=== PATIENT | male | born 1960 | race Caucasian/White ===

== ENCOUNTER 2016-05-05 17:08 | Inpatient (IN) ==
--- NOTE | 2016-05-05 17:40 | EKG Report ---
Stationary ECG Study [facility] ER Test Date: 05/05/2016 5:24:13 PM Pat Name: SAJI IBRAHIM Department: Room: Gender: M [employer] Technician: : 1960 Requested by: Vipul Farrar Order Number: [id number] Reading MD: BELIA CAO Intervals [place] Rate: 90 P: 80 KS: 186 QRS: -85 QRSD: 102 T: 76 QT: 339 QTc: 387 Interpretive Statements SINUS RHYTHM ABNORMAL LEFT AXIS DEVIATION SEPTAL INFARCT, AGE UNDETERMINED Electronically Signed On 05-08-16 12:37:23 CDT by BELIA CAO [email or web address]
[2016-05-05] MEDS ORDERED: ALBUTEROL/IPRATROPIUM 3 ML NEB RESP TX STA ×2 (18:38→19:55)
[2016-05-05 18:53] LABS: Basophils % 0.3 % (0.0-0.8); Eosinophils % 0.1 % (0.00-10.9); Hematocrit 43.1 VOL% (42.0-52.0); Immature Granulocytes % 0.3 %; Immature Granulocytes Absolute 0.02 #; Lymphocytes % 14.4 % (21.2-54.2); Mean Corpuscular HGB Conc 32.5 GM/DL (32-36); Mean Corpuscular Hemoglobin 33 PG (27-34); Mean Corpuscular Volume 102.1 FL (87-102); Mean Platelet Volume 11.9 FL (9.6-12.0); Monocytes # 1.3 10*3/uL (0.11-0.8); Monocytes % 19.1 % (1.7-12.7); Neutrophils # 4.6 10*3/uL (1.4-7.4); Neutrophils % 65.8 % (38.7-73.9); Platelet Count 138 T/CUMM (130-400); Red Blood Count 4.22 MC/CUMM (3.8-5.5)
--- NOTE | 2016-05-05 18:56 | Emergency Department Note ---
I, Gia Lopez, am scribing for, and in the presence of, Ellen Chi DO 18: 45. I, Ellen Chi DO, personally performed the services described in this documentation, ascribed by Gia Lopez in my presence, and it is both accurate and complete [id number] . Arrival - Arrival Chief Complaint: Non-Specific Stated Complaint: BP [place] out pain in right front belly ED Nursing Triage Note: Pt c/o low blood pressure today, cough, and right lower abd pain since Tuesday. Pt saw Dr Corrigan yesterday given Rocephin, Decadron, and Zpak. Mode of Arrival: Wheelchair Limitations: No Limitations Source: Patient, Significant other Time Seen by Provider: 05/05/16 18:29 - History of Present Illness HPI Narrative: Pt is a 55 y/o male that came to the ED with c/o low blood pressure that began this morning and cough and RLQ pain that began 4 days ago. Pt states he went to see Dr. Corrigan yesterday for cough and RLQ pain and was diagnosed with a " severe sinus infection" and treated with a shot of either rocephin or decadron, a zpak, and cough syrup. Pt reports he feels "crappy." He states his blood pressure bottomed out to 69/48 this morning and pt's states pt almost passed out and felt clammy. Pt reports he does take blood pressure medication. Pt states he is also having chest pain from coughing and straining. reports she thinks pt needs fluids due to "not going to the bathroom hardly at all and he takes a fluid pill daily." Pt states he did not take his cough syrup today. No other complaints/pain in ED. Onset (ago): day(s) Consistency: constant Severity: mild, moderate Severity scale (1-10): 4 Quality: other Allergies/Adverse Reactions: Allergies Allergy/AdvReac Type Severity Reaction Status Date / Time No Known Allergies Allergy Unverified 07/30/14 09:04 Home Medications: Home Medications Medication Instructions Recorded Confirmed Type Aspirin [Ecotrin] 325 mg PO QAM 07/30/14 05/05/16 History Carvedilol [Coreg] 25 mg PO BID 07/30/14 05/05/16 History Clopidogrel [Plavix] 75 mg PO QAM 07/30/14 05/05/16 History Losartan Potassium 50 mg PO QAM 07/30/14 05/05/16 History Magnesium Chloride [Slow Mag] 64 mg PO BID 07/30/14 05/05/16 History [place]-3/Dha/Epa/Fish Oil [Fish Oil 1 each PO BID 07/30/14 05/05/16 History 1,000 mg Softgel] Omeprazole 20 mg PO QAM 07/30/14 05/05/16 History Sertraline [Zoloft] 25 mg PO BEDTIME 07/30/14 05/05/16 History Simvastatin [Zocor] 40 mg PO BEDTIME 07/30/14 05/05/16 History Terazosin [Hytrin] 2 mg PO BEDTIME 07/30/14 05/05/16 History hydroCHLOROthiazide 12.5 mg PO QAM 07/30/14 05/05/16 History [Hydrochlorothiazide] Furosemide Tab [Lasix Tab] 20 mg PO QAM 05/05/16 05/05/16 History Spironolactone 12.5 mg PO QAM 05/05/16 05/05/16 History traZODone [Desyrel] 50 mg PO BEDTIME PRN 05/05/16 05/05/16 History Review of System - Review of System 12 point system: reviewed and no additional remarkable complaints except as stated - Review of System Constitutional: Present: other (blood pressure bottoming out). Absent: fever Respiratory: Present: cough Cardiovascular: Present: chest pain (chest pain from coughing and straining) Gastrointestinal: Present: abdominal pain (RLQ abdominal pain) Musculoskeletal: Absent: arm pain, back pain, leg pain, neck pain Skin: Absent: rash Neurological: Absent: headache Psychiatric: Absent: anxiety Medical,Surgical,& Family Hx - Medical History Cardio: History of: Hypertension Endocrine: History of: Dyslipidemia Gastrointestinal: History of: GERD - Surgical History Cardiac Surgeries: Sugical HX of: Cardiac Catheterization (stent x one) Orthopedic Surgeries: Surgical HX of;: Orthopedic Surgery (right elbow) - Social History Smoking Status: Former smoker Exam Vital Signs: Vital Signs Temperature 98.7 F 05/05/16 18:11 Pulse Rate 92 H 05/05/16 18:11 Respiratory Rate 20 05/05/16 18:13 Blood Pressure 109/59 05/05/16 18:11 O2 Sat by Pulse Oximetry 84 L 05/05/16 17:16 - General General appearance: alert, in no apparent distress, obese - Head Head exam: Present: atraumatic, normocephalic - Eye Eye exam: Present: PERRL, EOMI - ENT ENT exam: Present: mucous membranes moist, other (throat is erythematous; drainage present in throat). Absent: mucous membranes dry - Neck Neck exam: Present: full ROM. Absent: tenderness - Chest Chest inspection: Present: symmetric chest wall rise, tenderness (reproductive muscle tenderness) - Respiratory Respiratory exam: Present: rales (rales throughout) - Cardiovascular Cardiovascular exam: Present: regular rate, normal rhythm, normal heart sounds - Abdominal Exam Abdominal exam: Present: soft, distention. Absent: tenderness - Extremities Exam Extremities exam: Present: full ROM. Absent: tenderness, pedal edema - Back Exam Back exam: Present: full ROM. Absent: tenderness - Neurological Exam Neurological exam: Present: alert, oriented X3, CN II-XII intact. Absent: motor sensory deficit - Psychiatric Psychiatric exam: Present: normal affect, normal mood - Skin Skin exam: Present: warm, dry Results - Labs CBC & BMP: 05/05/16 18:22 05/05/16 18:22 Lab Results: I have reviewed the patients labs Labs: Microbiology 05/05/16 17:35 Nasal Aspirate Influenza Types A,B Antigen (YUSUF) - Final Positive for Influenza A Ag Negative for Influenza B Ag Laboratory Tests 05/05/16 18:22 MCV 102.1 H Lymph % (Auto) 14.4 L Williamson % (Auto) 19.1 H Lymph # (Auto) 1.0 L Williamson # (Auto) 1.3 H Laboratory Tests 05/05/16 18:22 Chloride 97 L Anion Gap 20.1 H BUN 51 H Creatinine 2.90 H Glucose 125 H Calcium 8.3 L Magnesium 1.5 L AST 431 H ALT 379 H Total Creatine Kinase 2259 H CK-MB (CK-2) 22.4 H Albumin 3.2 L Globulin 3.9 H Albumin/Globulin Ratio 0.8 L - Diagnostic Findings Procedure: Chest x-ray: report reviewed by me (Chronic scarring in the lungs with progressive minimal atelectasis/infiltration/edema at the lung bases. There are ill-defined densities are follow-up chest x-ray is recommended. ) Disposition Clinical Impression: Influenza A, Dehydration Case discussed with: patient, patient's family Disposition: Still a Patient Condition: Stable Time of Disposition: 19:56
--- NOTE | 2016-05-05 19:19 | XRay Report ---
XR chest 2V Date: 05/05/2016 5:37 PM History: Shortness of breath Comparison: 07/30/2014 Technique: PA and lateral chest Findings: The heart is at the upper lobes normal in size. Chronic scarring in the lungs with progressive parenchymal findings in the lower lung zones with ill-defined densities and minimal atelectasis. Stable small density in the lateral right mid lung zone. Degenerative changes are noted with stable mediastinum. Impression: Chronic scarring in the lungs with progressive minimal atelectasis/infiltration/edema at the lung bases . There are ill-defined densities and follow-up chest x-ray is recommended. PROCEDURE INTERPRETED AT [facility] DEPARTMENT OF RADIOLOGY Final Report Signed by: Dr. Paris Rosas
[2016-05-05 19:35] LABS: Albumin 3.2 G/DL (3.4-5.0); Bilirubin,Total 0.5 MG/DL (0.2-1.0); Calcium 8.3 MG/DL (8.5-10.1); Magnesium 1.5 MG/DL (1.8-2.4); Osmolality,Calculated 291.5 MOS/KG (273-304); Potassium 5.1 MMOL/L (3.5-5.1); Total Protein 7.1 G/DL (6.4-8.3); Troponin I Only 0.041 NG/ML (0.00-0.045)
[2016-05-05] MEDS ORDERED: SODIUM CHLORIDE 0.9% 1,000 ML IV STA (19:38)
[2016-05-05] MEDS ORDERED: HYDROcodone/CHLORPHENIRAMINE ER 5 ML UDCUP PO ONE ×2 (19:49→19:54)
[2016-05-05] MEDS ORDERED: ACETAMINOPHEN 325 MG TABLET PO PRN (20:05)
[2016-05-05] MEDS ORDERED: ONDANSETRON 4 MG/2 ML VIAL IV PRN (20:05)
[2016-05-05] MEDS ORDERED: OSELTAMIVIR 75 MG CAPSULE PO SCH (21:00)
[2016-05-05 21:09] LABS: Lymphocytes 15 % (20-55); Segmented Neutrophils 71 % (50-85); Total Cells Counted 100
[2016-05-05] MEDS ORDERED: traZODone 50 MG TABLET PO PRN (22:13)
--- NOTE | 2016-05-05 22:30 | Family Practice History&Phys ---
Assessment and Plan (1) Influenza A Status: Acute Assessment and plan: Have started on Tamiflu and will treat symptoms Current Visit: Yes (2) Dehydration Status: Acute Assessment and plan: We will hydrate well and monitor closely Current Visit: Yes (3) Renal insufficiency Status: Acute Assessment and plan: This is a new onset of renal insufficiency. Hopefully is secondary to volume depletion versus medication. We will consult nephrology Current Visit: Yes (4) Hypertension Status: Chronic Assessment and plan: Controlled on present meds Current Visit: Yes (5) Elevated liver enzymes Status: Acute Assessment and plan: I reviewed lab performed by 1 of the other physicians in clinic and he has SGOT and SGPT have been elevated for quite some time. I suspect this is secondary to fatty liver disease but will evaluate further Current Visit: Yes (6) Coronary artery disease with stent Status: Chronic Assessment and plan: Stable at present Current Visit: Yes (7) Obstructive sleep apnea Status: Chronic Assessment and plan: Stable on BiPAP Current Visit: Yes (8) Gastroesophageal reflux Status: Chronic Assessment and plan: Stable at present Current Visit: Yes (9) Obesity Status: Acute Current Visit: Yes (10) Previous deep vein thrombosis Status: Chronic Assessment and plan: Presently on Plavix stable at present Current Visit: Yes (11) Maxillary sinusitis Status: Acute Assessment and plan: We will start her on appropriate antibiotics Flonase and other medications. Will monitor closely Current Visit: Yes History of Present Illness Chief complaint: Influenza A and sinusitus History of present illness: Mr. Coles is a 55 year old male Pt is a 55 y/o male that came to the ED with c/o low blood pressure that began this morning and cough and RLQ pain that began 4 days ago. Pt states he went to see Dr. Corrigan yesterday for cough and RLQ pain and was diagnosed with a " severe sinus infection" and treated with a shot of either rocephin or decadron, a zpak, and cough syrup. Pt reports he feels "crappy." He states his blood pressure bottomed out to 69/48 this morning and pt's states pt almost passed out and felt clammy. Pt reports he does take blood pressure medication. Pt states he is also having chest pain from coughing and straining. reports she thinks pt needs fluids due to "not going to the bathroom hardly at all and he takes a fluid pill daily." Pt states he did not take his cough syrup today. No other complaints noted. Patient was noted to have elevated creatinine and liver function studies on admission. Will hydrate and recheck these labs in a.m. Home Medications Medication Instructions Recorded Confirmed Type Aspirin [Ecotrin] 325 mg PO QAM 07/30/14 05/05/16 History Carvedilol [Coreg] 25 mg PO BID 07/30/14 05/05/16 History Clopidogrel [Plavix] 75 mg PO QAM 07/30/14 05/05/16 History Losartan Potassium 50 mg PO QAM 07/30/14 05/05/16 History Magnesium Chloride [Slow Mag] 64 mg PO BID 07/30/14 05/05/16 History [place]-3/Dha/Epa/Fish Oil [Fish Oil 1 each PO BID 07/30/14 05/05/16 History 1,000 mg Softgel] Omeprazole 20 mg PO QAM 07/30/14 05/05/16 History Sertraline [Zoloft] 25 mg PO BEDTIME 07/30/14 05/05/16 History Simvastatin [Zocor] 40 mg PO BEDTIME 07/30/14 05/05/16 History Terazosin [Hytrin] 2 mg PO BEDTIME 07/30/14 05/05/16 History hydroCHLOROthiazide 12.5 mg PO QAM 07/30/14 05/05/16 History [Hydrochlorothiazide] Furosemide Tab [Lasix Tab] 20 mg PO QAM 05/05/16 05/05/16 History Spironolactone 12.5 mg PO QAM 05/05/16 05/05/16 History traZODone [Desyrel] 50 mg PO BEDTIME PRN 05/05/16 05/05/16 History Allergies Allergy/AdvReac Type Severity Reaction Status Date / Time No Known Allergies Allergy Unverified 07/30/14 09:04 Medical,Surgical,& Family Hx - Medical History Cardio: History of: CAD (Previous angioplasty and stents), Hypertension, MA ( History of previous non-STEMI) Psychological: History of: Anxiety Disorders Endocrine: History of: Dyslipidemia Respiratory: History of: Obstructive Sleep Apnea (USES BIPAP AT HOME) Renal: History of: Renal Failure Gastrointestinal: History of: GERD Hematology: History of: Clotting Problems (History of previous DVT) No history of: Blood Transfusion Reaction - Surgical History Cardiac Surgeries: Sugical HX of: Cardiac Catheterization (stent x one) Orthopedic Surgeries: Surgical HX of;: Orthopedic Surgery (right elbow) - Family History Family History: Reports;: Family Cancer (BROTHER LIVER AND KIDNEY CANCER), Family Diabetes, Family Heart Disease, Family Hypertension - Social History Smoking Status: Former smoker Frequency of Alcohol Use: None Type of Drug Use: None Marital Status: Lives With:: Spouse Functional capacity: independent ambulation Exam - Constitutional Vitals: Period Temp Pulse Resp BP Sys/Gasca Pulse Ox Last 24 Hr 98.9 F 87-88 22-26 115/61 89-98 General appearance: mild distress - Head Head exam: Present: normal inspection - ENT ENT exam: Present: normal exam - Neck Neck exam: Present: normal inspection - Respiratory Respiratory exam: Present: clear to auscultation bilaterally - Cardiovascular Cardiovascular exam: Present: regular rate and rhythm - GI/Abdominal GI/Abdominal exam: Present: normal bowel sounds, soft - Extremities Exam Extremities exam: Present: normal inspection - Neurological Exam Neurological exam: Present: alert, oriented X3 - Psychiatric Psychiatric exam: Present: normal affect, normal mood - Skin Skin exam: Present: normal color Results - Labs CBC & BMP: 05/06/16 06:12 05/06/16 06:12
[2016-05-05] MEDS: DOCUSATE SODIUM 100 MG CAPSULE PO SCH (22:40)
[2016-05-05] MEDS: ZALEPLON 5 MG CAPSULE PO PRN (22:40)
[2016-05-05] MEDS: CARVEDILOL 25 MG TABLET PO SCH (22:41)
[2016-05-05] MEDS: SERTRALINE 25 MG TABLET PO SCH (22:41)
[2016-05-05] MEDS: DEXTROSE 5% NACL 0.45% 1,000 ML IV SCH (22:41)
[2016-05-05 23:49] LABS: CKMB % 0.9 %; Troponin I Only 0.041 NG/ML (0.00-0.045)
[2016-05-06] MEDS: ALBUTEROL/IPRATROPIUM 3 ML NEB RESP TX SCH ×4 (00:38→19:41)
[2016-05-06 06:49] LABS: Basophils % 0.6 % (0.0-0.8); Eosinophils % 0.1 % (0.00-10.9); Hematocrit 42.2 VOL% (42.0-52.0); Hemoglobin 13.4 GM/DL (14.0-18.0); Immature Granulocytes % 0.3 %; Immature Granulocytes Absolute 0.02 #; Lymphocytes # 1.9 10*3/uL (1.4-4.0); Lymphocytes % 27.4 % (21.2-54.2); Mean Corpuscular HGB Conc 31.8 GM/DL (32-36); Mean Corpuscular Hemoglobin 34 PG (27-34); Mean Corpuscular Volume 105.5 FL (87-102); Mean Platelet Volume 11.5 FL (9.6-12.0); Monocytes # 1.4 10*3/uL (0.11-0.8); Monocytes % 20.4 % (1.7-12.7); Neutrophils # 3.6 10*3/uL (1.4-7.4); Neutrophils % 51.2 % (38.7-73.9); Platelet Count 138 T/CUMM (130-400)
[2016-05-06] MEDS: DEXTROSE 5% NACL 0.45% 1,000 ML IV SCH (06:52)
[2016-05-06 07:12] LABS: Band Neutrophils 1 % (0-10); Hypochromasia Slight; Lymphocytes 20 % (20-55); Platelet Estimate Normal; Segmented Neutrophils 61 % (50-85); Total Cells Counted 100
[2016-05-06 07:23] LABS: Magnesium 1.7 MG/DL (1.8-2.4)
[2016-05-06 07:25] LABS: Albumin 3.1 G/DL (3.4-5.0); Bilirubin,Total 1.1 MG/DL (0.2-1.0); Osmolality,Calculated 303.1 MOS/KG (273-304); Potassium 5.3 MMOL/L (3.5-5.1); Total Protein 6.6 G/DL (6.4-8.3)
[2016-05-06 07:38] LABS: CKMB % 0.8 %; Troponin I Only 0.044 NG/ML (0.00-0.045)
--- NOTE | 2016-05-06 08:44 | Family Practice Progress Note ---
Family Practice - PN: Subj Interval history: Patient states that he feels better this a.m. but still feels very weak with some dyspnea. Moderate cough. His lung amato are clear to auscultation chest x-ray reveals possible atelectasis versus edema. Denies any chest pain or other related complaints. He had a significant maxillary sinusitis when seen in clinic on Tuesday with significant air-fluid levels.. Has known coronary disease with stents followed by Dr. Rodríguez. His blood pressures have been decreased since admission and I held a.m. blood pressure medications. His O2 sats in the low 90s on 3 L. His weight is up significantly not sure if this is an accurate reading. Patient had temperature 101 this a.m. but afebrile at present. Patient was noted to have new onset of renal insufficiency. His previous creatinine in July 2015 was normal. Hopefully this is multifactorial secondary to medicines and possibly volume depletion. I have held the Spironolactone and losartan and will consult renal. I have ordered a number of additional studies. Have ordered a VQ lung scan patient is on therapeutic dose of Plavix. His cardiac enzymes were elevated on admission but troponins have remained normal. Not sure of the etiology of his testing aware of its multifactorial from volume overload versus other etiology. Will repeat chest x- ray and BNP this a.m. also order a VQ lung scan. Dr. Rodríguez normally sees him for cardiology so will ask him to evaluate. Overall there are multiple factors involved with his present symptomatology. Discussed in detail with patient and . We will monitor closely and repeat abnormal labs. His liver enzymes are slightly elevated but reviewing previous cardiology labs they were very similar values on his labs in September 2015. I suspect this is fatty liver disease but will order additional studies. Exam (Progress Note) - Constitutional Vitals: Period Temp Pulse Resp BP Sys/Gasca Pulse Ox Last 24 Hr 97.8 F-101.2 F 77-88 20-28 88-115/50-65 88-98 Results - Labs CBC & BMP: 05/06/16 06:12 05/06/16 06:12 Assessment and Plan (1) Influenza A Status: Acute Assessment and plan: Have started on Tamiflu and will treat symptoms Current Visit: Yes (2) Dehydration Status: Acute Assessment and plan: We will hydrate well and monitor closely Current Visit: Yes (3) Renal insufficiency Status: Acute Assessment and plan: This is a new onset of renal insufficiency. Hopefully is secondary to volume depletion versus medication. We will consult nephrology Current Visit: Yes (4) Hypertension Status: Chronic Assessment and plan: Controlled on present meds Current Visit: Yes (5) Elevated liver enzymes Status: Acute Assessment and plan: I reviewed lab performed by 1 of the other physicians in clinic and he has SGOT and SGPT have been elevated for quite some time. I suspect this is secondary to fatty liver disease but will evaluate further Current Visit: Yes (6) Coronary artery disease with stent Status: Chronic Assessment and plan: Stable at present Current Visit: Yes (7) Obstructive sleep apnea Status: Chronic Assessment and plan: Stable on BiPAP Current Visit: Yes (8) Gastroesophageal reflux Status: Chronic Assessment and plan: Stable at present Current Visit: Yes (9) Obesity Status: Acute Current Visit: Yes (10) Previous deep vein thrombosis Status: Chronic Assessment and plan: Presently on Plavix stable at present Current Visit: Yes (11) Maxillary sinusitis Status: Acute Assessment and plan: We will start her on appropriate antibiotics Flonase and other medications. Will monitor closely Current Visit: Yes
[2016-05-06] MEDS ORDERED: SPIRONOLACTONE 25 MG TABLET PO SCH (09:00)
[2016-05-06] MEDS ORDERED: FUROSEMIDE 20 MG TABLET PO ONE (09:00)
[2016-05-06] MEDS ORDERED: LOSARTAN 50 MG TABLET PO SCH (09:00)
[2016-05-06] MEDS ORDERED: hydroCHLOROthiazide 12.5 MG CAPSULE PO SCH (09:00)
[2016-05-06] MEDS ORDERED: FUROSEMIDE 20 MG TABLET PO SCH ×2 (09:00)
--- NOTE | 2016-05-06 09:26 | XRay Report ---
Exam: XR chest 2V Indication: Shortness of breath Comparison study: 05/05/2016 Findings: The heart, mediastinum and bony structures are stable from prior. Partial clearing of patchy perihilar and basilar interstitial opacities are noted since prior study. Minimal peribronchial thickening is suggested in the infrahilar region on the lateral view. There is no focal consolidation, pneumothorax or pleural effusion identified. Impression: No focal consolidation. Partial clearing of basilar interstitial opacities may represent resolving atelectasis or interstitial infiltrates. Minimal residual peribronchial thickening may represent a degree of underlying bronchitis. PROCEDURE INTERPRETED AT [facility] DEPARTMENT OF RADIOLOGY Final Report Signed by: Doyle Christianson
--- NOTE | 2016-05-06 09:26 | XRay Report ---
XR sinus Clinical Information: maxillary sinusitis Comparison: None Findings: Paranasal sinuses appear clear. There is no suspicious osseous or soft tissue lesion identified. Impression: Negative study PROCEDURE INTERPRETED AT [facility] DEPARTMENT OF RADIOLOGY Final Report Signed by: Doyle Christianson
[2016-05-06 10:00] LABS: Hepatitis A Ab IgM Quant 0.22 Index; Hepatitis A Ab IgM Result Negative (Negative); Hepatitis B Core IgM Quant 0.18 Index; Hepatitis B Core IgM Result Negative (Negative); Hepatitis B Surface Ag Quant < 0.10 Index; Hepatitis B Surface Ag Result Negative (Negative); Hepatitis C Virus Ab Quant 0.15 Index; Hepatitis C Virus Ab Result Negative (Negative)
[2016-05-06] MEDS: FLUTICASONE 50 MCG NASAL SPRAY 16 GM BOTTLE BOTH NARES SCH (10:20)
[2016-05-06] MEDS: OSELTAMIVIR 30 MG CAPSULE PO SCH ×2 (10:20→21:01)
[2016-05-06] MEDS: MAGNESIUM CHLORIDE 64 MG TABLET PO SCH ×2 (10:20→21:02)
[2016-05-06] MEDS: DOCUSATE SODIUM 100 MG CAPSULE PO SCH ×3 (10:21→21:03)
[2016-05-06] MEDS: CARVEDILOL 25 MG TABLET PO SCH ×2 (10:21→10:29)
[2016-05-06] MEDS: CLOPIDOGREL 75 MG TABLET PO SCH ×2 (10:21→10:28)
[2016-05-06] MEDS: PANTOPRAZOLE 40 MG TABLET PO SCH (10:21)
[2016-05-06] MEDS: OMEGA 3 ACID ETHYL ESTERS 1 GM CAPSULE PO SCH ×2 (10:22→21:02)
[2016-05-06] MEDS: PSEUDOEPHEDRINE 30 MG TABLET PO PRN ×2 (10:22→21:01)
--- NOTE | 2016-05-06 10:22 | Nuclear Medicine Report ---
History: Acute shortness of breath Date: 05/06/2016 Study: Nuclear medicine ventilation/perfusion lung study Comparison exam: Chest x-ray 05/06/2016 Following the inhalation of 40 mCi of aerosolized technetium 99m DTPA, images were obtained of the lungs in 6 projections for the purpose of a ventilation study. Then, following the administration of 5 mCi technetium 99m MAA, images were acquired of the lungs in the same projections for the purpose of a perfusion exam. There are no unmatched moderate or large segmental perfusion defects within either lung. There are numerous matched areas of decreased ventilation and perfusion of varying sizes involving all lobes of both lungs. In general, the ventilation abnormalities are more numerous and are larger than the perfusion abnormalities. There are no corresponding radiographic infiltrates on the comparison chest x-ray. Impression: The study is abnormal, but is considered low probability for pulmonary embolic disease. Numerous matched areas of ventilation and perfusion are identified such as those which can be seen with COPD PROCEDURE INTERPRETED AT [facility] DEPARTMENT OF RADIOLOGY Final Report Signed by: Dr. Katty Melo
[2016-05-06] MEDS: LEVOFLOXACIN INJ 500 MG in PREMIX 1 EACH IV SCH (10:23)
--- NOTE | 2016-05-06 10:40 | Ultrasound Report ---
History: Elevated liver enzymes Date: 05/06/2016 Study: Abdominal ultrasound complete Comparison exam: October 20, 2007 Real-time ultrasound images are captured and archived. The liver measures mildly elongated at 18 cm. There are some mildly increased echoes throughout the hepatic parenchyma, suggesting some diffuse fatty infiltration. There is no focal hepatic mass. Portions of the liver are obscured by bowel gas. The abdominal aorta, IVC, and pancreas are largely obscured by bowel gas. There is a negative sonographic Bonilla sign. The gallbladder wall measures mildly thickened at 4.9 mm. There is no cholelithiasis or abnormal pericholecystic fluid. There is a negative sonographic Bonilla sign. The common bile duct measures 7.4 mm diameter. There is no intrahepatic biliary dilatation. The right kidney measures 13.6 cm length; left kidney measures 13.7 cm. The kidneys are normal in appearance. There is no splenic mass. The spleen is normal size, measuring 12.7 x 6.3 x 7.4 cm. Impression: Mild hepatomegaly. Hepatic steatosis. Nonspecific mild gallbladder wall thickening, though there is no evidence of cholelithiasis. There is a negative sonographic Bonilla sign. Some of the midline structures are obscured by bowel gas PROCEDURE INTERPRETED AT [facility] DEPARTMENT OF RADIOLOGY Final Report Signed by: Dr. Katty Melo
--- NOTE | 2016-05-06 11:54 | Nephrology Consult Note ---
History of Present Illness Chief complaint: ARF History of present illness: Mr. Coles is a 55 year old male admitted with a several day history of nonproductive cough and mild PERRY. He had symptomatic hypotension yesterday. He was noted to have renal insufficiency at the time of admission. This is new for him. He denies dysuria hematuria or obstructive symptoms. Home Medications Medication Instructions Recorded Confirmed Type Aspirin [Ecotrin] 325 mg PO QAM 07/30/14 05/05/16 History Carvedilol [Coreg] 25 mg PO BID 07/30/14 05/05/16 History Clopidogrel [Plavix] 75 mg PO QAM 07/30/14 05/05/16 History Losartan Potassium 50 mg PO QAM 07/30/14 05/05/16 History Magnesium Chloride [Slow Mag] 64 mg PO BID 07/30/14 05/05/16 History [place]-3/Dha/Epa/Fish Oil [Fish Oil 1 each PO BID 07/30/14 05/05/16 History 1,000 mg Softgel] Omeprazole 20 mg PO QAM 07/30/14 05/05/16 History Sertraline [Zoloft] 25 mg PO BEDTIME 07/30/14 05/05/16 History Simvastatin [Zocor] 40 mg PO BEDTIME 07/30/14 05/05/16 History Terazosin [Hytrin] 2 mg PO BEDTIME 07/30/14 05/05/16 History hydroCHLOROthiazide 12.5 mg PO QAM 07/30/14 05/05/16 History [Hydrochlorothiazide] Furosemide Tab [Lasix Tab] 20 mg PO QAM 05/05/16 05/05/16 History Spironolactone 12.5 mg PO QAM 05/05/16 05/05/16 History traZODone [Desyrel] 50 mg PO BEDTIME PRN 05/05/16 05/05/16 History Allergies Allergy/AdvReac Type Severity Reaction Status Date / Time No Known Allergies Allergy Unverified 07/30/14 09:04 Medical,Surgical,& Family Hx - Medical History Cardio: History of: CAD (Previous angioplasty and stents), Hypertension, [place] ( History of previous non-STEMI) Psychological: History of: Anxiety Disorders Endocrine: History of: Dyslipidemia Respiratory: History of: Obstructive Sleep Apnea (USES BIPAP AT HOME) Renal: History of: Renal Failure Gastrointestinal: History of: GERD Hematology: History of: Clotting Problems (History of previous DVT) No history of: Blood Transfusion Reaction - Surgical History Cardiac Surgeries: Sugical HX of: Cardiac Catheterization (stent x one) Orthopedic Surgeries: Surgical HX of;: Orthopedic Surgery (right elbow) - Family History Family History: Reports;: Family Cancer (BROTHER LIVER AND KIDNEY CANCER), Family Diabetes, Family Heart Disease, Family Hypertension - Social History Smoking Status: Former smoker Frequency of Alcohol Use: None Type of Drug Use: None Review of Systems Constitutional: fatigue, no chills Cardiovascular: dyspnea on exertion, no chest pain at rest, no chest pain with activity Respiratory: cough, dyspnea on exertion Gastrointestinal: abdominal pain, no diarrhea, no nausea Genitourinary: as per HPI Neurological: dizziness, no confusion Exam - Vital Signs Vital signs: Period Temp Pulse Resp BP Sys/[place] Pulse Ox Last 24 Hr 97.8 F-101.2 F 77-88 20-28 88-115/50-65 88-98 Exam: Gen.: Alert and oriented x3. ENT: Pupils equal round reactive to light. EOMs intact. Mucous membranes moist. Neck: Supple. No JVD or bruit. Cardiovascular: Regular rate and rhythm. No murmur rub or gallop Lungs: Mild expiratory wheezes in the right base otherwise clear Abdomen: Soft. Nontender. Positive bowel sounds. No organomegaly Extremities: No edema Results - Labs CBC & BMP: 05/06/16 06:12 05/06/16 06:12 Assessment and Plan (1) ARF (acute renal failure) Status: Acute Assessment and plan: 55-year-old man admitted with: * Influenza A. He has minimal wheezes in the right base. Chest x-ray looks like atelectasis as opposed to volume excess. * Hypertension. Blood pressure meds will be held * ARF. This is secondary to hypotension and mild volume depletion. ARB is contributing. It has been held. Renal ultrasound normal * CAD * Obstructive sleep apnea * Elevated LFTs. Ultrasound shows mild hepatomegaly Current Visit: Yes (2) Elevated liver enzymes Status: Acute Current Visit: Yes (3) Influenza A Status: Acute Current Visit: Yes (4) Coronary artery disease with stent Status: Chronic Current Visit: Yes (5) Hypertension Status: Chronic Current Visit: Yes (6) Obstructive sleep apnea Status: Chronic Current Visit: Yes
[2016-05-06 14:04] LABS: Apearance,Urine CLEAR (Clear); Bilirubin,Urine Negative (Negative); Blood, Urine Moderate mg/dL (Negative); Glucose,Urine (UA) Negative (Negative); Ketones,Urine Negative (Negative); Mucus,Urine Occasional /LPF (Occasional); Nitrite,Urine Negative (Negative); Protein,Urine Negative; RBC,Urine 8 /HPF (0-4); Squamous Epithelial Cell,Urine Occasional /HPF (0-10); Urine Color Yellow (Yellow); Urine Specific Gravity 1.011 (1.001-1.035); Urine Urobilinogen < 2.0 EU/DL (0.2-1.0); WBC,Urine 1 /HPF (0-6)
[2016-05-06] MEDS: MAGNESIUM SULF IV SCH ×2 (16:27→23:13)
[2016-05-06] MEDS: DEXTROSE 5% IV SCH ×2 (16:27→23:13)
[2016-05-06] MEDS: NACL 0.45% IV SCH ×2 (16:27→23:13)
--- NOTE | 2016-05-06 17:07 | Cardiology Consult Note ---
Ryan Collins April, RN, am scribing for, and in the presence of, Lance Hamlin MD 17:06. Assessment and Plan - Time spent with patient Time spent with patient: Greater than 30 minutes (Due to assessment, planning, and documentation) (1) Coronary artery disease with stent Status: Chronic Assessment and plan: 1. 55-year-old overweight WF with previous hypertension, dyslipidemia EDA on BiPAP, and CAD status post proximal LAD stenting in 2006 (no obstructive disease at catheterization February 2014), who presents with fever oh (101.3 this morning), hypotension, cough, suggestive of flu with dehydration 2. Prerenal azotemia, improved some with IV fluid; renal service is following 3. Elevated CPK and liver function tests are noted 4. Previously normal LV systolic function 5. Do not suspect cardiac etiology to his symptoms; his dyspnea seems to improve. 6. We'll follow with you Current Visit: Yes (2) Elevated liver enzymes Status: Acute Current Visit: Yes (3) Influenza A Status: Acute Current Visit: Yes (4) Hypertension Status: Chronic Current Visit: Yes (5) Obstructive sleep apnea Status: Chronic Current Visit: Yes History of Present Illness - Data of Consult Patient: known to practice within the last 3 years Consult date: 05/06/16 Requesting Physician: Jigar Corrigan - Consult Narrative Reason for consult: Dyspnea with known coronary artery disease History of present illness: Mr. Coles is a 55 year old male who is followed by Dr. downing with a history of hypertension, obstructive sleep apnea (uses BiPAP nightly), gastroesophageal reflux disease, dyslipidemia, and coronary artery disease. His chart notes a history of DVT, but the patient tells me he does not remember having blood clots. He had a heart cath in November 2006 where the proximal LAD was stented. He also had a heart catheter in February 2014 that showed no significant obstructive disease and minimal luminal irregularities. A small eccentric ulcer was noted in the proximal right coronary artery, this was of uncertain significance. Denies any other surgeries except elbow. Family history includes mother with hypertension, heart disease, and stroke; father with diabetes, heart disease, and hypertension; sister with heart disease and hypertension; and brother with heart disease, hypertension, and cancer. He reports he is quit smoking approximately 2 years ago. He states he was in his usual state of health until this past Tuesday. They were out of town and he developed a dry cough and did not feel well. He saw his primary doctor on Tuesday and was given some medications, but on Tuesday he began to feel worse. On Tuesday the coughing continued, he began to experience dizziness and clamminess, and his blood pressure dropped to 77/48 according to the patient. He reports having dyspnea on exertion, but states it is no worse than usual. He denies having any chest pain with these episodes. He does have a sore throat and sinus congestion and has been feeling weak and fatigued. He also complains of right lower quadrant abdominal pain that began several days ago. We have been asked to see the patient for dyspnea with known coronary artery disease. Currently patient is lying in bed in no acute distress, BiPAP is in use. He denies chest pain or palpitations, he reports his breathing is improved. Blood pressures running 90/50, morning blood pressure medicines have been held. Telemetry shows sinus rhythm with heart rates in the 70s. Troponin has been negative since admission, ranging from 0.041-0.038. His CK has been elevated greater than 2000 and CK-MB was 22.4 on admission and today it is down to 16.9. His liver enzymes are also elevated. Of note he did test positive for the flu. CC: Jigar Corrigan, DO - Home Medications and Allergies Home Medications: Home Medications Medication Instructions Recorded Confirmed Type Aspirin [Ecotrin] 325 mg PO QAM 07/30/14 05/05/16 History Carvedilol [Coreg] 25 mg PO BID 07/30/14 05/05/16 History Clopidogrel [Plavix] 75 mg PO QAM 07/30/14 05/05/16 History Losartan Potassium 50 mg PO QAM 07/30/14 05/05/16 History Magnesium Chloride [Slow Mag] 64 mg PO BID 07/30/14 05/05/16 History [place]-3/Dha/Epa/Fish Oil [Fish Oil 1 each PO BID 07/30/14 05/05/16 History 1,000 mg Softgel] Omeprazole 20 mg PO QAM 07/30/14 05/05/16 History Sertraline [Zoloft] 25 mg PO BEDTIME 07/30/14 05/05/16 History Simvastatin [Zocor] 40 mg PO BEDTIME 07/30/14 05/05/16 History Terazosin [Hytrin] 2 mg PO BEDTIME 07/30/14 05/05/16 History hydroCHLOROthiazide 12.5 mg PO QAM 07/30/14 05/05/16 History [Hydrochlorothiazide] Furosemide Tab [Lasix Tab] 20 mg PO QAM 05/05/16 05/05/16 History Spironolactone 12.5 mg PO QAM 05/05/16 05/05/16 History traZODone [Desyrel] 50 mg PO BEDTIME PRN 05/05/16 05/05/16 History Allergies/Adverse Reactions: Allergies Allergy/AdvReac Type Severity Reaction Status Date / Time No Known Allergies Allergy Unverified 07/30/14 09:04 - Constitutional Constitutional: Present: as per HPI - EENT Eyes: Absent: blurry vision, loss of vision Ears: Absent: decreased hearing, tinnitus Nose, mouth and throat: Present: nasal congestion, sinus pressure, sore throat. Absent: epistaxis, headache(s), hoarseness, neck pain - Cardiovascular Cardiovascular: Present: dyspnea on exertion, lightheadedness, orthopnea. Absent: chest pain at rest, chest pain with activity, diaphoresis, dyspnea, edema, radiating jaw, neck or arm pain, palpitations - Respiratory Respiratory: Present: cough (Dry), dyspnea on exertion. Absent: dyspnea, hemoptysis, wheezing - Gastrointestinal Gastrointestinal: Present: abdominal pain (Right lower quadrant). Absent: constipation, diarrhea, hematemesis, hematochezia, melena, nausea, vomiting - Genitourinary Genitourinary: Absent: difficulty urinating, dysuria - Musculoskeletal Musculoskeletal: Present: limited range of motion. Absent: muscle weakness - Neurological Neurological: Present: dizziness. Absent: abnormal gait, abnormal speech, confusion, frequent falls, headache(s), syncope - Psychiatric Psychiatric: Absent: confusion, depression - Endocrine Endocrine: Present: fatigue - Hematologic/Lymphatic Hematologic/Lymphatic: Present: easy bruising (Since starting on Plavix) Medical,Surgical,& Family Hx - Medical History Cardio: History of: CAD (Previous angioplasty and stent in 2006), Hypertension, [place] (History of previous non-STEMI) Psychological: History of: Anxiety Disorders Endocrine: History of: Dyslipidemia Respiratory: History of: Obstructive Sleep Apnea (USES BIPAP AT HOME) Renal: History of: Renal Failure Gastrointestinal: History of: GERD Hematology: History of: Clotting Problems (History of previous DVT) - Surgical History Cardiac Surgeries: Sugical HX of: Cardiac Catheterization (stent x one) Orthopedic Surgeries: Surgical HX of;: Orthopedic Surgery (right elbow) - Family History Family History: Reports;: Family Cancer (BROTHER LIVER AND KIDNEY CANCER), Family Diabetes (Father), Family Heart Disease (Mother father siblings), Family Hypertension (Mother father sibling), Family Stroke (Mother) - Social History Smoking Status: Former smoker (Reports he quit approximately 2 years ago) Frequency of Alcohol Use: Occasionally Type of Drug Use: None Functional capacity: independent ambulation Physical Examination Vital Signs Temp Pulse Resp BP Pulse Ox 98.7 F 92 H 26 H 109/59 84 L 05/05/16 17:16 05/05/16 17:16 05/05/16 17:16 05/05/16 17:16 05/05/16 17:16 General: Present: Appears Well, No Apparent Distress HEENT: Present: PERRL, Mucus Membranes Moist Neck: Present: Supple Neck, Midline Trachea, No JVD/HJR Cardiac: Present: Reg Rate and Rhythm, No Murmur Lungs: Present: Normal Breath Sounds, Oxygen (BiPAP), No Wheeze, Rales, Rhonchi Neuro: Absent: Numbness, Essential Tremor Abdomen: Present: Soft, Active Bowel Sounds, Tender (Right lower quadrant). Absent: Distended Skin: Present: Clear Musculoskeletal: Present: Decreased Range of Motion (The) Extremities: Present: No Edema Result/EKG - Labs CBC & BMP: 05/06/16 06:12 05/06/16 06:12 Lab Results: I have reviewed the past 24 hour labs Labs: Laboratory Results - last 24 hr 05/05/16 05/06/16 05/06/16 22:46 06:06 06:12 WBC 7.0 RBC 4.00 Hgb 13.4 L Hct 42.2 MCV 105.5 H MCH 34 MCHC 31.8 L RDW 13.0 Plt Count 138 MPV 11.5 Neut % (Auto) 51.2 Lymph % (Auto) 27.4 [place] % (Auto) 20.4 H Eos % (Auto) 0.1 Baso % (Auto) 0.6 Neut # (Auto) 3.6 Lymph # (Auto) 1.9 [place] # (Auto) 1.4 H Eos # (Auto) 0.0 Baso # (Auto) 0.0 Total Counted 100 Immature Gran % 0.3 Nucleated RBC % 0.0 Immature Gran # 0.02 Segmented Neutrophils 61 Band Neutrophils 1 Lymphocytes 20 Monocytes 17 H Basophils 1.0 H Nucleated RBCs # 0.00 Platelet Estimate Normal Hypochromasia Slight Morphology Comment Sodium Potassium Chloride Carbon Dioxide Anion Gap BUN Creatinine GFR Calculation BUN/Creatinine Ratio Glucose Calculated Osmolality Calcium Magnesium Total Bilirubin AST ALT Alkaline Phosphatase Total Creatine Kinase 2123 H CK-MB (CK-2) 19.8 H CK and CKMB Interp 0.9 Troponin I 0.041 B-Natriuretic Peptide Total Protein Albumin Globulin Albumin/Globulin Ratio Triglycerides Cholesterol LDL Cholesterol VLDL Cholesterol HDL Cholesterol Heart Disease Risk Ratio Hepatitis A IgM Ab Negative Hep Bs Antigen Negative Hep B Core IgM Ab Negative Hepatitis C Antibody Negative 05/06/16 05/06/16 05/06/16 06:12 06:12 06:12 WBC RBC Hgb Hct MCV MCH MCHC RDW Plt Count MPV Neut % (Auto) Lymph % (Auto) [place] % (Auto) Eos % (Auto) Baso % (Auto) Neut # (Auto) Lymph # (Auto) [place] # (Auto) Eos # (Auto) Baso # (Auto) Total Counted Immature Gran % Nucleated RBC % Immature Gran # Segmented Neutrophils Band Neutrophils Lymphocytes Monocytes Basophils Nucleated RBCs # Platelet Estimate Hypochromasia Morphology Comment Sodium 142 Potassium 5.3 H Chloride 99 Carbon Dioxide 31 Anion Gap 17.3 H BUN 57 H Creatinine 2.30 H GFR Calculation 44 BUN/Creatinine Ratio 24.00 H Glucose 193 H Calculated Osmolality 303.1 Calcium 8.0 L Magnesium 1.7 L Total Bilirubin 1.10 H AST 349 H ALT 322 H Alkaline Phosphatase 73 Total Creatine Kinase 2077 H CK-MB (CK-2) 16.9 H CK and CKMB Interp 0.8 Troponin I 0.044 B-Natriuretic Peptide Total Protein 6.6 Albumin 3.1 L Globulin 3.5 Albumin/Globulin Ratio 0.8 L Triglycerides 205 H Cholesterol 135 LDL Cholesterol 70.0 VLDL Cholesterol 41.0 HDL Cholesterol 45 Heart Disease Risk Ratio 3.00 Hepatitis A IgM Ab Hep Bs Antigen Hep B Core IgM Ab Hepatitis C Antibody 05/06/16 05/06/16 08:42 08:42 WBC RBC Hgb Hct MCV MCH MCHC RDW Plt Count MPV Neut % (Auto) Lymph % (Auto) [place] % (Auto) Eos % (Auto) Baso % (Auto) Neut # (Auto) Lymph # (Auto) [place] # (Auto) Eos # (Auto) Baso # (Auto) Total Counted Immature Gran % Nucleated RBC % Immature Gran # Segmented Neutrophils Band Neutrophils Lymphocytes Monocytes Basophils Nucleated RBCs # Platelet Estimate Hypochromasia Morphology Comment Sodium Potassium Chloride Carbon Dioxide Anion Gap BUN Creatinine GFR Calculation BUN/Creatinine Ratio Glucose Calculated Osmolality Calcium Magnesium Total Bilirubin AST ALT Alkaline Phosphatase Total Creatine Kinase CK-MB (CK-2) CK and CKMB Interp Troponin I 0.038 B-Natriuretic Peptide 29 Total Protein Albumin Globulin Albumin/Globulin Ratio Triglycerides Cholesterol LDL Cholesterol VLDL Cholesterol HDL Cholesterol Heart Disease Risk Ratio Hepatitis A IgM Ab Hep Bs Antigen Hep B Core IgM Ab Hepatitis C Antibody - EKG EKG results: interpreted by me EKG shows: sinus rhythm Boubacar Collins Randall Scott, MD, personally performed the services described in this documentation, ascribed by Filomena Davis RN in my presence, and it is both accurate and complete [id number] .
[2016-05-06] MEDS: TERAZOSIN 2 MG CAPSULE PO SCH ×2 (21:01→21:13)
[2016-05-06] MEDS: ZALEPLON 5 MG CAPSULE PO PRN (21:01)
[2016-05-06] MEDS: SIMVASTATIN 40 MG TABLET PO SCH (21:02)
[2016-05-06] MEDS: SERTRALINE 25 MG TABLET PO SCH (21:02)
[2016-05-07] MEDS: ALBUTEROL/IPRATROPIUM 3 ML NEB RESP TX SCH ×4 (03:45→19:50)
[2016-05-07 05:53] LABS: Basophils % 0.5 % (0.0-0.8); Eosinophils % 0.8 % (0.00-10.9); Hemoglobin 13.1 GM/DL (14.0-18.0); Immature Granulocytes % 0.5 %; Immature Granulocytes Absolute 0.02 #; Lymphocytes # 1.4 10*3/uL (1.4-4.0); Lymphocytes % 35.5 % (21.2-54.2); Mean Corpuscular Hemoglobin 33 PG (27-34); Mean Corpuscular Volume 103.8 FL (87-102); Mean Platelet Volume 11.7 FL (9.6-12.0); Monocytes # 0.9 10*3/uL (0.11-0.8); Monocytes % 22.2 % (1.7-12.7); Neutrophils # 1.6 10*3/uL (1.4-7.4); Neutrophils % 40.5 % (38.7-73.9); Platelet Count 106 T/CUMM (130-400); Red Blood Count 3.95 MC/CUMM (3.8-5.5); Red Cell Distribution Width 12.8 % (9.3-17.3); White Blood Count 3.8 T/CUMM (4-12)
[2016-05-07 06:33] LABS: Band Neutrophils 5 % (0-10); Hypochromasia 1+; Lymphocytes 29 % (20-55); Platelet Estimate Decreased; Segmented Neutrophils 46 % (50-85); Total Cells Counted 100
[2016-05-07 06:39] LABS: Bilirubin,Total 0.9 MG/DL (0.2-1.0); Calcium 8.2 MG/DL (8.5-10.1); Osmolality,Calculated 291.3 MOS/KG (273-304); Potassium 4.1 MMOL/L (3.5-5.1); Total Protein 6.1 G/DL (6.4-8.3)
--- NOTE | 2016-05-07 08:07 | Family Practice Progress Note ---
Family Practice - PN: Subj Interval history: Patient was admitted with severe weakness cough fever and hypotension.. He was found to have influenza A. He has had some sinusitis and bronchospasm.. His initial lab studies revealed a creatinine of 2.9 with elevated liver enzymes. His creatinine this a.m. is 1.1 which is back to baseline. His AST and a LT have improved slightly elevated at present. Reviewing his records from our cardiology on his last lab in September is AST and ALT were also minimally elevated. He is hepatic ultrasound reveals some hepatomegaly with some steatosis. I suspect his slight elevation of liver enzymes secondary to fatty liver disease. His blood pressures have remained low and he have not started him back on his home blood pressure medication. If his blood pressures begin to rise and will probably substitute a beta harsha or calcium channel harsha. The losartan may have been part of his renal insufficiency. He is potassium was also elevated on admission. I held his Spironolactone also. That had been previously started by cardiology. We will restart the spironolactone and see if it has any negative effects on his renal status. Patient is still feeling weak with slight wheezing in bases. Will have patient increase activity and if continued improvement may be discharged when stable. Appearance-general alert and oriented HEENT-no acute changes Heart-regular rate and rhythm no murmurs Lungs-slight wheezing in bases Abdomen-soft and nontender Extremities-slight edema Neurological exam-stable to present Exam (Progress Note) - Constitutional Vitals: Period Temp Pulse Resp BP Sys/[place] Pulse Ox Last 24 Hr 97.4 F-98.7 F 60-83 18-26 88-108/50-63 88-98 Results - Labs CBC & BMP: 05/07/16 05:16 05/07/16 05:16 Assessment and Plan (1) Influenza A Status: Acute Assessment and plan: Have started on Tamiflu and will treat symptoms Current Visit: Yes (2) Dehydration Status: Acute Assessment and plan: We will hydrate well and monitor closely Current Visit: Yes (3) Renal insufficiency Status: Acute Assessment and plan: This is a new onset of renal insufficiency. Hopefully is secondary to volume depletion versus medication. We will consult nephrology Current Visit: Yes (4) Hypertension Status: Chronic Assessment and plan: Controlled on present meds Current Visit: Yes (5) Elevated liver enzymes Status: Acute Assessment and plan: I reviewed lab performed by 1 of the other physicians in clinic and he has SGOT and SGPT have been elevated for quite some time. I suspect this is secondary to fatty liver disease but will evaluate further Current Visit: Yes (6) Coronary artery disease with stent Status: Chronic Assessment and plan: Stable at present Current Visit: Yes (7) Obstructive sleep apnea Status: Chronic Assessment and plan: Stable on BiPAP Current Visit: Yes (8) Gastroesophageal reflux Status: Chronic Assessment and plan: Stable at present Current Visit: Yes (9) Obesity Status: Acute Current Visit: Yes (10) Previous deep vein thrombosis Status: Chronic Assessment and plan: Presently on Plavix stable at present Current Visit: Yes (11) Maxillary sinusitis Status: Acute Assessment and plan: We will start her on appropriate antibiotics Flonase and other medications. Will monitor closely Current Visit: Yes
[2016-05-07] MEDS ORDERED: MAGNESIUM CHLORIDE 64 MG TABLET PO ONE (08:09)
[2016-05-07] MEDS: LEVOFLOXACIN INJ 500 MG in PREMIX 1 EACH IV SCH (09:27)
[2016-05-07] MEDS: FLUTICASONE 50 MCG NASAL SPRAY 16 GM BOTTLE BOTH NARES SCH (09:32)
[2016-05-07] MEDS: SPIRONOLACTONE 25 MG TABLET PO SCH (09:32)
[2016-05-07] MEDS: PANTOPRAZOLE 40 MG TABLET PO SCH (09:33)
[2016-05-07] MEDS: OSELTAMIVIR 30 MG CAPSULE PO SCH ×2 (09:33→20:58)
[2016-05-07] MEDS: OMEGA 3 ACID ETHYL ESTERS 1 GM CAPSULE PO SCH ×2 (09:33→20:58)
[2016-05-07] MEDS: DOCUSATE SODIUM 100 MG CAPSULE PO SCH ×2 (09:33→20:58)
[2016-05-07] MEDS: CLOPIDOGREL 75 MG TABLET PO SCH (09:34)
[2016-05-07] MEDS: MAGNESIUM SULF IV SCH ×2 (11:00→22:02)
[2016-05-07] MEDS: NACL 0.45% IV SCH ×2 (11:00→22:02)
[2016-05-07] MEDS: DEXTROSE 5% IV SCH ×2 (11:00→22:02)
--- NOTE | 2016-05-07 14:23 | Nephrology Progress Note ---
Nephrology - PN: Subj Interval history: Cough has improved. No chest pain or shortness of breath. Exam (PN)-Nephrology - Vital Signs Vital signs: Period Temp Pulse Resp BP Sys/[place] Pulse Ox Last 24 Hr 97.4 F-98.7 F 72-83 18-20 108-127/50-68 88-96 Exam: ENT: Normal Cardiovascular: Regular rate and rhythm. No murmur rub or gallop Lungs: Clear Extremities: No edema - Lab 05/07/16 05:16 05/07/16 05:16 Most recent lab results Calcium 8.2 MG/DL (8.5-10.1) L 05/07/16 05:16 Magnesium 2.0 MG/DL (1.8-2.4) 05/07/16 05:16 Assessment and Plan (1) ARF (acute renal failure) Status: Acute Assessment and plan: 55-year-old man admitted with: * Influenza A. He has minimal wheezes in the right base. Chest x-ray looks like atelectasis as opposed to volume excess. * Hypertension. Blood pressure meds will be held * ARF. Resolved with change in medications and improvement in blood pressure. Avoid [place]/ARB in future. Please recall when necessary * CAD * Obstructive sleep apnea * Elevated LFTs. Ultrasound shows mild hepatomegaly Current Visit: Yes (2) Elevated liver enzymes Status: Acute Current Visit: Yes (3) Influenza A Status: Acute Current Visit: Yes (4) Coronary artery disease with stent Status: Chronic Current Visit: Yes (5) Hypertension Status: Chronic Current Visit: Yes (6) Obstructive sleep apnea Status: Chronic Current Visit: Yes
--- NOTE | 2016-05-07 14:28 | Cardiology Progress Note ---
Assessment and Plan (1) Coronary artery disease with stent Status: Chronic Assessment and plan: 1. 55-year-old overweight WF with previous hypertension, dyslipidemia EDA on BiPAP, and CAD status post proximal LAD stenting in 2006 (no obstructive disease at catheterization February 2014), who presents with fever oh (101.3 this morning), hypotension, cough, suggestive of flu with dehydration 2. Prerenal azotemia, improved some with IV fluid; renal service is following 3. Elevated CPK and liver function tests are noted 4. Previously normal LV systolic function 5. Do not suspect cardiac etiology to his symptoms; his dyspnea seems to improve. 6. We'll follow with you May 07 update: 1. Clinically much better with normalized renal function 2. No active cardiac problem, we'll sign off. 3. Keep follow-up with Dr. Rodríguez in the next month. Current Visit: Yes (2) Elevated liver enzymes Status: Acute Current Visit: Yes (3) Influenza A Status: Acute Current Visit: Yes (4) Hypertension Status: Chronic Current Visit: Yes (5) Obstructive sleep apnea Status: Chronic Current Visit: Yes Cardiology - PN: Subj Interval history: Mr. Coles is feeling much better. He is not having palpitations chest pain or significant shortness of breath. He is not having fever this morning. He has no new complaints. Exam (Progress Note) - Constitutional Vitals: Period Temp Pulse Resp BP Sys/[place] Pulse Ox Last 24 Hr 97.4 F-98.7 F 72-83 18-20 108-127/50-68 88-96 General appearance: no acute distress, over weight - Head Head exam: Present: normal inspection, normocephalic, atraumatic - Neck Neck exam: Present: normal inspection - Respiratory Respiratory exam: Absent: stridor, wheezes - Cardiovascular Cardiovascular exam: Present: regular rate and rhythm. Absent: diastolic murmur , rubs - GI/Abdominal GI/Abdominal exam: Present: soft. Absent: tenderness - Extremities Exam Extremities exam: Absent: edema Result/EKG - Labs CBC & BMP: 05/07/16 05:16 05/07/16 05:16 Labs: Laboratory Results - last 24 hr 05/07/16 05/07/16 05/07/16 05:16 05:16 05:16 WBC 3.8 L D RBC 3.95 Hgb 13.1 L Hct 41.0 L MCV 103.8 H MCH 33 MCHC 32.0 RDW 12.8 Plt Count 106 L D MPV 11.7 Neut % (Auto) 40.5 Lymph % (Auto) 35.5 [place] % (Auto) 22.2 H Eos % (Auto) 0.8 Baso % (Auto) 0.5 Neut # (Auto) 1.6 Lymph # (Auto) 1.4 [place] # (Auto) 0.9 H Eos # (Auto) 0.0 Baso # (Auto) 0.0 Total Counted 100 Immature Gran % 0.5 Nucleated RBC % 0.0 Immature Gran # 0.02 Segmented Neutrophils 46 L Band Neutrophils 5 Lymphocytes 29 Monocytes 20 H Nucleated RBCs # 0.00 Platelet Estimate Decreased Hypochromasia 1+ Sodium 141 Potassium 4.1 Chloride 100 Carbon Dioxide 33 H Anion Gap 12.1 BUN 33 H D Creatinine 1.10 GFR Calculation 108 BUN/Creatinine Ratio 30.00 H Glucose 169 H Calculated Osmolality 291.3 Calcium 8.2 L Magnesium 2.0 Total Bilirubin 0.90 AST 240 H ALT 249 H Alkaline Phosphatase 65 C-Reactive Protein 3.52 H Total Protein 6.1 L Albumin 3.0 L Globulin 3.1 Albumin/Globulin Ratio 0.9 L Vitamin B12 1063 H
[2016-05-07] MEDS: SIMVASTATIN 40 MG TABLET PO SCH (20:58)
[2016-05-07] MEDS: TERAZOSIN 2 MG CAPSULE PO SCH (20:58)
[2016-05-07] MEDS: SERTRALINE 25 MG TABLET PO SCH (20:58)
[2016-05-07] MEDS: ZALEPLON 5 MG CAPSULE PO PRN (21:03)
[2016-05-08] MEDS: ALBUTEROL/IPRATROPIUM 3 ML NEB RESP TX SCH ×2 (00:51→09:01)
[2016-05-08] MEDS: MAGNESIUM SULF IV SCH (05:54)
[2016-05-08] MEDS: DEXTROSE 5% IV SCH (05:54)
[2016-05-08] MEDS: NACL 0.45% IV SCH (05:54)
[2016-05-08 06:26] LABS: Basophils % 0.5 % (0.0-0.8); Eosinophils # 0.1 10*3/uL (0.0-0.87); Eosinophils % 2.1 % (0.00-10.9); Hematocrit 42.7 VOL% (42.0-52.0); Hemoglobin 13.9 GM/DL (14.0-18.0); Immature Granulocytes % 0.2 %; Immature Granulocytes Absolute 0.01 #; Lymphocytes # 1.7 10*3/uL (1.4-4.0); Lymphocytes % 39.9 % (21.2-54.2); Mean Corpuscular HGB Conc 32.6 GM/DL (32-36); Mean Corpuscular Hemoglobin 33 PG (27-34); Mean Corpuscular Volume 102.6 FL (87-102); Mean Platelet Volume 11.6 FL (9.6-12.0); Monocytes # 0.7 10*3/uL (0.11-0.8); Monocytes % 15.8 % (1.7-12.7); Neutrophils # 1.8 10*3/uL (1.4-7.4); Neutrophils % 41.5 % (38.7-73.9); Platelet Count 112 T/CUMM (130-400); Red Blood Count 4.16 MC/CUMM (3.8-5.5); Red Cell Distribution Width 12.7 % (9.3-17.3); White Blood Count 4.4 T/CUMM (4-12)
[2016-05-08 07:08] LABS: Calcium 8.6 MG/DL (8.5-10.1); Magnesium 2.2 MG/DL (1.8-2.4); Osmolality,Calculated 286.1 MOS/KG (273-304); Potassium 4.4 MMOL/L (3.5-5.1)
[2016-05-08 07:12] LABS: Albumin 3.1 G/DL (3.4-5.0); Bilirubin,Total 0.6 MG/DL (0.2-1.0); Calcium 8.6 MG/DL (8.5-10.1); Potassium 4.3 MMOL/L (3.5-5.1); Total Protein 6.6 G/DL (6.4-8.3)
[2016-05-08 07:22] LABS: Hypochromasia 1+
--- NOTE | 2016-05-08 07:57 | Discharge Summary ---
Hospital Course - Hospital Course Hospital Course: Patient seen this morning. He came in with fever chills and cough and weakness. He was found to have influenza A. Was admitted this past Tuesday with an elevated creatinine of 2.3. He was dehydrated at the time and has since been given fluids. He also has a history of elevated liver enzymes with a known etiology of fatty liver disease. If his cardiac ossicles were slightly but was seen by cardiology and this was felt to be of noncardiac origin. He has been improving slowly in the days states he feels like he is "baseline". He would like to go home, in fact insist on going home today. He is off his blood pressure medicines except for Hytrin and Aldactone and we will continue holding the remaining blood pressure medicines for now. His vital signs are stable and his in the room with him states that he is doing much better and thinks that he will be fine at home. The patient is very cognitive and answers all questions well and stable emotionally psychologically and feel like he will monitor his status closely. In addition we will have close follow-up. I told him he needs to watch his weight very carefully daily and also to avoid too much sodium in his diet he agreed to this. 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 Discharge Plan - Discharge Data Disposition: Disch To Home/Self Care Condition at Discharge: Stable Discharge Diet: advance to your usual diet, heart healthy, low salt diet Activity: resume usual activities as tolerated, increase activity as tolerated Hygiene: no restrictions Weight Bearing at Discharge: full weight bearing Driving: no restrictions Contact your physician if you experience:: Shortness of breath - Discharge Medications New Albuterol/Ipratropium Neb [Duoneb] 3 ml RESP TX RT Q6H Oseltamivir Cap (CrCl <60) [Tamiflu Cap] 30 mg PO BID #7 capsule Spironolactone [Aldactone] 25 mg PO DAILY #30 tablet Fluticasone 50 Mcg Nasal [place] [Flonase Nasal [place]] 2 spray BOTH NARES DAILY spray Continue Terazosin [Hytrin] 2 mg PO BEDTIME Simvastatin [Zocor] 40 mg PO BEDTIME Omeprazole 20 mg PO QAM Sertraline [Zoloft] 25 mg PO BEDTIME Magnesium Chloride [Slow Mag] 64 mg PO BID Clopidogrel [Plavix] 75 mg PO QAM Aspirin [Ecotrin] 325 mg PO QAM [place]-3/Dha/Epa/Fish Oil [Fish Oil 1,000 mg Softgel] 1 each PO BID Spironolactone 12.5 mg PO QAM traZODone [Desyrel] 50 mg PO BEDTIME PRN PRN Reason: Insomnia Discontinued Carvedilol [Coreg] 25 mg PO BID Losartan Potassium 50 mg PO QAM hydroCHLOROthiazide [Hydrochlorothiazide] 12.5 mg PO QAM Furosemide Tab [Lasix Tab] 20 mg PO QAM - Follow Up or Referral Follow Up: Jigar Corrigan DO [Physician] - 1 Week Cosme Rodríguez MD [Physician] - 1 Month - Forms/Instructions Exam - Constitutional Vitals: Period Temp Pulse Resp BP Sys/[place] Pulse Ox Last 24 Hr 96.1 F-98.0 F 60-76 17-22 107-125/64-76 92-98 Discharge Results Procedures and tests throughout hospitalization: Pending Orders 05/06/16 12:00 Urine Culture Routine Labs on day of discharge: Labs from last 24 hours 05/08/16 05/08/16 05/08/16 05:39 05:39 05:39 WBC 4.4 RBC 4.16 Hgb 13.9 L Hct 42.7 MCV 102.6 H MCH 33 MCHC 32.6 RDW 12.7 Plt Count 112 L MPV 11.6 Neut % (Auto) 41.5 Lymph % (Auto) 39.9 [place] % (Auto) 15.8 H Eos % (Auto) 2.1 Baso % (Auto) 0.5 Neut # (Auto) 1.8 Lymph # (Auto) 1.7 [place] # (Auto) 0.7 Eos # (Auto) 0.1 Baso # (Auto) 0.0 Immature Gran % 0.2 Nucleated RBC % 0.0 Immature Gran # 0.01 Nucleated RBCs # 0.00 Hypochromasia 1+ Sodium 142 143 Potassium 4.4 4.3 Chloride 102 102 Carbon Dioxide 33 H 31 Anion Gap 11.4 14.3 BUN 15 15 Creatinine 0.80 0.80 GFR Calculation 143 143 BUN/Creatinine Ratio 18.00 18.00 Glucose 160 H 161 H Calculated Osmolality 286.1 288.0 Calcium 8.6 8.6 Magnesium 2.2 Total Bilirubin 0.60 AST 182 H ALT 218 H Alkaline Phosphatase 66 Total Protein 6.6 Albumin 3.1 L Globulin 3.5 Albumin/Globulin Ratio 0.8 L 05/08/16 05:39 WBC RBC Hgb Hct MCV MCH MCHC RDW Plt Count MPV Neut % (Auto) Lymph % (Auto) [place] % (Auto) Eos % (Auto) Baso % (Auto) Neut # (Auto) Lymph # (Auto) [place] # (Auto) Eos # (Auto) Baso # (Auto) Immature Gran % Nucleated RBC % Immature Gran # Nucleated RBCs # Hypochromasia Sodium Potassium Chloride Carbon Dioxide Anion Gap BUN Creatinine GFR Calculation BUN/Creatinine Ratio Glucose Calculated Osmolality Calcium Magnesium 2.2 Total Bilirubin AST ALT Alkaline Phosphatase Total Protein Albumin Globulin Albumin/Globulin Ratio Preliminary micro results at discharge 05/06/16 12:00 Urine Culture - Preliminary Urine,Voided No Growth at 12 hours. 05/05/16 20:17 Blood Culture - Preliminary Blood No growth at 1 day DS: Provider Date of admission: 05/05/16 20:05 Primary care physician: . No PCP Attending physician on admission: Jigar Corrigan DO Consults: 05/06/16 08:23 Consult to Physician [CONS] Routine Comment: New onset renal insufficiency Consulting Provider: Lance Stephen When should Consulting Provider be notified: Now Person Notified: ADRIANNA Date Notified: 05/06/16 Time Notified: 08:39 05/06/16 08:32 Consult to Physician [CONS] Routine Comment: Dyspnea with known coronary artery disease Consulting Provider: Cardiology - [facility] Person Notified: MARIANN Date Notified: 05/06/16 Time Notified: 08:55 Discharging clinician: Ayo Santos DO
[2016-05-08] MEDS: LEVOFLOXACIN INJ 500 MG in PREMIX 1 EACH IV SCH (08:52)
[2016-05-08] MEDS: OSELTAMIVIR 30 MG CAPSULE PO SCH (08:56)
[2016-05-08] MEDS: PANTOPRAZOLE 40 MG TABLET PO SCH (08:57)
[2016-05-08] MEDS: SPIRONOLACTONE 25 MG TABLET PO SCH (08:57)
[2016-05-08] MEDS: DOCUSATE SODIUM 100 MG CAPSULE PO SCH (08:58)
[2016-05-08] MEDS: OMEGA 3 ACID ETHYL ESTERS 1 GM CAPSULE PO SCH (08:58)
[2016-05-08] MEDS: FLUTICASONE 50 MCG NASAL SPRAY 16 GM BOTTLE BOTH NARES SCH (08:59)
[2016-05-08] MEDS: CLOPIDOGREL 75 MG TABLET PO SCH (09:00)
[2016-05-08 21:04] VITALS: BP 124/69
--- NOTE | 2016-05-13 10:23 | Physician Query Form ---
CLICK EDIT DOCUMENT TO SELECT QUERY ANSWER --> OK --> SIGN Donita Jarvis RN Clinical Asphalt Paving Foreman W) [phone] (f) [phone] [email or web address] PROVIDERS: Make your selection(s) from the choices in EACH section by typing an "x" and enter comments in the comment section. Please use your independent medical judgment in providing your response. This request does not imply that any particular answer is desired or expected. CLINICAL INDICATORS: (Providers should not edit this section) Based on conflicting documentation of "Acute renal insufficiency" and "Acute renal failure" "ARB is contributing. It has been held" Creatinine from 2.9 to 1.10. GFR from 33 to 108. Treated with NS Bolus. Based on the above, could you clarify the appropriate diagnosis, if significant , that supports the above abnormalities and additional evaluation, monitoring, and/or treatment rendered: (X) Acute Renal Failure ( ) Acute Renal Insufficiency ( ) Other, please specify: ( ) Clinically unable to determine COMMENTS: Use of terms such as suspected, likely, or probable (associated with a specific diagnosis that is being evaluated, monitored, or treated as if it exists) are acceptable and can be restated in the discharge summary if not ruled out. MTDD
== END 2016-05-08 11:35 | disposition home or self-care (01) | DRG 866 ==
LOC: N.ED 17:08 → N.EDINP 20:05 → N.2E 20:41
PROVIDERS: ADMIT Family Medicine; ATTEND Family Medicine

== ENCOUNTER 2016-07-26 22:50 | Inpatient (IN) ==
[2016-07-27] MEDS ORDERED: SODIUM CHLORIDE 0.9% 500 ML IV STA (00:34)
[2016-07-27] MEDS ORDERED: ONDANSETRON 4 MG/2 ML VIAL IV STA (00:34)
[2016-07-27] MEDS ORDERED: HYDROmorphone 2 MG/1 ML VIAL IV STA (00:34)
[2016-07-27] MEDS ORDERED: KETOROLAC 30 MG/1 ML VIAL IV STA (00:34)
[2016-07-27] MEDS ORDERED: HYDROmorphone 2 MG/1 ML VIAL ONE (00:39)
[2016-07-27] MEDS ORDERED: KETOROLAC 30 MG/1 ML VIAL ONE (00:39)
[2016-07-27] MEDS ORDERED: ONDANSETRON 4 MG/2 ML VIAL ONE (00:39)
--- NOTE | 2016-07-27 00:43 | Emergency Department Note ---
Tom Collins Brittany, am scribing for, and in the presence of, Romero Fall MD 00:42. Eufemia Collins Charles R, MD, personally performed the services described in this documentation, ascribed by Dana Santos in my presence, and it is both accurate and complete . Arrival - Arrival Chief Complaint: Abdominal / Flank Pain Stated Complaint: severe right abd. pain ED Nursing Triage Note: to triage via wc with c/o sharp, stabbing left lower abd pain with nausea Mode of Arrival: Wheelchair Limitations: No Limitations Source: Patient, RN Notes Reviewed - History of Present Illness HPI Narrative: Patient is a 56 y/o white male presenting to the ED with c/o RLQ abdominal pain with an onset of earlier today. Patient reports that since initial onset pain has progressively gotten worse in severity. He describes pain as a severe, sharp pain located in the RLQ. He denies having any associated back pain but on exam he has obvious right CVA tenderness. He has had some cough and diarrhea, but denies any fever, nausea, or vomiting. He states that due to severity of pain he cannot lie comfortably in bed. Patient reports a history of Heart Disease and HTN. Patient sleeps at night using BiPap. He has no other complaint/ pain. Onset (ago): hour(s) Consistency: constant Severity: severe Severity scale (1-10): 8 Quality: sharp Allergies/Adverse Reactions: Allergies Allergy/AdvReac Type Severity Reaction Status Date / Time No Known Allergies Allergy Unverified 07/30/14 09:04 Home Medications: Home Medications Medication Instructions Recorded Confirmed Type Aspirin [Ecotrin] 325 mg PO QAM 07/30/14 05/05/16 History Clopidogrel [Plavix] 75 mg PO QAM 07/30/14 05/05/16 History Magnesium Chloride [Slow Mag] 64 mg PO BID 07/30/14 05/05/16 History [place]-3/Dha/Epa/Fish Oil [Fish Oil 1 each PO BID 07/30/14 05/05/16 History 1,000 mg Softgel] Omeprazole 20 mg PO QAM 07/30/14 05/05/16 History Sertraline [Zoloft] 25 mg PO BEDTIME 07/30/14 05/05/16 History Simvastatin [Zocor] 40 mg PO BEDTIME 07/30/14 05/05/16 History Terazosin [Hytrin] 2 mg PO BEDTIME 07/30/14 05/05/16 History Spironolactone 12.5 mg PO QAM 05/05/16 05/05/16 History traZODone [Desyrel] 50 mg PO BEDTIME PRN 05/05/16 05/05/16 History Albuterol/Ipratropium Neb [Duoneb] 3 ml RESP TX RT Q6H 05/08/16 Rx Fluticasone 50 Mcg Nasal [place] 2 spray BOTH NARES DAILY spray 05/08/16 Rx [Flonase Nasal [place]] Oseltamivir Cap (CrCl <60) 30 mg PO BID #7 capsule 05/08/16 Rx [Tamiflu Cap] Spironolactone [Aldactone] 25 mg PO DAILY #30 tablet 05/08/16 Rx Review of System - Review of System 12 point system: reviewed and no additional remarkable complaints except as stated - Review of System Constitutional: Absent: chills, fever Eyes: Absent: vision change Head/Ears/Nose/Throat: Absent: nasal drainage, sore throat Respiratory: Present: cough. Absent: respiratory distress Cardiovascular: Absent: chest pain, palpitations Gastrointestinal: Present: abdominal pain, diarrhea. Absent: nausea, vomiting, constipation Genitourinary male: Absent: urgency, dysuria, frequency Musculoskeletal: Absent: arm pain, back pain, leg pain, neck pain Skin: Absent: rash Neurological: Absent: headache Psychiatric: Absent: anxiety, depression Hematological/Lymphatic: Absent: easy bleeding, easy bruising Medical,Surgical,& Family Hx - Medical History Cardio: History of: CAD (Previous angioplasty and stent in 2006), Hypertension, [place] (History of previous non-STEMI) Psychological: History of: Anxiety Disorders Endocrine: History of: Dyslipidemia Respiratory: History of: Obstructive Sleep Apnea (USES BIPAP AT HOME) Renal: History of: Renal Failure Gastrointestinal: History of: GERD Hematology: History of: Clotting Problems (History of previous DVT) No history of: Blood Transfusion Reaction - Surgical History Cardiac Surgeries: Sugical HX of: Cardiac Catheterization (stent x one) Orthopedic Surgeries: Surgical HX of;: Orthopedic Surgery (right elbow) - Family History Family History: Reports;: Family Cancer (BROTHER LIVER AND KIDNEY CANCER), Family Diabetes (Father), Family Heart Disease (Mother father siblings), Family Hypertension (Mother father sibling), Family Stroke (Mother) - Social History Smoking Status: Former smoker Frequency of Alcohol Use: None Type of Drug Use: None Exam Vital Signs: Vital Signs Temperature 99.1 F 07/26/16 23:20 Pulse Rate 81 07/26/16 23:20 Respiratory Rate 20 07/26/16 23:20 Blood Pressure 160/91 07/26/16 23:20 O2 Sat by Pulse Oximetry 86 L 07/26/16 23:20 - General General appearance: alert, in no apparent distress - Head Head exam: Present: atraumatic, normocephalic, normal inspection - Eye Eye exam: Present: normal appearance, PERRL, EOMI - ENT ENT exam: Present: normal exam, normal oropharynx - Neck Neck exam: Present: normal inspection, full ROM, trachea midline - Chest Chest inspection: Present: normal inspection, symmetric chest wall rise - Respiratory Respiratory exam: Present: normal lung sounds bilaterally - Cardiovascular Cardiovascular exam: Present: normal rhythm, tachycardia, normal heart sounds. Absent: regular rate - Abdominal Exam Abdominal exam: Present: soft, distention (protuberant abdomen), tenderness ( RLQ tenderness to palpation), hypoactive bowel sounds. Absent: normal bowel sounds - Extremities Exam Extremities exam: Present: normal inspection - Back Exam Back exam: Present: CVA tenderness (R). Absent: normal inspection - Neurological Exam Neurological exam: Present: alert, oriented X3, CN II-XII intact. Absent: motor sensory deficit - Psychiatric Psychiatric exam: Present: normal affect, normal mood - Skin Skin exam: Present: warm, dry, intact, normal color Course - Reevaluation(s) Reevaluation #1: Patient's pain is much better Time: 02:25 - Consultations Consultation #1: Dr. Kramer general surgeon will admit patient for acute cholecystitis Time: 02:03 Results - Labs CBC & BMP: 07/27/16 Unknown 07/27/16 00:40 Lab Results: I have reviewed the patients labs Labs: Laboratory Tests 07/27/16 00:00 Urine Color Yellow Urine Appearance Clear Urine pH 6.0 Ur Specific [place] 1.024 Urine Protein Negative Urine Glucose (UA) >=500 Urine Ketones 5 Urine Blood Negative Urine Nitrate Negative Urine Bilirubin Negative Urine Urobilinogen 4.0 H Urine Leukocytes Negative Urine RBC 1 Urine Mucus Occasional Laboratory Tests 07/27/16 00:40 Sodium 140 Potassium 4.3 Chloride 99 Carbon Dioxide 32 BUN 12 Creatinine 0.80 Glucose 229 H AST 214 H ALT 189 H Globulin 4.5 H Albumin/Globulin Ratio 0.7 L Laboratory Tests 07/27/16 Unknown WBC 10.0 RBC 4.61 Hgb 15.9 Hct 47.9 MCV 103.9 H MCH 35 H Plt Count 124 L Lymph % (Auto) 14.5 L [place] # (Auto) 1.2 H - Diagnostic Findings Procedure: CT Abdomen and Pelvis: image reviewed by me, report reviewed by me ( Acute cholecystitis) Disposition Clinical Impression: Abdominal pain, Obesity, Elevated liver enzymes, Acute cholecystitis Case discussed with: patient, patient's family Disposition: Still a Patient Condition: Stable Time of Disposition: 02:26
[2016-07-27 01:23] LABS: Apearance,Urine CLEAR (Clear); Bilirubin,Urine Negative (Negative); Blood, Urine Negative (Negative); Glucose,Urine (UA) >=500 mg/dL (Negative); Ketones,Urine 5 mg/dL (Negative); Mucus,Urine Occasional /LPF (Occasional); Nitrite,Urine Negative (Negative); Protein,Urine Negative; RBC,Urine 1 /HPF (0-4); Urine Color Yellow (Yellow); Urine Specific Gravity 1.024 (1.001-1.035)
[2016-07-27 01:36] LABS: Lactic Acid 1.9 MMOL/L (0.4-2.0)
[2016-07-27 01:38] LABS: Alanine Aminotransferase 189 U/L (16-61); Albumin 3.5 G/DL (3.4-5.0); Alkaline Phosphatase 115 U/L (45-117); Amylase 43 U/L (25-115); Aspartate Amino Transferase 214 U/L (0-37); Blood Urea Nitrogen 12 MG/DL (7-18); Calcium 9.2 MG/DL (8.5-10.1); Glucose 229 MG/DL (74-106); Magnesium 1.8 MG/DL (1.8-2.4); Osmolality,Calculated 285.4 MOS/KG (273-304); Potassium 4.3 MMOL/L (3.5-5.1); Sodium 140 MMOL/L (136-145); Troponin I Only < 0.015 NG/ML (0.00-0.045)
[2016-07-27 01:44] LABS: Basophils # 0.1 10*3/uL (0.0-0.2); Basophils % 0.5 % (0.0-0.8); Eosinophils # 0.1 10*3/uL (0.0-0.87); Eosinophils % 0.6 % (0.00-10.9); Hematocrit 47.9 VOL% (42.0-52.0); Hemoglobin 15.9 GM/DL (14.0-18.0); Lymphocytes # 1.5 10*3/uL (1.4-4.0); Lymphocytes % 14.5 % (21.2-54.2); Mean Corpuscular HGB Conc 33.2 GM/DL (32-36); Mean Corpuscular Hemoglobin 35 PG (27-34); Mean Corpuscular Volume 103.9 FL (87-102); Mean Platelet Volume 11.7 FL (9.6-12.0); Monocytes # 1.2 10*3/uL (0.11-0.8); Monocytes % 11.8 % (1.7-12.7); Neutrophils # 7.1 10*3/uL (1.4-7.4); Neutrophils % 71.6 % (38.7-73.9); Platelet Count 124 T/CUMM (130-400); Red Blood Count 4.61 MC/CUMM (3.8-5.5); Red Cell Distribution Width 13.6 % (9.3-17.3)
[2016-07-27] MEDS ORDERED: PIPERACILLIN/TAZOBACTAM 3,375 MG in SODIUM CHLORIDE 0.9% 100 ML IV STA (02:26)
[2016-07-27] MEDS ORDERED: PIPERACILLIN/TAZOBACTAM 3,375 MG VIAL IV ONE (02:53)
[2016-07-27] MEDS ORDERED: DEXTROSE 50% 25 GM/50 ML VIAL IV PRN (04:10)
[2016-07-27] MEDS ORDERED: ACETAMINOPHEN 325 MG TABLET PO PRN (04:10)
[2016-07-27] MEDS ORDERED: GLUCAGON 1 MG VIAL IM PRN (04:10)
[2016-07-27] MEDS ORDERED: ALBUTEROL/IPRATROPIUM 3 ML NEB RESP TX PRN (04:10)
[2016-07-27] MEDS: SODIUM CHLORIDE 0.9% 1,000 ML IV SCH ×3 (05:11→21:12)
--- NOTE | 2016-07-27 06:35 | CT Report ---
CT abdomen pelvis wo con Indication: Right flank pain Comparison: CT abdomen pelvis dated June 29, 2008 Technique: Multiple axial tomographic images of the abdomen and pelvis were obtained without the use of intravenous contrast. Findings: Mild dependent change of the lungs present. Diffuse hypoattenuation of the liver consistent with steatosis. There is more hypoattenuation within the region of the gallbladder fossa which may reflect more focal fatty infiltration or edema. The gallbladder is nondistended. The gallbladder lumen is somewhat hyperattenuating suggestive of sludge. Question mild pericholecystic fluid. The pancreas is grossly unremarkable. The spleen is grossly unremarkable. The bilateral adrenal glands are grossly unremarkable. Nonspecific bilateral perinephric fat stranding. No urinary calculus demonstrated. No evidence of hydronephrosis. The urinary bladder is incompletely distended. The prostate and seminal vesicles are grossly unremarkable. Colonic diverticulosis. Mild fat stranding demonstrated within Morison's pouch. Mild atherosclerotic calcifications demonstrated. Visualized osseous and surrounding soft tissue structures demonstrate no acute abnormality. IMPRESSION: Biliary sludge suggested. Question mild pericholecystic stranding. Mild cholecystitis not excluded. There is also mild fat stranding about Morison's pouch with colonic diverticulosis noted. Mild diverticulitis involving the hepatic flexure of colon not excluded. Hepatic steatosis and other detailed findings as above. Preliminary report was issued by [facility]. The CT exam was performed using one or more of the following dose reduction techniques: Automated exposure control, adjustment of the mA and/or kV according to patient size, or use of iterative reconstruction technique. PROCEDURE INTERPRETED AT [facility] DEPARTMENT OF RADIOLOGY Final Report Signed by: Dr Danilo Juan
[2016-07-27] MEDS: HYDROmorphone 2 MG/1 ML VIAL IV PRN ×3 (06:54→13:24)
--- NOTE | 2016-07-27 07:00 | XRay Report ---
XR chest 1V portable Indication: Abdominal pain Comparison: Chest x-ray dated May 06, 2016 Technique: Frontal views of the chest Findings: The cardiomediastinal silhouette is stable in configuration. Minimal left basilar atelectasis which is linear. Chronic change of the lungs without focal consolidation, pleural effusion, or pneumothorax. Visualized osseous and surrounding soft tissue structures appear grossly unchanged. IMPRESSION: Stable chest x-ray without acute cardiopulmonary process demonstrated. PROCEDURE INTERPRETED AT [facility] DEPARTMENT OF RADIOLOGY Final Report Signed by: Dr Danilo Juan
[2016-07-27] MEDS ORDERED: traZODone 50 MG TABLET PO PRN (07:55)
--- NOTE | 2016-07-27 08:13 | Ultrasound Report ---
Referring Physician: Romero Fall Exam: US gallbladder Date: July 27, 2016 Reason: Acute cholecystitis Comparison: Abdominal ultrasound May 06, 2016, CT abdomen and pelvis July 27, 2016 Technique: Grayscale and color flow images of the right abdomen were obtained. Ultrasound images were captured and stored. Findings: The liver measures 19.4 cm in length, which is mildly enlarged. There is also diffuse increased echogenicity of the liver parenchyma, suggesting hepatic steatosis. The main portal vein appears patent. There is echogenic material within the gallbladder, which is concerning for gallbladder sludge. There is also gallbladder wall thickening and possible mild pericholecystic fluid. The shipyard painting supervisor reports a positive sonographic Bonilla's sign. These findings raise a concern for acute cholecystitis. The common bile duct is mildly prominent, measuring 0.7 cm in diameter. This is nonspecific, and please correlate with liver function studies. The pancreas is largely obscured by bowel gas. The right kidney measures 12.1 x 7.6 x 6.4 cm. No right hydronephrosis or suspicious renal lesion is identified. The IVC is not identified. Impression: 1. There appears to be mild gallbladder sludge. There is also gallbladder wall thickening and possible mild pericholecystic fluid. The shipyard painting supervisor also reports a positive sonographic Bonilla's sign. These findings raise a concern for acute cholecystitis. 2. The common bile duct is mildly prominent, measuring 0.7 cm in diameter. This is nonspecific, and please correlate with liver function studies. 3. Mild hepatomegaly and hepatic steatosis. Dr. Kramer was notified on July 27, 2016 at 8:08 AM. This is a critical test. PROCEDURE INTERPRETED AT [facility] DEPARTMENT OF RADIOLOGY Final Report Signed by: Dr. Melissa Bragg
--- NOTE | 2016-07-27 08:25 | Family Practice History&Phys ---
Assessment and Plan (1) Abdominal pain Status: Acute Assessment and plan: We will order numerous additional studies. Suggestive of acute gallbladder disease but possibly diverticulitis. Will need consultation by Dr. Rodríguez if surgery is considered. Have held his aspirin and Plavix for present Current Visit: Yes (2) Acute cholecystitis Status: Acute Assessment and plan: Have ordered an ultrasound for this a.m. May also need a HIDA scan. Has elevated liver enzymes. Current Visit: Yes (3) Elevated liver enzymes Status: Acute Assessment and plan: We will need to monitor closely and evaluate further Current Visit: Yes (4) Coronary artery disease with stent Status: Chronic Assessment and plan: Stable at present. Patient needs a cardiology consult would Dr. Rodríguez prior to any surgical procedures Current Visit: No (5) Hypertension Status: Chronic Assessment and plan: Stable at present Current Visit: No (6) Obstructive sleep apnea Status: Chronic Assessment and plan: Stable on CPAP Current Visit: No (7) Previous deep vein thrombosis Status: Chronic Current Visit: No (8) Hyperglycemia on admission Status: Acute Assessment and plan: We will order hemoglobin A1c and blood sugars Current Visit: Yes History of Present Illness Chief complaint: Abdominal pain and nausea History of present illness: Mr. Coles is a 56 year old male HPI Narrative: Patient is a 56 y/o white male presenting to the ED with c/o RLQ abdominal pain with an onset of earlier today. Patient reports that since initial onset pain has progressively gotten worse in severity. He describes pain as a severe, sharp pain located in the RUQ AND RLQ. He denies having any associated back pain but on exam.. He has had some cough and diarrhea, but denies any fever, nausea, or vomiting. He states that due to severity of pain he cannot lie comfortably in bed. Patient reports . Patient states that he has not had any pain up until last p.m. He had some nausea when pain was at its worst. Patient 's blood sugars were elevated in the emergency room but has no history of diabetes. Also his elevated liver enzymes. CT abdomen revealed biliary sludge with Pericholecystic stranding and mild cholecystitis. Patient has a history of coronary artery disease with previous myocardial infarction. He is presently on Plavix and aspirin. In view of history we will admit further evaluation therapy. Home Medications Medication Instructions Recorded Confirmed Type Aspirin [Ecotrin] 325 mg PO QAM 07/30/14 07/27/16 History Clopidogrel [Plavix] 75 mg PO QOTHER DAY 07/30/14 07/27/16 History Magnesium Chloride [Slow Mag] 64 mg PO DAILY 07/30/14 07/27/16 History [place]-3/Dha/Epa/Fish Oil [Fish Oil 1 each PO BID 07/30/14 07/27/16 History 1,000 mg Softgel] Omeprazole 20 mg PO QAM 07/30/14 07/27/16 History Simvastatin [Zocor] 40 mg PO BEDTIME 07/30/14 07/27/16 History Terazosin [Hytrin] 2 mg PO BEDTIME 07/30/14 07/27/16 History traZODone [Desyrel] 50 mg PO BEDTIME PRN 05/05/16 07/27/16 History Albuterol/Ipratropium Neb [Duoneb] 3 ml RESP TX RT Q6H 05/08/16 07/27/16 Rx Fluticasone 50 Mcg Nasal [place] 2 spray BOTH NARES DAILY spray 05/08/16 Rx [Flonase Nasal [place]] Spironolactone [Aldactone] 25 mg PO DAILY #30 tablet 05/08/16 07/27/16 Rx Carvedilol [Coreg] 25 mg PO BID 07/27/16 07/27/16 History Furosemide Tab [Lasix Tab] 20 mg PO DAILY 07/27/16 07/27/16 History Niacin [Niacin ER] 1,000 mg PO DAILY 07/27/16 07/27/16 History Allergies Allergy/AdvReac Type Severity Reaction Status Date / Time No Known Allergies Allergy Unverified 07/30/14 09:04 Medical,Surgical,& Family Hx - Medical History Cardio: History of: CAD (Previous angioplasty and stent in 2006), Hypertension, [place] (History of previous non-STEMI) Psychological: History of: Anxiety Disorders Endocrine: History of: Dyslipidemia Respiratory: History of: Obstructive Sleep Apnea (USES BIPAP AT HOME) Renal: History of: Renal Failure Gastrointestinal: History of: GERD Hematology: History of: Clotting Problems (History of previous DVT) No history of: Blood Transfusion Reaction - Surgical History Cardiac Surgeries: Sugical HX of: Cardiac Catheterization (stent x one) Orthopedic Surgeries: Surgical HX of;: Orthopedic Surgery (right elbow) - Family History Family History: Reports;: Family Cancer (BROTHER LIVER AND KIDNEY CANCER), Family Diabetes (Father), Family Heart Disease (Mother father siblings), Family Hypertension (Mother father sibling), Family Stroke (Mother) - Social History Smoking Status: Former smoker Frequency of Alcohol Use: None Type of Drug Use: None Marital Status: Lives With:: Spouse Functional capacity: independent ambulation Exam - Constitutional Vitals: Period Temp Pulse Resp BP Sys/[place] Pulse Ox Last 24 Hr 97.5 F-99.1 F 71-81 18-20 117-160/71-91 86-96 General appearance: mild distress - Head Head exam: Present: normal inspection - Eye Pupils: Present: ELIER - ENT ENT exam: Present: normal exam - Neck Neck exam: Present: normal inspection - Respiratory Respiratory exam: Present: clear to auscultation bilaterally - Cardiovascular Cardiovascular exam: Present: regular rate and rhythm - GI/Abdominal GI/Abdominal exam: Present: hypoactive bowel sounds, tenderness (Tenderness over the right and mid quadrant of abdomen with some guarding) - Extremities Exam Extremities exam: Present: normal inspection - Back Exam Back exam: Present: normal inspection - Neurological Exam Neurological exam: Present: alert, oriented X3 - Psychiatric Psychiatric exam: Present: normal affect - Skin Skin exam: Present: normal color Results - Labs CBC & BMP: 07/27/16 Unknown 07/27/16 00:40
[2016-07-27] MEDS: INSULIN REGULAR 100 UNIT/ML SUBCUT SCH ×4 (09:26→19:14)
[2016-07-27] MEDS: metroNIDAZOLE INJ 500 MG in PREMIX 1 EACH IV SCH ×3 (09:27→21:14)
[2016-07-27] MEDS: PANTOPRAZOLE 40 MG VIAL IV SCH (09:27)
[2016-07-27 09:43] LABS: Folate 8.1 NG/ML (5.4-24.0)
[2016-07-27] MEDS: FLUTICASONE 50 MCG NASAL SPRAY 16 GM BOTTLE BOTH NARES SCH (09:55)
[2016-07-27] MEDS: SPIRONOLACTONE 25 MG TABLET PO SCH (09:55)
[2016-07-27] MEDS: OMEGA 3 ACID ETHYL ESTERS 1 GM CAPSULE PO SCH ×2 (09:56→21:13)
[2016-07-27] MEDS: FUROSEMIDE 20 MG TABLET PO SCH (09:56)
[2016-07-27] MEDS: NIACIN ER 500 MG TABLET PO SCH (09:56)
--- NOTE | 2016-07-27 09:56 | General Surg History&Physical ---
Assessment and Plan (1) Acute cholecystitis Status: Acute Assessment and plan: The patient presents with acute cholecystitis. Continue with Zosyn and Flagyl at this time. We are hoping to proceed with laparoscopic cholecystectomy pending cardiology evaluation as below. The risks for the procedure have been reviewed with patient and his family who are present including but not limited to infection, bleeding, blood vessel injury, nerve injury, adjacent organ injury , chronic pain, the need for additional procedures in the future, reactions to medications, heart attack, pneumonia, stroke, and other unforeseeable cardiac, pulmonary and/or neurologic events including the possibility of . The patient and his family are aware that he is at increased risk for perioperative complications considering his comorbidities. We will proceed today pending cardiology evaluation and recommendations; we appreciate their input. Current Visit: Yes (2) Coronary artery disease with stent Status: Chronic Assessment and plan: Patient status post and STEMI with stent placement 2006. Cardiology consultation has been requested for preoperative risk assessment. We appreciate their input and recommendations per Current Visit: No (3) Elevated liver enzymes Status: Acute Assessment and plan: Evidence of hepatic steatosis on imaging. Further evaluation per family practice physician Current Visit: Yes (4) Gastroesophageal reflux Status: Chronic Assessment and plan: Continue home meds. Monitor. Current Visit: No (5) Hypertension Status: Chronic Assessment and plan: Continue home meds. As per family practice physician Current Visit: No (6) Obstructive sleep apnea Status: Chronic Assessment and plan: CPAP nightly. Current Visit: No (7) Prophylactic measure Status: Acute Assessment and plan: 1. GI prophylaxis: PPI daily 2. DVT prophylaxis: SCDs and early mobilization. Lovenox can be initiated once bleeding is not an issue in the postoperative period. Current Visit: Yes History of Present Illness Chief complaint: Abd pain History of present illness: Mr. Coles is a 56 year old male with past medical history of CAD status post cardiac stent placement in 2006, hypertension, obstructive sleep apnea, and other medical comorbidities who reports he had acute onset of right upper quadrant abdominal pain yesterday evening after approximately 3 hours after having chicken sandwich for dinner. The pain was severe, aching, without relieving or exacerbating factors, associated with nausea without vomiting or diarrhea. He had a normal, formed bowel movement yesterday without melena or hematochezia. He has had no fever, chills, rigors, or arthralgias. He has no history of similar symptoms. There is a history of DVT documented in the chart, but the patient and his family deny. Home Medications Medication Instructions Recorded Confirmed Type Aspirin [Ecotrin] 325 mg PO QAM 07/30/14 07/27/16 History Clopidogrel [Plavix] 75 mg PO QOTHER DAY 07/30/14 07/27/16 History Magnesium Chloride [Slow Mag] 64 mg PO DAILY 07/30/14 07/27/16 History [place]-3/Dha/Epa/Fish Oil [Fish Oil 1 each PO BID 07/30/14 07/27/16 History 1,000 mg Softgel] Omeprazole 20 mg PO QAM 07/30/14 07/27/16 History Simvastatin [Zocor] 40 mg PO BEDTIME 07/30/14 07/27/16 History Terazosin [Hytrin] 2 mg PO BEDTIME 07/30/14 07/27/16 History traZODone [Desyrel] 50 mg PO BEDTIME PRN 05/05/16 07/27/16 History Albuterol/Ipratropium Neb [Duoneb] 3 ml RESP TX RT Q6H 05/08/16 07/27/16 Rx Fluticasone 50 Mcg Nasal [place] 2 spray BOTH NARES DAILY spray 05/08/16 Rx [Flonase Nasal [place]] Spironolactone [Aldactone] 25 mg PO DAILY #30 tablet 05/08/16 07/27/16 Rx Carvedilol [Coreg] 25 mg PO BID 07/27/16 07/27/16 History Furosemide Tab [Lasix Tab] 20 mg PO DAILY 07/27/16 07/27/16 History Niacin [Niacin ER] 1,000 mg PO DAILY 07/27/16 07/27/16 History Allergies Allergy/AdvReac Type Severity Reaction Status Date / Time No Known Allergies Allergy Unverified 07/30/14 09:04 Medical,Surgical,& Family Hx - Medical History Cardio: History of: CAD (Previous angioplasty and stent in 2006), Hypertension, [place] (History of previous non-STEMI) Psychological: History of: Anxiety Disorders Endocrine: History of: Dyslipidemia Respiratory: History of: Obstructive Sleep Apnea (USES BIPAP AT HOME) Renal: History of: Renal Failure Gastrointestinal: History of: GERD - Surgical History Cardiac Surgeries: Sugical HX of: Cardiac Catheterization (stent x one) Orthopedic Surgeries: Surgical HX of;: Orthopedic Surgery (right elbow) - Family History Family History: Reports;: Family Cancer (BROTHER LIVER AND KIDNEY CANCER), Family Diabetes (Father), Family Heart Disease (Mother father siblings), Family Hypertension (Mother father sibling), Family Stroke (Mother) - Social History Smoking Status: Former smoker Frequency of Alcohol Use: None Type of Drug Use: None Exam - Constitutional Vitals: Period Temp Pulse Resp BP Sys/[place] Pulse Ox Last 24 Hr 97.5 F-99.1 F 71-81 18-20 117-160/71-91 86-96 General appearance: no acute distress, morbidly obese - Head Head exam: Present: normal inspection, normocephalic - Eye Eye exam: Absent: conjunctival injection, scleral icterus - Neck Neck exam: Present: trachea midline - Respiratory Respiratory exam: Present: clear to auscultation bilaterally - Cardiovascular Cardiovascular exam: Present: RRR (Abdomen is obese without obvious distention. Patient has right-sided abdominal pain with positive Bonilla sign. Bowel sounds are present.) - Extremities Exam Extremities exam: Absent: calf tenderness, edema - Neurological Exam Neurological exam: Present: alert, oriented X3 Speech: Present: normal - Skin Skin exam: Present: normal color, warm - Constitutional Constitutional: Present: as per HPI. Absent: weight gain, weight loss - Cardiovascular Cardiovascular: Absent: chest pain at rest, chest pain with activity, dyspnea on exertion, orthopnea, palpitations - Respiratory Respiratory: Absent: cough, wheezing - Gastrointestinal Gastrointestinal: Present: as per HPI - Genitourinary Genitourinary: Absent: dysuria, flank pain, hematuria - Musculoskeletal Musculoskeletal: Absent: arthralgias Hematologic/Lymphatic: Absent: easy bleeding, easy bruising Results - Labs CBC & BMP: 07/27/16 Unknown 07/27/16 00:40 Labs: AST 214, ALT 189; LFTs otherwise unremarkable CRP 5.96 Urinalysis with excessive glucose of 5+ ketones; otherwise unremarkable. - Diagnostic Findings Procedure: Chest x-ray: image reviewed by me, report reviewed by me, CT Abdomen and Pelvis: image reviewed by me, report reviewed by me, Ultrasound: image reviewed by me, report reviewed by me (Gallbladder)
[2016-07-27] MEDS: MAGNESIUM CHLORIDE 64 MG TABLET PO SCH (09:57)
[2016-07-27] MEDS: CARVEDILOL 25 MG TABLET PO SCH ×2 (10:00→21:13)
--- NOTE | 2016-07-27 11:06 | EKG Report ---
Stationary ECG Study [facility] Test Date: 07/27/2016 11:07:10 AM Pat Name: SAJI IBRAHIM Department: Room: 335 Gender: M [employer]: : 1960 Requested by: Meagan Rodriguez Order Number: [id number] [place] MD: BLAINE SOTOMAYOR Intervals [place] Rate: 68 P: 71 OK: 191 QRS: -54 QRSD: 97 T: 82 QT: 444 QTc: 461 Interpretive Statements SINUS RHYTHM INDETERMINATE AXIS PROLONGED QT INTERVAL Electronically Signed On 07-28-16 17:04:59 CDT by BLAINE SOTOMAYOR [email or web address]
--- NOTE | 2016-07-27 11:27 | Cardiology Consult Note ---
Assessment and Plan - Time spent with patient Time spent with patient: Greater than 30 minutes (1) Hypertension Status: Chronic Assessment and plan: SEE PLAN OF CARE LISTED BELOW Current Visit: Yes (2) Dyslipidemia Status: Chronic Assessment and plan: SEE PLAN OF CARE LISTED BELOW Current Visit: Yes (3) Pre-op evaluation Status: Acute Assessment and plan: SEE PLAN OF CARE LISTED BELOW Current Visit: Yes (4) Coronary artery disease with stent Status: Chronic Assessment and plan: SEE PLAN OF CARE LISTED BELOW Current Visit: No (5) Obstructive sleep apnea Status: Chronic Assessment and plan: SEE PLAN OF CARE LISTED BELOW Current Visit: No (6) Obesity Status: Acute Assessment and plan: SEE PLAN OF CARE LISTED BELOW Current Visit: No (7) Acute cholecystitis Status: Acute Assessment and plan: SEE PLAN OF CARE LISTED BELOW Current Visit: Yes History of Present Illness - Data of Consult Patient: known to practice within the last 3 years Consult date: 07/27/16 Requesting Physician: Link Kramer - Consult Narrative Reason for consult: pre-operative risk evaluation History of present illness: PRODUCTION CHECKER: DR. RODRÍGUEZ Mr. Coles, 56WM, routinely followed by Dr. Rodríguez. He was last seen in cardiology clinic July 13, 2016. Risk factors include: known coronary artery disease, hypertension, dyslipidemia, morbid obesity. History of cardiac catheterization requiring PCI of proximal LAD 2006. Underwent repeat cardiac catheterization February 2014 for NSTEMI felt to be related to a thrombotic event as there was no coronary obstruction noted. He has been on Plavix long- term. Mr. Alonzo presented to the emergency department at [facility] July 26, 2016 with right upper quadrant abdominal pain which began approximately 4-6 hours prior to seeking medical attention. Because the pain worsened in intensity, he felt as if he should seek medical attention and was seen the [facility] ER. He has been diagnosed with acute cholecystitis. He is scheduled to undergo laparoscopic cholecystectomy today. Last dose of Plavix was Tuesday morning. Denies chest pain, heaviness or tightness. He is chronically short of breath with exertion but feels as if this is unchanged over a period of years. He wears his BiPAP device religiously. Cardiac biomarkers are negative. EKG has been ordered. I will further discuss with Dr. Jacome and await additional recommendations. ASSESSMENT/PLAN: 1. PRE-OP RISK EVALUATION - awaiting EKG. Dr. Rodríguez will make recommendations after EKG has been obtained. 2. ACUTE CHOLECYSTITIS - needs laparoscopic cholecystectomy this afternoon. 3. KNOWN CAD - no complaints of angina at this time. Okay to continue to hold Plavix. 4. HYPERTENSION - recommend continuing beta-blockade 5. DYSLIPIDEMIA - holding lipid-lowering agent at this time due to the elevated liver enzymes. 6. MORBID OBESITY - dietary counseling prior to discharge 7. EDA - continues to use his BiPAP device routinely CC: Link Kramer MD - Home Medications and Allergies Home Medications: Home Medications Medication Instructions Recorded Confirmed Type Aspirin [Ecotrin] 325 mg PO QAM 07/30/14 07/27/16 History Clopidogrel [Plavix] 75 mg PO QOTHER DAY 07/30/14 07/27/16 History Magnesium Chloride [Slow Mag] 64 mg PO DAILY 07/30/14 07/27/16 History [place]-3/Dha/Epa/Fish Oil [Fish Oil 1 each PO BID 07/30/14 07/27/16 History 1,000 mg Softgel] Omeprazole 20 mg PO QAM 07/30/14 07/27/16 History Simvastatin [Zocor] 40 mg PO BEDTIME 07/30/14 07/27/16 History Terazosin [Hytrin] 2 mg PO BEDTIME 07/30/14 07/27/16 History traZODone [Desyrel] 50 mg PO BEDTIME PRN 05/05/16 07/27/16 History Albuterol/Ipratropium Neb [Duoneb] 3 ml RESP TX RT Q6H 05/08/16 07/27/16 Rx Fluticasone 50 Mcg Nasal [place] 2 spray BOTH NARES DAILY spray 05/08/16 Rx [Flonase Nasal [place]] Spironolactone [Aldactone] 25 mg PO DAILY #30 tablet 05/08/16 07/27/16 Rx Carvedilol [Coreg] 25 mg PO BID 07/27/16 07/27/16 History Furosemide Tab [Lasix Tab] 20 mg PO DAILY 07/27/16 07/27/16 History Niacin [Niacin ER] 1,000 mg PO DAILY 07/27/16 07/27/16 History Allergies/Adverse Reactions: Allergies Allergy/AdvReac Type Severity Reaction Status Date / Time No Known Allergies Allergy Unverified 07/30/14 09:04 Review of systems: REVIEW OF SYSTEMS: - Constitutional Constitutional: Denies fatigue. Absent: syncope, anorexia, night sweats - EENT Eyes: Absent: blurry vision, loss of vision, diplopia Ears: Absent: decreased hearing, ear pain, ear discharge - Cardiovascular Cardiovascular: Denies chest pain with exertion. Chronic, mild dyspnea on exertion, edema. Denies palpitations. Absent: chest pain with deep breath, claudication - Respiratory Respiratory: Present: PERRY, denies cough. Absent: wheezing, hemoptysis, change in phlegm color - Gastrointestinal Gastrointestinal: Denies: constipation. Acknowledges right upper quadrant abdominal pain, no nausea or vomiting. No hematemesis, hematochezia, melena. - Genitourinary Genitourinary: Absent: difficulty urinating, dysuria, urinary hesitancy, flank pain - Musculoskeletal Musculoskeletal: Present: back pain Absent: joint swelling, muscle cramps, muscle weakness - Neurological Neurological: Present: normal gait without frequent falls. Absent: dizziness, hemiparesis - Psychiatric Psychiatric: Absent: anxiety, depression, difficulty concentrating - Endocrine Endocrine: Absent: cold intolerance, heat intolerance, polyuria, polyphagia, polydipsia - Hematologic/Lymphatic Hematologic/Lymphatic: Present: easy bruising. Absent: easy bleeding -Integumentary Integumentary: Absent: lesions, rashes, skin breakdown Medical,Surgical,& Family Hx - Medical History Cardio: History of: CAD (Previous angioplasty and stent in 2006), Hypertension, [place] (History of previous non-STEMI) Psychological: History of: Anxiety Disorders Endocrine: History of: Dyslipidemia Respiratory: History of: Obstructive Sleep Apnea (USES BIPAP AT HOME) Renal: History of: Renal Failure Gastrointestinal: History of: GERD Hematology: History of: Clotting Problems (History of previous DVT) No history of: Blood Transfusion Reaction - Surgical History Cardiac Surgeries: Sugical HX of: Cardiac Catheterization (stent x one) Orthopedic Surgeries: Surgical HX of;: Orthopedic Surgery (right elbow) - Family History Family History: Reports;: Family Cancer (BROTHER LIVER AND KIDNEY CANCER), Family Diabetes (Father), Family Heart Disease (Mother father siblings), Family Hypertension (Mother father sibling), Family Stroke (Mother) - Social History Smoking Status: Former smoker Have you smoked in the last 12 months: No Frequency of Alcohol Use: None Type of Drug Use: None Marital Status: Lives With:: Spouse Functional capacity: independent ambulation Physical Examination Vital Signs Temp Pulse Resp BP Pulse Ox 99.1 F 81 20 160/91 86 L 07/26/16 23:20 07/26/16 23:20 07/26/16 23:20 07/26/16 23:20 07/26/16 23:20 General: [Appears well with no apparent distress.] [Pleasant and cooperative. ] [Appears comfortable.] HEENT: [PERRL, normocephalic, atraumatic. Mucous membranes moist. No jaundice noted. Conjunctiva moist and clear, sclerae anicteric]. Mallampati Airway Class III-IV. Neck: Unable to assess for JVD due to habitus. No obvious thyromegaly or lymphadenopathy. No carotid bruits appreciated. Cardiac: [Regular rate and rhythm.] [No obvious murmur rub or gallop.] Lungs: [Clear to auscultation without accessory muscle use to assist the respiratory pattern.] Using Bi-Pap routinely Abdomen: Protuberant, normo-active BS Musculoskeletal: No fluid collection. Decreased range of motion is noted. Extremities: No clubbing, cyanosis noted. [ Trace BLE edema noted] Upper extremity pulses 2+. Lower extremity pulses 2+. Capillary refill less than 3 seconds. Skin: No unusual lesions or rashes. No skin breakdown appreciated. Neuro: Awake, alert and oriented 3. Moves all extremities well without hemiparesis or paralysis. No essential tremor is appreciated. Result/EKG - Labs CBC & BMP: 07/27/16 Unknown 07/27/16 00:40 Lab Results: I have reviewed the past 24 hour labs Labs: Laboratory Results - last 24 hr 07/27/16 07/27/16 07/27/16 00:00 00:40 07:03 WBC RBC Hgb Hct MCV MCH MCHC RDW Plt Count MPV Neut % (Auto) Lymph % (Auto) [place] % (Auto) Eos % (Auto) Baso % (Auto) Neut # (Auto) Lymph # (Auto) [place] # (Auto) Eos # (Auto) Baso # (Auto) Immature Gran % Nucleated RBC % Immature Gran # Nucleated RBCs # ESR [place] Sodium 140 Potassium 4.3 Chloride 99 Carbon Dioxide 32 Anion Gap 13.3 BUN 12 Creatinine 0.80 GFR Calculation 143 BUN/Creatinine Ratio 15.00 Glucose 229 H POC Glucose 269 H Fasting Glucose Hemoglobin A1c Calculated Osmolality 285.4 Lactic Acid 1.9 Calcium 9.2 Magnesium 1.8 Total Bilirubin 1.00 AST 214 H ALT 189 H Alkaline Phosphatase 115 Troponin I < 0.015 C-Reactive Protein Total Protein 8.0 Albumin 3.5 Globulin 4.5 H Albumin/Globulin Ratio 0.7 L Amylase 43 Lipase 391.0 Vitamin B12 Folate Urine Color Yellow Urine Appearance Clear Urine pH 6.0 Ur Specific [place] 1.024 Urine Protein Negative Urine Glucose (UA) >=500 Urine Ketones 5 Urine Blood Negative Urine Nitrate Negative Urine Bilirubin Negative Urine Urobilinogen 4.0 H Urine Leukocytes Negative Urine RBC 1 Urine Mucus Occasional Ur Culture Indicated? Not indicated 07/27/16 07/27/16 07/27/16 08:31 08:31 08:31 WBC RBC Hgb Hct MCV MCH MCHC RDW Plt Count MPV Neut % (Auto) Lymph % (Auto) [place] % (Auto) Eos % (Auto) Baso % (Auto) Neut # (Auto) Lymph # (Auto) [place] # (Auto) Eos # (Auto) Baso # (Auto) Immature Gran % Nucleated RBC % Immature Gran # Nucleated RBCs # ESR [place] 42 H Sodium Potassium Chloride Carbon Dioxide Anion Gap BUN Creatinine GFR Calculation BUN/Creatinine Ratio Glucose POC Glucose Fasting Glucose Hemoglobin A1c Calculated Osmolality Lactic Acid Calcium Magnesium Total Bilirubin AST ALT Alkaline Phosphatase Troponin I C-Reactive Protein 5.96 H Total Protein Albumin Globulin Albumin/Globulin Ratio Amylase 38 Lipase Vitamin B12 Folate Urine Color Urine Appearance Urine pH Ur Specific Thomas Urine Protein Urine Glucose (UA) Urine Ketones Urine Blood Urine Nitrate Urine Bilirubin Urine Urobilinogen Urine Leukocytes Urine RBC Urine Mucus Ur Culture Indicated? 07/27/16 07/27/16 07/27/16 08:31 08:31 08:31 WBC RBC Hgb Hct MCV MCH MCHC RDW Plt Count MPV Neut % (Auto) Lymph % (Auto) [place] % (Auto) Eos % (Auto) Baso % (Auto) Neut # (Auto) Lymph # (Auto) [place] # (Auto) Eos # (Auto) Baso # (Auto) Immature Gran % Nucleated RBC % Immature Gran # Nucleated RBCs # ESR [place] Sodium Potassium Chloride Carbon Dioxide Anion Gap BUN Creatinine GFR Calculation BUN/Creatinine Ratio Glucose POC Glucose Fasting Glucose 274 H Hemoglobin A1c 7.7 H Calculated Osmolality Lactic Acid Calcium Magnesium Total Bilirubin AST ALT Alkaline Phosphatase Troponin I C-Reactive Protein Total Protein Albumin Globulin Albumin/Globulin Ratio Amylase Lipase Vitamin B12 826 Folate 8.1 Urine Color Urine Appearance Urine pH Ur Specific Thomas Urine Protein Urine Glucose (UA) Urine Ketones Urine Blood Urine Nitrate Urine Bilirubin Urine Urobilinogen Urine Leukocytes Urine RBC Urine Mucus Ur Culture Indicated? 07/27/16 07/27/16 11:05 Unknown WBC 10.0 RBC 4.61 Hgb 15.9 Hct 47.9 MCV 103.9 H MCH 35 H MCHC 33.2 RDW 13.6 Plt Count 124 L MPV 11.7 Neut % (Auto) 71.6 Lymph % (Auto) 14.5 L [place] % (Auto) 11.8 Eos % (Auto) 0.6 Baso % (Auto) 0.5 Neut # (Auto) 7.1 Lymph # (Auto) 1.5 [place] # (Auto) 1.2 H Eos # (Auto) 0.1 Baso # (Auto) 0.1 Immature Gran % 1.0 Nucleated RBC % 0.0 Immature Gran # 0.10 Nucleated RBCs # 0.00 ESR [place] Sodium Potassium Chloride Carbon Dioxide Anion Gap BUN Creatinine GFR Calculation BUN/Creatinine Ratio Glucose POC Glucose 263 H Fasting Glucose Hemoglobin A1c Calculated Osmolality Lactic Acid Calcium Magnesium Total Bilirubin AST ALT Alkaline Phosphatase Troponin I C-Reactive Protein Total Protein Albumin Globulin Albumin/Globulin Ratio Amylase Lipase Vitamin B12 Folate Urine Color Urine Appearance Urine pH Ur Specific Thomas Urine Protein Urine Glucose (UA) Urine Ketones Urine Blood Urine Nitrate Urine Bilirubin Urine Urobilinogen Urine Leukocytes Urine RBC Urine Mucus Ur Culture Indicated? - Diagnostic Findings Procedure: Chest x-ray: report reviewed by me, CT Abdomen and Pelvis: report reviewed by me - EKG EKG results: interpreted by me EKG shows: sinus rhythm
[2016-07-27] MEDS: INSULIN LISPRO 100 UNIT/ML SUBCUT SCH ×3 (11:43→22:13)
[2016-07-27] MEDS: PIPERACILLIN/TAZOBACTAM 3,375 MG in SODIUM CHLORIDE 0.9% 100 ML IV SCH ×2 (11:45→18:12)
[2016-07-27] MEDS: ALBUTEROL/IPRATROPIUM 3 ML NEB RESP TX SCH ×2 (13:23→19:11)
[2016-07-27] MEDS ORDERED: BUPIVACAINE MPF 0.25% /EPI 30 ML VIAL ONE (14:55)
[2016-07-27] MEDS ORDERED: LIDOCAINE 1%/EPI INJ 20 ML VIAL ONE (15:04)
--- NOTE | 2016-07-27 16:58 | Operative Note ---
Date of procedure: 07/27/16 Pre-op diagnosis: Acute cholecystitis, steatosis Post-op diagnosis: other (Acute hepatitis, no gallbladder edema or significant inflammation seen.) Procedure: Procedure performed: Diagnostic laparoscopy #2 liver biopsy Procedure in detail: After informed consent was obtained, patient was taken operating suite and placed upon the operating table. After general anesthesia was induced the abdomen was prepped and draped in usual sterile fashion. After procedural pause local anesthetic infiltrated in the skin and subcutaneous tissue above the umbilicus. Incision was made and dissection carried down through skin and soft tissue. The fascia identified and grasped with Radha's and elevated. Fascial incision was made in the abdominal cavity was entered bluntly. Finger sweep revealed no adhesions. Corey trocar placed under direct visualization. Pneumoperitoneum achieved. The camera inserted bowel mesentery inspected found to be free of any violation. Patient was placed in reverse Trendelenburg position rotated to the left. The right lobe of the liver appeared boggy and edematous and enlarged. 5 mm trochars were placed in the right upper quadrant much lower than their usual position due to the enlarged liver. 11 mm subxiphoid trocar was placed. These were all placed under visualization. The liver was very friable. I was able to sweep the omentum inferiorly and identified the inferior edge of the liver which extended down almost to the Corey trocar site. I was able to elevate the inferior edge of the liver and identify the gallbladder. I could not grasp the gallbladder retracted upward due to the boggy and unmanipulative liver. The gallbladder itself appeared moderately distended but there was no edema of the gallbladder wall, any gallbladder wall inflammation, and no omentum or fat adhesions to the gallbladder. A percutaneous [place] liver biopsy was performed with good specimens obtained on the right inferior edge of the liver. Hemostasis was controlled with electrocautery. Again the liver was very friable with any manipulation but I obtained hemostasis of all the little scraped areas with cautery and watch these for several minutes and there was no bleeding or oozing. The area was irrigated and suctioned and I again confirmed hemostasis and suctioned all the fluid which remained clear. The trochars were removed as the abdomen was desufflated and the fascia at the Corey trocar site was closed using 0 Vicryl [id number] interrupted suture. Wounds were irrigated and suctioned the deep dermal layer closed with 3-0 Vicryl. Incision closed with madina. Sterile dressings applied. Patient was extubated and taken recovery room in stable condition. All lap and needle counts were correct at the end of the case. Case discussed with Dr. Melo who will evaluate and manage his suspected hepatitis. Anesthesia: STUARTA Surgeon / Physician: Link Kramer Estimated blood loss: other (Less than 5 cc) Specimens: other (Liver biopsy) Condition: stable Disposition: PACU Results - Labs CBC & BMP: 07/27/16 Unknown 07/27/16 00:40 Discharge Plan - Discharge Medications No Action Terazosin [Hytrin] 2 mg PO BEDTIME Simvastatin [Zocor] 40 mg PO BEDTIME Omeprazole 20 mg PO QAM Magnesium Chloride [Slow Mag] 64 mg PO DAILY Clopidogrel [Plavix] 75 mg PO QOTHER DAY Aspirin [Ecotrin] 325 mg PO QAM [place]-3/Dha/Epa/Fish Oil [Fish Oil 1,000 mg Softgel] 1 each PO BID Albuterol/Ipratropium Neb [Duoneb] 3 ml RESP TX RT Q6H Spironolactone [Aldactone] 25 mg PO DAILY #30 tablet Furosemide Tab [Lasix Tab] 20 mg PO DAILY Carvedilol [Coreg] 25 mg PO BID Niacin [Niacin ER] 1,000 mg PO DAILY traZODone [Desyrel] 50 mg PO BEDTIME PRN PRN Reason: Insomnia Fluticasone 50 Mcg Nasal [place] [Flonase Nasal [place]] 2 spray BOTH NARES DAILY spray - Follow Up or Referral - Forms/Instructions
[2016-07-27] MEDS ORDERED: PROPOFOL 1,000 MG/100 ML BOTTLE IV ONE ×2 (17:09→20:20)
[2016-07-27] MEDS ORDERED: fentaNYL 100 MCG/2 ML VIAL ONE (17:13)
[2016-07-27] MEDS ORDERED: SEVOFLURANE 1 UNIT/15 MINUTE INH ONE (17:13)
[2016-07-27] MEDS ORDERED: MIDAZOLAM 2 MG/2 ML VIAL ONE (17:13)
[2016-07-27 17:59] LABS: ABG Base Excess 5.9 MMOL/L (-2.5-2.5); ABG HCO3 33.9 MMOL/L (20-26); ABG Oxygen Saturation 99.6 % (95-100); ABG PCO2 64.1 MM HG (35-48); ABG PH 7.341 (7.35-7.45); ABG PO2 447.2 MM HG (80-95); ABG TCO2 35.9 MMOL/L (23-27); Allen Test Positive; Pt O2 Delivery Device Ventilator
[2016-07-27] MEDS: PROPOFOL 1,000 MG/100 ML BOTTLE IV SCH ×2 (18:00→22:00)
[2016-07-27 18:14] LABS: Hepatitis A Ab IgM Quant 0.11 Index; Hepatitis A Ab IgM Result Negative (Negative); Hepatitis B Core IgM Result Negative (Negative); Hepatitis B Surface Ag Quant < 0.10 Index; Hepatitis B Surface Ag Result Negative (Negative); Hepatitis C Virus Ab Quant 0.13 Index; Hepatitis C Virus Ab Result Negative (Negative)
--- NOTE | 2016-07-27 18:14 | XRay Report ---
Single view the chest. Indication: Endotracheal tube placement comparison: Exam from earlier today. An endotracheal tube has been placed. Its distal tip is at T4, well above the pushpa. The distal tip of the nasogastric tube projects beyond the GE junction. The heart is enlarged. The pulmonary vasculature is normal. There is atelectasis and pleural effusion at the left lung base which has developed in the interval. Impression: Satisfactory tube placement. Cardiomegaly. Left basilar atelectasis and small left pleural effusion. PROCEDURE INTERPRETED AT [facility] DEPARTMENT OF RADIOLOGY Final Report Signed by: Dr. Nevaeh Vences
--- NOTE | 2016-07-27 18:15 | Pulmonology Consult Note ---
Assessment and Plan (1) Postop laparotomy Status: Acute Assessment and plan: Patient is felt to have cholecystitis. Difficult to surgery due to his large liver. Unable to remove the gallbladder. He is now sedated on the ventilator. We will try to wean when he is alert. Current Visit: Yes (2) Hepatic steatosis Status: Acute Assessment and plan: May be due to previously unknown diabetes. May just simply be steatosis. Defer to GI. Current Visit: Yes (3) Obstructive sleep apnea Status: Acute Assessment and plan: Patient is on BiPAP at home at night. Will need to keep this in mind when it is time to extubate him. We will need BiPAP facemask after he is extubated. He may have obesity hypoventilation syndrome which would render his PCO2 elevated at baseline. His ABGs look like that. Current Visit: Yes (4) Coronary artery disease with stent Status: Chronic Assessment and plan: He has a coronary stent. Needs to be back on Plavix soon. Cardiology following. Current Visit: No (5) Hyperglycemia on admission Status: Acute Assessment and plan: Continues to have hyperglycemia. Will check a hemoglobin A1c but I suspect he does have adult-onset diabetes. Continuing sliding scale insulin. Current Visit: Yes History of Present Illness Chief complaint: Postop gallbladder surgery History of present illness: Mr. Coles is a 56 year old male who came into the hospital with abdominal pain and right upper quadrant tenderness. Ultrasound suggested acute cholecystitis. CT showed steatosis of the liver. He was taken to surgery and apparently his liver was quite large and made it impossible to remove the gallbladder. He is now on the ventilator postop. He has a history of a previous coronary stent actually 2006 and again earlier this year. He is on Plavix and baby aspirin prior to admission. His Plavix was held for a day or so preop. He is not known to be diabetic but his blood sugars are elevated. The fatty liver suggest that he may be diabetic. He has a history of obstructive sleep apnea and uses BiPAP at night. His ABGs on the ventilator show an elevated PCO2. He has a fairly clear chest x-ray. I suspect he may have obesity hypoventilation syndrome Home Medications Medication Instructions Recorded Confirmed Type Aspirin [Ecotrin] 325 mg PO QAM 07/30/14 07/27/16 History Clopidogrel [Plavix] 75 mg PO QOTHER DAY 07/30/14 07/27/16 History Magnesium Chloride [Slow Mag] 64 mg PO DAILY 07/30/14 07/27/16 History Griffin-3/Dha/Epa/Fish Oil [Fish Oil 1 each PO BID 07/30/14 07/27/16 History 1,000 mg Softgel] Omeprazole 20 mg PO QAM 07/30/14 07/27/16 History Simvastatin [Zocor] 40 mg PO BEDTIME 07/30/14 07/27/16 History Terazosin [Hytrin] 2 mg PO BEDTIME 07/30/14 07/27/16 History traZODone [Desyrel] 50 mg PO BEDTIME PRN 05/05/16 07/27/16 History Albuterol/Ipratropium Neb [Duoneb] 3 ml RESP TX RT Q6H 05/08/16 07/27/16 Rx Fluticasone 50 Mcg Nasal [place] 2 spray BOTH NARES DAILY spray 05/08/16 Rx [Flonase Nasal [place]] Spironolactone [Aldactone] 25 mg PO DAILY #30 tablet 05/08/16 07/27/16 Rx Carvedilol [Coreg] 25 mg PO BID 07/27/16 07/27/16 History Furosemide Tab [Lasix Tab] 20 mg PO DAILY 07/27/16 07/27/16 History Niacin [Niacin ER] 1,000 mg PO DAILY 07/27/16 07/27/16 History Allergies Allergy/AdvReac Type Severity Reaction Status Date / Time No Known Allergies Allergy Unverified 07/30/14 09:04 ROS unobtainable: due to endotracheal tube Exam (Pulmonay) H&P - Constitutional Vitals: Period Temp Pulse Resp BP Sys/Gasca Pulse Ox Last 24 Hr 96.2 F-99.1 F 55-84 14-62 117-160/71-91 86-99 Exam: He is unresponsive. Vital signs normal. He still sedated from surgery. Pupils are small but reactive. His eyes are somewhat prominent. Neck is supple no bruits. Endotracheal tube in place. Chest sounds clear equal breath sounds. Heart normal rate rhythm no murmurs. Abdomen is bandaged. No masses. No bowel sounds. Extremities no clubbing cyanosis. trace of edema. He has sequential compression hose on both legs. Medical,Surgical,& Family Hx - Medical History Cardio: History of: CAD (Previous angioplasty and stent in 2006), Hypertension, [place] (History of previous non-STEMI) Psychological: History of: Anxiety Disorders Endocrine: History of: Dyslipidemia Respiratory: History of: Obstructive Sleep Apnea (USES BIPAP AT HOME) Renal: History of: Renal Failure Gastrointestinal: History of: GERD Hematology: History of: Clotting Problems (History of previous DVT) No history of: Blood Transfusion Reaction - Surgical History Cardiac Surgeries: Sugical HX of: Cardiac Catheterization (stent x one) Orthopedic Surgeries: Surgical HX of;: Orthopedic Surgery (right elbow) - Family History Family History: Reports;: Family Cancer (BROTHER LIVER AND KIDNEY CANCER), Family Diabetes (Father), Family Heart Disease (Mother father siblings), Family Hypertension (Mother father sibling), Family Stroke (Mother) - Social History Smoking Status: Former smoker Frequency of Alcohol Use: None Type of Drug Use: None Results - Labs CBC & BMP: 07/27/16 Unknown 07/27/16 00:40 Lab Results: I have reviewed the past 24 hour labs - Diagnostic Findings Procedure: Chest x-ray: image reviewed by me (ET tube good position. Lungs essentially clear.) Quality Measures - VTE Contraindication to Pharmacological VTE Prophylaxis: High Risk of Bleeding
[2016-07-27] MEDS ORDERED: SIMVASTATIN 40 MG TABLET PO SCH (21:00)
[2016-07-27] MEDS: TERAZOSIN 2 MG CAPSULE PO SCH (21:13)
[2016-07-28] MEDS: HYDROmorphone 2 MG/1 ML VIAL IV PRN ×5 (00:35→17:53)
[2016-07-28] MEDS: PROPOFOL 1,000 MG/100 ML BOTTLE IV SCH ×6 (01:20→22:58)
[2016-07-28] MEDS: ALBUTEROL/IPRATROPIUM 3 ML NEB RESP TX SCH ×4 (01:44→19:10)
[2016-07-28] MEDS: SODIUM CHLORIDE 0.9% 1,000 ML IV SCH ×2 (02:05→03:27)
[2016-07-28 02:42] LABS: Allen Test Positive; Pt O2 Delivery Device Ventilator
[2016-07-28 02:43] LABS: ABG Base Excess 6.6 MMOL/L (-2.5-2.5); ABG HCO3 30.4 MMOL/L (20-26); ABG Oxygen Saturation 98.3 % (95-100); ABG PCO2 61.2 MM HG (35-48); ABG PH 7.358 (7.35-7.45); ABG TCO2 30.1 MMOL/L (23-27)
[2016-07-28] MEDS: PIPERACILLIN/TAZOBACTAM 3,375 MG in SODIUM CHLORIDE 0.9% 100 ML IV SCH ×3 (03:24→20:55)
[2016-07-28] MEDS: metroNIDAZOLE INJ 500 MG in PREMIX 1 EACH IV SCH ×3 (03:24→20:49)
[2016-07-28 05:12] LABS: Basophils % 0.5 % (0.0-0.8); Eosinophils # 0.1 10*3/uL (0.0-0.87); Eosinophils % 1.4 % (0.00-10.9); Hematocrit 39.9 VOL% (42.0-52.0); Hemoglobin 13.1 GM/DL (14.0-18.0); Immature Granulocytes % 0.6 %; Immature Granulocytes Absolute 0.04 #; Lymphocytes # 1.2 10*3/uL (1.4-4.0); Lymphocytes % 18.2 % (21.2-54.2); Mean Corpuscular HGB Conc 32.8 GM/DL (32-36); Mean Corpuscular Hemoglobin 36 PG (27-34); Mean Corpuscular Volume 108.7 FL (87-102); Mean Platelet Volume 11.9 FL (9.6-12.0); Monocytes # 0.7 10*3/uL (0.11-0.8); Monocytes % 11.4 % (1.7-12.7); Neutrophils # 4.3 10*3/uL (1.4-7.4); Neutrophils % 67.9 % (38.7-73.9); Platelet Count 97 T/CUMM (130-400); Red Blood Count 3.67 MC/CUMM (3.8-5.5); Red Cell Distribution Width 14.3 % (9.3-17.3); White Blood Count 6.3 T/CUMM (4-12)
[2016-07-28 05:41] LABS: Eosinophils 2 % (0-10); Lymphocytes 18 % (20-55); Platelet Estimate Decreased; Segmented Neutrophils 68 % (50-85); Total Cells Counted 100
[2016-07-28 05:44] LABS: Risk Ratio 2.62; VLDL CHOLESTEROL 96.2 MG/DL
[2016-07-28 05:56] LABS: Albumin 2.5 G/DL (3.4-5.0); Albumin 2.6 G/DL (3.4-5.0); Bilirubin,Direct 0.6 MG/DL (0.0-0.20); Bilirubin,Total 1.6 MG/DL (0.2-1.0); Calcium 7.2 MG/DL (8.5-10.1); Magnesium 1.7 MG/DL (1.8-2.4); Osmolality,Calculated 291.7 MOS/KG (273-304); Potassium 3.7 MMOL/L (3.5-5.1); Total Protein 6.2 G/DL (6.4-8.3)
[2016-07-28 06:17] LABS: Calcium 7.4 MG/DL (8.5-10.1); Magnesium 1.7 MG/DL (1.8-2.4); Osmolality,Calculated 289.8 MOS/KG (273-304); Potassium 3.7 MMOL/L (3.5-5.1)
--- NOTE | 2016-07-28 07:03 | Pulmonology Progress Note ---
Pulmonary - PN: Subj Interval history: This 56-year-old white male had surgery yesterday for suspected gallbladder disease. However he had a very large liver that might cholecystectomy and possible. He has been on the ventilator yesterday and today. His chest x-ray looks okay. PCO2 remains elevated. Has a history of obstructive sleep apnea and he is obese. We will have obesity hypoventilation syndrome prior to his surgery, based on his elevated PCO2 at the present time. This makes it somewhat difficult to wean him. I will add Diamox for 3 days despite the fact that his pH is only 7.35. We will see if we can get his PCO2 down a little further. We will cautiously start CPAP today although I do not expect him to wean rapidly. Exam (Progress Note) - Constitutional Vitals: Period Temp Pulse Resp BP Sys/G[place]a Pulse Ox Last 24 Hr 96.2 F-98.1 F 55-84 14-62 91-154/52-87 90-99 Exam: Patient is sedated. Vital signs normal. Pupils react to light. Orotracheal tube in place. Neck supple no bruits. Chest sounds clear. Heart normal rate rhythm no murmurs. Abdomen bandaged bowel sounds present. No masses. Extremities no clubbing or cyanosis. Trace of edema. Results - Labs CBC & BMP: 07/28/16 04:55 07/28/16 04:55 Lab Results: I have reviewed the past 24 hour labs - Diagnostic Findings Procedure: Chest x-ray: image reviewed by me (Lungs fairly clear. ET tube good position.) Assessment and Plan (1) Postop laparotomy Status: Acute Assessment and plan: Patient is felt to have cholecystitis. Difficult to surgery due to his large liver. Unable to remove the gallbladder. He is now sedated on the ventilator. We will try to wean when he is alert. 07/28/2016 patient arousable and off sedation at present. Anesthesia out of his system. Current Visit: Yes (2) Hepatic steatosis Status: Acute Assessment and plan: May be due to previously unknown diabetes. May just simply be steatosis. Defer to GI. Current Visit: Yes (3) Obstructive sleep apnea Status: Acute Assessment and plan: Patient is on BiPAP at home at night. Will need to keep this in mind when it is time to extubate him. We will need BiPAP facemask after he is extubated. He may have obesity hypoventilation syndrome which would render his PCO2 elevated at baseline. His ABGs look like that. 07/28/2016 has EDA. May well have OHS well. Try low dose Diamox to reduce PCO2. Current Visit: Yes (4) Coronary artery disease with stent Status: Chronic Assessment and plan: He has a coronary stent. Needs to be back on Plavix soon. Cardiology following. 07/28/2016 no signs of congestive heart failure. Current Visit: No (5) Hyperglycemia on admission Status: Acute Assessment and plan: Continues to have hyperglycemia. Will check a hemoglobin A1c but I suspect he does have adult-onset diabetes. Continuing sliding scale insulin. 07/28/2016 on sliding scale insulin. Hemoglobin A1c of 7.9 indicates that he is indeed diabetic. Glucoses running in the 150 range. Current Visit: Yes
--- NOTE | 2016-07-28 07:21 | EKG Report ---
Stationary ECG Study 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
--- NOTE | 2016-07-28 07:29 | XRay Report ---
XR chest 1V portable Indication: Ventilator Comparison: Chest x-ray dated July 27, 2016 Technique: Single frontal view of the chest. Findings: Endotracheal tube stable in positioning. Continued cardiomegaly. There is bibasilar atelectasis/consolidation which is increased on the right. There is probable small bilateral pleural fluid. Visualized osseous and surrounding soft tissue structures appear grossly unchanged. IMPRESSION: As above. PROCEDURE INTERPRETED AT [facility] DEPARTMENT OF RADIOLOGY Final Report Signed by: Dr aDnilo Juan
[2016-07-28] MEDS ORDERED: HYDROmorphone 2 MG/1 ML VIAL IV ONE (07:39)
--- NOTE | 2016-07-28 07:59 | Event Note ---
Postop day 1 status post diagnostic laparoscopy with liver biopsy. Preoperative impression was acute cholecystitis but his gallbladder did not look inflamed. At the time of the procedure his liver appeared enlarged especially the right lobe, it was very boggy and a biopsy was obtained. I did not feel cholecystectomy was warranted at that time but it would have been very difficult to perform a cholecystectomy anyway due to the liver. He has sleep apnea and was unable to be weaned from the vent postoperatively. He was transferred to the ICU intubated in stable condition. Dr. Nogueira is managing the vent. This morning, he remains afebrile and his vital signs are stable. He is intubated but not sedated. He is riding on a piece of paper and answers questions by nodding. His only complaint seems to be the ET tube irritation. He is currently denying abdominal pain. On exam his abdomen is soft and he denies tenderness with palpation in the right upper quadrant. Labs are noted. Viral hepatitis panel was negative. This may be another form of hepatitis or possibly passive liver congestion. Will have Dr. Melo and Dr. Rodríguez evaluate for these. Liver biopsy was performed and results are pending. Plan: Continue supportive care.
[2016-07-28] MEDS: INSULIN LISPRO 100 UNIT/ML SUBCUT SCH ×4 (08:57→20:51)
[2016-07-28] MEDS: FUROSEMIDE 20 MG TABLET PO SCH (09:02)
[2016-07-28] MEDS: CARVEDILOL 25 MG TABLET PO SCH ×2 (09:03→20:37)
[2016-07-28] MEDS: SPIRONOLACTONE 25 MG TABLET PO SCH (09:03)
[2016-07-28] MEDS: OMEGA 3 ACID ETHYL ESTERS 1 GM CAPSULE PO SCH ×2 (09:03→20:54)
[2016-07-28] MEDS: PANTOPRAZOLE 40 MG VIAL IV SCH (09:03)
[2016-07-28] MEDS: MAGNESIUM CHLORIDE 64 MG TABLET PO SCH (09:03)
[2016-07-28] MEDS: NIACIN ER 500 MG TABLET PO SCH (09:03)
[2016-07-28] MEDS: FLUTICASONE 50 MCG NASAL SPRAY 16 GM BOTTLE BOTH NARES SCH (09:16)
--- NOTE | 2016-07-28 09:43 | Cardiology Progress Note ---
Addendum entered and electronically signed by Meagan Pena NP 07/28/16 10: 00: I will start patient on aspirin daily as we are not yet able to start his Plavix. His platelet count did decrease overnight to 97. Lovenox is being held at this time. Hopefully, tomorrow will be able to introduce Lovenox as well as or possibly Plavix. Addendum entered and electronically signed by Meagan Pena NP 07/28/16 09: 47: No recent echocardiogram noted in the [facility] system. I will go ahead and order an echocardiogram today given the significantly enlarged liver which may be from passive congestion. Will look for cardiac sources for contributions. Original Note: Assessment and Plan - Time spent with patient Time spent with patient: Greater than 30 minutes (1) Hypertension Status: Chronic Assessment and plan: SEE PLAN OF CARE LISTED BELOW Current Visit: Yes (2) Dyslipidemia Status: Chronic Assessment and plan: SEE PLAN OF CARE LISTED BELOW Current Visit: Yes (3) Pre-op evaluation Status: Resolved Assessment and plan: SEE PLAN OF CARE LISTED BELOW Current Visit: Yes (4) Coronary artery disease with stent Status: Chronic Assessment and plan: SEE PLAN OF CARE LISTED BELOW Current Visit: No (5) Obstructive sleep apnea Status: Chronic Assessment and plan: SEE PLAN OF CARE LISTED BELOW Current Visit: No (6) Obesity Status: Acute Assessment and plan: SEE PLAN OF CARE LISTED BELOW Current Visit: No (7) Acute cholecystitis Status: Resolved Assessment and plan: SEE PLAN OF CARE LISTED BELOW Current Visit: Yes (8) Enlargement of liver Status: Acute Assessment and plan: SEE PLAN OF CARE LISTED BELOW Current Visit: Yes Cardiology - PN: Subj Interval history: FISHER MUSSEL: DR. RODRÍGUEZ Patient is being seen in the ICU. SUMMARY: Mr. Coles, 56WM, routinely followed by Dr. Rodríguez. He was last seen in cardiology clinic July 13, 2016. Risk factors include: known coronary artery disease, hypertension, dyslipidemia, morbid obesity. History of cardiac catheterization requiring PCI of proximal LAD 2006. Underwent repeat cardiac catheterization February 2014 for NSTEMI felt to be related to a thrombotic event as there was no coronary obstruction noted. He is on Plavix long-term. Patient was admitted July 26, 2016 with right upper quadrant abdominal pain. He was diagnosed with acute cholecystitis, elevated liver enzymes. Initially, he was scheduled to undergo laparoscopic cholecystectomy yesterday. However, the liver was enlarged removal of gallbladder was not possible. However, gallbladder did not look inflamed and did not warrant removal. Biopsy of liver obtained. Postoperatively, he was transitioned to the ICU as he has severe sleep apnea and it was somewhat difficult to wean him from the ventilator. JULY 28, 2016: Overnight, patient remains on the ventilator. Aggressive weaning trials will begin with hopeful extubation tomorrow. Vital signs are stable this morning. He is waking and moving all extremities appropriately. Viral hepatitis panel was negative. May possibly be passive liver congestion or a different type of hepatitis. I will attempt to locate his most recent echocardiogram today. Mildly hypomagnesemic and will verify he is on the replacement protocol. Triglycerides 485, LDL 75. Will require restarting of Plavix when it is safe from a surgical standpoint. Will further discuss with Dr. Rodríguez and await additional recommendations. ASSESSMENT/PLAN: 1. ACUTE CHOLECYSTITIS - see above. GB not inflamed and cholecystectomy not warranted. 2. ENLARGED LIVER - viral hepatitis panel is negative. He was noted to be boggy and enlarged. May be from passive congestion. Will attempt to locate most recent echocardiogram and have this scanned in today. If no recent echo is located, will consider reordering today. 3. KNOWN CAD - Okay to continue to hold Plavix but we will restart no care with surgeon. 4. HYPERTENSION - continuing beta-blockade 5. DYSLIPIDEMIA - holding lipid-lowering agent at this time due to the elevated liver enzymes. Triglycerides 485, LDL 75. 6. MORBID OBESITY - dietary counseling prior to discharge 7. EDA - pulmonary on board and will start weaning trials soon. Exam (Progress Note) - Constitutional Vitals: Period Temp Pulse Resp BP Sys/Gasca Pulse Ox Last 24 Hr 96.2 F-98.1 F 55-84 14-62 91-154/52-87 90-99 Exam: General: [Appears well with no apparent distress.] [Wakes easily and appears comfortable. ] HEENT: [PERRL, normocephalic, atraumatic. Mucous membranes moist. No jaundice noted. Conjunctiva moist and clear, sclerae anicteric] Neck: Difficult to assess for JVD due to habitus. No thyromegaly or lymphadenopathy noted. No carotid bruit appreciated Cardiac: [Regular rate and rhythm.] [No obvious murmur rub or gallop.] Lungs: [Clear to auscultation without accessory muscle use to assist the respiratory pattern.] Symmetrical chest wall movements noted. Abdomen: Protuberant with dressings dry and intact. Scant bowel sounds. Musculoskeletal: No fluid collection. Decreased range of motion is noted. Extremities: No clubbing, cyanosis noted. [Trace bilateral lower extremity edema. TEDs intact.] Upper extremity pulses 2+. Lower extremity pulses 2+. Capillary refill less than 3 seconds. Skin: No unusual lesions or rashes. No skin breakdown appreciated. Neuro: Wakes easily, follows commands appropriately. Moves all extremities well without hemiparesis or paralysis. No essential tremor is appreciated. Result/EKG - Labs CBC & BMP: 07/28/16 04:55 07/28/16 04:55 Lab Results: I have reviewed the past 24 hour labs Labs: Laboratory Results - last 24 hr 07/27/16 07/27/16 07/27/16 08:31 08:31 08:31 WBC RBC Hgb Hct MCV MCH MCHC RDW Plt Count MPV Neut % (Auto) Lymph % (Auto) [place] % (Auto) Eos % (Auto) Baso % (Auto) Neut # (Auto) Lymph # (Auto) [place] # (Auto) Eos # (Auto) Baso # (Auto) Total Counted Immature Gran % Nucleated RBC % Immature Gran # Segmented Neutrophils Lymphocytes Monocytes Eosinophils Nucleated RBCs # Platelet Estimate Oval Macrocytes ESR [place] 42 H ABG pH ABG pCO2 ABG pO2 ABG HCO3 ABG Total CO2 ABG O2 Saturation ABG Base Excess FiO2 Sodium Potassium Chloride Carbon Dioxide Anion Gap BUN Creatinine GFR Calculation BUN/Creatinine Ratio Glucose POC Glucose Hemoglobin A1c Calculated Osmolality Calcium Magnesium Total Bilirubin Direct Bilirubin Indirect Bilirubin AST ALT Alkaline Phosphatase Total Protein Albumin Globulin Albumin/Globulin Ratio Triglycerides Cholesterol LDL Cholesterol VLDL Cholesterol HDL Cholesterol Heart Disease Risk Ratio Lipase Vitamin B12 826 Folate 8.1 Hepatitis A IgM Ab Negative Hep Bs Antigen Negative Hep B Core IgM Ab Negative Hepatitis C Antibody Negative 07/27/16 07/27/16 07/27/16 11:05 17:45 18:17 WBC RBC Hgb Hct MCV MCH MCHC RDW Plt Count MPV Neut % (Auto) Lymph % (Auto) [place] % (Auto) Eos % (Auto) Baso % (Auto) Neut # (Auto) Lymph # (Auto) [place] # (Auto) Eos # (Auto) Baso # (Auto) Total Counted Immature Gran % Nucleated RBC % Immature Gran # Segmented Neutrophils Lymphocytes Monocytes Eosinophils Nucleated RBCs # Platelet Estimate Oval Macrocytes ESR [place]gren ABG pH 7.341 L ABG pCO2 64.1 H ABG pO2 447.2 H ABG HCO3 33.9 H ABG Total CO2 35.9 H ABG O2 Saturation 99.6 ABG Base Excess 5.9 H FiO2 100.00 Sodium Potassium Chloride Carbon Dioxide Anion Gap BUN Creatinine GFR Calculation BUN/Creatinine Ratio Glucose POC Glucose 263 H 199 H Hemoglobin A1c Calculated Osmolality Calcium Magnesium Total Bilirubin Direct Bilirubin Indirect Bilirubin AST ALT Alkaline Phosphatase Total Protein Albumin Globulin Albumin/Globulin Ratio Triglycerides Cholesterol LDL Cholesterol VLDL Cholesterol HDL Cholesterol Heart Disease Risk Ratio Lipase Vitamin B12 Folate Hepatitis A IgM Ab Hep Bs Antigen Hep B Core IgM Ab Hepatitis C Antibody 07/27/16 07/27/16 07/27/16 18:35 22:12 23:30 WBC RBC Hgb Hct MCV MCH MCHC RDW Plt Count MPV Neut % (Auto) Lymph % (Auto) [place] % (Auto) Eos % (Auto) Baso % (Auto) Neut # (Auto) Lymph # (Auto) [place] # (Auto) Eos # (Auto) Baso # (Auto) Total Counted Immature Gran % Nucleated RBC % Immature Gran # Segmented Neutrophils Lymphocytes Monocytes Eosinophils Nucleated RBCs # Platelet Estimate Oval Macrocytes ESR [place] ABG pH ABG pCO2 ABG pO2 ABG HCO3 ABG Total CO2 ABG O2 Saturation ABG Base Excess FiO2 Sodium Potassium Chloride Carbon Dioxide Anion Gap BUN Creatinine GFR Calculation BUN/Creatinine Ratio Glucose POC Glucose 179 H 157 H Hemoglobin A1c 7.9 H Calculated Osmolality Calcium Magnesium Total Bilirubin Direct Bilirubin Indirect Bilirubin AST ALT Alkaline Phosphatase Total Protein Albumin Globulin Albumin/Globulin Ratio Triglycerides Cholesterol LDL Cholesterol VLDL Cholesterol HDL Cholesterol Heart Disease Risk Ratio Lipase Vitamin B12 Folate Hepatitis A IgM Ab Hep Bs Antigen Hep B Core IgM Ab Hepatitis C Antibody 07/28/16 07/28/16 07/28/16 02:30 04:55 04:55 WBC 6.3 D RBC 3.67 L D Hgb 13.1 L D Hct 39.9 L MCV 108.7 H MCH 36 H MCHC 32.8 RDW 14.3 Plt Count 97 L D MPV 11.9 Neut % (Auto) 67.9 Lymph % (Auto) 18.2 L [place] % (Auto) 11.4 Eos % (Auto) 1.4 Baso % (Auto) 0.5 Neut # (Auto) 4.3 Lymph # (Auto) 1.2 L [place] # (Auto) 0.7 Eos # (Auto) 0.1 Baso # (Auto) 0.0 Total Counted 100 Immature Gran % 0.6 Nucleated RBC % 0.0 Immature Gran # 0.04 Segmented Neutrophils 68 Lymphocytes 18 L Monocytes 12 Eosinophils 2 Nucleated RBCs # 0.00 Platelet Estimate Decreased Oval Macrocytes 1+ ESR Westergren ABG pH 7.358 ABG pCO2 61.2 H ABG pO2 114.0 H ABG HCO3 30.4 H ABG Total CO2 30.1 H ABG O2 Saturation 98.3 ABG Base Excess 6.6 H FiO2 60.00 Sodium 145 Potassium 3.7 Chloride 106 Carbon Dioxide 34 H Anion Gap 8.7 BUN 16 Creatinine 0.90 GFR Calculation 136 BUN/Creatinine Ratio 17.00 Glucose 154 H POC Glucose Hemoglobin A1c Calculated Osmolality 291.7 Calcium 7.2 L D Magnesium 1.7 L Total Bilirubin 1.60 H Direct Bilirubin Indirect Bilirubin AST 117 H ALT 114 H Alkaline Phosphatase 76 Total Protein 6.2 L Albumin 2.6 L Globulin 3.6 H Albumin/Globulin Ratio 0.7 L Triglycerides Cholesterol LDL Cholesterol VLDL Cholesterol HDL Cholesterol Heart Disease Risk Ratio Lipase Vitamin B12 Folate Hepatitis A IgM Ab Hep Bs Antigen Hep B Core IgM Ab Hepatitis C Antibody 07/28/16 07/28/16 07/28/16 04:55 04:55 04:55 WBC RBC Hgb Hct MCV MCH MCHC RDW Plt Count MPV Neut % (Auto) Lymph % (Auto) [place] % (Auto) Eos % (Auto) Baso % (Auto) Neut # (Auto) Lymph # (Auto) [place] # (Auto) Eos # (Auto) Baso # (Auto) Total Counted Immature Gran % Nucleated RBC % Immature Gran # Segmented Neutrophils Lymphocytes Monocytes Eosinophils Nucleated RBCs # Platelet Estimate Oval Macrocytes ESR [place] ABG pH ABG pCO2 ABG pO2 ABG HCO3 ABG Total CO2 ABG O2 Saturation ABG Base Excess FiO2 Sodium 144 Potassium 3.7 Chloride 106 Carbon Dioxide 31 Anion Gap 10.7 BUN 16 Creatinine 0.90 GFR Calculation 136 BUN/Creatinine Ratio 17.00 Glucose 150 H POC Glucose Hemoglobin A1c Calculated Osmolality 289.8 Calcium 7.4 L Magnesium 1.7 L Total Bilirubin 1.60 H Direct Bilirubin 0.60 H Indirect Bilirubin 1.0 AST 115 H ALT 113 H Alkaline Phosphatase 72 Total Protein 6.2 L Albumin 2.5 L Globulin Albumin/Globulin Ratio Triglycerides 481 H Cholesterol 136 LDL Cholesterol 75.0 VLDL Cholesterol 96.2 HDL Cholesterol 52 Heart Disease Risk Ratio 2.62 Lipase 190.0 D Vitamin B12 Folate Hepatitis A IgM Ab Hep Bs Antigen Hep B Core IgM Ab Hepatitis C Antibody 07/28/16 05:32 WBC RBC Hgb Hct MCV MCH MCHC RDW Plt Count MPV Neut % (Auto) Lymph % (Auto) [place] % (Auto) Eos % (Auto) Baso % (Auto) Neut # (Auto) Lymph # (Auto) [place] # (Auto) Eos # (Auto) Baso # (Auto) Total Counted Immature Gran % Nucleated RBC % Immature Gran # Segmented Neutrophils Lymphocytes Monocytes Eosinophils Nucleated RBCs # Platelet Estimate Oval Macrocytes ESR [place] ABG pH ABG pCO2 ABG pO2 ABG HCO3 ABG Total CO2 ABG O2 Saturation ABG Base Excess FiO2 Sodium Potassium Chloride Carbon Dioxide Anion Gap BUN Creatinine GFR Calculation BUN/Creatinine Ratio Glucose POC Glucose 154 H Hemoglobin A1c Calculated Osmolality Calcium Magnesium Total Bilirubin Direct Bilirubin Indirect Bilirubin AST ALT Alkaline Phosphatase Total Protein Albumin Globulin Albumin/Globulin Ratio Triglycerides Cholesterol LDL Cholesterol VLDL Cholesterol HDL Cholesterol Heart Disease Risk Ratio Lipase Vitamin B12 Folate Hepatitis A IgM Ab Hep Bs Antigen Hep B Core IgM Ab Hepatitis C Antibody - Diagnostic Findings Procedure: Chest x-ray: report reviewed by me - EKG EKG results: interpreted by me EKG shows: sinus rhythm Quality Measures - VTE Contraindication to Pharmacological VTE Prophylaxis: High Risk of Bleeding
--- NOTE | 2016-07-28 11:03 | Gastrointestinal Consult Note ---
Addendum entered and electronically signed by Rachel Frank FNP 07/28/16 13:09: Patient is noted prior to admission to be on Plavix for history of heart stents however no recent stent placement over the past year. Patient also noted during inpatient stay in April with influenza to have elevated LFTs at that time. Original Note: <Rachel Frank - Last Filed: 07/28/16 10:56> Assessment and Plan (1) Elevated liver enzymes Status: Acute Assessment and plan: 07/28-findings of elevated LFTs on admission with correlated findings of acute cholecystitis. Intraoperatively unable to perform cholecystectomy therefore liver biopsy obtained and results pending at present time. History of daily alcohol intake 5 years. Await pathology report from liver biopsy at this time. Plan an addendum to follow by Dr. Juarez. Current Visit: Yes History of Present Illness Chief complaint: Elevated liver enzymes History of present illness: Mr. Coles is a 56 year old male who was admitted to the hospital with sudden onset of right lower quadrant abdominal pain on yesterday. Patient is sedated and on the ventilator at this time and unable to provide history. History was provided by patient's daughter and . Patient is reported to be in his usual state of health until 2 days ago when he had a sudden onset of right lower quadrant abdominal pain. The pain was described to be sharp and severe in nature radiated across the top of his abdomen. He also had some associated diarrhea with this but denies any other symptoms. Patient was brought to the emergency room for further evaluation at that point. In the emergency room he was found to have elevated blood sugars with no prior history of diabetes. He was also found to have elevated liver enzymes with no prior history of this as well. Patient's states that other than him having a case of influenza requiring 4 days of hospitalization in April of this year, patient has been fairly healthy. Patient had a CT of the abdomen done during his admission and was found to have findings of biliary sludge and mild cholecystitis. Dr. Barkley was consulted at that time and patient was scheduled for laparoscopic cholecystectomy however during surgery patient was found to have a moderately distended gallbladder without edema or inflammation however was found to have an enlarged liver of the right lobe that was considered to be boggy. He was unable to proceed with cholecystectomy at that time and therefore proceeded with liver biopsy. Due to patient's history of obesity and sleep apnea he was unable to be extubated and was transferred to ICU where he remains on the ventilator at this time. Hepatitis panel is noted to be negative. Patient does have a history over the last 4-5 years of alcohol intake that patient's reports to be heavier over the past year. Patient's daughter states that patient began drinking 5 years ago at 2-3 mixed drinks at night to help him relax. Patient's states that over the past year his intake is increased to approximately 4-5 drinks at night. LFTs are starting to trend downward at this time however bilirubin is slightly elevated at 1.6. AST 115, ALT 113, albumin 2.5, lipase 190. Home Medications Medication Instructions Recorded Confirmed Type Aspirin [Ecotrin] 325 mg PO QAM 07/30/14 07/27/16 History Clopidogrel [Plavix] 75 mg PO QOTHER DAY 07/30/14 07/27/16 History Magnesium Chloride [Slow Mag] 64 mg PO DAILY 07/30/14 07/27/16 History [place]-3/Dha/Epa/Fish Oil [Fish Oil 1 each PO BID 07/30/14 07/27/16 History 1,000 mg Softgel] Omeprazole 20 mg PO QAM 07/30/14 07/27/16 History Simvastatin [Zocor] 40 mg PO BEDTIME 07/30/14 07/27/16 History Terazosin [Hytrin] 2 mg PO BEDTIME 07/30/14 07/27/16 History traZODone [Desyrel] 50 mg PO BEDTIME PRN 05/05/16 07/27/16 History Albuterol/Ipratropium Neb [Duoneb] 3 ml RESP TX RT Q6H 05/08/16 07/27/16 Rx Fluticasone 50 Mcg Nasal [place] 2 spray BOTH NARES DAILY spray 05/08/16 Rx [Flonase Nasal [place]] Spironolactone [Aldactone] 25 mg PO DAILY #30 tablet 05/08/16 07/27/16 Rx Carvedilol [Coreg] 25 mg PO BID 07/27/16 07/27/16 History Furosemide Tab [Lasix Tab] 20 mg PO DAILY 07/27/16 07/27/16 History Niacin [Niacin ER] 1,000 mg PO DAILY 07/27/16 07/27/16 History Allergies Allergy/AdvReac Type Severity Reaction Status Date / Time No Known Allergies Allergy Unverified 07/30/14 09:04 Medical,Surgical,& Family Hx - Medical History Cardio: History of: CAD (Previous angioplasty and stent in 2006), Hypertension, [place] (History of previous non-STEMI) Psychological: History of: Anxiety Disorders Endocrine: History of: Dyslipidemia Respiratory: History of: Obstructive Sleep Apnea (USES BIPAP AT HOME) Renal: History of: Renal Failure Gastrointestinal: History of: GERD Hematology: History of: Clotting Problems (History of previous DVT) No history of: Blood Transfusion Reaction - Surgical History Cardiac Surgeries: Sugical HX of: Cardiac Catheterization (stent x one) Orthopedic Surgeries: Surgical HX of;: Orthopedic Surgery (right elbow) - Family History Family History: Reports;: Family Cancer (BROTHER LIVER AND KIDNEY CANCER), Family Diabetes (Father), Family Heart Disease (Mother father siblings), Family Hypertension (Mother father sibling), Family Stroke (Mother) - Social History Smoking Status: Former smoker Frequency of Alcohol Use: None Type of Drug Use: None ROS unobtainable: due to endotracheal tube Exam - Constitutional Vitals: Period Temp Pulse Resp BP Sys/[place] Pulse Ox Last 24 Hr 96.2 F-98.5 F 55-84 14-62 91-154/52-87 90-99 General appearance: no acute distress, over weight - Head Head exam: Present: normal inspection, normocephalic - Eye Eye exam: Present: other (Lids and conjunctive are unremarkable). Absent: scleral icterus - ENT ENT exam: Present: normal exam, normal oropharynx - Neck Neck exam: Present: normal inspection - Respiratory Respiratory exam: Present: clear to auscultation bilaterally. Absent: rales, rhonchi, wheezes - Cardiovascular Cardiovascular exam: Present: regular rate and rhythm. Absent: diastolic murmur , JVD, systolic murmur - GI/Abdominal GI/Abdominal exam: Present: normal bowel sounds, soft. Absent: ascites, distended, mass, organomegaly - Extremities Exam Extremities exam: Present: normal inspection - Back Exam Back exam: Present: normal inspection - Neurological Exam Neurological exam: Present: altered - Psychiatric Psychiatric exam: Present: other - Skin Skin exam: Present: normal color, warm, dry Results - Labs CBC & BMP: 07/28/16 04:55 07/28/16 04:55 Lab Results: I have reviewed the past 24 hour labs Quality Measures - VTE Contraindication to Pharmacological VTE Prophylaxis: High Risk of Bleeding <Hemal Juarez - Last Filed: 07/28/16 19:29> History of Present Illness History of present illness: Mr. Coles is a 56 year old male Exam - Constitutional Vitals: Period Temp Pulse Resp BP Sys/G[place]a Pulse Ox Last 24 Hr 97.5 F-98.6 F 57-69 14-20 91-119/52-70 93-97 Results - Labs CBC & BMP: 07/28/16 12:28 07/28/16 04:55
[2016-07-28] MEDS: ASPIRIN EC 325 MG TABLET PO SCH (11:38)
[2016-07-28 12:41] LABS: Hematocrit 43.4 VOL% (42.0-52.0); Hemoglobin 13.8 GM/DL (14.0-18.0)
[2016-07-28] MEDS: ENOXAPARIN 40 MG/0.4 ML SYRINGE SUBCUT SCH (13:40)
[2016-07-28] MEDS ORDERED: ROCURONIUM 100 MG/10 ML VIAL IV ONE (15:32)
[2016-07-28] MEDS ORDERED: LIDOCAINE 2% 5 ML VIAL ONE (15:32)
[2016-07-28] MEDS ORDERED: PROPOFOL 200 MG/20 ML VIAL IV ONE (15:32)
[2016-07-28] MEDS ORDERED: SUCCINYLCHOLINE 200 MG/10 ML VIAL ONE (15:32)
--- NOTE | 2016-07-28 18:01 | Family Practice Progress Note ---
Family Practice - PN: Subj Interval history: Patient is generally stable at present. I saw patient earlier this a.m. and waited to dictate note until labs and other studies were back. patient is presently on ventilator and tolerating well. Agree with Dr. Nogueira note that patient likely has hypoventilation syndrome. Liver enzymes are slightly improved today. Liver biopsy is pending. Probably a combination of fatty liver disease and alcohol. New-onset type 2 diabetes mellitus controlled at present Dr. Nogueira is attempting to wean off respirator but having difficulty due to his elevated PCO2. We'll continue present treatment plan and await liver biopsy. Exam (Progress Note) - Constitutional Vitals: Period Temp Pulse Resp BP Sys/[place] Pulse Ox Last 24 Hr 97.3 F-98.6 F 55-79 14-20 91-119/52-70 93-98 Results - Labs CBC & BMP: 07/28/16 12:28 07/28/16 04:55 Assessment and Plan (1) Abdominal pain Status: Acute Assessment and plan: We will order numerous additional studies. Suggestive of acute gallbladder disease but possibly diverticulitis. Will need consultation by Dr. Rodríguez if surgery is considered. Have held his aspirin and Plavix for present Current Visit: Yes (2) Acute cholecystitis Status: Resolved Assessment and plan: Have ordered an ultrasound for this a.m. May also need a HIDA scan. Has elevated liver enzymes. Current Visit: Yes (3) Elevated liver enzymes Status: Acute Assessment and plan: We will need to monitor closely and evaluate further Current Visit: Yes (4) Coronary artery disease with stent Status: Chronic Assessment and plan: Stable at present. Patient needs a cardiology consult would Dr. Rodríguez prior to any surgical procedures Current Visit: No (5) Hypertension Status: Chronic Assessment and plan: Stable at present Current Visit: No (6) Obstructive sleep apnea Status: Chronic Assessment and plan: Stable on CPAP Current Visit: No (7) Previous deep vein thrombosis Status: Chronic Current Visit: No (8) Hyperglycemia on admission Status: Acute Assessment and plan: We will order hemoglobin A1c and blood sugars Current Visit: Yes Quality Measures - VTE Contraindication to Pharmacological VTE Prophylaxis: High Risk of Bleeding
[2016-07-28] MEDS: TERAZOSIN 2 MG CAPSULE PO SCH (20:38)
--- NOTE | 2016-07-28 21:54 | ECHO Report ---
Nicolás Coles Exam Date: 07/28/2016 14:30 Referring Physician: Technologist: ariela Balbuena ARDMS, RVT Age: 56 Ht (in): 70 Wt (lb): 287 Gender: M Exam Location: [facility] Echo Indications: Essential (primary) hypertension, Dyslipidemia, pre-op acute cholecytitis, EDA, CAD w/prev stent, Enlarged liver BP: 100 / 56 HR: 65 Rhythm: Sinus Technical Quality: Good IMPRESSIONS Mild left ventricular hypertrophy. Left ventricular ejection fraction is estimated at 60 %. Moderately increased right ventricular size. The right atrium is Moderately enlarged. The left atrium is mildly enlarged. Trace tricuspid valve regurgitation. Tricuspid regurgitation velocities suggest a PAP of 42 mmHg. MEASUREMENTS (Male / Female) Normal Values 2D ECHO LV Diastolic Diameter PLAX 5.4 cm 4.2 - 5.9 / 3.9 - 5.3 cm LV Systolic Diameter PLAX 3.1 cm LV Fractional Shortening PLAX 43.6 % IVS Diastolic Thickness 1.1 cm 0.6 - 1.0 / 0.6 - 0.9 cm LVPW Diastolic Thickness 1.1 cm 0.6 - 1.0 / 0.6 - 0.9 cm RV Internal Dim ED PLAX 3.0 cm Aortic Root Diameter 3.8 cm LA Systolic Diameter LX 4.6 cm 3.0 - 4.0 / 2.7 - 3.8 cm DOPPLER TR Peak Velocity 282.0 cm/s TR Peak Gradient 31.8 mmHg FINDINGS Left Ventricle Normal left ventricular cavity size. Mild left ventricular hypertrophy. Left ventricular ejection fraction is estimated at 60 %. Right Ventricle Moderately increased right ventricular size. Right Atrium The right atrium is Moderately enlarged. Left Atrium The left atrium is mildly enlarged. Mitral Valve Morphologically normal mitral valve without significant stenosis or prolapse. There is no mitral regurgitation. Aortic Valve Morphologically normal aortic valve without significant sclerosis or stenosis. There is no aortic regurgitation. Tricuspid Valve Morphologically normal tricuspid valve. Trace tricuspid valve regurgitation. Tricuspid regurgitation velocities suggest a PAP of 42 mmHg. Pulmonic Valve Morphologically normal pulmonic valve without significant stenosis. There is no pulmonic regurgitation. Pericardium Normal pericardium without effusion. Aorta Normal ascending aorta dimension. Cosme Rodríguez MD (Electronically Signed) Final Date: 28 July 2016 21:53
[2016-07-29] MEDS: ALBUTEROL/IPRATROPIUM 3 ML NEB RESP TX SCH ×4 (00:45→19:00)
[2016-07-29] MEDS: HYDROmorphone 2 MG/1 ML VIAL IV PRN ×3 (00:45→08:26)
[2016-07-29] MEDS: PROPOFOL 1,000 MG/100 ML BOTTLE IV SCH ×3 (02:25→08:21)
[2016-07-29 02:42] LABS: ABG Base Excess 3.4 MMOL/L (-2.5-2.5); ABG HCO3 27.4 MMOL/L (20-26); ABG PCO2 58.5 MM HG (35-48); ABG PH 7.334 (7.35-7.45); ABG TCO2 27.2 MMOL/L (23-27); Allen Test Positive; Pt O2 Delivery Device Ventilator
[2016-07-29] MEDS: PIPERACILLIN/TAZOBACTAM 3,375 MG in SODIUM CHLORIDE 0.9% 100 ML IV SCH ×3 (02:56→21:06)
[2016-07-29] MEDS: metroNIDAZOLE INJ 500 MG in PREMIX 1 EACH IV SCH ×3 (05:48→21:06)
--- NOTE | 2016-07-29 06:04 | General Surgery Progress Note ---
Assessment and Plan (1) Abdominal pain Status: Acute Current Visit: Yes Subjective Narrative: Patient had little agitation last night and pulled out his NG tube and disconnected his ET tube from the vent. He was started back on propofol. Exam - Constitutional Vitals: Period Temp Pulse Resp BP Sys/[place] Pulse Ox Last 24 Hr 97.5 F-98.6 F 57-78 12-20 92-122/52-73 92-100 General appearance: no acute distress - Head Head exam: Present: normocephalic - Respiratory Respiratory exam: Present: clear to auscultation bilaterally - Cardiovascular Cardiovascular exam: Present: RRR - GI/Abdominal GI/Abdominal exam: Present: soft (Protuberant but no significant changes. Exam limited due to sedation.) - Neurological Exam Neurological exam: Present: alert, oriented X3 - Skin Skin exam: Present: normal color Results - Labs CBC & BMP: 07/28/16 12:28 07/28/16 04:55 Quality Measures - VTE Contraindication to Pharmacological VTE Prophylaxis: High Risk of Bleeding
--- NOTE | 2016-07-29 06:07 | Event Note ---
Afebrile vital signs stable. Patient had some agitation earlier this morning and pulled out his OG tube and disconnected his ET tube from the vent. He was started on dipper Van and has been sedated. His abdominal exam is unchanged. He has a protuberant abdomen but does not appear distended. Exam is limited because of the sedation. Yesterday he had no significant pain on exam. Labs are pending with the exception of the ABG which shows his pCO2 has slightly improved. Plan: We will follow-up labs. Biopsy results should return today. If he is not going to be extubated, then we will get an NG tube placed and start tube feeds.
[2016-07-29 06:44] LABS: Basophils % 0.7 % (0.0-0.8); Eosinophils # 0.2 10*3/uL (0.0-0.87); Eosinophils % 2.7 % (0.00-10.9); Hematocrit 42.3 VOL% (42.0-52.0); Hemoglobin 13.2 GM/DL (14.0-18.0); Immature Granulocytes % 0.3 %; Immature Granulocytes Absolute 0.02 #; Lymphocytes # 1.2 10*3/uL (1.4-4.0); Lymphocytes % 20.6 % (21.2-54.2); Mean Corpuscular HGB Conc 31.2 GM/DL (32-36); Mean Corpuscular Hemoglobin 34 PG (27-34); Mean Corpuscular Volume 109.3 FL (87-102); Mean Platelet Volume 11.9 FL (9.6-12.0); Monocytes # 0.7 10*3/uL (0.11-0.8); Monocytes % 11.7 % (1.7-12.7); Neutrophils # 3.8 10*3/uL (1.4-7.4); Platelet Count 112 T/CUMM (130-400); Red Blood Count 3.87 MC/CUMM (3.8-5.5); Red Cell Distribution Width 14.4 % (9.3-17.3); White Blood Count 5.9 T/CUMM (4-12)
[2016-07-29 06:54] LABS: Albumin 2.6 G/DL (3.4-5.0); Bilirubin,Total 1.7 MG/DL (0.2-1.0); Calcium 7.9 MG/DL (8.5-10.1); Osmolality,Calculated 296.3 MOS/KG (273-304); Potassium 3.5 MMOL/L (3.5-5.1); Total Protein 6.1 G/DL (6.4-8.3)
[2016-07-29 07:11] LABS: Band Neutrophils 1 % (0-10); Eosinophils 2 % (0-10); Hypochromasia 1+; Lymphocytes 20 % (20-55); Platelet Estimate Decreased; Segmented Neutrophils 63 % (50-85); Total Cells Counted 100
--- NOTE | 2016-07-29 07:12 | Pulmonology Progress Note ---
Pulmonary - PN: Subj Interval history: This 56-year-old white male had surgery yesterday for suspected gallbladder disease. However he had a very large liver that might cholecystectomy and possible. He has been on the ventilator yesterday and today. His chest x-ray looks okay. PCO2 remains elevated. Has a history of obstructive sleep apnea and he is obese. We will have obesity hypoventilation syndrome prior to his surgery, based on his elevated PCO2 at the present time. This makes it somewhat difficult to wean him. I will add Diamox for 3 days despite the fact that his pH is only 7.35. We will see if we can get his PCO2 down a little further. We will cautiously start CPAP today although I do not expect him to wean rapidly. 07/29/2016 patient has been combative when sedation is held. Difficult to wean. He has an elevated PCO2. Going to need to reduce his FiO2 to wean. He has underlying sleep apnea and may have obesity hypoventilation syndrome. Will change sedation to Precedex and try to wean as rapidly as tolerated. Exam (Progress Note) - Constitutional Vitals: Period Temp Pulse Resp BP Sys/G[place]a Pulse Ox Last 24 Hr 97.5 F-98.6 F 56-78 12-20 92-125/52-76 92-100 Exam: Patient is sedated, responsive when sedation is reduced. Vital signs normal. Pupils react to light. Orotracheal tube in place. Neck supple no bruits. Chest sounds clear. Heart normal rate rhythm no murmurs. Abdomen bandaged bowel sounds present. No masses. Extremities no clubbing or cyanosis. Trace of edema. Results - Labs CBC & BMP: 07/29/16 06:09 07/29/16 06:09 Lab Results: I have reviewed the past 24 hour labs - Diagnostic Findings Procedure: Chest x-ray: image reviewed by me (ET tube good position. Minimal basilar atelectasis. May have small pleural effusions) Assessment and Plan (1) Postop laparotomy Status: Acute Assessment and plan: Patient is felt to have cholecystitis. Difficult to surgery due to his large liver. Unable to remove the gallbladder. He is now sedated on the ventilator. We will try to wean when he is alert. 07/28/2016 patient arousable and off sedation at present. Anesthesia out of his system. 07/29/2016 patient denies pain. Responsive on low-dose propofol. Current Visit: Yes (2) Hepatic steatosis Status: Acute Assessment and plan: May be due to previously unknown diabetes. May just simply be steatosis. Defer to GI. 07/29/2016 do not want to use Haldol with his liver problems. Current Visit: Yes (3) Obstructive sleep apnea Status: Acute Assessment and plan: Patient is on BiPAP at home at night. Will need to keep this in mind when it is time to extubate him. We will need BiPAP facemask after he is extubated. He may have obesity hypoventilation syndrome which would render his PCO2 elevated at baseline. His ABGs look like that. 07/28/2016 has EDA. May well have OHS well. Try low dose Diamox to reduce PCO2. 07/29/2016 will be a real problem once we get him extubated. Will need to be sure that he uses BiPAP. Current Visit: Yes (4) Coronary artery disease with stent Status: Chronic Assessment and plan: He has a coronary stent. Needs to be back on Plavix soon. Cardiology following. 07/28/2016 no signs of congestive heart failure. Current Visit: No (5) Hyperglycemia on admission Status: Acute Assessment and plan: Continues to have hyperglycemia. Will check a hemoglobin A1c but I suspect he does have adult-onset diabetes. Continuing sliding scale insulin. 07/28/2016 on sliding scale insulin. Hemoglobin A1c of 7.9 indicates that he is indeed diabetic. Glucoses running in the 150 range. 07/29/2016 glucoses are better controlled. Current Visit: Yes
--- NOTE | 2016-07-29 07:50 | Event Note ---
Conference with and kids. Brought him up-to-date on difficulty weaning. Obtain additional information that he was a smoker until one year ago and apparently drank fairly heavily. Not known to be diabetic prior to this admission but he is with hemoglobin A1c of 7.9%. The hepatic steatosis is likely multifactorial related to obesity, diabetes, and alcohol use. With his smoking history there may be an element of COPD although he was not previously diagnosed as that.
--- NOTE | 2016-07-29 07:58 | EKG Report ---
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
--- NOTE | 2016-07-29 08:07 | XRay Report ---
XR chest 1V portable Indication: Ventilator Comparison: Chest x-ray dated July 28, 2016 Technique: Single frontal view of the chest. Findings: Endotracheal tube stable in positioning. Continued cardiomegaly. Continued bibasilar atelectasis/consolidation and probable small bilateral pleural fluid. Visualized osseous and surrounding soft tissue structures appear grossly unchanged. IMPRESSION: No significant interval change. PROCEDURE INTERPRETED AT [facility] DEPARTMENT OF RADIOLOGY Final Report Signed by: Dr Danilo Juan
[2016-07-29] MEDS: DEXMEDETOMIDINE 200 MCG in SODIUM CHLORIDE 0.9% 48 ML IV SCH ×4 (08:12→14:45)
[2016-07-29] MEDS ORDERED: PROPOFOL 1,000 MG/100 ML BOTTLE IV ONE (08:19)
[2016-07-29] MEDS: methylPREDNISolone SOD SUC 40 MG/1 ML VIAL IV SCH ×2 (08:29→21:06)
[2016-07-29] MEDS: INSULIN LISPRO 100 UNIT/ML SUBCUT SCH ×4 (09:40→21:08)
[2016-07-29 09:43] LABS: Allen Test Positive; Pt O2 Delivery Device CPAP
[2016-07-29 09:45] LABS: ABG Base Excess 1.4 MMOL/L (-2.5-2.5); ABG HCO3 25.6 MMOL/L (20-26); ABG Oxygen Saturation 96.8 % (95-100); ABG PCO2 63.4 MM HG (35-48); ABG PH 7.287 (7.35-7.45); ABG PO2 93.8 MM HG (80-95); ABG TCO2 26.5 MMOL/L (23-27)
--- NOTE | 2016-07-29 10:00 | Cardiology Progress Note ---
Assessment and Plan - Time spent with patient Time spent with patient: Greater than 30 minutes (1) Hypertension Status: Chronic Assessment and plan: SEE PLAN OF CARE LISTED BELOW Current Visit: Yes (2) Dyslipidemia Status: Chronic Assessment and plan: SEE PLAN OF CARE LISTED BELOW Current Visit: Yes (3) Pre-op evaluation Status: Resolved Assessment and plan: SEE PLAN OF CARE LISTED BELOW Current Visit: Yes (4) Coronary artery disease with stent Status: Chronic Assessment and plan: SEE PLAN OF CARE LISTED BELOW Current Visit: No (5) Obstructive sleep apnea Status: Chronic Assessment and plan: SEE PLAN OF CARE LISTED BELOW Current Visit: No (6) Obesity Status: Acute Assessment and plan: SEE PLAN OF CARE LISTED BELOW Current Visit: No (7) Acute cholecystitis Status: Resolved Assessment and plan: SEE PLAN OF CARE LISTED BELOW Current Visit: Yes (8) Enlargement of liver Status: Acute Assessment and plan: SEE PLAN OF CARE LISTED BELOW Current Visit: Yes (9) Thrombocytopenia Status: Acute Current Visit: Yes Cardiology - PN: Subj Interval history: ASSISTANT TRACK AND FIELD COACH: DR. RODRÍGUEZ Patient is being seen in the ICU. SUMMARY: Mr. Coles, 56WM, routinely followed by Dr. Rodríguez. He was last seen in cardiology clinic July 13, 2016. Risk factors include: known coronary artery disease, hypertension, dyslipidemia, morbid obesity. History of cardiac catheterization requiring PCI of proximal LAD 2006. Underwent repeat cardiac catheterization February 2014 for NSTEMI felt to be related to a thrombotic event as there was no coronary obstruction noted. He is on Plavix long-term. Patient was admitted July 26, 2016 with right upper quadrant abdominal pain. He was diagnosed with acute cholecystitis, elevated liver enzymes. Initially, he was scheduled to undergo laparoscopic cholecystectomy yesterday. However, the liver was enlarged removal of gallbladder was not possible. However, gallbladder did not look inflamed and did not warrant removal. Biopsy of liver obtained. Postoperatively, he was transitioned to the ICU as he has severe sleep apnea and it was somewhat difficult to wean him from the ventilator. JULY 28, 2016: Overnight, patient remains on the ventilator. Aggressive weaning trials will begin with hopeful extubation tomorrow. Vital signs are stable this morning. He is waking and moving all extremities appropriately. Viral hepatitis panel was negative. May possibly be passive liver congestion or a different type of hepatitis. I will attempt to locate his most recent echocardiogram today. Mildly hypomagnesemic and will verify he is on the replacement protocol. Triglycerides 485, LDL 75. Will require restarting of Plavix when it is safe from a surgical standpoint. Will further discuss with Dr. Rodríguez and await additional recommendations. JULY 29, 2016: Patient remains on the ventilator this morning. Lovenox is being restarted this morning as his platelets have improved. Blood pressure is elevated and I am adjusting medications to include adding lisinopril 5 mg twice daily, starting now. Also, adding hydralazine 10 mg IV as needed every 2 hours for systolic blood pressure greater than 170 mmHg. There is a possibility he is going through alcohol withdrawals and Ativan has been initiated. Labs are stable. Echocardiogram reveals EF 60%, PAP 42 mmHg. No significant valvular abnormality noted. ASSESSMENT/PLAN: 1. ACUTE CHOLECYSTITIS - see above. GB not inflamed and cholecystectomy not warranted. 2. ENLARGED LIVER - viral hepatitis panel is negative. He was noted to be boggy and enlarged. Echocardiogram reveals normal systolic function. Patient does drink alcohol routinely and this may be contributing factor. Gastroenterology has been consulted. 3. KNOWN CAD - Okay to continue to hold Plavix but we will restart when okay with surgeon. Lovenox will be started today. 4. HYPERTENSION - adding lisinopril twice daily. Hydralazine as needed. 5. DYSLIPIDEMIA - holding lipid-lowering agent at this time due to the elevated liver enzymes. Triglycerides 485, LDL 75. 6. MORBID OBESITY - dietary counseling prior to discharge 7. EDA - pulmonary on board and will start weaning trials soon. 8. THROMBOCYTOPENIA -improved overnight. Continue to follow closely daily. Exam (Progress Note) - Constitutional Vitals: Period Temp Pulse Resp BP Sys/G[place]a Pulse Ox Last 24 Hr 97.0 F-98.6 F 54-78 12-20 92-127/52-76 92-100 Exam: General: [Appears well with no apparent distress.] [Wakes easily and appears comfortable. ] HEENT: [PERRL, normocephalic, atraumatic. Mucous membranes moist. No jaundice noted. Conjunctiva moist and clear, sclerae anicteric] Neck: Difficult to assess for JVD due to habitus. No thyromegaly or lymphadenopathy noted. No carotid bruit appreciated Cardiac: [Regular rate and rhythm.] [No obvious murmur rub or gallop.] Lungs: [Clear to auscultation without accessory muscle use to assist the respiratory pattern.] Symmetrical chest wall movements noted. Abdomen: Protuberant with dressings dry and intact. Scant bowel sounds. Musculoskeletal: No fluid collection. Decreased range of motion is noted. Extremities: No clubbing, cyanosis noted. [Trace bilateral lower extremity edema. TEDs intact.] Upper extremity pulses 2+. Lower extremity pulses 2+. Capillary refill less than 3 seconds. Skin: No unusual lesions or rashes. No skin breakdown appreciated. Neuro: Wakes easily, follows commands appropriately. Moves all extremities well without hemiparesis or paralysis. No essential tremor is appreciated. Result/EKG - Labs CBC & BMP: 07/29/16 06:09 07/29/16 06:09 Lab Results: I have reviewed the past 24 hour labs Labs: Laboratory Results - last 24 hr 07/28/16 07/28/16 07/28/16 11:21 12:28 17:56 WBC RBC Hgb 13.8 L Hct 43.4 MCV MCH MCHC RDW Plt Count MPV Neut % (Auto) Lymph % (Auto) [place] % (Auto) Eos % (Auto) Baso % (Auto) Neut # (Auto) Lymph # (Auto) [place] # (Auto) Eos # (Auto) Baso # (Auto) Total Counted Immature Gran % Nucleated RBC % Immature Gran # Segmented Neutrophils Band Neutrophils Lymphocytes Monocytes Eosinophils Nucleated RBCs # Platelet Estimate Hypochromasia Morphology Comment ABG pH ABG pCO2 ABG pO2 ABG HCO3 ABG Total CO2 ABG O2 Saturation ABG Base Excess FiO2 Sodium Potassium Chloride Carbon Dioxide Anion Gap BUN Creatinine GFR Calculation BUN/Creatinine Ratio Glucose POC Glucose 145 H 122 H Calculated Osmolality Calcium Magnesium Total Bilirubin AST ALT Alkaline Phosphatase Total Protein Albumin Globulin Albumin/Globulin Ratio 07/28/16 07/29/16 07/29/16 20:45 00:56 02:40 WBC RBC Hgb Hct MCV MCH MCHC RDW Plt Count MPV Neut % (Auto) Lymph % (Auto) [place] % (Auto) Eos % (Auto) Baso % (Auto) Neut # (Auto) Lymph # (Auto) [place] # (Auto) Eos # (Auto) Baso # (Auto) Total Counted Immature Gran % Nucleated RBC % Immature Gran # Segmented Neutrophils Band Neutrophils Lymphocytes Monocytes Eosinophils Nucleated RBCs # Platelet Estimate Hypochromasia Morphology Comment ABG pH 7.334 L ABG pCO2 58.5 H ABG pO2 105.0 H ABG HCO3 27.4 H ABG Total CO2 27.2 H ABG O2 Saturation 98.0 ABG Base Excess 3.4 H FiO2 50.00 Sodium Potassium Chloride Carbon Dioxide Anion Gap BUN Creatinine GFR Calculation BUN/Creatinine Ratio Glucose POC Glucose 114 H 125 H Calculated Osmolality Calcium Magnesium Total Bilirubin AST ALT Alkaline Phosphatase Total Protein Albumin Globulin Albumin/Globulin Ratio 07/29/16 07/29/16 07/29/16 06:09 06:09 06:09 WBC 5.9 RBC 3.87 Hgb 13.2 L Hct 42.3 MCV 109.3 H MCH 34 MCHC 31.2 L RDW 14.4 Plt Count 112 L MPV 11.9 Neut % (Auto) 64.0 Lymph % (Auto) 20.6 L [place] % (Auto) 11.7 Eos % (Auto) 2.7 Baso % (Auto) 0.7 Neut # (Auto) 3.8 Lymph # (Auto) 1.2 L [place] # (Auto) 0.7 Eos # (Auto) 0.2 Baso # (Auto) 0.0 Total Counted 100 Immature Gran % 0.3 Nucleated RBC % 0.0 Immature Gran # 0.02 Segmented Neutrophils 63 Band Neutrophils 1 Lymphocytes 20 Monocytes 14 Eosinophils 2 Nucleated RBCs # 0.00 Platelet Estimate Decreased Hypochromasia 1+ Morphology Comment ABG pH ABG pCO2 ABG pO2 ABG HCO3 ABG Total CO2 ABG O2 Saturation ABG Base Excess FiO2 Sodium 148 H Potassium 3.5 Chloride 109 H Carbon Dioxide 30 Anion Gap 12.5 BUN 15 Creatinine 1.10 GFR Calculation 106 BUN/Creatinine Ratio 13.00 Glucose 133 H POC Glucose Calculated Osmolality 296.3 Calcium 7.9 L Magnesium 1.8 Total Bilirubin 1.70 H AST 90 H ALT 92 H Alkaline Phosphatase 73 Total Protein 6.1 L Albumin 2.6 L Globulin 3.5 Albumin/Globulin Ratio 0.7 L 07/29/16 07/29/16 07:11 09:25 WBC RBC Hgb Hct MCV MCH MCHC RDW Plt Count MPV Neut % (Auto) Lymph % (Auto) [place] % (Auto) Eos % (Auto) Baso % (Auto) Neut # (Auto) Lymph # (Auto) [place] # (Auto) Eos # (Auto) Baso # (Auto) Total Counted Immature Gran % Nucleated RBC % Immature Gran # Segmented Neutrophils Band Neutrophils Lymphocytes Monocytes Eosinophils Nucleated RBCs # Platelet Estimate Hypochromasia Morphology Comment ABG pH 7.287 L ABG pCO2 63.4 H ABG pO2 93.8 ABG HCO3 25.6 ABG Total CO2 26.5 ABG O2 Saturation 96.8 ABG Base Excess 1.4 FiO2 40.00 Sodium Potassium Chloride Carbon Dioxide Anion Gap BUN Creatinine GFR Calculation BUN/Creatinine Ratio Glucose POC Glucose 123 H Calculated Osmolality Calcium Magnesium Total Bilirubin AST ALT Alkaline Phosphatase Total Protein Albumin Globulin Albumin/Globulin Ratio - Diagnostic Findings Procedure: Chest x-ray: report reviewed by me - EKG EKG results: interpreted by me EKG shows: sinus rhythm Quality Measures - VTE Contraindication to Pharmacological VTE Prophylaxis: High Risk of Bleeding
[2016-07-29] MEDS: FLUTICASONE 50 MCG NASAL SPRAY 16 GM BOTTLE BOTH NARES SCH (10:47)
--- NOTE | 2016-07-29 11:04 | Gastrointestinal Progress Note ---
<MarimichelleRachel Charan - Last Filed: 07/29/16 11:02> Assessment and Plan (1) Elevated liver enzymes Status: Acute Assessment and plan: 07/29-bilirubin at 1.7 with transaminases trending downward. Liver biopsy currently pending. Plan an addendum to follow by Dr. Juarez. 07/28-findings of elevated LFTs on admission with correlated findings of acute cholecystitis. Intraoperatively unable to perform cholecystectomy therefore liver biopsy obtained and results pending at present time. History of daily alcohol intake 5 years. Await pathology report from liver biopsy at this time. Plan an addendum to follow by Dr. Juarez. Current Visit: Yes Gastroenterology - PN: Subj Interval history: CC: Elevated liver enzymes Patient is seen on ventilator and sedated however is arousable and nods head when spoken to. He denies any abdominal pain at this time. Liver biopsy is still pending at this time. Bilirubin is elevated slightly at 1.7 however transaminases are trending downward. Abdomen is soft, nontender. Echocardiogram done yesterday shows an EF of 60%. Pulmonary noted that patient is combative when sedation is lifted and having difficulty with weaning at this time. His sedation has been changed from propofol to Precedex. ROS: No acute distress at this time. Exam (Progress Note) - Constitutional Vitals: Period Temp Pulse Resp BP Sys/[place] Pulse Ox Last 24 Hr 97.0 F-98.2 F 54-78 12-20 92-127/52-76 92-100 General appearance: no acute distress, over weight - Head Head exam: Present: normal inspection, normocephalic - Eye Eye exam: Present: other (Lids and conjunctive are unremarkable). Absent: scleral icterus - ENT ENT exam: Present: normal exam, normal oropharynx - Neck Neck exam: Present: normal inspection - Respiratory Respiratory exam: Present: clear to auscultation bilaterally. Absent: rales, rhonchi, wheezes - Cardiovascular Cardiovascular exam: Present: regular rate and rhythm. Absent: diastolic murmur , JVD, systolic murmur - GI/Abdominal GI/Abdominal exam: Present: normal bowel sounds, soft. Absent: ascites, distended, mass, organomegaly, tenderness - Extremities Exam Extremities exam: Present: normal inspection, full ROM - Back Exam Back exam: Present: normal inspection - Neurological Exam Neurological exam: Present: alert, altered - Psychiatric Psychiatric exam: Present: other - Skin Skin exam: Present: normal color, warm, dry Results - Labs CBC & BMP: 07/29/16 06:09 07/29/16 06:09 Lab Results: I have reviewed the past 24 hour labs <Hemal Juarez - Last Filed: 07/29/16 18:53> Exam (Progress Note) - Constitutional Vitals: Period Temp Pulse Resp BP Sys/[place] Pulse Ox Last 24 Hr 97.0 F-98.8 F 49-81 12-28 96-195/54-122 90-100 Results - Labs CBC & BMP: 07/29/16 06:09 07/29/16 06:09
[2016-07-29] MEDS: SPIRONOLACTONE 25 MG TABLET PO SCH (11:47)
[2016-07-29] MEDS: CARVEDILOL 25 MG TABLET PO SCH ×2 (11:48→21:07)
[2016-07-29] MEDS: NIACIN ER 500 MG TABLET PO SCH (11:49)
[2016-07-29] MEDS: ASPIRIN EC 325 MG TABLET PO SCH (11:49)
[2016-07-29] MEDS: MAGNESIUM CHLORIDE 64 MG TABLET PO SCH (11:49)
[2016-07-29] MEDS: OMEGA 3 ACID ETHYL ESTERS 1 GM CAPSULE PO SCH ×3 (11:50→21:40)
[2016-07-29] MEDS: FUROSEMIDE 20 MG TABLET PO SCH (11:50)
[2016-07-29] MEDS ORDERED: HYDROmorphone 2 MG/1 ML VIAL IV PRN (11:51)
[2016-07-29] MEDS: PANTOPRAZOLE 40 MG VIAL IV SCH (11:51)
[2016-07-29] MEDS: ENOXAPARIN 40 MG/0.4 ML SYRINGE SUBCUT SCH (12:26)
[2016-07-29] MEDS: LISINOPRIL 5 MG TABLET PO SCH ×3 (12:27→21:40)
[2016-07-29] MEDS ORDERED: LORazepam 2 MG/1 ML VIAL ONE (12:46)
[2016-07-29] MEDS: LORazepam 2 MG/1 ML VIAL IV PRN ×3 (12:53→19:11)
--- NOTE | 2016-07-29 13:19 | Pathology Report from [facility] ---
[facility] ACCESSION # : [id number] PATIENT NAME : Saji Ibrahim ORDERING DR : Link Kramer MD CLINICAL HX: Cholecystitis POST-OP DX: Same SPECIMEN INFO: Liver BX GROSS DESCRIPTION: Received in formalin labeled SAJI IBRAHIM is a 0.8 x 0.4 cm aggregate of pale yellow tissue submitted in one cassette. DIAGNOSIS FOR SAJI IBRAHIM: LIVER BIOPSY: Steatohepatitis with moderate activity, and bridging fibrosis with nodules/developing cirrhosis. Steatosis comprises approx. 90% of submitted liver parenchyma, micro and macrovesicular. Brunt fibrosis score: 3 (of 4). Brunt activity grade: 2 (of 3). Consider obesity , diabetes, ETOH, medication/drugs, etc. COLLECTED DATE: 07/28/2016 [facility] REPORT DATE: 07/29/2016 ELECTRONICALLY SIGNED BY: Edward Mary M.D. 07/29/2016 - 11:52:56 MTDD
[2016-07-29] MEDS: hydrALAZINE 20 MG/1 ML VIAL IV PRN (13:57)
[2016-07-29] MEDS: LABETALOL 20 MG/4 ML SYRINGE IV SCH ×3 (14:54→23:40)
[2016-07-29] MEDS ORDERED: THIAMINE 200 MG/2 ML VIAL IV SCH (15:00)
[2016-07-29] MEDS: amLODIPine 10 MG TABLET PO SCH (17:13)
[2016-07-29] MEDS: MIDAZOLAM 100 MG in SODIUM CHLORIDE 0.9% 80 ML IV SCH (17:26)
--- NOTE | 2016-07-29 18:44 | Family Practice Progress Note ---
Family Practice - PN: Subj Interval history: Patient is generally stable. Her pressures have been elevated today and he has required several doses of IV medications. Patient was very confused and agitated when I made rounds early this a.m. He was thrashing around and would not respond to questions. Staff states that times he is alert. Dr. Nogueira is still trying to wean patient off respirator but PCO2 this a.m. was 63.4 with a PO2 of 93 he has adjusted the his O2 levels up. Liver enzymes improved this a.m. except the bilirubin is gone from 1 to 1.7 in the last 2 days. His liver biopsy reveals steatohepatitis with nodular developing cirrhosis. This is probably a combination of obesity and diabetes and alcohol. Dr. Bakrley felt that the gallbladder did not look bad when he was able to view it in the original surgery. The ultrasound and CT are very suggestive of acute gallbladder disease. He still has pain on palpation over the upper quadrant on the right side. We'll order a biliary scan for a.m.. I would think if any of these going to need the cholecystectomy that it probably should be done before we wean off ventilator. We'll leave that decision to Dr. Nogueira and Dr. Barklye. We'll otherwise continue present supportive care Exam (Progress Note) - Constitutional Vitals: Period Temp Pulse Resp BP Sys/Gasca Pulse Ox Last 24 Hr 97.0 F-98.8 F 49-81 12-28 96-195/54-122 90-100 Results - Labs CBC & BMP: 07/29/16 06:09 07/29/16 06:09 Assessment and Plan (1) Abdominal pain Status: Acute Assessment and plan: We will order numerous additional studies. Suggestive of acute gallbladder disease but possibly diverticulitis. Will need consultation by Dr. Rodríguez if surgery is considered. Have held his aspirin and Plavix for present Current Visit: Yes (2) Acute cholecystitis Status: Resolved Assessment and plan: Have ordered an ultrasound for this a.m. May also need a HIDA scan. Has elevated liver enzymes. Current Visit: Yes (3) Elevated liver enzymes Status: Acute Assessment and plan: We will need to monitor closely and evaluate further Current Visit: Yes (4) Coronary artery disease with stent Status: Chronic Assessment and plan: Stable at present. Patient needs a cardiology consult would Dr. Rodríguez prior to any surgical procedures Current Visit: No (5) Hypertension Status: Chronic Assessment and plan: Stable at present Current Visit: No (6) Obstructive sleep apnea Status: Chronic Assessment and plan: Stable on CPAP Current Visit: No (7) Previous deep vein thrombosis Status: Chronic Current Visit: No (8) Hyperglycemia on admission Status: Acute Assessment and plan: We will order hemoglobin A1c and blood sugars Current Visit: Yes Quality Measures - VTE Contraindication to Pharmacological VTE Prophylaxis: High Risk of Bleeding
[2016-07-29] MEDS: SODIUM CHLORIDE 0.45% IV SCH (19:07)
[2016-07-29] MEDS: MULTIVITAMIN IV SCH (19:07)
[2016-07-29] MEDS: THIAMINE IV SCH (19:07)
[2016-07-29] MEDS: TERAZOSIN 2 MG CAPSULE PO SCH ×2 (21:07→21:39)
[2016-07-29] MEDS: ONDANSETRON 4 MG/2 ML VIAL IV PRN (21:10)
[2016-07-30] MEDS: ALBUTEROL/IPRATROPIUM 3 ML NEB RESP TX SCH ×4 (00:31→19:42)
[2016-07-30] MEDS: MIDAZOLAM 100 MG in SODIUM CHLORIDE 0.9% 80 ML IV SCH ×4 (01:11→23:43)
[2016-07-30] MEDS: LORazepam 2 MG/1 ML VIAL IV PRN ×7 (02:32→23:05)
[2016-07-30 03:08] LABS: ABG HCO3 22.6 MMOL/L (20-26); ABG Oxygen Saturation 93.4 % (95-100); ABG PCO2 49.3 MM HG (35-48); ABG PH 7.313 (7.35-7.45); ABG PO2 68.9 MM HG (80-95); ABG TCO2 21.5 MMOL/L (23-27)
[2016-07-30] MEDS: PIPERACILLIN/TAZOBACTAM 3,375 MG in SODIUM CHLORIDE 0.9% 100 ML IV SCH ×3 (04:02→20:08)
[2016-07-30] MEDS: metroNIDAZOLE INJ 500 MG in PREMIX 1 EACH IV SCH ×3 (04:02→20:24)
[2016-07-30] MEDS: LABETALOL 20 MG/4 ML SYRINGE IV SCH ×4 (05:11→23:36)
[2016-07-30 05:17] LABS: Basophils % 0.1 % (0.0-0.8); Hematocrit 45.7 VOL% (42.0-52.0); Hemoglobin 14.7 GM/DL (14.0-18.0); Immature Granulocytes % 0.6 %; Immature Granulocytes Absolute 0.04 #; Lymphocytes % 15.1 % (21.2-54.2); Mean Corpuscular HGB Conc 32.2 GM/DL (32-36); Mean Corpuscular Hemoglobin 34 PG (27-34); Mean Platelet Volume 11.7 FL (9.6-12.0); Monocytes # 0.2 10*3/uL (0.11-0.8); Monocytes % 3.1 % (1.7-12.7); Neutrophils # 5.5 10*3/uL (1.4-7.4); Neutrophils % 81.1 % (38.7-73.9); Platelet Count 135 T/CUMM (130-400); Red Blood Count 4.27 MC/CUMM (3.8-5.5); Red Cell Distribution Width 13.7 % (9.3-17.3); White Blood Count 6.8 T/CUMM (4-12)
[2016-07-30 05:55] LABS: Calcium 8.3 MG/DL (8.5-10.1); Osmolality,Calculated 290.1 MOS/KG (273-304); Phosphorous 2.1 MG/DL (2.5-4.9); Potassium 3.7 MMOL/L (3.5-5.1); Prealbumin 8.2 MG/DL (20-40)
[2016-07-30 05:58] LABS: Albumin 2.6 G/DL (3.4-5.0); Calcium 8.2 MG/DL (8.5-10.1); Osmolality,Calculated 290.1 MOS/KG (273-304); Potassium 3.7 MMOL/L (3.5-5.1); Total Protein 6.7 G/DL (6.4-8.3)
[2016-07-30 06:06] LABS: Band Neutrophils 2 % (0-10); Lymphocytes 15 % (20-55); Platelet Estimate Normal; Segmented Neutrophils 81 % (50-85); Total Cells Counted 100
--- NOTE | 2016-07-30 07:03 | Pulmonology Progress Note ---
Pulmonary - PN: Subj Interval history: This 56-year-old white male had surgery yesterday for suspected gallbladder disease. However he had a very large liver that might cholecystectomy and possible. He has been on the ventilator yesterday and today. His chest x-ray looks okay. PCO2 remains elevated. Has a history of obstructive sleep apnea and he is obese. We will have obesity hypoventilation syndrome prior to his surgery, based on his elevated PCO2 at the present time. This makes it somewhat difficult to wean him. I will add Diamox for 3 days despite the fact that his pH is only 7.35. We will see if we can get his PCO2 down a little further. We will cautiously start CPAP today although I do not expect him to wean rapidly. 07/29/2016 patient has been combative when sedation is held. Difficult to wean. He has an elevated PCO2. Going to need to reduce his FiO2 to wean. He has underlying sleep apnea and may have obesity hypoventilation syndrome. Will change sedation to Precedex and try to wean as rapidly as tolerated. 07/30/2016 patient continues to be combative when sedation is held. We are now using a Versed infusion and giving as needed Ativan. His blood pressure goes up. These may be signs of alcohol withdrawal. Discussion with the family yesterday indicated that he does use alcohol fairly heavily. His liver biopsy showed steatosis with some early cirrhosis. Multifactorial causes listed as obesity, diabetes, alcohol or drugs. I think the first 3 of these apply. Exam (Progress Note) - Constitutional Vitals: Period Temp Pulse Resp BP Sys/Gasca Pulse Ox Last 24 Hr 97.0 F-98.8 F 49-81 13-28 117-195/67-122 90-100 Exam: Patient is sedated, responsive when sedation is reduced. Vital signs normal. Pupils react to light. Orotracheal tube in place. Neck supple no bruits. Chest sounds clear. Heart normal rate rhythm no murmurs. Abdomen bandaged bowel sounds present. No masses. Extremities no clubbing or cyanosis. Trace of edema. Results - Labs CBC & BMP: 07/30/16 03:45 07/30/16 03:45 Lab Results: I have reviewed the past 24 hour labs - Diagnostic Findings Procedure: Chest x-ray: image reviewed by me (Minimal bibasilar atelectasis. ET tube in good position) Assessment and Plan (1) Postop laparotomy Status: Acute Assessment and plan: Patient is felt to have cholecystitis. Difficult to surgery due to his large liver. Unable to remove the gallbladder. He is now sedated on the ventilator. We will try to wean when he is alert. 07/28/2016 patient arousable and off sedation at present. Anesthesia out of his system. 07/29/2016 patient denies pain. Responsive on low-dose propofol. 07/30/2016 patient has had some vomiting. We have had to stop NG feedings. To start on TPN. Unable to give Librium or transition per NG at this point. Using a Versed infusion and as needed Ativan for EtOH withdrawal. Getting a banana bag as well. Current Visit: Yes (2) Hepatic steatosis Status: Acute Assessment and plan: May be due to previously unknown diabetes. May just simply be steatosis. Defer to GI. 07/29/2016 do not want to use Haldol with his liver problems. 07/30/16 this limits our options for sedation Current Visit: Yes (3) Obstructive sleep apnea Status: Acute Assessment and plan: Patient is on BiPAP at home at night. Will need to keep this in mind when it is time to extubate him. We will need BiPAP facemask after he is extubated. He may have obesity hypoventilation syndrome which would render his PCO2 elevated at baseline. His ABGs look like that. 07/28/2016 has EDA. May well have OHS well. Try low dose Diamox to reduce PCO2. 07/29/2016 will be a real problem once we get him extubated. Will need to be sure that he uses BiPAP. Current Visit: Yes (4) Coronary artery disease with stent Status: Chronic Assessment and plan: He has a coronary stent. Needs to be back on Plavix soon. Cardiology following. 07/28/2016 no signs of congestive heart failure. 07/30/2016 does not appear to be in congestive heart failure. Current Visit: No (5) Hyperglycemia on admission Status: Acute Assessment and plan: Continues to have hyperglycemia. Will check a hemoglobin A1c but I suspect he does have adult-onset diabetes. Continuing sliding scale insulin. 07/28/2016 on sliding scale insulin. Hemoglobin A1c of 7.9 indicates that he is indeed diabetic. Glucoses running in the 150 range. 07/29/2016 glucoses are better controlled. 07/30/2016 glucoses fairly well controlled. Does have diabetes Current Visit: Yes (6) Acute respiratory failure Status: Acute Assessment and plan: This is come about postoperatively for laparotomy. He has a long history of smoking and may have underlying COPD. His PCO2 has come down after adding steroids. Also getting bronchodilators and empiric antibiotics. With PCO2 now in the 40s, hopefully we can start some CPAP's. Difficulty will be in the holding sedation. Current Visit: Yes
--- NOTE | 2016-07-30 07:59 | XRay Report ---
XR chest 1V portable Indication: Ventilator Comparison: Chest x-ray dated July 29, 2016 Technique: Single frontal view of the chest. Findings: Endotracheal tube stable in positioning. Continued cardiomegaly. No significant change in bilateral lower lung atelectasis/consolidation. Small bilateral pleural fluid suspected. Visualized osseous and surrounding soft tissue structures appear grossly unchanged.. IMPRESSION: No significant interval change. PROCEDURE INTERPRETED AT [facility] DEPARTMENT OF RADIOLOGY Final Report Signed by: Dr Danilo Juan
[2016-07-30] MEDS: INSULIN LISPRO 100 UNIT/ML SUBCUT SCH ×4 (08:38→23:39)
[2016-07-30] MEDS: methylPREDNISolone SOD SUC 40 MG/1 ML VIAL IV SCH ×2 (08:39→20:26)
[2016-07-30] MEDS: SPIRONOLACTONE 25 MG TABLET PO SCH (09:45)
[2016-07-30] MEDS: OMEGA 3 ACID ETHYL ESTERS 1 GM CAPSULE PO SCH ×2 (09:45→21:24)
[2016-07-30] MEDS: NIACIN ER 500 MG TABLET PO SCH (09:45)
[2016-07-30] MEDS: FLUTICASONE 50 MCG NASAL SPRAY 16 GM BOTTLE BOTH NARES SCH (09:46)
[2016-07-30] MEDS: FUROSEMIDE 20 MG TABLET PO SCH (09:46)
[2016-07-30] MEDS: ASPIRIN EC 325 MG TABLET PO SCH (09:46)
[2016-07-30] MEDS: amLODIPine 10 MG TABLET PO SCH (09:46)
[2016-07-30] MEDS: CARVEDILOL 25 MG TABLET PO SCH ×2 (09:46→21:23)
[2016-07-30] MEDS: LISINOPRIL 5 MG TABLET PO SCH (09:47)
[2016-07-30] MEDS: PANTOPRAZOLE 40 MG VIAL IV SCH (09:47)
[2016-07-30] MEDS: MAGNESIUM CHLORIDE 64 MG TABLET PO SCH (09:47)
--- NOTE | 2016-07-30 10:33 | Cardiology Progress Note ---
Assessment and Plan (1) Hypertension Status: Chronic Assessment and plan: SEE PLAN OF CARE LISTED BELOW Current Visit: Yes (2) Dyslipidemia Status: Chronic Assessment and plan: SEE PLAN OF CARE LISTED BELOW Current Visit: Yes (3) Pre-op evaluation Status: Resolved Assessment and plan: SEE PLAN OF CARE LISTED BELOW Current Visit: Yes (4) Coronary artery disease with stent Status: Chronic Assessment and plan: SEE PLAN OF CARE LISTED BELOW Current Visit: No (5) Obstructive sleep apnea Status: Chronic Assessment and plan: SEE PLAN OF CARE LISTED BELOW Current Visit: No (6) Obesity Status: Acute Assessment and plan: SEE PLAN OF CARE LISTED BELOW Current Visit: No (7) Acute cholecystitis Status: Resolved Assessment and plan: SEE PLAN OF CARE LISTED BELOW Current Visit: Yes (8) Enlargement of liver Status: Acute Assessment and plan: SEE PLAN OF CARE LISTED BELOW Current Visit: Yes (9) Thrombocytopenia Status: Acute Current Visit: Yes Cardiology - PN: Subj Interval history: [employer]ER: DR. RODRÍGUEZ Patient is being seen in the ICU. SUMMARY: Mr. Coles, 56WM, routinely followed by Dr. Rodríguez. He was last seen in cardiology clinic July 13, 2016. Risk factors include: known coronary artery disease, hypertension, dyslipidemia, morbid obesity. History of cardiac catheterization requiring PCI of proximal LAD 2006. Underwent repeat cardiac catheterization February 2014 for NSTEMI felt to be related to a thrombotic event as there was no coronary obstruction noted. He is on Plavix long-term. Patient was admitted July 26, 2016 with right upper quadrant abdominal pain. He was diagnosed with acute cholecystitis, elevated liver enzymes. Initially, he was scheduled to undergo laparoscopic cholecystectomy yesterday. However, the liver was enlarged removal of gallbladder was not possible. However, gallbladder did not look inflamed and did not warrant removal. Biopsy of liver obtained. Postoperatively, he was transitioned to the ICU as he has severe sleep apnea and it was somewhat difficult to wean him from the ventilator. JULY 28, 2016: Overnight, patient remains on the ventilator. Aggressive weaning trials will begin with hopeful extubation tomorrow. Vital signs are stable this morning. He is waking and moving all extremities appropriately. Viral hepatitis panel was negative. May possibly be passive liver congestion or a different type of hepatitis. I will attempt to locate his most recent echocardiogram today. Mildly hypomagnesemic and will verify he is on the replacement protocol. Triglycerides 485, LDL 75. Will require restarting of Plavix when it is safe from a surgical standpoint. Will further discuss with Dr. Rodríguez and await additional recommendations. JULY 29, 2016: Patient remains on the ventilator this morning. Lovenox is being restarted this morning as his platelets have improved. Blood pressure is elevated and I am adjusting medications to include adding lisinopril 5 mg twice daily, starting now. Also, adding hydralazine 10 mg IV as needed every 2 hours for systolic blood pressure greater than 170 mmHg. There is a possibility he is going through alcohol withdrawals and Ativan has been initiated. Labs are stable. Echocardiogram reveals EF 60%, PAP 42 mmHg. No significant valvular abnormality noted. JULY 30, 2016: Patient continues to be combative when sedation is held. Last evening, Versed infusion was initiated, still receiving Ativan as needed. There was discussion with family yesterday who revealed that he does drink liquor heavily, every day. Liver biopsy revealed early cirrhosis, steatosis. He may be experiencing alcohol withdrawal. When he is agitated, blood pressure increases. We are using hydralazine IV as needed in addition to Coreg, amlodipine and recently added Lisinopril. This morning, I will increase Lisinopril to a higher dose and follow his labs closely. No arrhythmia noted. Echocardiogram reveals no significant abnormality. I suspect his cirrhosis is related to obesity and alcohol. He has never been formally diagnosed with diabetes that I am aware of however his blood glucose levels are chronically elevated during his hospital stay. Covering with sliding scale and will check hemoglobin A1c. Platelet count has now normalized. Restarting Lovenox. ASSESSMENT/PLAN: 1. CIRRHOSIS OF LIVER - viral hepatitis panel is negative. Gastroenterology has been consulted. 2. SUSPECTED DIABETES - adding sliding scale coverage and checking HgbA1c. 3. KNOWN CAD - Okay to continue to hold Plavix but we will restart when okay with surgeon. Lovenox has been reinitiated. 4. HYPERTENSION - increasing Lisinopril and monitoring closely. Hydralazine as needed. 5. DYSLIPIDEMIA - holding lipid-lowering agent at this time due to the elevated liver enzymes. Triglycerides 485, LDL 75. 6. MORBID OBESITY - dietary counseling prior to discharge 7. EDA - pulmonary on board and will start weaning trials when able. 8. THROMBOCYTOPENIA - resolved overnight. Will restart Lovenox and monitor daily. He is wearing SCDs. Exam (Progress Note) - Constitutional Vitals: Period Temp Pulse Resp BP Sys/Gasca Pulse Ox Last 24 Hr 97.8 F-98.8 F 49-81 13-28 117-195/67-122 90-100 Exam: General: [Morbidly obese male, intubated. Wakes when sedation with held. ] HEENT: [Normocephalic, atraumatic. Mucous membranes moist. No jaundice noted. Conjunctiva moist and clear, sclerae anicteric] Neck: Difficult to assess for JVD due to habitus. No thyromegaly or lymphadenopathy noted. No carotid bruit appreciated Cardiac: [Regular rate and rhythm.] [No obvious murmur rub or gallop.] Lungs: [Clear to auscultation without accessory muscle use to assist the respiratory pattern.] Symmetrical chest wall movements noted. Abdomen: Protuberant with dressings dry and intact. Scant bowel sounds. Musculoskeletal: No fluid collection. Decreased range of motion is noted. Extremities: No clubbing, cyanosis noted. [Trace bilateral lower extremity edema. SCDs/TEDs intact.] Upper extremity pulses 2+. Lower extremity pulses 2 +. Capillary refill less than 3 seconds. Skin: No unusual lesions or rashes. No skin breakdown appreciated. Neuro: Wakes easily, follows commands appropriately. Moves all extremities well without hemiparesis or paralysis. No essential tremor is appreciated. Result/EKG - Labs CBC & BMP: 07/30/16 03:45 07/30/16 03:45 Lab Results: I have reviewed the past 24 hour labs Labs: Laboratory Results - last 24 hr 07/27/16 07/29/16 07/29/16 18:35 11:23 15:56 WBC RBC Hgb Hct MCV MCH MCHC RDW Plt Count MPV Neut % (Auto) Lymph % (Auto) [place] % (Auto) Eos % (Auto) Baso % (Auto) Neut # (Auto) Lymph # (Auto) [place] # (Auto) Eos # (Auto) Baso # (Auto) Total Counted Immature Gran % Nucleated RBC % Immature Gran # Segmented Neutrophils Band Neutrophils Lymphocytes Monocytes Nucleated RBCs # Platelet Estimate Morphology Comment ABG pH ABG pCO2 ABG pO2 ABG HCO3 ABG Total CO2 ABG O2 Saturation ABG Base Excess Sodium Potassium Chloride Carbon Dioxide Anion Gap BUN Creatinine GFR Calculation BUN/Creatinine Ratio Glucose POC Glucose 159 H 181 H Calculated Osmolality Calcium Phosphorus Magnesium Total Bilirubin AST ALT Alkaline Phosphatase Total Protein Albumin Globulin Albumin/Globulin Ratio Prealbumin TSH, Ultra Sensitive 2.2 07/29/16 07/29/16 07/30/16 20:44 23:30 02:57 WBC RBC Hgb Hct MCV MCH MCHC RDW Plt Count MPV Neut % (Auto) Lymph % (Auto) [place] % (Auto) Eos % (Auto) Baso % (Auto) Neut # (Auto) Lymph # (Auto) [place] # (Auto) Eos # (Auto) Baso # (Auto) Total Counted Immature Gran % Nucleated RBC % Immature Gran # Segmented Neutrophils Band Neutrophils Lymphocytes Monocytes Nucleated RBCs # Platelet Estimate Morphology Comment ABG pH 7.313 L ABG pCO2 49.3 H ABG pO2 68.9 L ABG HCO3 22.6 ABG Total CO2 21.5 L ABG O2 Saturation 93.4 L ABG Base Excess -2.0 Sodium Potassium Chloride Carbon Dioxide Anion Gap BUN Creatinine GFR Calculation BUN/Creatinine Ratio Glucose POC Glucose 131 H 149 H Calculated Osmolality Calcium Phosphorus Magnesium Total Bilirubin AST ALT Alkaline Phosphatase Total Protein Albumin Globulin Albumin/Globulin Ratio Prealbumin TSH, Ultra Sensitive 07/30/16 07/30/16 07/30/16 03:45 03:45 03:45 WBC 6.8 RBC 4.27 Hgb 14.7 Hct 45.7 MCV 107.0 H MCH 34 MCHC 32.2 RDW 13.7 Plt Count 135 D MPV 11.7 Neut % (Auto) 81.1 H Lymph % (Auto) 15.1 L [place] % (Auto) 3.1 Eos % (Auto) 0.0 Baso % (Auto) 0.1 Neut # (Auto) 5.5 Lymph # (Auto) 1.0 L [place] # (Auto) 0.2 Eos # (Auto) 0.0 Baso # (Auto) 0.0 Total Counted 100 Immature Gran % 0.6 Nucleated RBC % 0.0 Immature Gran # 0.04 Segmented Neutrophils 81 Band Neutrophils 2 Lymphocytes 15 L Monocytes 2 Nucleated RBCs # 0.00 Platelet Estimate Normal Morphology Comment ABG pH ABG pCO2 ABG pO2 ABG HCO3 ABG Total CO2 ABG O2 Saturation ABG Base Excess Sodium 142 142 Potassium 3.7 3.7 Chloride 107 107 Carbon Dioxide 25 25 Anion Gap 13.7 13.7 BUN 18 17 Creatinine 0.90 0.90 GFR Calculation 135 135 BUN/Creatinine Ratio 20.00 18.00 Glucose 201 H 208 H POC Glucose Calculated Osmolality 290.1 290.1 Calcium 8.3 L 8.2 L Phosphorus Magnesium 2.0 Total Bilirubin 1.90 AST 86 H ALT 88 H Alkaline Phosphatase 82 Total Protein 6.7 Albumin 2.6 L Globulin 4.1 H Albumin/Globulin Ratio 0.6 L Prealbumin TSH, Ultra Sensitive 07/30/16 07/30/16 07/30/16 03:45 05:49 08:21 WBC RBC Hgb Hct MCV MCH MCHC RDW Plt Count MPV Neut % (Auto) Lymph % (Auto) [place] % (Auto) Eos % (Auto) Baso % (Auto) Neut # (Auto) Lymph # (Auto) [place] # (Auto) Eos # (Auto) Baso # (Auto) Total Counted Immature Gran % Nucleated RBC % Immature Gran # Segmented Neutrophils Band Neutrophils Lymphocytes Monocytes Nucleated RBCs # Platelet Estimate Morphology Comment ABG pH ABG pCO2 ABG pO2 ABG HCO3 ABG Total CO2 ABG O2 Saturation ABG Base Excess Sodium Potassium Chloride Carbon Dioxide Anion Gap BUN Creatinine GFR Calculation BUN/Creatinine Ratio Glucose POC Glucose 202 H 181 H Calculated Osmolality Calcium Phosphorus 2.1 L Magnesium Total Bilirubin AST ALT Alkaline Phosphatase Total Protein Albumin Globulin Albumin/Globulin Ratio Prealbumin 8.2 L TSH, Ultra Sensitive - Diagnostic Findings Procedure: Chest x-ray: report reviewed by me - EKG EKG results: interpreted by me EKG shows: sinus rhythm Quality Measures - VTE Contraindication to Pharmacological VTE Prophylaxis: High Risk of Bleeding
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
--- NOTE | 2016-07-30 11:42 | Event Note ---
Status post diagnostic laparoscopy with liver biopsy. Afebrile vital signs stable. Patient may be going through alcohol withdrawal. Being managed by Dr. Nogueira. He is currently on Versed and also gets Ativan. He becomes very agitated when he the sedation is weaned. His abdomen is soft and nondistended. He does not appear distended. An NG tube was placed with some bile tinged output. Lab work noted. PCO2 is better. Plan: Continue medical management. Once the patient is more alert we can reassess for his right upper quadrant pain. His liver biopsy showed steatohepatitis with developing cirrhosis. Family has been updated.
[2016-07-30] MEDS: ENOXAPARIN 40 MG/0.4 ML SYRINGE SUBCUT SCH (12:03)
[2016-07-30 12:23] LABS: Bilirubin,Total 1.9 MG/DL (0.2-1.0)
--- NOTE | 2016-07-30 15:06 | Family Practice Progress Note ---
Family Practice - PN: Subj Interval history: Patient is stable but continues to be combative agitated and confused when not sedated. I agree that this most likely represents DTs from alcohol withdrawal. He has been started on Versed and Ativan which should help this. Agree with evaluation and recommendation by multiple consultants.. We will continue present treatment plan. He should continue to improve and hopefully Dr. Nogueira will be able to slowly wean off respirator. Exam (Progress Note) - Constitutional Vitals: Period Temp Pulse Resp BP Sys/[place] Pulse Ox Last 24 Hr 97.8 F-98.8 F 50-81 13-28 117-188/67-122 90-96 Results - Labs CBC & BMP: 07/30/16 03:45 07/30/16 03:45 Assessment and Plan (1) Abdominal pain Status: Acute Assessment and plan: We will order numerous additional studies. Suggestive of acute gallbladder disease but possibly diverticulitis. Will need consultation by Dr. Rodríguez if surgery is considered. Have held his aspirin and Plavix for present Current Visit: Yes (2) Acute cholecystitis Status: Resolved Assessment and plan: Have ordered an ultrasound for this a.m. May also need a HIDA scan. Has elevated liver enzymes. Current Visit: Yes (3) Elevated liver enzymes Status: Acute Assessment and plan: We will need to monitor closely and evaluate further Current Visit: Yes (4) Coronary artery disease with stent Status: Chronic Assessment and plan: Stable at present. Patient needs a cardiology consult would Dr. Rodríguez prior to any surgical procedures Current Visit: No (5) Hypertension Status: Chronic Assessment and plan: Stable at present Current Visit: No (6) Obstructive sleep apnea Status: Chronic Assessment and plan: Stable on CPAP Current Visit: No (7) Previous deep vein thrombosis Status: Chronic Current Visit: No (8) Hyperglycemia on admission Status: Acute Assessment and plan: We will order hemoglobin A1c and blood sugars Current Visit: Yes Quality Measures - VTE Contraindication to Pharmacological VTE Prophylaxis: High Risk of Bleeding
[2016-07-30] MEDS: MULTIVITAMIN IV SCH (17:54)
[2016-07-30] MEDS: SODIUM CHLORIDE 0.45% IV SCH (17:54)
[2016-07-30] MEDS: THIAMINE IV SCH (17:54)
[2016-07-30] MEDS: LISINOPRIL 10 MG TABLET PO SCH (21:24)
[2016-07-30] MEDS: TERAZOSIN 2 MG CAPSULE PO SCH (21:24)
[2016-07-30] MEDS: HYDROmorphone 2 MG/1 ML VIAL IV PRN (23:21)
[2016-07-31] MEDS: ALBUTEROL/IPRATROPIUM 3 ML NEB RESP TX SCH ×4 (00:01→19:58)
[2016-07-31 02:54] LABS: ABG Base Excess -0.7 MMOL/L (-2.5-2.5); ABG HCO3 23.8 MMOL/L (20-26); ABG Oxygen Saturation 94.8 % (95-100); ABG PCO2 50.9 MM HG (35-48); ABG PH 7.322 (7.35-7.45); ABG PO2 76.1 MM HG (80-95); ABG TCO2 22.8 MMOL/L (23-27); Allen Test Positive; Pt O2 Delivery Device Ventilator
[2016-07-31 03:13] LABS: Calcium 8.1 MG/DL (8.5-10.1); Magnesium 2.3 MG/DL (1.8-2.4); Osmolality,Calculated 289.1 MOS/KG (273-304); Potassium 4.5 MMOL/L (3.5-5.1)
[2016-07-31] MEDS: PIPERACILLIN/TAZOBACTAM 3,375 MG in SODIUM CHLORIDE 0.9% 100 ML IV SCH ×3 (03:30→18:28)
[2016-07-31] MEDS: metroNIDAZOLE INJ 500 MG in PREMIX 1 EACH IV SCH ×3 (04:09→20:11)
[2016-07-31 05:48] LABS: Basophils % 0.1 % (0.0-0.8); Hematocrit 44.1 VOL% (42.0-52.0); Hemoglobin 14.5 GM/DL (14.0-18.0); Immature Granulocytes % 0.5 %; Immature Granulocytes Absolute 0.04 #; Lymphocytes # 1.1 10*3/uL (1.4-4.0); Lymphocytes % 12.7 % (21.2-54.2); Mean Corpuscular HGB Conc 32.9 GM/DL (32-36); Mean Corpuscular Hemoglobin 35 PG (27-34); Mean Corpuscular Volume 105.5 FL (87-102); Mean Platelet Volume 11.3 FL (9.6-12.0); Monocytes # 0.5 10*3/uL (0.11-0.8); Monocytes % 6.5 % (1.7-12.7); Neutrophils # 6.7 10*3/uL (1.4-7.4); Neutrophils % 80.2 % (38.7-73.9); Platelet Count 137 T/CUMM (130-400); Red Blood Count 4.18 MC/CUMM (3.8-5.5); Red Cell Distribution Width 13.5 % (9.3-17.3); White Blood Count 8.4 T/CUMM (4-12)
[2016-07-31] MEDS: LABETALOL 20 MG/4 ML SYRINGE IV SCH (06:20)
[2016-07-31] MEDS: INSULIN LISPRO 100 UNIT/ML SUBCUT SCH ×3 (06:20→18:25)
--- NOTE | 2016-07-31 07:07 | Pulmonology Progress Note ---
Pulmonary - PN: Subj Interval history: This 56-year-old white male had surgery yesterday for suspected gallbladder disease. However he had a very large liver that might cholecystectomy and possible. He has been on the ventilator yesterday and today. His chest x-ray looks okay. PCO2 remains elevated. Has a history of obstructive sleep apnea and he is obese. We will have obesity hypoventilation syndrome prior to his surgery, based on his elevated PCO2 at the present time. This makes it somewhat difficult to wean him. I will add Diamox for 3 days despite the fact that his pH is only 7.35. We will see if we can get his PCO2 down a little further. We will cautiously start CPAP today although I do not expect him to wean rapidly. 07/29/2016 patient has been combative when sedation is held. Difficult to wean. He has an elevated PCO2. Going to need to reduce his FiO2 to wean. He has underlying sleep apnea and may have obesity hypoventilation syndrome. Will change sedation to Precedex and try to wean as rapidly as tolerated. 07/30/2016 patient continues to be combative when sedation is held. We are now using a Versed infusion and giving as needed Ativan. His blood pressure goes up. These may be signs of alcohol withdrawal. Discussion with the family yesterday indicated that he does use alcohol fairly heavily. His liver biopsy showed steatosis with some early cirrhosis. Multifactorial causes listed as obesity, diabetes, alcohol or drugs. I think the first 3 of these apply. 07/31/16 patient seems to be doing a little better with Versed infusion. Vital signs were stable. ABGs look okay on 40% with 5 of PEEP. Will try on CPAP with low-dose Versed. Using Versed for possible alcohol withdrawal as well. Exam (Progress Note) - Constitutional Vitals: Period Temp Pulse Resp BP Sys/G[place]a Pulse Ox Last 24 Hr 97.7 F-98.8 F 50-72 13-33 131-163/76-102 92-98 Exam: Patient is sedated, responsive when sedation is reduced. Vital signs normal. Pupils react to light. Orotracheal tube in place. Neck supple no bruits. Chest sounds clear. Heart normal rate rhythm no murmurs. Abdomen bandaged bowel sounds present. No masses. Extremities no clubbing or cyanosis. Trace of edema. Results - Labs CBC & BMP: 07/31/16 05:40 07/31/16 01:52 Lab Results: I have reviewed the past 24 hour labs - Diagnostic Findings Procedure: Chest x-ray: image reviewed by me (Minimal bilateral effusions. ET tube good position.) Assessment and Plan (1) Postop laparotomy Status: Acute Assessment and plan: Patient is felt to have cholecystitis. Difficult to surgery due to his large liver. Unable to remove the gallbladder. He is now sedated on the ventilator. We will try to wean when he is alert. 07/28/2016 patient arousable and off sedation at present. Anesthesia out of his system. 07/29/2016 patient denies pain. Responsive on low-dose propofol. 07/30/2016 patient has had some vomiting. We have had to stop NG feedings. To start on TPN. Unable to give Librium or transition per NG at this point. Using a Versed infusion and as needed Ativan for EtOH withdrawal. Getting a banana bag as well. 07/31/16 was found to have large liver with cirrhosis and steatosis. Consideration to a percutaneous cholecystostomy. Defer to surgery. Current Visit: Yes (2) Hepatic steatosis Status: Acute Assessment and plan: May be due to previously unknown diabetes. May just simply be steatosis. Defer to GI. 07/29/2016 do not want to use Haldol with his liver problems. 07/30/16 this limits our options for sedation 07/31/2016 discussed liver findings with Dr. Juarez yesterday. This is primarily due to alcohol apparently. Current Visit: Yes (3) Obstructive sleep apnea Status: Acute Assessment and plan: Patient is on BiPAP at home at night. Will need to keep this in mind when it is time to extubate him. We will need BiPAP facemask after he is extubated. He may have obesity hypoventilation syndrome which would render his PCO2 elevated at baseline. His ABGs look like that. 07/28/2016 has EDA. May well have OHS well. Try low dose Diamox to reduce PCO2. 07/29/2016 will be a real problem once we get him extubated. Will need to be sure that he uses BiPAP. 07/31/2016 will be a problem when he is extubated Current Visit: Yes (4) Coronary artery disease with stent Status: Chronic Assessment and plan: He has a coronary stent. Needs to be back on Plavix soon. Cardiology following. 07/28/2016 no signs of congestive heart failure. 07/30/2016 does not appear to be in congestive heart failure. 07/31/2016 having to hold Plavix still. Current Visit: No (5) Hyperglycemia on admission Status: Acute Assessment and plan: Continues to have hyperglycemia. Will check a hemoglobin A1c but I suspect he does have adult-onset diabetes. Continuing sliding scale insulin. 07/28/2016 on sliding scale insulin. Hemoglobin A1c of 7.9 indicates that he is indeed diabetic. Glucoses running in the 150 range. 07/29/2016 glucoses are better controlled. 07/30/2016 glucoses fairly well controlled. Does have diabetes 07/31/2016 glucoses well controlled Current Visit: Yes (6) Acute respiratory failure Status: Acute Assessment and plan: This is come about postoperatively for laparotomy. He has a long history of smoking and may have underlying COPD. His PCO2 has come down after adding steroids. Also getting bronchodilators and empiric antibiotics. With PCO2 now in the 40s, hopefully we can start some CPAP's. Difficulty will be in the holding sedation. 07/31/2016 ABGs acceptable on 40%. Has elevated PCO2 around 50. Likely due to COPD. Will proceed with CPAP's today. We have had problems with sedation during weaning trials. He is not able to tolerate Haldol due to his liver disease. Current Visit: Yes
[2016-07-31] MEDS ORDERED: CARVEDILOL 12.5 MG TABLET PO SCH (07:11)
--- NOTE | 2016-07-31 08:01 | Gastrointestinal Progress Note ---
Assessment and Plan - Time spent with patient Time spent with patient: Greater than 30 minutes (1) Elevated liver enzymes Status: Acute Current Visit: No (2) Other specified counseling Status: Acute Current Visit: Yes Exam (Progress Note) - Constitutional Vitals: Period Temp Pulse Resp BP Sys/G[place]a Pulse Ox Last 24 Hr 97.7 F-98.8 F 50-73 13-33 131-163/76-102 92-98 Results - Labs CBC & BMP: 07/31/16 05:40 07/31/16 01:52 Note Addendum: PLEASE NOTE -- automatic citation of patient information is unavoidable in this electronic note. I have made a reasonable effort to review the information cited , but it is not a part of my evaluation, impression, or recommendation unless specifically discussed in the dictated text that follows. As well, voice recognition software was used in the creation of this clinical note. Reasonable effort was made to identify and correct gross errors. Despite proofreading, errors in personnel security assistant may be present, including nonsense verbiage at times. If you encounter such an error, please contact me at for discussion and correction. -- Parag Chief complaint: elevated liver associated enzymes Subjective: the patient is a 56-year-old male seen for follow-up of elevated liver associated enzymes. The patient remains intubated and sedated. Blood counts remain stable and there has been no overt sign of gastrointestinal bleeding. The staff has been doing sedation holidays and the patient is aroused and is able to follow commands without significant agitation. They are also doing weaning trials and getting encouraging results. Medications: Tylenol, Duoneb, Norvasc, aspirin, Coreg, Lovenox, Flonase, Lasix, hydralazine, [place], Dilaudid, Humalog, labetalol, lisinopril, Ativan, magnesium chloride, Solu-Medrol, Flagyl, Versed, banana bag, niacin, Zofran, Protonix, Zosyn, Aldactone, Hytrin, trazodone Review of Symptoms: unable to provide Physical examination: Vital Signs: Current vital signs reviewed. General Appearance: lying in bed, intubated and sedated. Head: Normocephalic. Eyes: no scleral icterus. No scleral injection. No conjunctival pallor. Oral Cavity: Odor of breath was normal. No drooling was observed. Lips showed no abnormalities. Lungs: Respiration rhythm and depth was mechanically controlled. Cardiovascular: Heart rate and rhythm were normal. Abdomen: abdomen was protuberant due to obesity but not distended. Abdominal auscultation revealed infrequent bowel sounds. Ascites was not discovered. Abdominal palpation revealed no tenderness and no hepatosplenomegaly. Musculoskeletal System: musculoskeletal system was grossly normal. Neurological: patient was sedated at the time of exam Skin: Gen. appearance was normal. Color and pigmentation were normal. No skin lesions were appreciated. Laboratory: white blood count 8.4, hemoglobin 14.5, hematocrit 44.1, platelets 137, no new liver labs this morning Radiology: reviewed Impressions: 1. Elevated liver associated enzymes -- acute on chronic liver injury with underlying alcoholic/nonalcoholic stratohepatitis and possible contribution from cholecystitis. Overall trend, with respect to liver specifically, seems to be improving. I recommend continued monitoring with definitive therapy for diseased gallbladder once patient is more stable. 2. Other specified counseling -- Patient seen for greater than 30 minutes. Greater than 50% of this time was spent counseling regarding differential diagnosis, likely diagnosis,, diagnostic and therapeutic options, risks, benefits, and alternatives to procedures and medications, informed consent, and plan of care generally. Patient has expressed understanding and wishes to proceed. Recommendations: -- continued volume and electrolyte management -- minimization of potentially hepatotoxicity medications to whatever extent possible -- definitive therapy for gallbladder disease after acute phase has passed -- alcohol abstinence as previously recommended -- outpatient follow-up for liver disease generally during convalescence -- we will continue to follow with you
[2016-07-31] MEDS: methylPREDNISolone SOD SUC 40 MG/1 ML VIAL IV SCH ×2 (08:13→20:11)
[2016-07-31] MEDS: NIACIN ER 500 MG TABLET PO SCH (08:37)
[2016-07-31] MEDS: FUROSEMIDE 20 MG TABLET PO SCH (08:37)
[2016-07-31] MEDS: amLODIPine 10 MG TABLET PO SCH (08:37)
[2016-07-31] MEDS: ASPIRIN EC 325 MG TABLET PO SCH (08:37)
[2016-07-31] MEDS: OMEGA 3 ACID ETHYL ESTERS 1 GM CAPSULE PO SCH ×2 (08:37→20:10)
[2016-07-31] MEDS: LISINOPRIL 10 MG TABLET PO SCH (08:37)
[2016-07-31] MEDS: SPIRONOLACTONE 25 MG TABLET PO SCH (08:38)
[2016-07-31] MEDS: MAGNESIUM CHLORIDE 64 MG TABLET PO SCH (08:38)
[2016-07-31] MEDS: PANTOPRAZOLE 40 MG VIAL IV SCH (08:38)
[2016-07-31] MEDS: FLUTICASONE 50 MCG NASAL SPRAY 16 GM BOTTLE BOTH NARES SCH (08:40)
--- NOTE | 2016-07-31 08:45 | Cardiology Progress Note ---
Assessment and Plan - Time spent with patient Time spent with patient: Greater than 30 minutes (1) Hypertension Status: Chronic Assessment and plan: SEE PLAN OF CARE LISTED BELOW Current Visit: Yes (2) Dyslipidemia Status: Chronic Assessment and plan: SEE PLAN OF CARE LISTED BELOW Current Visit: Yes (3) Pre-op evaluation Status: Resolved Assessment and plan: SEE PLAN OF CARE LISTED BELOW Current Visit: Yes (4) Coronary artery disease with stent Status: Chronic Assessment and plan: SEE PLAN OF CARE LISTED BELOW Current Visit: No (5) Obstructive sleep apnea Status: Chronic Assessment and plan: SEE PLAN OF CARE LISTED BELOW Current Visit: No (6) Obesity Status: Acute Assessment and plan: SEE PLAN OF CARE LISTED BELOW Current Visit: No (7) Acute cholecystitis Status: Resolved Assessment and plan: SEE PLAN OF CARE LISTED BELOW Current Visit: Yes (8) Enlargement of liver Status: Acute Assessment and plan: SEE PLAN OF CARE LISTED BELOW Current Visit: Yes (9) Thrombocytopenia Status: Acute Current Visit: Yes (10) Diabetes Status: Acute Current Visit: Yes Cardiology - PN: Subj Interval history: SENIOR ENVIRONMENTAL SCIENTIST: DR. RODRÍGUEZ Patient is being seen in the ICU. SUMMARY: Mr. Coles, 56WM, routinely followed by Dr. Rodríguez. He was last seen in cardiology clinic July 13, 2016. Risk factors include: known coronary artery disease, hypertension, dyslipidemia, morbid obesity. History of cardiac catheterization requiring PCI of proximal LAD 2006. Underwent repeat cardiac catheterization February 2014 for NSTEMI felt to be related to a thrombotic event as there was no coronary obstruction noted. He is on Plavix long-term. Patient was admitted July 26, 2016 with right upper quadrant abdominal pain. He was diagnosed with acute cholecystitis, elevated liver enzymes. Initially, he was scheduled to undergo laparoscopic cholecystectomy yesterday. However, the liver was enlarged removal of gallbladder was not possible. However, gallbladder did not look inflamed and did not warrant removal. Biopsy of liver obtained. Postoperatively, he was transitioned to the ICU as he has severe sleep apnea and it was somewhat difficult to wean him from the ventilator. JULY 28, 2016: Overnight, patient remains on the ventilator. Aggressive weaning trials will begin with hopeful extubation tomorrow. Vital signs are stable this morning. He is waking and moving all extremities appropriately. Viral hepatitis panel was negative. May possibly be passive liver congestion or a different type of hepatitis. I will attempt to locate his most recent echocardiogram today. Mildly hypomagnesemic and will verify he is on the replacement protocol. Triglycerides 485, LDL 75. Will require restarting of Plavix when it is safe from a surgical standpoint. Will further discuss with Dr. Rodríguez and await additional recommendations. JULY 29, 2016: Patient remains on the ventilator this morning. Lovenox is being restarted this morning as his platelets have improved. Blood pressure is elevated and I am adjusting medications to include adding lisinopril 5 mg twice daily, starting now. Also, adding hydralazine 10 mg IV as needed every 2 hours for systolic blood pressure greater than 170 mmHg. There is a possibility he is going through alcohol withdrawals and Ativan has been initiated. Labs are stable. Echocardiogram reveals EF 60%, PAP 42 mmHg. No significant valvular abnormality noted. JULY 30, 2016: Patient continues to be combative when sedation is held. Last evening, Versed infusion was initiated, still receiving Ativan as needed. There was discussion with family yesterday who revealed that he does drink liquor heavily, every day. Liver biopsy revealed early cirrhosis, steatosis. He may be experiencing alcohol withdrawal. When he is agitated, blood pressure increases. We are using hydralazine IV as needed in addition to Coreg, amlodipine and recently added Lisinopril. This morning, I will increase Lisinopril to a higher dose and follow his labs closely. No arrhythmia noted. Echocardiogram reveals no significant abnormality. I suspect his cirrhosis is related to obesity and alcohol. He has never been formally diagnosed with diabetes that I am aware of however his blood glucose levels are chronically elevated during his hospital stay. Covering with sliding scale and will check hemoglobin A1c. Platelet count has now normalized. Restarting Lovenox. JULY 31, 2016: Signs are stable. He is on a ventilator. Dr. Nogueira is seeing and may consider trying CPAP trials today. The Versed is being used for possible alcohol withdrawal symptoms and he seems to be doing a bit better. Lovenox was held for several days due to thrombocytopenia. This morning his platelet count is 137. Had several episodes of heart rates in the high 40s during the night. Today, I will decrease his beta-harsha and will increase MIRYAM inhibitor for better blood pressure control. Creatinine is stable. Hemoglobin A1c 7.8. Diabetes will be a new diagnosis for him. Hopefully, we can reinitiate Plavix soon. When surgery feels it is stable, we will start Plavix 75 mg orally daily. Will further discuss with Dr. Rodríguez and await additional recommendations. ASSESSMENT/PLAN: 1. CIRRHOSIS OF LIVER - viral hepatitis panel is negative. Gastroenterology has been consulted. 2. DIABETES - new diagnosis. Continue sliding scale coverage. Will need diabetic teaching prior to discharge. 3. KNOWN CAD - Okay to continue to hold Plavix but we will restart when okay with surgeon. Lovenox has been reinitiated. 4. HYPERTENSION - increasing Lisinopril and monitoring closely. Hydralazine as needed. 5. DYSLIPIDEMIA - holding lipid-lowering agent at this time due to the elevated liver enzymes. Triglycerides 485, LDL 75. 6. MORBID OBESITY - dietary counseling prior to discharge 7. EDA - pulmonary on board and will start weaning trials when able. 8. THROMBOCYTOPENIA - resolved overnight. Lovenox has been started and thrombopenia remained stable. Exam (Progress Note) - Constitutional Vitals: Period Temp Pulse Resp BP Sys/G[place]a Pulse Ox Last 24 Hr 97.7 F-98.8 F 50-73 13-33 131-172/76-102 92-98 Exam: General: [Morbidly obese male, intubated. Wakes when sedation with held. ] HEENT: [Normocephalic, atraumatic. Mucous membranes moist. No jaundice noted. Conjunctiva moist and clear, sclerae anicteric] Neck: Difficult to assess for JVD due to habitus. No thyromegaly or lymphadenopathy noted. No carotid bruit appreciated Cardiac: [Regular rate and rhythm.] [No obvious murmur rub or gallop.] Lungs: [Clear to auscultation without accessory muscle use to assist the respiratory pattern.] Symmetrical chest wall movements noted. Abdomen: Protuberant with dressings dry and intact. Scant bowel sounds. Musculoskeletal: No fluid collection. Decreased range of motion is noted. Extremities: No clubbing, cyanosis noted. [Trace bilateral lower extremity edema. SCDs/TEDs intact.] Upper extremity pulses 2+. Lower extremity pulses 2 +. Capillary refill less than 3 seconds. Skin: No unusual lesions or rashes. No skin breakdown appreciated. Neuro: Wakes easily, follows commands appropriately. Moves all extremities well without hemiparesis or paralysis. No essential tremor is appreciated. Result/EKG - Labs CBC & BMP: 07/31/16 05:40 07/31/16 01:52 Lab Results: I have reviewed the past 24 hour labs Labs: Laboratory Results - last 24 hr 07/30/16 07/30/16 07/30/16 03:40 03:45 11:47 WBC RBC Hgb Hct MCV MCH MCHC RDW Plt Count MPV Neut % (Auto) Lymph % (Auto) [place] % (Auto) Eos % (Auto) Baso % (Auto) Neut # (Auto) Lymph # (Auto) [place] # (Auto) Eos # (Auto) Baso # (Auto) Immature Gran % Nucleated RBC % Immature Gran # Nucleated RBCs # ABG pH ABG pCO2 ABG pO2 ABG HCO3 ABG Total CO2 ABG O2 Saturation ABG Base Excess FiO2 Sodium Potassium Chloride Carbon Dioxide Anion Gap BUN Creatinine GFR Calculation BUN/Creatinine Ratio Glucose POC Glucose 192 H Hemoglobin A1c 7.8 H Calculated Osmolality Calcium Magnesium Total Bilirubin 1.90 H 07/30/16 07/30/16 07/31/16 16:49 23:26 01:52 WBC RBC Hgb Hct MCV MCH MCHC RDW Plt Count MPV Neut % (Auto) Lymph % (Auto) [place] % (Auto) Eos % (Auto) Baso % (Auto) Neut # (Auto) Lymph # (Auto) [place] # (Auto) Eos # (Auto) Baso # (Auto) Immature Gran % Nucleated RBC % Immature Gran # Nucleated RBCs # ABG pH ABG pCO2 ABG pO2 ABG HCO3 ABG Total CO2 ABG O2 Saturation ABG Base Excess FiO2 Sodium 142 Potassium 4.5 Chloride 109 H Carbon Dioxide 25 Anion Gap 12.5 BUN 19 H Creatinine 0.80 GFR Calculation 142 BUN/Creatinine Ratio 23.00 H Glucose 196 H POC Glucose 203 H 168 H Hemoglobin A1c Calculated Osmolality 289.1 Calcium 8.1 L Magnesium 2.3 Total Bilirubin 07/31/16 07/31/16 07/31/16 02:45 05:25 05:40 WBC 8.4 RBC 4.18 Hgb 14.5 Hct 44.1 MCV 105.5 H MCH 35 H MCHC 32.9 RDW 13.5 Plt Count 137 MPV 11.3 Neut % (Auto) 80.2 H Lymph % (Auto) 12.7 L [place] % (Auto) 6.5 Eos % (Auto) 0.0 Baso % (Auto) 0.1 Neut # (Auto) 6.7 Lymph # (Auto) 1.1 L [place] # (Auto) 0.5 Eos # (Auto) 0.0 Baso # (Auto) 0.0 Immature Gran % 0.5 Nucleated RBC % 0.0 Immature Gran # 0.04 Nucleated RBCs # 0.00 ABG pH 7.322 L ABG pCO2 50.9 H ABG pO2 76.1 L ABG HCO3 23.8 ABG Total CO2 22.8 L ABG O2 Saturation 94.8 L ABG Base Excess -0.7 FiO2 40.00 Sodium Potassium Chloride Carbon Dioxide Anion Gap BUN Creatinine GFR Calculation BUN/Creatinine Ratio Glucose POC Glucose 192 H Hemoglobin A1c Calculated Osmolality Calcium Magnesium Total Bilirubin - Diagnostic Findings Procedure: Chest x-ray: report reviewed by me - EKG EKG results: interpreted by me EKG shows: sinus rhythm Quality Measures - VTE Contraindication to Pharmacological VTE Prophylaxis: High Risk of Bleeding
[2016-07-31] MEDS: MIDAZOLAM 100 MG in SODIUM CHLORIDE 0.9% 80 ML IV SCH ×3 (08:51→23:55)
[2016-07-31] MEDS: CARVEDILOL 6.25 MG TABLET PO SCH ×2 (08:57→20:15)
[2016-07-31] MEDS: LISINOPRIL 20 MG TABLET PO SCH ×2 (08:58→20:11)
--- NOTE | 2016-07-31 09:32 | XRay Report ---
History is ventilator management Comparison 07/30/2016 Cardiac silhouette is moderate to severely enlarged. ET tube tip remains at T5. NG tube traverses the chest There remains mild diffuse bilateral pulmonary edema and small underlying effusions Impression: No significant change in pulmonary edema PROCEDURE INTERPRETED AT [facility] DEPARTMENT OF RADIOLOGY Final Report Signed by: Dr. Consuelo Vences
[2016-07-31] MEDS: ENOXAPARIN 40 MG/0.4 ML SYRINGE SUBCUT SCH (11:14)
--- NOTE | 2016-07-31 11:28 | Event Note ---
General Surgery Progress Note Chief complaint This patient is a 56-year-old man with a history of chronic alcohol abuse admitted with right upper quadrant pain and presumed cholecystitis treated with diagnostic laparoscopy and liver biopsy for hepatomegaly and hepatitis on [address] Barkley Interval history The patient remains on the ventilator but he is making strides towards extubation. His tube feeds have been held since earlier this week for an episode of vomiting that he had. His lab work is unremarkable this morning. He does wake up and follow commands. Physical exam The patient's abdominal exam is benign and his incisions are healing well. He has minimal NG tube output is clear Labs Reviewed Imaging Reviewed Assessment and plan Restart tube feeds today at 10 cc/h and increase as tolerated The patient's treatment plan was discussed with his in the ICU waiting area and her questions were answered. We will wait for the patient to be extubated and off of his benzodiazepine infusion to monitor for any residual right upper quadrant pain or gallbladder type symptoms.
--- NOTE | 2016-07-31 17:07 | Family Practice Progress Note ---
Family Practice - PN: Subj Interval history: Patient seems to have improved since starting the Versed. Dr. Nogueira plans to try CPAP. Staff reports that patient is responsive when the sedation has been reduced. Patient is not agitated as he has been earlier in the week. Patient has been difficult to extubate due to multiple factors. Dr. Mccain has restarted tube feedings today. Abdomen is soft no apparent guarding noted. Labs are generally stable. We will continue present treatment plan. Exam (Progress Note) - Constitutional Vitals: Period Temp Pulse Resp BP Sys/Gasca Pulse Ox Last 24 Hr 97.4 F-98.8 F 48-77 13-33 121-172/72-101 92-98 Results - Labs CBC & BMP: 07/31/16 05:40 07/31/16 01:52 Assessment and Plan (1) Abdominal pain Status: Acute Assessment and plan: We will order numerous additional studies. Suggestive of acute gallbladder disease but possibly diverticulitis. Will need consultation by Dr. Rodríguez if surgery is considered. Have held his aspirin and Plavix for present Current Visit: Yes (2) Acute cholecystitis Status: Resolved Assessment and plan: Have ordered an ultrasound for this a.m. May also need a HIDA scan. Has elevated liver enzymes. Current Visit: Yes (3) Elevated liver enzymes Status: Acute Assessment and plan: We will need to monitor closely and evaluate further Current Visit: Yes (4) Coronary artery disease with stent Status: Chronic Assessment and plan: Stable at present. Patient needs a cardiology consult would Dr. Rodríguez prior to any surgical procedures Current Visit: No (5) Hypertension Status: Chronic Assessment and plan: Stable at present Current Visit: No (6) Obstructive sleep apnea Status: Chronic Assessment and plan: Stable on CPAP Current Visit: No (7) Previous deep vein thrombosis Status: Chronic Current Visit: No (8) Hyperglycemia on admission Status: Acute Assessment and plan: We will order hemoglobin A1c and blood sugars Current Visit: Yes Quality Measures - VTE Contraindication to Pharmacological VTE Prophylaxis: High Risk of Bleeding
[2016-07-31] MEDS: MULTIVITAMIN IV SCH (17:09)
[2016-07-31] MEDS: THIAMINE IV SCH (17:09)
[2016-07-31] MEDS: SODIUM CHLORIDE 0.45% IV SCH (17:09)
[2016-07-31] MEDS: TERAZOSIN 2 MG CAPSULE PO SCH (20:10)
[2016-07-31] MEDS: ONDANSETRON 4 MG/2 ML VIAL IV PRN (23:40)
[2016-07-31] MEDS: HYDROmorphone 2 MG/1 ML VIAL IV PRN (23:45)
[2016-08-01] MEDS: ALBUTEROL/IPRATROPIUM 3 ML NEB RESP TX SCH ×4 (00:03→18:51)
[2016-08-01] MEDS: LORazepam 2 MG/1 ML VIAL IV PRN ×2 (00:54→06:43)
[2016-08-01] MEDS: INSULIN LISPRO 100 UNIT/ML SUBCUT SCH ×4 (00:54→17:57)
[2016-08-01 03:10] LABS: Hematocrit 43.2 VOL% (42.0-52.0); Immature Granulocytes % 0.4 %; Immature Granulocytes Absolute 0.03 #; Lymphocytes # 0.8 10*3/uL (1.4-4.0); Lymphocytes % 10.9 % (21.2-54.2); Mean Corpuscular HGB Conc 32.4 GM/DL (32-36); Mean Corpuscular Hemoglobin 34 PG (27-34); Mean Corpuscular Volume 103.6 FL (87-102); Mean Platelet Volume 11.9 FL (9.6-12.0); Monocytes # 0.5 10*3/uL (0.11-0.8); Monocytes % 7.5 % (1.7-12.7); Neutrophils # 5.9 10*3/uL (1.4-7.4); Neutrophils % 81.2 % (38.7-73.9); Platelet Count 165 T/CUMM (130-400); Red Blood Count 4.17 MC/CUMM (3.8-5.5); Red Cell Distribution Width 13.3 % (9.3-17.3); White Blood Count 7.2 T/CUMM (4-12)
[2016-08-01] MEDS: metroNIDAZOLE INJ 500 MG in PREMIX 1 EACH IV SCH ×3 (03:38→21:15)
[2016-08-01] MEDS: PIPERACILLIN/TAZOBACTAM 3,375 MG in SODIUM CHLORIDE 0.9% 100 ML IV SCH ×3 (03:38→18:50)
[2016-08-01 03:44] LABS: Calcium 8.2 MG/DL (8.5-10.1); Magnesium 2.4 MG/DL (1.8-2.4); Osmolality,Calculated 296.8 MOS/KG (273-304); Potassium 3.9 MMOL/L (3.5-5.1)
[2016-08-01 04:07] LABS: ABG Base Excess 2.1 MMOL/L (-2.5-2.5); ABG HCO3 28.8 MMOL/L (20-26); ABG Oxygen Saturation 95.1 % (95-100); ABG PH 7.353 (7.35-7.45); ABG PO2 73.5 MM HG (80-95); ABG TCO2 30.4 MMOL/L (23-27); Allen Test Positive; Pt O2 Delivery Device Ventilator
--- NOTE | 2016-08-01 06:26 | Pulmonology Progress Note ---
Pulmonary - PN: Subj Interval history: This 56-year-old white male had surgery yesterday for suspected gallbladder disease. However he had a very large liver that might cholecystectomy and possible. He has been on the ventilator yesterday and today. His chest x-ray looks okay. PCO2 remains elevated. Has a history of obstructive sleep apnea and he is obese. We will have obesity hypoventilation syndrome prior to his surgery, based on his elevated PCO2 at the present time. This makes it somewhat difficult to wean him. I will add Diamox for 3 days despite the fact that his pH is only 7.35. We will see if we can get his PCO2 down a little further. We will cautiously start CPAP today although I do not expect him to wean rapidly. 07/29/2016 patient has been combative when sedation is held. Difficult to wean. He has an elevated PCO2. Going to need to reduce his FiO2 to wean. He has underlying sleep apnea and may have obesity hypoventilation syndrome. Will change sedation to Precedex and try to wean as rapidly as tolerated. 07/30/2016 patient continues to be combative when sedation is held. We are now using a Versed infusion and giving as needed Ativan. His blood pressure goes up. These may be signs of alcohol withdrawal. Discussion with the family yesterday indicated that he does use alcohol fairly heavily. His liver biopsy showed steatosis with some early cirrhosis. Multifactorial causes listed as obesity, diabetes, alcohol or drugs. I think the first 3 of these apply. 07/31/16 patient seems to be doing a little better with Versed infusion. Vital signs were stable. ABGs look okay on 40% with 5 of PEEP. Will try on CPAP with low-dose Versed. Using Versed for possible alcohol withdrawal as well. 08/01/2016 doing CPAP with Versed reduced. At about 2 hours yesterday. Still has elevated PCO2 on for mechanical ventilation. Chest x-ray still looks a little wet. Will change to IV Lasix. Also getting Aldactone. Exam (Progress Note) - Constitutional Vitals: Period Temp Pulse Resp BP Sys/Gasca Pulse Ox Last 24 Hr 97.4 F-98.2 F 47-77 14-33 121-172/70-95 93-96 Exam: Patient is sedated, responsive when sedation is reduced. Vital signs normal. Pupils react to light. Orotracheal tube in place. Neck supple no bruits. Chest sounds clear. Heart normal rate rhythm no murmurs. Abdomen bandaged bowel sounds present. No masses. Extremities no clubbing or cyanosis. Trace of edema. Little change from yesterday. Results - Labs CBC & BMP: 08/01/16 02:00 08/01/16 02:00 Lab Results: I have reviewed the past 24 hour labs - Diagnostic Findings Procedure: Chest x-ray: image reviewed by me (Cardiomegaly with small pleural effusions about the same as yesterday.) Assessment and Plan (1) Postop laparotomy Status: Acute Assessment and plan: Patient is felt to have cholecystitis. Difficult to surgery due to his large liver. Unable to remove the gallbladder. He is now sedated on the ventilator. We will try to wean when he is alert. 07/28/2016 patient arousable and off sedation at present. Anesthesia out of his system. 07/29/2016 patient denies pain. Responsive on low-dose propofol. 07/30/2016 patient has had some vomiting. We have had to stop NG feedings. To start on TPN. Unable to give Librium or transition per NG at this point. Using a Versed infusion and as needed Ativan for EtOH withdrawal. Getting a banana bag as well. 07/31/16 was found to have large liver with cirrhosis and steatosis. Consideration to a percutaneous cholecystostomy. Defer to surgery. 08/01/2016 still having some abdominal pain which may decrease his respiratory drive. Current Visit: Yes (2) Hepatic steatosis Status: Acute Assessment and plan: May be due to previously unknown diabetes. May just simply be steatosis. Defer to GI. 07/29/2016 do not want to use Haldol with his liver problems. 07/30/16 this limits our options for sedation 07/31/2016 discussed liver findings with Dr. Juarez yesterday. This is primarily due to alcohol apparently. Current Visit: Yes (3) Obstructive sleep apnea Status: Acute Assessment and plan: Patient is on BiPAP at home at night. Will need to keep this in mind when it is time to extubate him. We will need BiPAP facemask after he is extubated. He may have obesity hypoventilation syndrome which would render his PCO2 elevated at baseline. His ABGs look like that. 07/28/2016 has EDA. May well have OHS well. Try low dose Diamox to reduce PCO2. 07/29/2016 will be a real problem once we get him extubated. Will need to be sure that he uses BiPAP. 07/31/2016 will be a problem when he is extubated Current Visit: Yes (4) Coronary artery disease with stent Status: Chronic Assessment and plan: He has a coronary stent. Needs to be back on Plavix soon. Cardiology following. 07/28/2016 no signs of congestive heart failure. 07/30/2016 does not appear to be in congestive heart failure. 07/31/2016 having to hold Plavix still. 08/01/2016 a little ahead on fluid which may be some congestive heart failure Current Visit: No (5) Hyperglycemia on admission Status: Acute Assessment and plan: Continues to have hyperglycemia. Will check a hemoglobin A1c but I suspect he does have adult-onset diabetes. Continuing sliding scale insulin. 07/28/2016 on sliding scale insulin. Hemoglobin A1c of 7.9 indicates that he is indeed diabetic. Glucoses running in the 150 range. 07/29/2016 glucoses are better controlled. 07/30/2016 glucoses fairly well controlled. Does have diabetes 07/31/2016 glucoses well controlled 08/01/2016 diabetic. Glucoses controlled with sliding scale. Current Visit: Yes (6) Acute respiratory failure Status: Acute Assessment and plan: This is come about postoperatively for laparotomy. He has a long history of smoking and may have underlying COPD. His PCO2 has come down after adding steroids. Also getting bronchodilators and empiric antibiotics. With PCO2 now in the 40s, hopefully we can start some CPAP's. Difficulty will be in the holding sedation. 07/31/2016 ABGs acceptable on 40%. Has elevated PCO2 around 50. Likely due to COPD. Will proceed with CPAP's today. We have had problems with sedation during weaning trials. He is not able to tolerate Haldol due to his liver disease. 08/01/2016 PCO2 53. Continuing with bronchodilators and steroids weaning trials. Current Visit: Yes
[2016-08-01] MEDS: methylPREDNISolone SOD SUC 40 MG/1 ML VIAL IV SCH ×2 (08:18→21:16)
[2016-08-01] MEDS: HYDROmorphone 2 MG/1 ML VIAL IV PRN ×3 (08:22→19:50)
--- NOTE | 2016-08-01 08:30 | Gastrointestinal Progress Note ---
Assessment and Plan (1) Elevated liver enzymes Status: Acute Current Visit: No (2) Other specified counseling Status: Acute Current Visit: Yes Gastroenterology - PN: Subj Interval history: PLEASE NOTE -- automatic citation of patient information is unavoidable in this electronic note. I have made a reasonable effort to review the information cited , but it is not a part of my evaluation, impression, or recommendation unless specifically discussed in the dictated text that follows. As well, voice recognition software was used in the creation of this clinical note. Reasonable effort was made to identify and correct gross errors. Despite proofreading, errors in service counter cashier may be present, including nonsense verbiage at times. If you encounter such an error, please contact me at for discussion and correction. -- Parag Chief complaint: elevated liver associated enzymes Subjective: the patient is a 56-year-old male seen for follow-up of elevated liver associated enzymes. The patient remains intubated and sedated. Blood counts remain stable and there has been no overt sign of gastrointestinal bleeding. The patient is able to follow commands during sedation holidays. Medications: Tylenol, Duoneb, Norvasc, aspirin, Coreg, Lovenox, Flonase, Lasix, hydralazine, [place], Dilaudid, Humalog, labetalol, lisinopril, Ativan, magnesium chloride, Solu-Medrol, Flagyl, Versed, banana bag, niacin, Zofran, Protonix, Zosyn, Aldactone, Hytrin, trazodone Review of Symptoms: unable to provide Physical examination: Vital Signs: Current vital signs reviewed. General Appearance: lying in bed, intubated and sedated. Head: Normocephalic. Eyes: no scleral icterus. No scleral injection. No conjunctival pallor. Oral Cavity: Odor of breath was normal. No drooling was observed. Lips showed no abnormalities. Lungs: Respiration rhythm and depth was mechanically controlled. Cardiovascular: Heart rate and rhythm were normal. Abdomen: abdomen was protuberant due to obesity but not distended. Abdominal auscultation revealed infrequent bowel sounds. Ascites was not discovered. Abdominal palpation revealed no tenderness and no hepatosplenomegaly. Musculoskeletal System: musculoskeletal system was grossly normal. Neurological: patient was sedated at the time of exam Skin: Gen. appearance was normal. Color and pigmentation were normal. No skin lesions were appreciated. Laboratory: what blood count 7.2, hemoglobin 14.0, hematocrit 43.2, platelets 165, no new liver labs this morning Radiology: reviewed Impressions: 1. Elevated liver associated enzymes -- acute on chronic liver injury with underlying alcoholic/nonalcoholic stratohepatitis and possible contribution from cholecystitis. No significant change compared to yesterday. I recommend continued monitoring with definitive therapy for diseased gallbladder once patient is more stable. 2. Other specified counseling -- Patient seen for less than 30 minutes. Greater than 50% of this time was spent counseling regarding differential diagnosis, likely diagnosis,, diagnostic and therapeutic options, risks, benefits, and alternatives to procedures and medications, informed consent, and plan of care generally. Patient has expressed understanding and wishes to proceed. Recommendations: -- continued volume and electrolyte management -- definitive therapy for gallbladder disease after acute phase has passed -- alcohol abstinence as previously recommended -- outpatient follow-up for liver disease generally during convalescence -- we will continue to follow with you. Dr. Juarez will send G.I. care for this patient tomorrow. Exam (Progress Note) - Constitutional Vitals: Period Temp Pulse Resp BP Sys/Gasca Pulse Ox Last 24 Hr 97.4 F-98.2 F 47-77 14-33 121-163/70-95 93-96 Results - Labs CBC & BMP: 08/01/16 02:00 08/01/16 02:00
[2016-08-01] MEDS: PANTOPRAZOLE 40 MG VIAL IV SCH (09:12)
[2016-08-01] MEDS: OMEGA 3 ACID ETHYL ESTERS 1 GM CAPSULE PO SCH ×2 (09:13→21:15)
[2016-08-01] MEDS: LISINOPRIL 20 MG TABLET PO SCH (09:13)
[2016-08-01] MEDS: NIACIN ER 500 MG TABLET PO SCH (09:13)
[2016-08-01] MEDS: CARVEDILOL 6.25 MG TABLET PO SCH ×2 (09:13→21:16)
[2016-08-01] MEDS: FUROSEMIDE 40 MG/4 ML VIAL IV SCH (09:13)
[2016-08-01] MEDS: ASPIRIN EC 325 MG TABLET PO SCH (09:13)
[2016-08-01] MEDS: SPIRONOLACTONE 25 MG TABLET PO SCH (09:13)
[2016-08-01] MEDS: amLODIPine 10 MG TABLET PO SCH (09:14)
[2016-08-01] MEDS: MAGNESIUM CHLORIDE 64 MG TABLET PO SCH (09:14)
[2016-08-01] MEDS: FLUTICASONE 50 MCG NASAL SPRAY 16 GM BOTTLE BOTH NARES SCH (09:15)
--- NOTE | 2016-08-01 09:15 | XRay Report ---
Portable chest. Indication: Ventilated patient. Comparison: July 31, 2016. The heart is enlarged. The pulmonary vasculature is normal. There are bilateral basilar infiltrates and pleural effusion. An endotracheal tube and nasogastric tube are in satisfactory position. Impression: Improvement in the venous congestion. Basilar infiltrates and pleural effusions remain stable. PROCEDURE INTERPRETED AT [facility] DEPARTMENT OF RADIOLOGY Final Report Signed by: Dr. Nevaeh Vences
--- NOTE | 2016-08-01 11:11 | Event Note ---
General Surgery Progress Note Chief complaint This patient is a 56-year-old man with a history of chronic alcohol abuse admitted with right upper quadrant pain and presumed cholecystitis treated with diagnostic laparoscopy and liver biopsy for hepatomegaly and hepatitis on [address] Kramer Interval history The patient is tolerating tube feeds. He is making good strides on ventilator weaning. His labs are stable today. He is urinating well. He is on a Versed drip. Physical exam The patient's abdominal exam is benign and his incisions are healing well. Labs Reviewed Imaging Reviewed Assessment and plan Continue to advance tube feeds to goal No further recommendations We will need to see what the patient's RUQ symptoms are once he is extubated and awake.
[2016-08-01] MEDS: ENOXAPARIN 40 MG/0.4 ML SYRINGE SUBCUT SCH (11:48)
[2016-08-01] MEDS: MIDAZOLAM 100 MG in SODIUM CHLORIDE 0.9% 80 ML IV SCH ×3 (11:58→23:25)
--- NOTE | 2016-08-01 15:00 | Family Practice Progress Note ---
Family Practice - PN: Subj Interval history: Patient generally stable this a.m. He was able to tolerate his CPAP for [address] Nogueira is continuing to try to wean him off the ventilator. His PCO2 has remained elevated but not as high as his initial studies. His other labs are stable. Agree with multiple consultants. Continue to try to wean off ventilator and then make decision about further evaluation of his gallbladder disease Exam (Progress Note) - Constitutional Vitals: Period Temp Pulse Resp BP Sys/Gasca Pulse Ox Last 24 Hr 97.8 F-98.2 F 47-74 14-33 122-163/70-95 91-96 Results - Labs CBC & BMP: 08/01/16 02:00 08/01/16 02:00 Assessment and Plan (1) Abdominal pain Status: Acute Assessment and plan: We will order numerous additional studies. Suggestive of acute gallbladder disease but possibly diverticulitis. Will need consultation by Dr. Rodríguez if surgery is considered. Have held his aspirin and Plavix for present Current Visit: Yes (2) Acute cholecystitis Status: Resolved Assessment and plan: Have ordered an ultrasound for this a.m. May also need a HIDA scan. Has elevated liver enzymes. Current Visit: Yes (3) Elevated liver enzymes Status: Acute Assessment and plan: We will need to monitor closely and evaluate further Current Visit: Yes (4) Coronary artery disease with stent Status: Chronic Assessment and plan: Stable at present. Patient needs a cardiology consult would Dr. Rodríguez prior to any surgical procedures Current Visit: No (5) Hypertension Status: Chronic Assessment and plan: Stable at present Current Visit: No (6) Obstructive sleep apnea Status: Chronic Assessment and plan: Stable on CPAP Current Visit: No (7) Previous deep vein thrombosis Status: Chronic Current Visit: No (8) Hyperglycemia on admission Status: Acute Assessment and plan: We will order hemoglobin A1c and blood sugars Current Visit: Yes Quality Measures - VTE Contraindication to Pharmacological VTE Prophylaxis: High Risk of Bleeding
--- NOTE | 2016-08-01 16:12 | Cardiology Progress Note ---
Assessment and Plan (1) Hypertension Status: Chronic Assessment and plan: His hypertension seem to have come down Probably he has gone through his alcohol withdrawal We are reducing the Versed We will stop the Norvasc Will reduce the lisinopril and have hold parameters Continue full watch for any signs or symptoms of ischemia--none so far Current Visit: No (2) Abdominal pain Status: Acute Current Visit: Yes (3) Acute respiratory failure Status: Acute Current Visit: Yes (4) Diabetes Status: Acute Current Visit: Yes (5) Elevated liver enzymes Status: Acute Current Visit: Yes (6) Enlargement of liver Status: Acute Current Visit: Yes (7) Hepatic steatosis Status: Acute Current Visit: Yes (8) Obstructive sleep apnea Status: Acute Current Visit: Yes (9) Postop laparotomy Status: Acute Current Visit: Yes (10) Thrombocytopenia Status: Acute Current Visit: Yes (11) Dyslipidemia Status: Chronic Current Visit: Yes (12) Hypertension Status: Chronic Current Visit: Yes (13) Elevated liver enzymes Status: Acute Current Visit: No (14) Obesity Status: Acute Current Visit: No (15) Coronary artery disease with stent Status: Chronic Current Visit: No (16) Obstructive sleep apnea Status: Chronic Current Visit: No Cardiology - PN: Subj Interval history: Sedated on the ventilator Exam (Progress Note) - Constitutional Vitals: Period Temp Pulse Resp BP Sys/Gasca Pulse Ox Last 24 Hr 97.8 F-98.4 F 47-74 14-33 112-163/66-95 91-96 Exam: HEENT: Pupils equal, reactive to light and accommodation Neck: NoJVD or bruit Lungs clear to auscultation Heart: Regular rhythm rate with normal S1 and S2. Apical S4 Abdomen: No hepatosplenomegaly Spine/extremities: No clubbing, cyanosis, or edema Neuro: Nonfocal Psych: No depression or anxiety Result/EKG - Labs CBC & BMP: 08/01/16 02:00 08/01/16 02:00 Lab Results: I have reviewed the past 24 hour labs Labs: Laboratory Results - last 24 hr 07/31/16 08/01/16 08/01/16 18:18 00:25 02:00 WBC 7.2 RBC 4.17 Hgb 14.0 Hct 43.2 MCV 103.6 H MCH 34 MCHC 32.4 RDW 13.3 Plt Count 165 D MPV 11.9 Neut % (Auto) 81.2 H Lymph % (Auto) 10.9 L [place] % (Auto) 7.5 Eos % (Auto) 0.0 Baso % (Auto) 0.0 Neut # (Auto) 5.9 Lymph # (Auto) 0.8 L [place] # (Auto) 0.5 Eos # (Auto) 0.0 Baso # (Auto) 0.0 Immature Gran % 0.4 Nucleated RBC % 0.0 Immature Gran # 0.03 Nucleated RBCs # 0.00 ABG pH ABG pCO2 ABG pO2 ABG HCO3 ABG Total CO2 ABG O2 Saturation ABG Base Excess FiO2 Sodium Potassium Chloride Carbon Dioxide Anion Gap BUN Creatinine GFR Calculation BUN/Creatinine Ratio Glucose POC Glucose 199 H 174 H Calculated Osmolality Calcium Magnesium 08/01/16 08/01/16 08/01/16 02:00 03:43 06:09 WBC RBC Hgb Hct MCV MCH MCHC RDW Plt Count MPV Neut % (Auto) Lymph % (Auto) [place] % (Auto) Eos % (Auto) Baso % (Auto) Neut # (Auto) Lymph # (Auto) [place] # (Auto) Eos # (Auto) Baso # (Auto) Immature Gran % Nucleated RBC % Immature Gran # Nucleated RBCs # ABG pH 7.353 ABG pCO2 53.0 H ABG pO2 73.5 L ABG HCO3 28.8 H ABG Total CO2 30.4 H ABG O2 Saturation 95.1 ABG Base Excess 2.1 FiO2 40.00 Sodium 144 Potassium 3.9 Chloride 108 H Carbon Dioxide 28 Anion Gap 11.9 BUN 24 H Creatinine 0.70 GFR Calculation 148 BUN/Creatinine Ratio 34.00 H Glucose 221 H POC Glucose 201 H Calculated Osmolality 296.8 Calcium 8.2 L Magnesium 2.4 08/01/16 11:39 WBC RBC Hgb Hct MCV MCH MCHC RDW Plt Count MPV Neut % (Auto) Lymph % (Auto) [place] % (Auto) Eos % (Auto) Baso % (Auto) Neut # (Auto) Lymph # (Auto) [place] # (Auto) Eos # (Auto) Baso # (Auto) Immature Gran % Nucleated RBC % Immature Gran # Nucleated RBCs # ABG pH ABG pCO2 ABG pO2 ABG HCO3 ABG Total CO2 ABG O2 Saturation ABG Base Excess FiO2 Sodium Potassium Chloride Carbon Dioxide Anion Gap BUN Creatinine GFR Calculation BUN/Creatinine Ratio Glucose POC Glucose 176 H Calculated Osmolality Calcium Magnesium Quality Measures - VTE Contraindication to Pharmacological VTE Prophylaxis: High Risk of Bleeding
[2016-08-01] MEDS: SODIUM CHLORIDE 0.45% IV SCH (16:45)
[2016-08-01] MEDS: MULTIVITAMIN IV SCH (16:45)
[2016-08-01] MEDS: THIAMINE IV SCH (16:45)
[2016-08-01] MEDS: TERAZOSIN 2 MG CAPSULE PO SCH (21:16)
[2016-08-02] MEDS: INSULIN LISPRO 100 UNIT/ML SUBCUT SCH ×4 (00:07→19:18)
[2016-08-02] MEDS: ALBUTEROL/IPRATROPIUM 3 ML NEB RESP TX SCH ×4 (00:08→20:44)
[2016-08-02] MEDS: HYDROmorphone 2 MG/1 ML VIAL IV PRN ×3 (00:13→12:45)
[2016-08-02 02:42] LABS: ABG Base Excess 4.6 MMOL/L (-2.5-2.5); ABG HCO3 28.5 MMOL/L (20-26); ABG Oxygen Saturation 94.4 % (95-100); ABG PCO2 50.3 MM HG (35-48); ABG PH 7.396 (7.35-7.45); ABG PO2 64.9 MM HG (80-95); ABG TCO2 26.5 MMOL/L (23-27); Allen Test Positive; Pt O2 Delivery Device Ventilator
[2016-08-02] MEDS: metroNIDAZOLE INJ 500 MG in PREMIX 1 EACH IV SCH ×3 (04:16→20:58)
[2016-08-02] MEDS: PIPERACILLIN/TAZOBACTAM 3,375 MG in SODIUM CHLORIDE 0.9% 100 ML IV SCH ×3 (04:17→17:00)
[2016-08-02 06:52] LABS: Basophils % 0.2 % (0.0-0.8); Hematocrit 43.4 VOL% (42.0-52.0); Hemoglobin 14.6 GM/DL (14.0-18.0); Immature Granulocytes % 0.2 %; Immature Granulocytes Absolute 0.01 #; Lymphocytes # 0.8 10*3/uL (1.4-4.0); Lymphocytes % 12.3 % (21.2-54.2); Mean Corpuscular HGB Conc 33.6 GM/DL (32-36); Mean Corpuscular Hemoglobin 35 PG (27-34); Mean Corpuscular Volume 103.8 FL (87-102); Mean Platelet Volume 11.5 FL (9.6-12.0); Monocytes # 0.9 10*3/uL (0.11-0.8); Monocytes % 12.9 % (1.7-12.7); Neutrophils # 4.9 10*3/uL (1.4-7.4); Neutrophils % 74.4 % (38.7-73.9); Platelet Count 149 T/CUMM (130-400); Red Blood Count 4.18 MC/CUMM (3.8-5.5); Red Cell Distribution Width 13.4 % (9.3-17.3); White Blood Count 6.6 T/CUMM (4-12)
--- NOTE | 2016-08-02 07:06 | Pulmonology Progress Note ---
Pulmonary - PN: Subj Interval history: This 56-year-old white male had surgery yesterday for suspected gallbladder disease. However he had a very large liver that might cholecystectomy and possible. He has been on the ventilator yesterday and today. His chest x-ray looks okay. PCO2 remains elevated. Has a history of obstructive sleep apnea and he is obese. We will have obesity hypoventilation syndrome prior to his surgery, based on his elevated PCO2 at the present time. This makes it somewhat difficult to wean him. I will add Diamox for 3 days despite the fact that his pH is only 7.35. We will see if we can get his PCO2 down a little further. We will cautiously start CPAP today although I do not expect him to wean rapidly. 07/29/2016 patient has been combative when sedation is held. Difficult to wean. He has an elevated PCO2. Going to need to reduce his FiO2 to wean. He has underlying sleep apnea and may have obesity hypoventilation syndrome. Will change sedation to Precedex and try to wean as rapidly as tolerated. 07/30/2016 patient continues to be combative when sedation is held. We are now using a Versed infusion and giving as needed Ativan. His blood pressure goes up. These may be signs of alcohol withdrawal. Discussion with the family yesterday indicated that he does use alcohol fairly heavily. His liver biopsy showed steatosis with some early cirrhosis. Multifactorial causes listed as obesity, diabetes, alcohol or drugs. I think the first 3 of these apply. 07/31/16 patient seems to be doing a little better with Versed infusion. Vital signs were stable. ABGs look okay on 40% with 5 of PEEP. Will try on CPAP with low-dose Versed. Using Versed for possible alcohol withdrawal as well. 08/01/2016 doing CPAP with Versed reduced. At about 2 hours yesterday. Still has elevated PCO2 on for mechanical ventilation. Chest x-ray still looks a little wet. Will change to IV Lasix. Also getting Aldactone. 08/02/2016 patient doing well with CPAP. ABGs still not where we want him. PCO2 is around 50. We do not know his baseline ABGs however. Will obtain ABGs and mechanics during CPAP this morning and consider extubation. His x-ray still looks a little wet. Adding Zaroxolyn to the Lasix. Exam (Progress Note) - Constitutional Vitals: Period Temp Pulse Resp BP Sys/Gasca Pulse Ox Last 24 Hr 97.7 F-98.4 F 52-81 14-33 112-160/66-89 91-96 Exam: Patient is responsive when sedation is reduced. Squeezes fingers on command. Vital signs normal. Pupils react to light. Orotracheal tube in place. Neck supple no bruits. Chest sounds clear. Heart normal rate rhythm no murmurs. Abdomen bandaged bowel sounds present. No masses. Extremities no clubbing or cyanosis. Trace of edema. Results - Labs CBC & BMP: 08/02/16 06:36 08/01/16 02:00 Lab Results: I have reviewed the past 24 hour labs - Diagnostic Findings Procedure: Chest x-ray: image reviewed by me (Increased interstitial markings at both bases. Little change from before.) Assessment and Plan (1) Postop laparotomy Status: Acute Assessment and plan: Patient is felt to have cholecystitis. Difficult to surgery due to his large liver. Unable to remove the gallbladder. He is now sedated on the ventilator. We will try to wean when he is alert. 07/28/2016 patient arousable and off sedation at present. Anesthesia out of his system. 07/29/2016 patient denies pain. Responsive on low-dose propofol. 07/30/2016 patient has had some vomiting. We have had to stop NG feedings. To start on TPN. Unable to give Librium or transition per NG at this point. Using a Versed infusion and as needed Ativan for EtOH withdrawal. Getting a banana bag as well. 07/31/16 was found to have large liver with cirrhosis and steatosis. Consideration to a percutaneous cholecystostomy. Defer to surgery. 08/01/2016 still having some abdominal pain which may decrease his respiratory drive. 08/02/2016 abdomen is nontender at present. Does probably have small pleural effusions related to the abdominal surgery and liver disease. Current Visit: Yes (2) Hepatic steatosis Status: Acute Assessment and plan: May be due to previously unknown diabetes. May just simply be steatosis. Defer to GI. 07/29/2016 do not want to use Haldol with his liver problems. 07/30/16 this limits our options for sedation 07/31/2016 discussed liver findings with Dr. Juarez yesterday. This is primarily due to alcohol apparently. 08/02/2016 has cirrhosis and steatosis. Current Visit: Yes (3) Obstructive sleep apnea Status: Acute Assessment and plan: Patient is on BiPAP at home at night. Will need to keep this in mind when it is time to extubate him. We will need BiPAP facemask after he is extubated. He may have obesity hypoventilation syndrome which would render his PCO2 elevated at baseline. His ABGs look like that. 07/28/2016 has EDA. May well have OHS well. Try low dose Diamox to reduce PCO2. 07/29/2016 will be a real problem once we get him extubated. Will need to be sure that he uses BiPAP. 07/31/2016 will be a problem when he is extubated 08/02/2016 will definitely need BiPAP once we get him extubated Current Visit: Yes (4) Coronary artery disease with stent Status: Chronic Assessment and plan: He has a coronary stent. Needs to be back on Plavix soon. Cardiology following. 07/28/2016 no signs of congestive heart failure. 07/30/2016 does not appear to be in congestive heart failure. 07/31/2016 having to hold Plavix still. 08/01/2016 a little ahead on fluid which may be some congestive heart failure 08/02/2016 continuing with diuresis. Adding Zaroxolyn. Current Visit: No (5) Hyperglycemia on admission Status: Acute Assessment and plan: Continues to have hyperglycemia. Will check a hemoglobin A1c but I suspect he does have adult-onset diabetes. Continuing sliding scale insulin. 07/28/2016 on sliding scale insulin. Hemoglobin A1c of 7.9 indicates that he is indeed diabetic. Glucoses running in the 150 range. 07/29/2016 glucoses are better controlled. 07/30/2016 glucoses fairly well controlled. Does have diabetes 07/31/2016 glucoses well controlled 08/01/2016 diabetic. Glucoses controlled with sliding scale. 08/02/2016 blood sugars fair control. Current Visit: Yes (6) Acute respiratory failure Status: Acute Assessment and plan: This is come about postoperatively for laparotomy. He has a long history of smoking and may have underlying COPD. His PCO2 has come down after adding steroids. Also getting bronchodilators and empiric antibiotics. With PCO2 now in the 40s, hopefully we can start some CPAP's. Difficulty will be in the holding sedation. 07/31/2016 ABGs acceptable on 40%. Has elevated PCO2 around 50. Likely due to COPD. Will proceed with CPAP's today. We have had problems with sedation during weaning trials. He is not able to tolerate Haldol due to his liver disease. 08/01/2016 PCO2 53. Continuing with bronchodilators and steroids weaning trials. 08/02/2016 PCO2 down to 50. Proceed with evaluation for extubation. Current Visit: Yes
[2016-08-02 07:09] LABS: INR 1.2; PT Patient Result 12.4 SECS
[2016-08-02 07:23] LABS: Calcium 8.3 MG/DL (8.5-10.1); Magnesium 2.4 MG/DL (1.8-2.4); Osmolality,Calculated 303.6 MOS/KG (273-304); Phosphorous 2.5 MG/DL (2.5-4.9); Potassium 3.9 MMOL/L (3.5-5.1); Prealbumin 16.4 MG/DL (20-40)
[2016-08-02 07:30] LABS: Calcium 8.5 MG/DL (8.5-10.1); Magnesium 2.4 MG/DL (1.8-2.4); Osmolality,Calculated 301.7 MOS/KG (273-304); Potassium 3.9 MMOL/L (3.5-5.1)
[2016-08-02 07:40] LABS: Albumin 2.4 G/DL (3.4-5.0); Bilirubin,Direct 0.4 MG/DL (0.0-0.20); Bilirubin,Indirect 0.3 MG/DL (0.0-1.0); Bilirubin,Total 0.7 MG/DL (0.2-1.0); Total Protein 5.9 G/DL (6.4-8.3)
--- NOTE | 2016-08-02 08:09 | XRay Report ---
Referring Physician: Alfredo Nogueira MD Exam: XR chest 1V portable Date: August 02, 2016 at 2:59 AM Reason: Ventilation management Comparison: Chest one view portable August 01, 2016 Findings: An endotracheal tube and feeding tube are again in place. The cardiac silhouette is again enlarged. There are opacities within both lower lung zones. This is concerning for pulmonary edema and atelectasis, but pneumonia is not excluded. No pneumothorax is identified, but there is mild bilateral pleural fluid. The osseous structures appear stable. Impression: There has been no significant change. PROCEDURE INTERPRETED AT [facility] DEPARTMENT OF RADIOLOGY Final Report Signed by: Dr. Melissa Bragg
--- NOTE | 2016-08-02 08:27 | Cardiology Progress Note ---
<Meagan Pena E - Last Filed: 08/02/16 08:50> Assessment and Plan - Time spent with patient Time spent with patient: Greater than 30 minutes (1) Hypertension Status: Chronic Assessment and plan: SEE PLAN OF CARE LISTED BELOW Current Visit: Yes (2) Dyslipidemia Status: Chronic Assessment and plan: SEE PLAN OF CARE LISTED BELOW Current Visit: Yes (3) Pre-op evaluation Status: Resolved Assessment and plan: SEE PLAN OF CARE LISTED BELOW Current Visit: Yes (4) Coronary artery disease with stent Status: Chronic Assessment and plan: SEE PLAN OF CARE LISTED BELOW Current Visit: No (5) Obstructive sleep apnea Status: Chronic Assessment and plan: SEE PLAN OF CARE LISTED BELOW Current Visit: No (6) Obesity Status: Acute Assessment and plan: SEE PLAN OF CARE LISTED BELOW Current Visit: No (7) Acute cholecystitis Status: Resolved Assessment and plan: SEE PLAN OF CARE LISTED BELOW Current Visit: Yes (8) Enlargement of liver Status: Acute Assessment and plan: SEE PLAN OF CARE LISTED BELOW Current Visit: Yes (9) Thrombocytopenia Status: Acute Current Visit: Yes (10) Diabetes Status: Acute Current Visit: Yes (11) Respiratory failure Status: Chronic Assessment and plan: SEE PLAN OF CARE LISTED BELOW Current Visit: Yes (12) Delirium tremens Status: Acute Assessment and plan: SEE PLAN OF CARE LISTED BELOW Current Visit: Yes Cardiology - PN: Subj Interval history: COOPERER: DR. RODRÍGUEZ Patient is being seen in the ICU. SUMMARY: Mr. Coles, 56WM, routinely followed by Dr. Rodríguez. He was last seen in cardiology clinic July 13, 2016. Risk factors include: known coronary artery disease, hypertension, dyslipidemia, morbid obesity. History of cardiac catheterization requiring PCI of proximal LAD 2006. Underwent repeat cardiac catheterization February 2014 for NSTEMI felt to be related to a thrombotic event as there was no coronary obstruction noted. He has been on Plavix, held since surgery. Patient was admitted July 26, 2016 with right upper quadrant abdominal pain. He was diagnosed with acute cholecystitis, elevated liver enzymes. Initially, he was scheduled to undergo laparoscopic cholecystectomy yesterday. However, the liver was enlarged removal of gallbladder was not possible. However, gallbladder did not look inflamed. Biopsy of liver obtained, results pending. He has been diagnosed with cirrhosis of the liver. Has been difficult to wean from the ventilator due to suspected alcohol withdrawal, severe obstructive sleep apnea. He has been treated with continuous IV Versed. AUGUST 03, 2015: Sedation has been withheld and Versed dose has been decreased. Neurologically, moving all extremities and following some commands but not entirely awake yet. Liver enzymes markedly improved. Thrombocytopenia resolved. Patient was requiring escalating doses of antihypertensives over the past several days. However, yesterday, numerous antihypertensives were adjusted downward and/or stopped as patient was experiencing hypotension. Over the past 24 hours systolic blood pressures averaging 140s, diastolic blood pressure 80s. Patient is tolerating Lovenox without problems, aspirin daily. At some point, we will introduce Plavix when no additional surgery will be scheduled. Will further discuss with Dr. Hamlin and await additional recommendations. ASSESSMENT/PLAN: 1. CIRRHOSIS OF LIVER - viral hepatitis panel is negative. Gastroenterology has been consulted. 2. DIABETES - new diagnosis. Continue sliding scale coverage. Will need diabetic teaching prior to discharge. 3. KNOWN CAD - Okay to continue to hold Plavix but we will restart when okay with surgeon. Lovenox has been reinitiated. 4. HYPERTENSION - Will not increase anti-hypertensives today as he was experiencing lower blood pressures yesterday. Hydralazine as needed. 5. DYSLIPIDEMIA - holding lipid-lowering agent at this time due to the elevated liver enzymes. Triglycerides 485, LDL 75. 6. MORBID OBESITY - dietary counseling prior to discharge 7. EDA - pulmonary on board and will start weaning trials when able. 8. THROMBOCYTOPENIA - resolved. Tolerating Lovenox without problems. 9. RESPIRATORY FAILURE - Appreciate Pulmonary's input and management. Hopefully will be extubated soon. Exam (Progress Note) - Constitutional Vitals: Period Temp Pulse Resp BP Sys/Gasca Pulse Ox Last 24 Hr 97.7 F-98.4 F 52-81 14-33 112-150/66-89 91-99 Exam: General: [Morbidly obese male, intubated. Wakes when sedation with held. ] HEENT: [Normocephalic, atraumatic. Mucous membranes moist. No jaundice noted. Conjunctiva moist and clear, sclerae anicteric] Neck: Difficult to assess for JVD due to habitus. No thyromegaly or lymphadenopathy noted. No carotid bruit appreciated Cardiac: [Regular rate and rhythm.] [No obvious murmur rub or gallop.] Lungs: [Clear to auscultation without accessory muscle use to assist the respiratory pattern.] Symmetrical chest wall movements noted. Abdomen: Protuberant with dressings dry and intact. Scant bowel sounds. Musculoskeletal: No fluid collection. Decreased range of motion is noted. Extremities: No clubbing, cyanosis noted. [Trace bilateral lower extremity edema. SCDs/TEDs intact.] Upper extremity pulses 2+. Lower extremity pulses 2 +. Capillary refill less than 3 seconds. Skin: No unusual lesions or rashes. No skin breakdown appreciated. Neuro: Wakes easily, follows commands appropriately. Moves all extremities well without hemiparesis or paralysis. No essential tremor is appreciated. Result/EKG - Labs CBC & BMP: 08/02/16 06:36 08/02/16 06:36 Lab Results: I have reviewed the past 24 hour labs Labs: Laboratory Results - last 24 hr 08/01/16 08/01/16 08/02/16 11:39 17:43 00:05 WBC RBC Hgb Hct MCV MCH MCHC RDW Plt Count MPV Neut % (Auto) Lymph % (Auto) [place] % (Auto) Eos % (Auto) Baso % (Auto) Neut # (Auto) Lymph # (Auto) [place] # (Auto) Eos # (Auto) Baso # (Auto) Immature Gran % Nucleated RBC % Immature Gran # Nucleated RBCs # INR PT Patient/Control Mix ABG pH ABG pCO2 ABG pO2 ABG HCO3 ABG Total CO2 ABG O2 Saturation ABG Base Excess FiO2 Sodium Potassium Chloride Carbon Dioxide Anion Gap BUN Creatinine GFR Calculation BUN/Creatinine Ratio Glucose POC Glucose 176 H 244 H 209 H Calculated Osmolality Calcium Phosphorus Magnesium Total Bilirubin Direct Bilirubin Indirect Bilirubin AST ALT Alkaline Phosphatase Total Protein Albumin Prealbumin 08/02/16 08/02/16 08/02/16 02:30 06:06 06:36 WBC RBC Hgb Hct MCV MCH MCHC RDW Plt Count MPV Neut % (Auto) Lymph % (Auto) [place] % (Auto) Eos % (Auto) Baso % (Auto) Neut # (Auto) Lymph # (Auto) [place] # (Auto) Eos # (Auto) Baso # (Auto) Immature Gran % Nucleated RBC % Immature Gran # Nucleated RBCs # INR PT Patient/Control Mix ABG pH 7.396 ABG pCO2 50.3 H ABG pO2 64.9 L ABG HCO3 28.5 H ABG Total CO2 26.5 ABG O2 Saturation 94.4 L ABG Base Excess 4.6 H FiO2 40.00 Sodium 146 H Potassium 3.9 Chloride 109 H Carbon Dioxide 33 H Anion Gap 7.9 BUN 28 H Creatinine 0.80 GFR Calculation 143 BUN/Creatinine Ratio 35.00 H Glucose 246 H POC Glucose 253 H Calculated Osmolality 303.6 Calcium 8.3 L Phosphorus 2.5 Magnesium 2.4 Total Bilirubin Direct Bilirubin Indirect Bilirubin AST ALT Alkaline Phosphatase Total Protein Albumin Prealbumin 16.4 L 08/02/16 08/02/16 08/02/16 06:36 06:36 06:36 WBC 6.6 RBC 4.18 Hgb 14.6 Hct 43.4 MCV 103.8 H MCH 35 H MCHC 33.6 RDW 13.4 Plt Count 149 MPV 11.5 Neut % (Auto) 74.4 H Lymph % (Auto) 12.3 L [place] % (Auto) 12.9 H Eos % (Auto) 0.0 Baso % (Auto) 0.2 Neut # (Auto) 4.9 Lymph # (Auto) 0.8 L [place] # (Auto) 0.9 H Eos # (Auto) 0.0 Baso # (Auto) 0.0 Immature Gran % 0.2 Nucleated RBC % 0.0 Immature Gran # 0.01 Nucleated RBCs # 0.00 INR 1.2 PT Patient/Control Mix 12.4 ABG pH ABG pCO2 ABG pO2 ABG HCO3 ABG Total CO2 ABG O2 Saturation ABG Base Excess FiO2 Sodium Potassium Chloride Carbon Dioxide Anion Gap BUN Creatinine GFR Calculation BUN/Creatinine Ratio Glucose POC Glucose Calculated Osmolality Calcium Phosphorus Magnesium Total Bilirubin 0.70 Direct Bilirubin 0.40 H Indirect Bilirubin 0.3 AST 40 H ALT 52 Alkaline Phosphatase 81 Total Protein 5.9 L Albumin 2.4 L Prealbumin 08/02/16 06:36 WBC RBC Hgb Hct MCV MCH MCHC RDW Plt Count MPV Neut % (Auto) Lymph % (Auto) [place] % (Auto) Eos % (Auto) Baso % (Auto) Neut # (Auto) Lymph # (Auto) [place] # (Auto) Eos # (Auto) Baso # (Auto) Immature Gran % Nucleated RBC % Immature Gran # Nucleated RBCs # INR PT Patient/Control Mix ABG pH ABG pCO2 ABG pO2 ABG HCO3 ABG Total CO2 ABG O2 Saturation ABG Base Excess FiO2 Sodium 145 Potassium 3.9 Chloride 107 Carbon Dioxide 32 Anion Gap 9.9 BUN 28 H Creatinine 0.90 GFR Calculation 136 BUN/Creatinine Ratio 31.00 H Glucose 251 H POC Glucose Calculated Osmolality 301.7 Calcium 8.5 Phosphorus Magnesium 2.4 Total Bilirubin Direct Bilirubin Indirect Bilirubin AST ALT Alkaline Phosphatase Total Protein Albumin Prealbumin - Diagnostic Findings Procedure: Chest x-ray: report reviewed by me - EKG EKG results: interpreted by me EKG shows: sinus rhythm Quality Measures - VTE Contraindication to Pharmacological VTE Prophylaxis: High Risk of Bleeding <Lance Hamlin - Last Filed: 08/02/16 09:17> Exam (Progress Note) - Constitutional Vitals: Period Temp Pulse Resp BP Sys/G[place]a Pulse Ox Last 24 Hr 97.7 F-98.4 F 52-81 14-30 112-150/67-89 91-99 Result/EKG - Labs CBC & BMP: 08/02/16 06:36 08/02/16 06:36 Labs: Laboratory Results - last 24 hr 08/01/16 08/01/16 08/02/16 11:39 17:43 00:05 WBC RBC Hgb Hct MCV MCH MCHC RDW Plt Count MPV Neut % (Auto) Lymph % (Auto) [place] % (Auto) Eos % (Auto) Baso % (Auto) Neut # (Auto) Lymph # (Auto) [place] # (Auto) Eos # (Auto) Baso # (Auto) Immature Gran % Nucleated RBC % Immature Gran # Nucleated RBCs # INR PT Patient/Control Mix ABG pH ABG pCO2 ABG pO2 ABG HCO3 ABG Total CO2 ABG O2 Saturation ABG Base Excess FiO2 Sodium Potassium Chloride Carbon Dioxide Anion Gap BUN Creatinine GFR Calculation BUN/Creatinine Ratio Glucose POC Glucose 176 H 244 H 209 H Calculated Osmolality Calcium Phosphorus Magnesium Total Bilirubin Direct Bilirubin Indirect Bilirubin AST ALT Alkaline Phosphatase Total Protein Albumin Prealbumin 08/02/16 08/02/16 08/02/16 02:30 06:06 06:36 WBC RBC Hgb Hct MCV MCH MCHC RDW Plt Count MPV Neut % (Auto) Lymph % (Auto) [place] % (Auto) Eos % (Auto) Baso % (Auto) Neut # (Auto) Lymph # (Auto) [place] # (Auto) Eos # (Auto) Baso # (Auto) Immature Gran % Nucleated RBC % Immature Gran # Nucleated RBCs # INR PT Patient/Control Mix ABG pH 7.396 ABG pCO2 50.3 H ABG pO2 64.9 L ABG HCO3 28.5 H ABG Total CO2 26.5 ABG O2 Saturation 94.4 L ABG Base Excess 4.6 H FiO2 40.00 Sodium 146 H Potassium 3.9 Chloride 109 H Carbon Dioxide 33 H Anion Gap 7.9 BUN 28 H Creatinine 0.80 GFR Calculation 143 BUN/Creatinine Ratio 35.00 H Glucose 246 H POC Glucose 253 H Calculated Osmolality 303.6 Calcium 8.3 L Phosphorus 2.5 Magnesium 2.4 Total Bilirubin Direct Bilirubin Indirect Bilirubin AST ALT Alkaline Phosphatase Total Protein Albumin Prealbumin 16.4 L 08/02/16 08/02/16 08/02/16 06:36 06:36 06:36 WBC 6.6 RBC 4.18 Hgb 14.6 Hct 43.4 MCV 103.8 H MCH 35 H MCHC 33.6 RDW 13.4 Plt Count 149 MPV 11.5 Neut % (Auto) 74.4 H Lymph % (Auto) 12.3 L [place] % (Auto) 12.9 H Eos % (Auto) 0.0 Baso % (Auto) 0.2 Neut # (Auto) 4.9 Lymph # (Auto) 0.8 L [place] # (Auto) 0.9 H Eos # (Auto) 0.0 Baso # (Auto) 0.0 Immature Gran % 0.2 Nucleated RBC % 0.0 Immature Gran # 0.01 Nucleated RBCs # 0.00 INR 1.2 PT Patient/Control Mix 12.4 ABG pH ABG pCO2 ABG pO2 ABG HCO3 ABG Total CO2 ABG O2 Saturation ABG Base Excess FiO2 Sodium Potassium Chloride Carbon Dioxide Anion Gap BUN Creatinine GFR Calculation BUN/Creatinine Ratio Glucose POC Glucose Calculated Osmolality Calcium Phosphorus Magnesium Total Bilirubin 0.70 Direct Bilirubin 0.40 H Indirect Bilirubin 0.3 AST 40 H ALT 52 Alkaline Phosphatase 81 Total Protein 5.9 L Albumin 2.4 L Prealbumin 08/02/16 06:36 WBC RBC Hgb Hct MCV MCH MCHC RDW Plt Count MPV Neut % (Auto) Lymph % (Auto) [place] % (Auto) Eos % (Auto) Baso % (Auto) Neut # (Auto) Lymph # (Auto) [place] # (Auto) Eos # (Auto) Baso # (Auto) Immature Gran % Nucleated RBC % Immature Gran # Nucleated RBCs # INR PT Patient/Control Mix ABG pH ABG pCO2 ABG pO2 ABG HCO3 ABG Total CO2 ABG O2 Saturation ABG Base Excess FiO2 Sodium 145 Potassium 3.9 Chloride 107 Carbon Dioxide 32 Anion Gap 9.9 BUN 28 H Creatinine 0.90 GFR Calculation 136 BUN/Creatinine Ratio 31.00 H Glucose 251 H POC Glucose Calculated Osmolality 301.7 Calcium 8.5 Phosphorus Magnesium 2.4 Total Bilirubin Direct Bilirubin Indirect Bilirubin AST ALT Alkaline Phosphatase Total Protein Albumin Prealbumin
[2016-08-02] MEDS ORDERED: LISINOPRIL 2.5 MG TABLET PO SCH (09:00)
[2016-08-02] MEDS: methylPREDNISolone SOD SUC 40 MG/1 ML VIAL IV SCH ×2 (09:13→20:58)
[2016-08-02] MEDS: CARVEDILOL 6.25 MG TABLET PO SCH ×2 (09:14→21:58)
[2016-08-02] MEDS: FUROSEMIDE 40 MG/4 ML VIAL IV SCH (09:14)
[2016-08-02] MEDS: PANTOPRAZOLE 40 MG VIAL IV SCH (09:14)
[2016-08-02] MEDS: NIACIN ER 500 MG TABLET PO SCH (09:14)
[2016-08-02] MEDS: ASPIRIN EC 325 MG TABLET PO SCH (09:15)
[2016-08-02] MEDS: SPIRONOLACTONE 25 MG TABLET PO SCH (09:15)
[2016-08-02] MEDS: metOLazone 2.5 MG TABLET PO SCH (09:15)
[2016-08-02 09:29] LABS: ABG Base Excess 5.4 MMOL/L (-2.5-2.5); ABG HCO3 29.2 MMOL/L (20-26); ABG PCO2 60.9 MM HG (35-48); ABG PO2 77.6 MM HG (80-95); ABG TCO2 28.7 MMOL/L (23-27)
--- NOTE | 2016-08-02 09:46 | Event Note ---
Chief complaint This patient is a 56-year-old man with a history of chronic alcohol abuse admitted with right upper quadrant pain and presumed cholecystitis treated with diagnostic laparoscopy and liver biopsy for hepatomegaly and hepatitis on 2016 Interval history The patient is tolerating tube feeds. He has adequate urine output. He has still been unable to be extubated. He has been afebrile. He is awake and responds to yes/no questions. He denies pain at the time of my assessment. Physical exam Vital signs stable Answers yes no questions Intubated Tube feeds running at 55 mL's per hour Surgical incisions c/d/i with madina intact. Obese. Normoactive BS. Soft, NTND. Labs Reviewed Imaging Reviewed Assessment and plan POD #6 Continue tube feedings as tolerated. We will assess RUQ abd pain when pt extubated - continue flagyl and zosyn in interim. Liver bx: hepatic steatosis with developing cirrhosis. Alcohol withdrawals - continue banana bag daily. DT protocol with ativan PRN. DVT ppx SCD and lovenox daily. GI ppx PPI daily. Appreciate animal nutrition consultant input and assistant loan processor in medical mgmt of patient.
--- NOTE | 2016-08-02 10:06 | Gastrointestinal Progress Note ---
<Rachel Frank Charan - Last Filed: 08/02/16 10:02> Assessment and Plan (1) Elevated liver enzymes Status: Acute Assessment and plan: 08/02-bilirubin trended down. Weaning process continues. Plan and addendum to follow by Dr Juarez. 07/30-bilirubin 1.9 with transaminases continue to trend downward. Liver biopsy results noted. Patient with signs of DTs receiving Versed infusion and Ativan. Plan an addendum to follow by Dr. Juarez. 07/29-bilirubin at 1.7 with transaminases trending downward. Liver biopsy currently pending. Plan an addendum to follow by Dr. Juarez. 07/28-findings of elevated LFTs on admission with correlated findings of acute cholecystitis. Intraoperatively unable to perform cholecystectomy therefore liver biopsy obtained and results pending at present time. History of daily alcohol intake 5 years. Await pathology report from liver biopsy at this time. Plan an addendum to follow by Dr. Juarez. Current Visit: Yes Gastroenterology - PN: Subj Interval history: CC: Elevated liver enzymes Patient is seen, sedated on ventilator this morning. He is responsive to stimuli however does not follow commands but noted that when sedation is lifted he does follow some commands. His LFTs have trended down to near normal at this time. He continues on CPAP trials however pulmonary continues to monitor due to less than desired ABG results. He is nearing extubation at this time. Abdomen is soft, nontender. ROS: Denies shortness of breath or chest pain Exam (Progress Note) - Constitutional Vitals: Period Temp Pulse Resp BP Sys/Gasca Pulse Ox Last 24 Hr 97.7 F-98.4 F 52-81 14-30 117-150/67-89 91-99 General appearance: over weight - Head Head exam: Present: normal inspection, normocephalic - Eye Eye exam: Present: other (lids and conjunctiva unremarkable). Absent: scleral icterus - ENT ENT exam: Present: normal exam, normal oropharynx - Neck Neck exam: Present: normal inspection - Respiratory Respiratory exam: Present: clear to auscultation bilaterally. Absent: rales, rhonchi, wheezes - Cardiovascular Cardiovascular exam: Present: regular rate and rhythm. Absent: diastolic murmur , JVD, systolic murmur - GI/Abdominal GI/Abdominal exam: Present: normal bowel sounds, soft. Absent: ascites, distended, mass, organomegaly, tenderness - Extremities Exam Extremities exam: Present: normal inspection, full ROM - Back Exam Back exam: Present: normal inspection - Neurological Exam Neurological exam: Present: alert, oriented X3 - Psychiatric Psychiatric exam: Present: normal affect, normal mood - Skin Skin exam: Present: normal color, warm, dry Results - Labs CBC & BMP: 08/02/16 06:36 08/02/16 06:36 Lab Results: I have reviewed the past 24 hour labs <Hemal Juarez - Last Filed: 08/02/16 18:08> Exam (Progress Note) - Constitutional Vitals: Period Temp Pulse Resp BP Sys/Gasca Pulse Ox Last 24 Hr 97.7 F-98.2 F 52-82 14-30 117-150/70-89 92-99 Results - Labs CBC & BMP: 08/02/16 06:36 08/02/16 06:36
--- NOTE | 2016-08-02 10:44 | Physician Query Form ---
CLICK EDIT DOCUMENT TO SELECT QUERY ANSWER --> OK --> SIGN Ashleigh Lovett RN, CCDS Certified Clinical Web Press Operator Helper Offset W) [phone] (f) [phone] [email or web address] PROVIDERS: Make your selection(s) from the choices in EACH section by typing an "x" and enter comments in the comment section. Please use your independent medical judgment in providing your response. This request does not imply that any particular answer is desired or expected. CLINICAL INDICATORS: (Providers should not edit this section) The medical record indicates that the patient is in for liver problems, on the 12th: "his x-ray still looks a little wet", and will be "adding Zaroxolyn to the Lasix". Left ventricular ejection fraction is estimated at 60 %. Please provide further specificity regarding CHF. ACUITY: ( x) Acute ( ) Chronic ( ) Acute on Chronic ( ) Clinically unable to determine TYPE: ( ) Systolic (HFrEF - heart failure with reduced systolic function/EF) ( x) Diastolic (HFpEF - heart failure with preserved systolic function/EF) ( ) Combined Systolic/Diastolic ( ) Other, please specify: ( ) Clinically unable to determine ( ) The patient does NOT have CHF COMMENTS: PLEASE ALSO DOCUMENT RESPONSE IN PROGRESS NOTES AND/OR DISCHARGE SUMMARY Use of terms such as suspected, likely, or probable (associated with a specific diagnosis that is being evaluated, monitored, or treated as if it exists) are acceptable and can be restated in the discharge summary if not ruled out. MTDD
[2016-08-02] MEDS: ENOXAPARIN 40 MG/0.4 ML SYRINGE SUBCUT SCH (11:00)
[2016-08-02] MEDS: LORazepam 2 MG/1 ML VIAL IV PRN ×3 (12:15→22:07)
[2016-08-02] MEDS: MIDAZOLAM 100 MG in SODIUM CHLORIDE 0.9% 80 ML IV SCH (15:05)
--- NOTE | 2016-08-02 16:10 | Family Practice Progress Note ---
Family Practice - PN: Subj Interval history: Still having difficulty extubating patient. Since there are multiple consultants seeing this patient, I will sign off but be happy to see if needed. Hopefully he will continue to improve Exam (Progress Note) - Constitutional Vitals: Period Temp Pulse Resp BP Sys/Gasca Pulse Ox Last 24 Hr 97.7 F-98.2 F 52-81 14-30 117-150/70-89 92-99 Results - Labs CBC & BMP: 08/02/16 06:36 08/02/16 06:36 Assessment and Plan (1) Abdominal pain Status: Acute Assessment and plan: We will order numerous additional studies. Suggestive of acute gallbladder disease but possibly diverticulitis. Will need consultation by Dr. Rodríguez if surgery is considered. Have held his aspirin and Plavix for present Current Visit: Yes (2) Acute cholecystitis Status: Resolved Assessment and plan: Have ordered an ultrasound for this a.m. May also need a HIDA scan. Has elevated liver enzymes. Current Visit: Yes (3) Elevated liver enzymes Status: Acute Assessment and plan: We will need to monitor closely and evaluate further Current Visit: Yes (4) Coronary artery disease with stent Status: Chronic Assessment and plan: Stable at present. Patient needs a cardiology consult would Dr. Rodríguez prior to any surgical procedures Current Visit: No (5) Hypertension Status: Chronic Assessment and plan: Stable at present Current Visit: No (6) Obstructive sleep apnea Status: Chronic Assessment and plan: Stable on CPAP Current Visit: No (7) Previous deep vein thrombosis Status: Chronic Current Visit: No (8) Hyperglycemia on admission Status: Acute Assessment and plan: We will order hemoglobin A1c and blood sugars Current Visit: Yes Quality Measures - VTE Contraindication to Pharmacological VTE Prophylaxis: High Risk of Bleeding
[2016-08-02] MEDS: FLUTICASONE 50 MCG NASAL SPRAY 16 GM BOTTLE BOTH NARES SCH (16:34)
[2016-08-02] MEDS: MAGNESIUM CHLORIDE 64 MG TABLET PO SCH (16:35)
[2016-08-02] MEDS: OMEGA 3 ACID ETHYL ESTERS 1 GM CAPSULE PO SCH ×2 (16:35→21:58)
[2016-08-02] MEDS: MULTIVITAMIN IV SCH (16:36)
[2016-08-02] MEDS: SODIUM CHLORIDE 0.45% IV SCH (16:36)
[2016-08-02] MEDS: THIAMINE IV SCH (16:36)
[2016-08-02] MEDS ORDERED: LISINOPRIL 5 MG TABLET PO SCH (21:00)
[2016-08-02] MEDS: TERAZOSIN 2 MG CAPSULE PO SCH (21:58)
[2016-08-03] MEDS: ALBUTEROL/IPRATROPIUM 3 ML NEB RESP TX SCH ×4 (00:27→20:04)
[2016-08-03] MEDS: INSULIN LISPRO 100 UNIT/ML SUBCUT SCH ×4 (01:27→18:35)
[2016-08-03] MEDS: MIDAZOLAM 100 MG in SODIUM CHLORIDE 0.9% 80 ML IV SCH ×2 (01:28→16:09)
[2016-08-03] MEDS: PIPERACILLIN/TAZOBACTAM 3,375 MG in SODIUM CHLORIDE 0.9% 100 ML IV SCH ×3 (04:30→19:50)
[2016-08-03 04:40] LABS: ABG Base Excess 7.1 MMOL/L (-2.5-2.5); ABG HCO3 30.8 MMOL/L (20-26); ABG PCO2 42.5 MM HG (35-48); ABG PH 7.478 (7.35-7.45); ABG PO2 73.8 MM HG (80-95); ABG TCO2 26.5 MMOL/L (23-27); Allen Test Positive; Pt O2 Delivery Device Ventilator
[2016-08-03] MEDS: metroNIDAZOLE INJ 500 MG in PREMIX 1 EACH IV SCH ×3 (04:55→20:53)
[2016-08-03 05:34] LABS: Basophils % 0.1 % (0.0-0.8); Hematocrit 45.1 VOL% (42.0-52.0); Hemoglobin 15.1 GM/DL (14.0-18.0); Immature Granulocytes % 0.6 %; Immature Granulocytes Absolute 0.05 #; Lymphocytes # 0.9 10*3/uL (1.4-4.0); Lymphocytes % 10.9 % (21.2-54.2); Mean Corpuscular HGB Conc 33.5 GM/DL (32-36); Mean Corpuscular Hemoglobin 34 PG (27-34); Mean Corpuscular Volume 101.6 FL (87-102); Mean Platelet Volume 11.4 FL (9.6-12.0); Monocytes % 12.6 % (1.7-12.7); Neutrophils # 6.1 10*3/uL (1.4-7.4); Neutrophils % 75.8 % (38.7-73.9); Platelet Count 169 T/CUMM (130-400); Red Blood Count 4.44 MC/CUMM (3.8-5.5); Red Cell Distribution Width 13.1 % (9.3-17.3); White Blood Count 8.1 T/CUMM (4-12)
[2016-08-03 05:52] LABS: Calcium 8.8 MG/DL (8.5-10.1); Magnesium 2.4 MG/DL (1.8-2.4); Osmolality,Calculated 290.7 MOS/KG (273-304); Potassium 3.7 MMOL/L (3.5-5.1)
[2016-08-03] MEDS: hydrALAZINE 20 MG/1 ML VIAL IV PRN (06:44)
[2016-08-03] MEDS: LORazepam 2 MG/1 ML VIAL IV PRN ×3 (06:45→19:27)
--- NOTE | 2016-08-03 06:52 | XRay Report ---
Portable chest Date: 08/03/2016 Clinical history: Ventilator Comparison: 08/02/2016 Technique: Portable AP sitting chest Findings: The heart is minimally enlarged with stable supportive devices. Reduced pleural-parenchymal findings. Stable mediastinum and osseous structures. Impression: Improved pulmonary edema/infiltration/atelectasis with smaller pleural effusions. The supportive devices remain in satisfactory position. PROCEDURE INTERPRETED AT [facility] DEPARTMENT OF RADIOLOGY Final Report Signed by: Dr. Paris Rosas
--- NOTE | 2016-08-03 06:53 | Pulmonology Progress Note ---
Pulmonary - PN: Subj Interval history: This 56-year-old white male had surgery yesterday for suspected gallbladder disease. However he had a very large liver that might cholecystectomy and possible. He has been on the ventilator yesterday and today. His chest x-ray looks okay. PCO2 remains elevated. Has a history of obstructive sleep apnea and he is obese. We will have obesity hypoventilation syndrome prior to his surgery, based on his elevated PCO2 at the present time. This makes it somewhat difficult to wean him. I will add Diamox for 3 days despite the fact that his pH is only 7.35. We will see if we can get his PCO2 down a little further. We will cautiously start CPAP today although I do not expect him to wean rapidly. 07/29/2016 patient has been combative when sedation is held. Difficult to wean. He has an elevated PCO2. Going to need to reduce his FiO2 to wean. He has underlying sleep apnea and may have obesity hypoventilation syndrome. Will change sedation to Precedex and try to wean as rapidly as tolerated. 07/30/2016 patient continues to be combative when sedation is held. We are now using a Versed infusion and giving as needed Ativan. His blood pressure goes up. These may be signs of alcohol withdrawal. Discussion with the family yesterday indicated that he does use alcohol fairly heavily. His liver biopsy showed steatosis with some early cirrhosis. Multifactorial causes listed as obesity, diabetes, alcohol or drugs. I think the first 3 of these apply. 07/31/16 patient seems to be doing a little better with Versed infusion. Vital signs were stable. ABGs look okay on 40% with 5 of PEEP. Will try on CPAP with low-dose Versed. Using Versed for possible alcohol withdrawal as well. 08/01/2016 doing CPAP with Versed reduced. At about 2 hours yesterday. Still has elevated PCO2 on for mechanical ventilation. Chest x-ray still looks a little wet. Will change to IV Lasix. Also getting Aldactone. 08/02/2016 patient doing well with CPAP. ABGs still not where we want him. PCO2 is around 50. We do not know his baseline ABGs however. Will obtain ABGs and mechanics during CPAP this morning and consider extubation. His x-ray still looks a little wet. Adding Zaroxolyn to the Lasix. 08/03/2016 patient tolerated prolonged CPAP yesterday. His PCO2 now is down near 40. Should be able to get him extubated this morning. He will need BiPAP once he is extubated. He is on a good bit of blood pressure medications and his pressure is still a little high. Will increase BP meds a little. Exam (Progress Note) - Constitutional Vitals: Period Temp Pulse Resp BP Sys/Gasca Pulse Ox Last 24 Hr 98.2 F-99.1 F 57-92 14-30 110-184/67-104 90-99 Exam: Patient is responsive when sedation is reduced. Squeezes fingers on command. Vital signs normal except blood pressure a little high. Pupils react to light. Orotracheal tube in place. Neck supple no bruits. Chest sounds clear. Heart normal rate rhythm no murmurs. Abdomen bandaged bowel sounds present. No masses. Extremities no clubbing or cyanosis. Trace of edema. Results - Labs CBC & BMP: 08/03/16 05:14 08/03/16 05:14 Lab Results: I have reviewed the past 24 hour labs - Diagnostic Findings Procedure: Chest x-ray: image reviewed by me (X-ray improved. Lower lobe infiltrates improving. Appears less wet.) Assessment and Plan (1) Postop laparotomy Status: Acute Assessment and plan: Patient is felt to have cholecystitis. Difficult to surgery due to his large liver. Unable to remove the gallbladder. He is now sedated on the ventilator. We will try to wean when he is alert. 07/28/2016 patient arousable and off sedation at present. Anesthesia out of his system. 07/29/2016 patient denies pain. Responsive on low-dose propofol. 07/30/2016 patient has had some vomiting. We have had to stop NG feedings. To start on TPN. Unable to give Librium or transition per NG at this point. Using a Versed infusion and as needed Ativan for EtOH withdrawal. Getting a banana bag as well. 07/31/16 was found to have large liver with cirrhosis and steatosis. Consideration to a percutaneous cholecystostomy. Defer to surgery. 08/01/2016 still having some abdominal pain which may decrease his respiratory drive. 08/02/2016 abdomen is nontender at present. Does probably have small pleural effusions related to the abdominal surgery and liver disease. 08/03/2016 does not appear to be having abdominal pain. Should not be splinting Current Visit: Yes (2) Hepatic steatosis Status: Acute Assessment and plan: May be due to previously unknown diabetes. May just simply be steatosis. Defer to GI. 07/29/2016 do not want to use Haldol with his liver problems. 07/30/16 this limits our options for sedation 07/31/2016 discussed liver findings with Dr. Juarez yesterday. This is primarily due to alcohol apparently. 08/02/2016 has cirrhosis and steatosis. 08/03/2016 defer to GI. Current Visit: Yes (3) Obstructive sleep apnea Status: Acute Assessment and plan: Patient is on BiPAP at home at night. Will need to keep this in mind when it is time to extubate him. We will need BiPAP facemask after he is extubated. He may have obesity hypoventilation syndrome which would render his PCO2 elevated at baseline. His ABGs look like that. 07/28/2016 has EDA. May well have OHS well. Try low dose Diamox to reduce PCO2. 07/29/2016 will be a real problem once we get him extubated. Will need to be sure that he uses BiPAP. 07/31/2016 will be a problem when he is extubated 08/02/2016 will definitely need BiPAP once we get him extubated 08/03/2016 will need BiPAP handy when she is extubated. May well have obesity hypoventilation as well as sleep apnea. Current Visit: Yes (4) Coronary artery disease with stent Status: Chronic Assessment and plan: He has a coronary stent. Needs to be back on Plavix soon. Cardiology following. 07/28/2016 no signs of congestive heart failure. 07/30/2016 does not appear to be in congestive heart failure. 07/31/2016 having to hold Plavix still. 08/01/2016 a little ahead on fluid which may be some congestive heart failure 08/02/2016 continuing with diuresis. Adding Zaroxolyn. 08/03/2016 mild diastolic congestive heart failure. Improved with diuretics. Current Visit: No (5) Hyperglycemia on admission Status: Acute Assessment and plan: Continues to have hyperglycemia. Will check a hemoglobin A1c but I suspect he does have adult-onset diabetes. Continuing sliding scale insulin. 07/28/2016 on sliding scale insulin. Hemoglobin A1c of 7.9 indicates that he is indeed diabetic. Glucoses running in the 150 range. 07/29/2016 glucoses are better controlled. 07/30/2016 glucoses fairly well controlled. Does have diabetes 07/31/2016 glucoses well controlled 08/01/2016 diabetic. Glucoses controlled with sliding scale. 08/02/2016 blood sugars fair control. 08/03/2016 glucose is showing fair control Current Visit: Yes (6) Acute respiratory failure Status: Acute Assessment and plan: This is come about postoperatively for laparotomy. He has a long history of smoking and may have underlying COPD. His PCO2 has come down after adding steroids. Also getting bronchodilators and empiric antibiotics. With PCO2 now in the 40s, hopefully we can start some CPAP's. Difficulty will be in the holding sedation. 07/31/2016 ABGs acceptable on 40%. Has elevated PCO2 around 50. Likely due to COPD. Will proceed with CPAP's today. We have had problems with sedation during weaning trials. He is not able to tolerate Haldol due to his liver disease. 08/01/2016 PCO2 53. Continuing with bronchodilators and steroids weaning trials. 08/02/2016 PCO2 down to 50. Proceed with evaluation for extubation. 08/03/2016 PCO2 down to 40s. Should be ready for extubation Current Visit: Yes
[2016-08-03 07:55] LABS: ABG HCO3 33.7 MMOL/L (20-26); ABG Oxygen Saturation 95.7 % (95-100); ABG PCO2 54.6 MM HG (35-48); ABG PH 7.436 (7.35-7.45)
--- NOTE | 2016-08-03 08:30 | Cardiology Progress Note ---
<Meagan Pena E - Last Filed: 08/03/16 08:23> Assessment and Plan - Time spent with patient Time spent with patient: Greater than 30 minutes (1) Hypertension Status: Chronic Assessment and plan: SEE PLAN OF CARE LISTED BELOW Current Visit: Yes (2) Dyslipidemia Status: Chronic Assessment and plan: SEE PLAN OF CARE LISTED BELOW Current Visit: Yes (3) Pre-op evaluation Status: Resolved Assessment and plan: SEE PLAN OF CARE LISTED BELOW Current Visit: Yes (4) Coronary artery disease with stent Status: Chronic Assessment and plan: SEE PLAN OF CARE LISTED BELOW Current Visit: No (5) Obstructive sleep apnea Status: Chronic Assessment and plan: SEE PLAN OF CARE LISTED BELOW Current Visit: No (6) Obesity Status: Acute Assessment and plan: SEE PLAN OF CARE LISTED BELOW Current Visit: No (7) Acute cholecystitis Status: Resolved Assessment and plan: SEE PLAN OF CARE LISTED BELOW Current Visit: Yes (8) Enlargement of liver Status: Acute Assessment and plan: SEE PLAN OF CARE LISTED BELOW Current Visit: Yes (9) Thrombocytopenia Status: Acute Current Visit: Yes (10) Diabetes Status: Acute Current Visit: Yes (11) Respiratory failure Status: Chronic Assessment and plan: SEE PLAN OF CARE LISTED BELOW Current Visit: Yes (12) Delirium tremens Status: Acute Assessment and plan: SEE PLAN OF CARE LISTED BELOW Current Visit: Yes Cardiology - PN: Subj Interval history: SAW MAKER: DR. RODRÍGUEZ Patient is being seen in the ICU. SUMMARY: Mr. Coles, 56WM, routinely followed by Dr. Rodríguez. He was last seen in cardiology clinic July 13, 2016. Risk factors include: known coronary artery disease, hypertension, dyslipidemia, morbid obesity. History of cardiac catheterization requiring PCI of proximal LAD 2006. Underwent repeat cardiac catheterization February 2014 for NSTEMI felt to be related to a thrombotic event as there was no coronary obstruction noted. He has been on Plavix, held since surgery. Patient was admitted July 26, 2016 with right upper quadrant abdominal pain. He was diagnosed with acute cholecystitis, elevated liver enzymes. Initially, he was scheduled to undergo laparoscopic cholecystectomy yesterday. However, the liver was enlarged removal of gallbladder was not possible. However, gallbladder did not look inflamed. Biopsy of liver obtained, results pending. He has been diagnosed with cirrhosis of the liver. Has been difficult to wean from the ventilator due to suspected alcohol withdrawal, severe obstructive sleep apnea. He has been treated with continuous IV Versed. AUGUST 03, 2015: Sedation has been withheld and Versed dose has been decreased. Neurologically, moving all extremities and following some commands but not entirely awake yet. Liver enzymes markedly improved. Thrombocytopenia resolved. Patient was requiring escalating doses of antihypertensives over the past several days. However, yesterday, numerous antihypertensives were adjusted downward and/or stopped as patient was experiencing hypotension. Over the past 24 hours systolic blood pressures averaging 140s, diastolic blood pressure 80s. Patient is tolerating Lovenox without problems, aspirin daily. At some point, we will introduce Plavix when no additional surgery will be scheduled. Will further discuss with Dr. Hamlin and await additional recommendations. AUGUST 03, 2016: Patient tolerated prolonged CPAP yesterday. Dr. Nogueira believes he may be able to extubate him this morning. He remains on IV Versed continuous infusion. Lisinopril was initiated yesterday. Blood pressure remains high and we can adjust medications accordingly. Aspirin initiated this morning. Will further discuss with Dr. Hamlin and await additional recommendations. ASSESSMENT/PLAN: 1. CIRRHOSIS OF LIVER - viral hepatitis panel is negative. Gastroenterology is following. 2. DIABETES - new diagnosis. Continue sliding scale coverage. Will need diabetic education prior to discharge. 3. KNOWN CAD - Plavix on hold. Lovenox has been reinitiated. Now on aspirin. 4. HYPERTENSION - MIRYAM initiated yesterday. BP remains elevated and will increase Lisinopril this morning. BMP daily. Hydralazine as needed. 5. DYSLIPIDEMIA - holding lipid-lowering agent at this time due to the elevated liver enzymes. Triglycerides 485, LDL 75. 6. MORBID OBESITY - dietary counseling prior to discharge 7. EDA - Dr. Nogueira following closely. May be extubated today. Will need CPAP/Bi-PAP device immediately after extubation. 8. THROMBOCYTOPENIA - resolved. Tolerating Lovenox without problems. 9. RESPIRATORY FAILURE - Appreciate Dr. Nogueira' management. Hopefully will be extubated soon. Exam (Progress Note) - Constitutional Vitals: Period Temp Pulse Resp BP Sys/Gasca Pulse Ox Last 24 Hr 98.2 F-99.4 F 60-92 14-30 110-184/67-104 90-99 Exam: General: [Morbidly obese male, intubated. Wakes when sedation with held. ] HEENT: [Normocephalic, atraumatic. Mucous membranes moist. No jaundice noted. Conjunctiva moist and clear, sclerae anicteric] Neck: Difficult to assess for JVD due to habitus. No thyromegaly or lymphadenopathy noted. No carotid bruit appreciated Cardiac: [Regular rate and rhythm.] [No obvious murmur rub or gallop.] Lungs: [Clear to auscultation without accessory muscle use to assist the respiratory pattern.] Symmetrical chest wall movements noted. Abdomen: Protuberant with dressings dry and intact. Scant bowel sounds. Musculoskeletal: No fluid collection. Decreased range of motion is noted. Extremities: No clubbing, cyanosis noted. [Trace bilateral lower extremity edema. SCDs/TEDs intact.] Upper extremity pulses 2+. Lower extremity pulses 2 +. Capillary refill less than 3 seconds. Skin: No unusual lesions or rashes. No skin breakdown appreciated. Neuro: Wakes easily, follows commands appropriately. Moves all extremities well without hemiparesis or paralysis. No essential tremor is appreciated. Result/EKG - Labs CBC & BMP: 08/03/16 05:14 08/03/16 05:14 Lab Results: I have reviewed the past 24 hour labs Labs: Laboratory Results - last 24 hr 08/02/16 08/02/16 08/02/16 09:15 12:12 17:51 WBC RBC Hgb Hct MCV MCH MCHC RDW Plt Count MPV Neut % (Auto) Lymph % (Auto) [place] % (Auto) Eos % (Auto) Baso % (Auto) Neut # (Auto) Lymph # (Auto) [place] # (Auto) Eos # (Auto) Baso # (Auto) Immature Gran % Nucleated RBC % Immature Gran # Nucleated RBCs # ABG pH 7.350 ABG pCO2 60.9 H ABG pO2 77.6 L ABG HCO3 29.2 H ABG Total CO2 28.7 H ABG O2 Saturation 95.0 ABG Base Excess 5.4 H FiO2 Sodium Potassium Chloride Carbon Dioxide Anion Gap BUN Creatinine GFR Calculation BUN/Creatinine Ratio Glucose POC Glucose 194 H 257 H Calculated Osmolality Calcium Magnesium 08/02/16 08/03/16 08/03/16 23:35 04:31 05:14 WBC 8.1 RBC 4.44 Hgb 15.1 Hct 45.1 MCV 101.6 MCH 34 MCHC 33.5 RDW 13.1 Plt Count 169 MPV 11.4 Neut % (Auto) 75.8 H Lymph % (Auto) 10.9 L [place] % (Auto) 12.6 Eos % (Auto) 0.0 Baso % (Auto) 0.1 Neut # (Auto) 6.1 Lymph # (Auto) 0.9 L [place] # (Auto) 1.0 H Eos # (Auto) 0.0 Baso # (Auto) 0.0 Immature Gran % 0.6 Nucleated RBC % 0.0 Immature Gran # 0.05 Nucleated RBCs # 0.00 ABG pH 7.478 H ABG pCO2 42.5 ABG pO2 73.8 L ABG HCO3 30.8 H ABG Total CO2 26.5 ABG O2 Saturation 95.0 ABG Base Excess 7.1 H FiO2 40.00 Sodium Potassium Chloride Carbon Dioxide Anion Gap BUN Creatinine GFR Calculation BUN/Creatinine Ratio Glucose POC Glucose 216 H Calculated Osmolality Calcium Magnesium 08/03/16 08/03/16 08/03/16 05:14 05:27 07:45 WBC RBC Hgb Hct MCV MCH MCHC RDW Plt Count MPV Neut % (Auto) Lymph % (Auto) [place] % (Auto) Eos % (Auto) Baso % (Auto) Neut # (Auto) Lymph # (Auto) [place] # (Auto) Eos # (Auto) Baso # (Auto) Immature Gran % Nucleated RBC % Immature Gran # Nucleated RBCs # ABG pH 7.436 ABG pCO2 54.6 H ABG pO2 79.0 L ABG HCO3 33.7 H ABG Total CO2 31.0 H ABG O2 Saturation 95.7 ABG Base Excess 10.0 H FiO2 Sodium 138 Potassium 3.7 Chloride 97 L Carbon Dioxide 34 H Anion Gap 10.7 BUN 28 H Creatinine 0.90 GFR Calculation 136 BUN/Creatinine Ratio 31.00 H Glucose 277 H POC Glucose 267 H Calculated Osmolality 290.7 Calcium 8.8 Magnesium 2.4 - Diagnostic Findings Procedure: Chest x-ray: report reviewed by me - EKG EKG results: interpreted by me EKG shows: sinus rhythm Quality Measures - VTE Contraindication to Pharmacological VTE Prophylaxis: High Risk of Bleeding <Lance Hamlin - Last Filed: 08/03/16 09:20> Exam (Progress Note) - Constitutional Vitals: Period Temp Pulse Resp BP Sys/Gasca Pulse Ox Last 24 Hr 98.2 F-99.4 F 60-92 14-30 110-184/67-104 90-99 Result/EKG - Labs CBC & BMP: 08/03/16 05:14 08/03/16 05:14 Labs: Laboratory Results - last 24 hr 08/02/16 08/02/16 08/02/16 09:15 12:12 17:51 WBC RBC Hgb Hct MCV MCH MCHC RDW Plt Count MPV Neut % (Auto) Lymph % (Auto) [place] % (Auto) Eos % (Auto) Baso % (Auto) Neut # (Auto) Lymph # (Auto) [place] # (Auto) Eos # (Auto) Baso # (Auto) Immature Gran % Nucleated RBC % Immature Gran # Nucleated RBCs # ABG pH 7.350 ABG pCO2 60.9 H ABG pO2 77.6 L ABG HCO3 29.2 H ABG Total CO2 28.7 H ABG O2 Saturation 95.0 ABG Base Excess 5.4 H FiO2 Sodium Potassium Chloride Carbon Dioxide Anion Gap BUN Creatinine GFR Calculation BUN/Creatinine Ratio Glucose POC Glucose 194 H 257 H Calculated Osmolality Calcium Magnesium 08/02/16 08/03/16 08/03/16 23:35 04:31 05:14 WBC 8.1 RBC 4.44 Hgb 15.1 Hct 45.1 MCV 101.6 MCH 34 MCHC 33.5 RDW 13.1 Plt Count 169 MPV 11.4 Neut % (Auto) 75.8 H Lymph % (Auto) 10.9 L [place] % (Auto) 12.6 Eos % (Auto) 0.0 Baso % (Auto) 0.1 Neut # (Auto) 6.1 Lymph # (Auto) 0.9 L [place] # (Auto) 1.0 H Eos # (Auto) 0.0 Baso # (Auto) 0.0 Immature Gran % 0.6 Nucleated RBC % 0.0 Immature Gran # 0.05 Nucleated RBCs # 0.00 ABG pH 7.478 H ABG pCO2 42.5 ABG pO2 73.8 L ABG HCO3 30.8 H ABG Total CO2 26.5 ABG O2 Saturation 95.0 ABG Base Excess 7.1 H FiO2 40.00 Sodium Potassium Chloride Carbon Dioxide Anion Gap BUN Creatinine GFR Calculation BUN/Creatinine Ratio Glucose POC Glucose 216 H Calculated Osmolality Calcium Magnesium 08/03/16 08/03/16 08/03/16 05:14 05:27 07:45 WBC RBC Hgb Hct MCV MCH MCHC RDW Plt Count MPV Neut % (Auto) Lymph % (Auto) [place] % (Auto) Eos % (Auto) Baso % (Auto) Neut # (Auto) Lymph # (Auto) [place] # (Auto) Eos # (Auto) Baso # (Auto) Immature Gran % Nucleated RBC % Immature Gran # Nucleated RBCs # ABG pH 7.436 ABG pCO2 54.6 H ABG pO2 79.0 L ABG HCO3 33.7 H ABG Total CO2 31.0 H ABG O2 Saturation 95.7 ABG Base Excess 10.0 H FiO2 Sodium 138 Potassium 3.7 Chloride 97 L Carbon Dioxide 34 H Anion Gap 10.7 BUN 28 H Creatinine 0.90 GFR Calculation 136 BUN/Creatinine Ratio 31.00 H Glucose 277 H POC Glucose 267 H Calculated Osmolality 290.7 Calcium 8.8 Magnesium 2.4 08/03/16 09:09 WBC RBC Hgb Hct MCV MCH MCHC RDW Plt Count MPV Neut % (Auto) Lymph % (Auto) [place] % (Auto) Eos % (Auto) Baso % (Auto) Neut # (Auto) Lymph # (Auto) [place] # (Auto) Eos # (Auto) Baso # (Auto) Immature Gran % Nucleated RBC % Immature Gran # Nucleated RBCs # ABG pH 7.437 ABG pCO2 55.0 H ABG pO2 63.8 L ABG HCO3 33.8 H ABG Total CO2 31.1 H ABG O2 Saturation 92.7 L ABG Base Excess 10.2 H FiO2 Sodium Potassium Chloride Carbon Dioxide Anion Gap BUN Creatinine GFR Calculation BUN/Creatinine Ratio Glucose POC Glucose Calculated Osmolality Calcium Magnesium
[2016-08-03] MEDS ORDERED: ASPIRIN 325 MG TABLET PO SCH (09:00)
[2016-08-03] MEDS: PANTOPRAZOLE 40 MG VIAL IV SCH (09:15)
[2016-08-03 09:18] LABS: ABG Base Excess 10.2 MMOL/L (-2.5-2.5); ABG HCO3 33.8 MMOL/L (20-26); ABG Oxygen Saturation 92.7 % (95-100); ABG PH 7.437 (7.35-7.45); ABG PO2 63.8 MM HG (80-95); ABG TCO2 31.1 MMOL/L (23-27)
[2016-08-03] MEDS: FUROSEMIDE 40 MG/4 ML VIAL IV SCH (09:18)
[2016-08-03] MEDS: ASPIRIN CHEW 81 MG TABLET PO SCH (09:35)
[2016-08-03] MEDS: LISINOPRIL 10 MG TABLET PO SCH ×2 (09:35→20:54)
[2016-08-03] MEDS: MAGNESIUM CHLORIDE 64 MG TABLET PO SCH (09:35)
[2016-08-03] MEDS: metOLazone 2.5 MG TABLET PO SCH (09:35)
[2016-08-03] MEDS: OMEGA 3 ACID ETHYL ESTERS 1 GM CAPSULE PO SCH ×2 (09:35→20:54)
[2016-08-03] MEDS: NIACIN ER 500 MG TABLET PO SCH (09:35)
[2016-08-03] MEDS: CARVEDILOL 6.25 MG TABLET PO SCH ×2 (09:36→20:53)
[2016-08-03] MEDS: FLUTICASONE 50 MCG NASAL SPRAY 16 GM BOTTLE BOTH NARES SCH (09:36)
[2016-08-03] MEDS: SPIRONOLACTONE 25 MG TABLET PO SCH (09:36)
--- NOTE | 2016-08-03 10:52 | Gastrointestinal Progress Note ---
<Rachel Frank Charan - Last Filed: 08/03/16 10:47> Assessment and Plan (1) Elevated liver enzymes Status: Acute Assessment and plan: 08/03-no LFTs repeated today. Extubated and stable at present time. Continue to monitor. Recheck LFTs tomorrow. Plan an addendum to follow by Dr. Juarez. 08/02-bilirubin trended down. Weaning process continues. Plan and addendum to follow by Dr Juarez. 07/30-bilirubin 1.9 with transaminases continue to trend downward. Liver biopsy results noted. Patient with signs of DTs receiving Versed infusion and Ativan. Plan an addendum to follow by Dr. Juarez. 07/29-bilirubin at 1.7 with transaminases trending downward. Liver biopsy currently pending. Plan an addendum to follow by Dr. Juarez. 07/28-findings of elevated LFTs on admission with correlated findings of acute cholecystitis. Intraoperatively unable to perform cholecystectomy therefore liver biopsy obtained and results pending at present time. History of daily alcohol intake 5 years. Await pathology report from liver biopsy at this time. Plan an addendum to follow by Dr. Juarez. Current Visit: Yes Gastroenterology - PN: Subj Interval history: CC: Elevated LFTs Patient is seen, extubated and resting quietly at present time. He is stable at this time. Patient noted that post extubation this morning he had episode of vomiting to feeding and gastric contents and was immediately suctioned with moderate amount of tube feeding emesis removed. Abdomen is soft, nontender. Patient is somewhat lethargic this morning with minimal interaction. No LFTs noted today. ROS: No acute distress noted Exam (Progress Note) - Constitutional Vitals: Period Temp Pulse Resp BP Sys/Gasca Pulse Ox Last 24 Hr 98.2 F-99.4 F 60-92 14-30 110-184/67-103 90-99 General appearance: no acute distress, over weight - Head Head exam: Present: normal inspection, normocephalic - Eye Eye exam: Present: other (Lids and conjunctive are unremarkable). Absent: scleral icterus - ENT ENT exam: Present: normal exam, normal oropharynx - Neck Neck exam: Present: normal inspection - Respiratory Respiratory exam: Present: clear to auscultation bilaterally. Absent: rales, rhonchi, wheezes - Cardiovascular Cardiovascular exam: Present: regular rate and rhythm. Absent: diastolic murmur , JVD, systolic murmur - GI/Abdominal GI/Abdominal exam: Present: normal bowel sounds, soft. Absent: ascites, distended, mass, organomegaly, tenderness - Extremities Exam Extremities exam: Present: normal inspection, full ROM - Back Exam Back exam: Present: normal inspection - Neurological Exam Neurological exam: Present: alert, altered - Psychiatric Psychiatric exam: Present: other - Skin Skin exam: Present: normal color, warm, dry Results - Labs CBC & BMP: 08/03/16 05:14 08/03/16 05:14 Lab Results: I have reviewed the past 24 hour labs Specialty Discharge - Follow Up or Referrals Follow up with: Cosme Rodríguez MD [Physician] - 08/18/16 9:00 am (appt. with DR. RODRÍGUEZ AUGUST 18 @ 9:00AM FOR LAB & 9:20AM WITH DR. RODRÍGUEZ) <Hemal Juarez - Last Filed: 08/03/16 13:21> Exam (Progress Note) - Constitutional Vitals: Period Temp Pulse Resp BP Sys/Gasca Pulse Ox Last 24 Hr 97.6 F-99.4 F 60-92 14-30 110-184/69-103 59-99 Results - Labs CBC & BMP: 08/03/16 05:14 08/03/16 05:14
[2016-08-03] MEDS: ENOXAPARIN 40 MG/0.4 ML SYRINGE SUBCUT SCH (11:16)
--- NOTE | 2016-08-03 11:27 | Event Note ---
Patient did well on CPAP. Extubated despite his mechanics not being ideal and his PCO2 being 54. He is doing okay with nasal oxygen with his O2 sat in the mid 90s. Will reduce FiO2. We just need an O2 sat of 92%. Will try to just use BiPAP at night. Apparently his home equipment was CPAP at 18. I will ask Dr. Patton to review and help us with this.
--- NOTE | 2016-08-03 13:02 | Sleep Medicine Consult ---
Assessment and Plan (1) Obstructive sleep apnea Status: Chronic Assessment and plan: I will get the sleep lab takes to get a download from his device to see what compliance is been like and what pressure settings are. He had been prescribed BiPAP previously and I agree I think BiPAP would be better for him at this point. We will place him on his prescribed settings and O2 can be utilized as needed to keep O2 sats in the low 90s. Thank you for this consult. Current Visit: No (2) Hypertension Status: Chronic Assessment and plan: The prevalence rate for obstructive sleep apnea patients with hypertension is 35 %. That rate can be as high as 80% in patients who require 4 or more medications for blood pressure control. Current Visit: No (3) Diabetes Status: Acute Assessment and plan: The prevalence rate for obstructive sleep apnea in patients with type 2 diabetes can be as high as 86%. Those patients with moderate to severe obstructive sleep apnea are at a greater risk for diabetic nephropathy and neuropathy. Compliance with CPAP therapy for these patients can lead to improvement in glycemic control and improvement in insulin sensitivity. Current Visit: Yes History of Present Illness Chief complaint: Sleep apnea History of present illness: Mr. Coles is a 56 year old male who is admitted with right upper quadrant abdominal pain and was felt to have cholecystitis. He was taken for laparoscopic cholecystectomy but gallbladder was unable to be removed due to enlarged liver and noninflamed gallbladder. He was maintained on mechanical ventilation postoperatively and just was extubated earlier today. Dr. Nogueira is seen him in pulmonary consultation and was suspicious of a component of obesity hypoventilation. Patient does have a known history of obstructive sleep apnea and had been seen in the sleep clinic in 2006 and underwent sleep study evaluation. He did have very severe obstructive sleep apnea, having an AHI of 86.3 with O2 desaturations to 73% at that time. He was titrated on CPAP therapy as high as 18 cm and ultimately was switched to BiPAP at . His last follow-up in the sleep clinic that we have recorded is from July 2007 and at that time he was compliant with therapy and utilizing a F&P full facemask. Sleep medicine has been consulted to reassess him and to assist with his postop care. Home Medications Medication Instructions Recorded Confirmed Type Aspirin [Ecotrin] 325 mg PO QAM 07/30/14 07/27/16 History Clopidogrel [Plavix] 75 mg PO QOTHER DAY 07/30/14 07/27/16 History Magnesium Chloride [Slow Mag] 64 mg PO DAILY 07/30/14 07/27/16 History Watchung-3/Dha/Epa/Fish Oil [Fish Oil 1 each PO BID 07/30/14 07/27/16 History 1,000 mg Softgel] Omeprazole 20 mg PO QAM 07/30/14 07/27/16 History Simvastatin [Zocor] 40 mg PO BEDTIME 07/30/14 07/27/16 History Terazosin [Hytrin] 2 mg PO BEDTIME 07/30/14 07/27/16 History traZODone [Desyrel] 50 mg PO BEDTIME PRN 05/05/16 07/27/16 History Albuterol/Ipratropium Neb [Duoneb] 3 ml RESP TX RT Q6H 05/08/16 07/27/16 Rx Fluticasone 50 Mcg Nasal [place] 2 spray BOTH NARES DAILY spray 05/08/16 Rx [Flonase Nasal [place]] Spironolactone [Aldactone] 25 mg PO DAILY #30 tablet 05/08/16 07/27/16 Rx Carvedilol [Coreg] 25 mg PO BID 07/27/16 07/27/16 History Furosemide Tab [Lasix Tab] 20 mg PO DAILY 07/27/16 07/27/16 History Niacin [Niacin ER] 1,000 mg PO DAILY 07/27/16 07/27/16 History Allergies Allergy/AdvReac Type Severity Reaction Status Date / Time No Known Allergies Allergy Unverified 07/30/14 09:04 Review of systems: Difficult to obtain due to current condition. Exam (Pulmonay) H&P - Constitutional Vitals: Period Temp Pulse Resp BP Sys/Gasca Pulse Ox Last 24 Hr 98.2 F-99.4 F 60-92 14-30 110-184/69-103 90-99 Exam: He is lethargic but will respond and or rales. Pupils are dilated and reactive. Oropharynx with a class IV Mallampati exam with dry oral mucosa. Neck is large and supple without adenopathy. Chest with symmetrical breath sounds without significant wheeze or rhonchi. Cardiac exam reveals a regular rhythm without murmur or gallop. Abdomen obese nontender without palpable hepatosplenomegaly or mass. Extremities are without clubbing, cyanosis, or edema. Neurologically, he is lethargic but arousable. He moves all extremities. Medical,Surgical,& Family Hx - Medical History Cardio: History of: CAD (Previous angioplasty and stent in 2006), Hypertension, [place] (History of previous non-STEMI) Psychological: History of: Anxiety Disorders Endocrine: History of: Dyslipidemia Respiratory: History of: Obstructive Sleep Apnea (USES BIPAP AT HOME) Renal: History of: Renal Failure Gastrointestinal: History of: GERD Hematology: History of: Clotting Problems (History of previous DVT) No history of: Blood Transfusion Reaction - Surgical History Cardiac Surgeries: Sugical HX of: Cardiac Catheterization (stent x one) Orthopedic Surgeries: Surgical HX of;: Orthopedic Surgery (right elbow) - Family History Family History: Reports;: Family Cancer (BROTHER LIVER AND KIDNEY CANCER), Family Diabetes (Father), Family Heart Disease (Mother father siblings), Family Hypertension (Mother father sibling), Family Stroke (Mother) - Social History Smoking Status: Former smoker Frequency of Alcohol Use: None Type of Drug Use: None Results - Labs CBC & BMP: 08/03/16 05:14 08/03/16 05:14 Lab Results: I have reviewed the past 24 hour labs Quality Measures - VTE Contraindication to Pharmacological VTE Prophylaxis: High Risk of Bleeding Specialty Discharge - Follow Up or Referrals Follow up with: Cosme Rodríguez MD [Physician] - 08/18/16 9:00 am (appt. with DR. RODRÍGUEZ AUGUST 18 @ 9:00AM FOR LAB & 9:20AM WITH DR. RODRÍGUEZ)
--- NOTE | 2016-08-03 13:56 | Event Note ---
Chief complaint This patient is a 56-year-old man with a history of chronic alcohol abuse admitted with right upper quadrant pain and presumed cholecystitis treated with diagnostic laparoscopy and liver biopsy for hepatomegaly and hepatitis on 2016 Interval history T patient is seen and examined at a few minutes after extubation and BiPAP has been placed. He is somewhat lethargic and slow to respond to questioning. Denies pain at the time of my visit. Physical exam Vital signs stable NG tube in place Tube feeds running at 55 mL's per hour Surgical incisions c/d/i with madina intact. Obese. Normoactive BS. Soft, NTND. Labs Reviewed Assessment and plan POD #7 Continue tube feedings as tolerated. We can advance his diet as his respiratory status improves. We will assess RUQ abd pain when patient more responsive his respiratory status improved continue flagyl and zosyn in interim. Liver bx: hepatic steatosis with developing cirrhosis. Alcohol withdrawals - continue banana bag daily. DT protocol with ativan PRN. DVT ppx SCD and lovenox daily. GI ppx PPI daily. Appreciate technical services consultant input and dental laboratory assistant in medical mgmt of patient.
[2016-08-03 14:10] LABS: Allen Test Positive
[2016-08-03 14:15] LABS: ABG Base Excess 12.5 MMOL/L (-2.5-2.5); ABG HCO3 36.2 MMOL/L (20-26); ABG Oxygen Saturation 94.6 % (95-100); ABG PCO2 54.9 MM HG (35-48); ABG PH 7.465 (7.35-7.45); ABG PO2 70.3 MM HG (80-95); ABG TCO2 32.5 MMOL/L (23-27)
[2016-08-03] MEDS: THIAMINE IV SCH (17:55)
[2016-08-03] MEDS: MULTIVITAMIN IV SCH (17:55)
[2016-08-03] MEDS: SODIUM CHLORIDE 0.45% IV SCH (17:55)
[2016-08-03] MEDS: HYDROmorphone 2 MG/1 ML VIAL IV PRN (19:28)
[2016-08-03] MEDS: TERAZOSIN 2 MG CAPSULE PO SCH (20:54)
[2016-08-04] MEDS: INSULIN LISPRO 100 UNIT/ML SUBCUT SCH ×5 (00:27→23:56)
[2016-08-04 00:59] LABS: ABG Base Excess 9.4 MMOL/L (-2.5-2.5); ABG HCO3 32.8 MMOL/L (20-26); ABG Oxygen Saturation 87.7 % (95-100); ABG PH 7.356 (7.35-7.45); ABG PO2 56.9 MM HG (80-95); ABG TCO2 32.8 MMOL/L (23-27); Allen Test Positive; Pt O2 Delivery Device CPAP
[2016-08-04 01:01] LABS: ABG PCO2 70.4 MM HG (35-48)
[2016-08-04] MEDS: ALBUTEROL/IPRATROPIUM 3 ML NEB RESP TX SCH ×4 (01:20→20:02)
[2016-08-04] MEDS: PIPERACILLIN/TAZOBACTAM 3,375 MG in SODIUM CHLORIDE 0.9% 100 ML IV SCH ×3 (03:38→18:02)
[2016-08-04] MEDS: metroNIDAZOLE INJ 500 MG in PREMIX 1 EACH IV SCH ×3 (04:58→20:13)
[2016-08-04 05:04] LABS: Basophils % 0.2 % (0.0-0.8); Eosinophils # 0.1 10*3/uL (0.0-0.87); Hematocrit 49.6 VOL% (42.0-52.0); Hemoglobin 16.7 GM/DL (14.0-18.0); Immature Granulocytes % 0.7 %; Immature Granulocytes Absolute 0.08 #; Lymphocytes # 1.8 10*3/uL (1.4-4.0); Lymphocytes % 15.2 % (21.2-54.2); Mean Corpuscular HGB Conc 33.7 GM/DL (32-36); Mean Corpuscular Hemoglobin 35 PG (27-34); Mean Corpuscular Volume 102.5 FL (87-102); Mean Platelet Volume 11.4 FL (9.6-12.0); Monocytes # 1.6 10*3/uL (0.11-0.8); Monocytes % 13.5 % (1.7-12.7); Neutrophils # 8.1 10*3/uL (1.4-7.4); Neutrophils % 69.4 % (38.7-73.9); Platelet Count 233 T/CUMM (130-400); Red Blood Count 4.84 MC/CUMM (3.8-5.5); Red Cell Distribution Width 13.1 % (9.3-17.3); White Blood Count 11.7 T/CUMM (4-12)
[2016-08-04 05:20] LABS: Albumin 2.9 G/DL (3.4-5.0); Bilirubin,Direct 0.4 MG/DL (0.0-0.20); Bilirubin,Indirect 1.1 MG/DL (0.0-1.0); Bilirubin,Total 1.5 MG/DL (0.2-1.0)
[2016-08-04 05:31] LABS: Calcium 9.2 MG/DL (8.5-10.1); Magnesium 2.3 MG/DL (1.8-2.4); Osmolality,Calculated 283.7 MOS/KG (273-304); Potassium 3.5 MMOL/L (3.5-5.1)
[2016-08-04 06:05] LABS: ABG Base Excess 13.8 MMOL/L (-2.5-2.5); ABG HCO3 40.1 MMOL/L (20-26); ABG Oxygen Saturation 92.3 % (95-100); ABG PCO2 53.8 MM HG (35-48); ABG TCO2 41.7 MMOL/L (23-27); Allen Test Positive; Pt O2 Delivery Device BIPAP
[2016-08-04] MEDS ORDERED: AMINOPHYLLINE 250 MG in SODIUM CHLORIDE 0.9% 100 ML IV ONE (06:59)
--- NOTE | 2016-08-04 07:06 | Pulmonology Progress Note ---
Pulmonary - PN: Subj Interval history: This 56-year-old white male had surgery yesterday for suspected gallbladder disease. However he had a very large liver that might cholecystectomy and possible. He has been on the ventilator yesterday and today. His chest x-ray looks okay. PCO2 remains elevated. Has a history of obstructive sleep apnea and he is obese. We will have obesity hypoventilation syndrome prior to his surgery, based on his elevated PCO2 at the present time. This makes it somewhat difficult to wean him. I will add Diamox for 3 days despite the fact that his pH is only 7.35. We will see if we can get his PCO2 down a little further. We will cautiously start CPAP today although I do not expect him to wean rapidly. 07/29/2016 patient has been combative when sedation is held. Difficult to wean. He has an elevated PCO2. Going to need to reduce his FiO2 to wean. He has underlying sleep apnea and may have obesity hypoventilation syndrome. Will change sedation to Precedex and try to wean as rapidly as tolerated. 07/30/2016 patient continues to be combative when sedation is held. We are now using a Versed infusion and giving as needed Ativan. His blood pressure goes up. These may be signs of alcohol withdrawal. Discussion with the family yesterday indicated that he does use alcohol fairly heavily. His liver biopsy showed steatosis with some early cirrhosis. Multifactorial causes listed as obesity, diabetes, alcohol or drugs. I think the first 3 of these apply. 07/31/16 patient seems to be doing a little better with Versed infusion. Vital signs were stable. ABGs look okay on 40% with 5 of PEEP. Will try on CPAP with low-dose Versed. Using Versed for possible alcohol withdrawal as well. 08/01/2016 doing CPAP with Versed reduced. At about 2 hours yesterday. Still has elevated PCO2 on for mechanical ventilation. Chest x-ray still looks a little wet. Will change to IV Lasix. Also getting Aldactone. 08/02/2016 patient doing well with CPAP. ABGs still not where we want him. PCO2 is around 50. We do not know his baseline ABGs however. Will obtain ABGs and mechanics during CPAP this morning and consider extubation. His x-ray still looks a little wet. Adding Zaroxolyn to the Lasix. 08/03/2016 patient tolerated prolonged CPAP yesterday. His PCO2 now is down near 40. Should be able to get him extubated this morning. He will need BiPAP once he is extubated. He is on a good bit of blood pressure medications and his pressure is still a little high. Will increase BP meds a little. 08/04/2016 patient was unable to be extubated yesterday. We have had to keep him on BiPAP overnight. This morning he is a little more responsive and is calm. Will try him on nasal biprong's. He does have a metabolic alkalosis. I am starting Aminophyllin infusion and IV Diamox. Still has NG tube to suction. He did have some vomiting right after the extubation. He has bowel sounds. Defer to GI and surgery as far as managing the NG tube, possibly starting feedings per tube or p.o. Would need TPN if not able to start feedings. Exam (Progress Note) - Constitutional Vitals: Period Temp Pulse Resp BP Sys/Gasca Pulse Ox Last 24 Hr 97.0 F-99.4 F 71-83 14-36 107-182/71-97 59-97 Exam: Patient is responsive. Squeezes fingers on command. Vital signs normal except blood pressure a little high. Pupils react to light. Facemask BiPAP in place. NG tube in place. Neck supple no bruits. Chest sounds clear. Heart normal rate rhythm no murmurs. Abdomen bandaged bowel sounds present. No masses. Extremities no clubbing or cyanosis. Trace of edema. Results - Labs CBC & BMP: 08/04/16 04:33 08/04/16 04:33 Lab Results: I have reviewed the past 24 hour labs Assessment and Plan (1) Postop laparotomy Status: Acute Assessment and plan: Patient is felt to have cholecystitis. Difficult to surgery due to his large liver. Unable to remove the gallbladder. He is now sedated on the ventilator. We will try to wean when he is alert. 07/28/2016 patient arousable and off sedation at present. Anesthesia out of his system. 07/29/2016 patient denies pain. Responsive on low-dose propofol. 07/30/2016 patient has had some vomiting. We have had to stop NG feedings. To start on TPN. Unable to give Librium or transition per NG at this point. Using a Versed infusion and as needed Ativan for EtOH withdrawal. Getting a banana bag as well. 07/31/16 was found to have large liver with cirrhosis and steatosis. Consideration to a percutaneous cholecystostomy. Defer to surgery. 08/01/2016 still having some abdominal pain which may decrease his respiratory drive. 08/02/2016 abdomen is nontender at present. Does probably have small pleural effusions related to the abdominal surgery and liver disease. 08/03/2016 does not appear to be having abdominal pain. Should not be splinting 08/04/2016 patient has bowel sounds now. May be able to start feeding. Current Visit: Yes (2) Hepatic steatosis Status: Acute Assessment and plan: May be due to previously unknown diabetes. May just simply be steatosis. Defer to GI. 07/29/2016 do not want to use Haldol with his liver problems. 07/30/16 this limits our options for sedation 07/31/2016 discussed liver findings with Dr. Juarez yesterday. This is primarily due to alcohol apparently. 08/02/2016 has cirrhosis and steatosis. 08/03/2016 defer to GI. 08/04/2016 apparently 2 alcohol primarily. Also has obesity and diabetes. Current Visit: Yes (3) Obstructive sleep apnea Status: Acute Assessment and plan: Patient is on BiPAP at home at night. Will need to keep this in mind when it is time to extubate him. We will need BiPAP facemask after he is extubated. He may have obesity hypoventilation syndrome which would render his PCO2 elevated at baseline. His ABGs look like that. 07/28/2016 has EDA. May well have OHS well. Try low dose Diamox to reduce PCO2. 07/29/2016 will be a real problem once we get him extubated. Will need to be sure that he uses BiPAP. 07/31/2016 will be a problem when he is extubated 08/02/2016 will definitely need BiPAP once we get him extubated 08/03/2016 will need BiPAP handy when he is extubated. May well have obesity hypoventilation as well as sleep apnea. 08/04/2016 using BiPAP at night. Apparently he was on CPAP level of 18 at home. He did not do well with that last night. He did better with BiPAP. Current Visit: Yes (4) Coronary artery disease with stent Status: Chronic Assessment and plan: He has a coronary stent. Needs to be back on Plavix soon. Cardiology following. 07/28/2016 no signs of congestive heart failure. 07/30/2016 does not appear to be in congestive heart failure. 07/31/2016 having to hold Plavix still. 08/01/2016 a little ahead on fluid which may be some congestive heart failure 08/02/2016 continuing with diuresis. Adding Zaroxolyn. 08/03/2016 mild diastolic congestive heart failure. Improved with diuretics. 08/04/2016 no complaints of chest pain. Current Visit: No (5) Hyperglycemia on admission Status: Acute Assessment and plan: Continues to have hyperglycemia. Will check a hemoglobin A1c but I suspect he does have adult-onset diabetes. Continuing sliding scale insulin. 07/28/2016 on sliding scale insulin. Hemoglobin A1c of 7.9 indicates that he is indeed diabetic. Glucoses running in the 150 range. 07/29/2016 glucoses are better controlled. 07/30/2016 glucoses fairly well controlled. Does have diabetes 07/31/2016 glucoses well controlled 08/01/2016 diabetic. Glucoses controlled with sliding scale. 08/02/2016 blood sugars fair control. 08/03/2016 glucose is showing fair control 08/04/2016 glucoses are well controlled. Current Visit: Yes (6) Acute respiratory failure Status: Acute Assessment and plan: This is come about postoperatively for laparotomy. He has a long history of smoking and may have underlying COPD. His PCO2 has come down after adding steroids. Also getting bronchodilators and empiric antibiotics. With PCO2 now in the 40s, hopefully we can start some CPAP's. Difficulty will be in the holding sedation. 07/31/2016 ABGs acceptable on 40%. Has elevated PCO2 around 50. Likely due to COPD. Will proceed with CPAP's today. We have had problems with sedation during weaning trials. He is not able to tolerate Haldol due to his liver disease. 08/01/2016 PCO2 53. Continuing with bronchodilators and steroids weaning trials. 08/02/2016 PCO2 down to 50. Proceed with evaluation for extubation. 08/03/2016 PCO2 down to 40s. Should be ready for extubation 08/04/2016 apparently has chronic ventilatory failure as well. Likely due to obesity hypoventilation but probably has some COPD as well. Current Visit: Yes Specialty Discharge - Follow Up or Referrals Follow up with: Cosme Baker MD [Physician] - 08/18/16 9:00 am (appt. with DR. BAKER AUGUST 18 @ 9:00AM FOR LAB & 9:20AM WITH DR. BAKER)
[2016-08-04] MEDS: PANTOPRAZOLE 40 MG VIAL IV SCH (08:06)
[2016-08-04] MEDS: ASPIRIN CHEW 81 MG TABLET PO SCH (08:06)
[2016-08-04] MEDS: NIACIN ER 500 MG TABLET PO SCH (08:06)
[2016-08-04] MEDS: CARVEDILOL 6.25 MG TABLET PO SCH ×2 (08:07→20:10)
[2016-08-04] MEDS: SPIRONOLACTONE 25 MG TABLET PO SCH (08:07)
[2016-08-04] MEDS: MAGNESIUM CHLORIDE 64 MG TABLET PO SCH (08:07)
[2016-08-04] MEDS: FUROSEMIDE 40 MG/4 ML VIAL IV SCH (08:07)
[2016-08-04] MEDS: FLUTICASONE 50 MCG NASAL SPRAY 16 GM BOTTLE BOTH NARES SCH (08:08)
[2016-08-04] MEDS: metOLazone 2.5 MG TABLET PO SCH (08:08)
[2016-08-04] MEDS: LISINOPRIL 10 MG TABLET PO SCH ×2 (08:08→20:10)
[2016-08-04] MEDS: AMINOPHYLLINE 1,000 MG in SODIUM CHLORIDE 0.9% 460 ML IV SCH (08:34)
--- NOTE | 2016-08-04 10:06 | Gastrointestinal Progress Note ---
<Kristin Frankher Charan - Last Filed: 08/04/16 10:01> Assessment and Plan (1) Elevated liver enzymes Status: Acute Assessment and plan: 08/04-LFTs noted below. No changes at present time. Continue with tube feedings at present time. Plan an addendum to followed by Dr. Juarez. 08/03-no LFTs repeated today. Extubated and stable at present time. Continue to monitor. Recheck LFTs tomorrow. Plan an addendum to follow by Dr. Juarez. 08/02-bilirubin trended down. Weaning process continues. Plan and addendum to follow by Dr Juarez. 07/30-bilirubin 1.9 with transaminases continue to trend downward. Liver biopsy results noted. Patient with signs of DTs receiving Versed infusion and Ativan. Plan an addendum to follow by Dr. Juarez. 07/29-bilirubin at 1.7 with transaminases trending downward. Liver biopsy currently pending. Plan an addendum to follow by Dr. Juarez. 07/28-findings of elevated LFTs on admission with correlated findings of acute cholecystitis. Intraoperatively unable to perform cholecystectomy therefore liver biopsy obtained and results pending at present time. History of daily alcohol intake 5 years. Await pathology report from liver biopsy at this time. Plan an addendum to follow by Dr. Juarez. Current Visit: Yes Gastroenterology - PN: Subj Interval history: CC: Elevated liver enzymes Pt is seen awake and alert. He continues to do well post extubation. States that he is feeling about the same however complaining of some mid abdominal discomfort with palpation. He is tolerating tube feedings. LFTs are noted with slight increase in bilirubin at 1.5 and AST at 54. Abdomen is soft, mild tenderness. Denies any nausea or vomiting. No signs of DTs or withdrawal seizures at this time. Patient is less agitated. Noted that surgery is requested to continue tube feedings until his respiratory status continues to improve. At that time he can have his diet advanced. ROS: Denies SOB or chest pain Exam (Progress Note) - Constitutional Vitals: Period Temp Pulse Resp BP Sys/Gasca Pulse Ox Last 24 Hr 97.0 F-98.1 F 71-82 14-36 106-177/71-102 59-97 General appearance: normal weight, no acute distress - Head Head exam: Present: normal inspection, normocephalic - Eye Eye exam: Present: other (Lids and conjunctive are unremarkable). Absent: scleral icterus - ENT ENT exam: Present: normal exam, normal oropharynx - Neck Neck exam: Present: normal inspection - Respiratory Respiratory exam: Present: clear to auscultation bilaterally. Absent: rales, rhonchi, wheezes - Cardiovascular Cardiovascular exam: Present: regular rate and rhythm. Absent: diastolic murmur , JVD, systolic murmur - GI/Abdominal GI/Abdominal exam: Present: normal bowel sounds, soft. Absent: ascites, distended, mass, organomegaly, tenderness - Extremities Exam Extremities exam: Present: normal inspection, full ROM - Back Exam Back exam: Present: normal inspection - Neurological Exam Neurological exam: Present: alert, oriented X3 - Psychiatric Psychiatric exam: Present: normal affect, normal mood - Skin Skin exam: Present: normal color, warm, dry Results - Labs CBC & BMP: 08/04/16 04:33 08/04/16 04:33 Lab Results: I have reviewed the past 24 hour labs Specialty Discharge - Follow Up or Referrals Follow up with: Cosme Rodríguez MD [Physician] - 08/18/16 9:00 am (appt. with DR. RODRÍGUEZ AUGUST 18 @ 9:00AM FOR LAB & 9:20AM WITH DR. RODRÍGUEZ) <Hemal Juarez - Last Filed: 08/04/16 10:38> Exam (Progress Note) - Constitutional Vitals: Period Temp Pulse Resp BP Sys/Gasca Pulse Ox Last 24 Hr 97.0 F-98.1 F 71-82 14-36 106-177/71-102 59-97 Results - Labs CBC & BMP: 08/04/16 04:33 08/04/16 04:33
[2016-08-04] MEDS: OMEGA 3 ACID ETHYL ESTERS 1 GM CAPSULE PO SCH ×2 (10:09→20:12)
[2016-08-04] MEDS: ENOXAPARIN 40 MG/0.4 ML SYRINGE SUBCUT SCH (11:21)
--- NOTE | 2016-08-04 12:11 | Event Note ---
Chief complaint This patient is a 56-year-old man with a history of chronic alcohol abuse admitted with right upper quadrant pain and presumed cholecystitis treated with diagnostic laparoscopy and liver biopsy for hepatomegaly and hepatitis on 2016 Interval history The patient is much more awake and alert today. He denies any abdominal pain, nausea, or vomiting. NG tube remains to suction with 300 cc output yesterday and 300 cc output from 6 AM to 9 AM; no output since. Patient is inquiring about getting out of bed. Physical exam Vital signs stable NG tube in place Surgical incisions c/d/i with madina intact. Obese. Normoactive BS. Soft, NTND. Extremities no pedal edema; calves soft and nontender. Labs Reviewed. Bilirubin 1.5, AST 54, ALT 56, alk phos 73; other markers of BMP are unremarkable. Assessment and plan POD #8 If output remains low from NG tube, may consider starting clears today -I will discuss with Dr. Kramer. At this time, the patient has no right upper quadrant tenderness. Remains on IV antibiotics for prophylactic treatment of acute cholecystitis. Liver bx: hepatic steatosis with developing cirrhosis. Alcohol withdrawals -appears to be stabilizing.. DVT ppx SCD and lovenox daily. We will attempt for patient to get to chair. May require PT. GI ppx PPI daily. Appreciate legal nurse consultant input and assistant distribution manager in medical mgmt of patient.
[2016-08-04] MEDS: SODIUM CHLORIDE 0.45% IV SCH (17:11)
[2016-08-04] MEDS: THIAMINE IV SCH (17:11)
[2016-08-04] MEDS: MULTIVITAMIN IV SCH (17:11)
--- NOTE | 2016-08-04 17:33 | Sleep Medicine Progress Note ---
Assessment and Plan (1) Obstructive sleep apnea Status: Chronic Assessment and plan: We will continue present BiPAP therapy and auto titration mode and find out whether he will require new sleep study to qualify for new device or whether we can just prescribe a new machine for him. Current Visit: No (2) Hypertension Status: Chronic Current Visit: No (3) Diabetes Status: Acute Current Visit: Yes Sleep Medicine Subjective Interval history: Patient looks much better today. He is more alert and oriented. Looks to be back to himself. He is feeling better and states that he is not having any abdominal pain. He has been on the auto titration device provided for him and seems to be doing well on that. He slept with it almost 6 hours last night. His average IPAP is about 15 cm and his average EPAP is at 9 cm. His average AHI is 2.6. He needs a new BiPAP machine and we are looking into whether he will require a new sleep study. We have copies of his previous interpretation results as well as original [id number] interview and exam. We should know this answer prior to his discharge. I did discuss all this with his . Exam (Progress Note) - Constitutional Vitals: Period Temp Pulse Resp BP Sys/Gasca Pulse Ox Last 24 Hr 97.7 F-98.1 F 71-88 14-36 103-147/59-102 90-96 Exam: He is alert and responsive. Pupils equal round reactive to light and accommodation. Extraocular movements intact. Oropharynx with a class IV Mallampati exam with a whitish colored pastey substance on his tongue. Neck is supple without adenopathy or thyromegaly. Chest with good air movement and no focal wheeze or rhonchi. Cardiac exam reveals a regular rhythm without murmur or gallop. Abdomen soft nontender. Extremities without calf tenderness or increased edema. Results - Labs CBC & BMP: 08/04/16 04:33 08/04/16 04:33 Lab Results: I have reviewed the past 24 hour labs Specialty Discharge - Follow Up or Referrals Follow up with: Cosme Baker MD [Physician] - 08/18/16 9:00 am (appt. with DR. BAKER AUGUST 18 @ 9:00AM FOR LAB & 9:20AM WITH DR. BAKER)
[2016-08-04] MEDS: TERAZOSIN 2 MG CAPSULE PO SCH (20:10)
[2016-08-05] MEDS: ALBUTEROL/IPRATROPIUM 3 ML NEB RESP TX SCH ×3 (00:21→12:36)
[2016-08-05 03:30] LABS: ABG Base Excess 9.5 MMOL/L (-2.5-2.5); ABG HCO3 33.1 MMOL/L (20-26); ABG Oxygen Saturation 93.7 % (95-100); ABG PCO2 45.4 MM HG (35-48); ABG PH 7.488 (7.35-7.45); ABG PO2 70.4 MM HG (80-95); ABG TCO2 28.6 MMOL/L (23-27); Allen Test Positive; Pt O2 Delivery Device BIPAP
[2016-08-05] MEDS: PIPERACILLIN/TAZOBACTAM 3,375 MG in SODIUM CHLORIDE 0.9% 100 ML IV SCH ×3 (03:35→18:52)
[2016-08-05] MEDS: metroNIDAZOLE INJ 500 MG in PREMIX 1 EACH IV SCH ×3 (03:37→22:41)
[2016-08-05] MEDS: ONDANSETRON 4 MG/2 ML VIAL IV PRN ×2 (04:42→20:32)
[2016-08-05 04:43] LABS: Basophils % 0.1 % (0.0-0.8); Eosinophils # 0.2 10*3/uL (0.0-0.87); Hematocrit 46.4 VOL% (42.0-52.0); Immature Granulocytes % 0.7 %; Immature Granulocytes Absolute 0.07 #; Lymphocytes # 2.2 10*3/uL (1.4-4.0); Lymphocytes % 22.4 % (21.2-54.2); Mean Corpuscular HGB Conc 34.5 GM/DL (32-36); Mean Corpuscular Hemoglobin 35 PG (27-34); Mean Corpuscular Volume 100.2 FL (87-102); Mean Platelet Volume 11.8 FL (9.6-12.0); Monocytes # 1.2 10*3/uL (0.11-0.8); Monocytes % 12.2 % (1.7-12.7); Neutrophils # 6.1 10*3/uL (1.4-7.4); Neutrophils % 62.6 % (38.7-73.9); Platelet Count 210 T/CUMM (130-400); Red Blood Count 4.63 MC/CUMM (3.8-5.5); White Blood Count 9.7 T/CUMM (4-12)
[2016-08-05 05:12] LABS: Calcium 8.7 MG/DL (8.5-10.1); Magnesium 2.4 MG/DL (1.8-2.4); Osmolality,Calculated 283.8 MOS/KG (273-304); Potassium 2.9 MMOL/L (3.5-5.1)
[2016-08-05] MEDS: INSULIN LISPRO 100 UNIT/ML SUBCUT SCH ×4 (06:23→21:35)
[2016-08-05] MEDS ORDERED: POTASSIUM CHLORIDE RIDER 20 MEQ in PREMIX 1 EACH IV PRN (06:52)
[2016-08-05] MEDS ORDERED: POTASSIUM CHLORIDE RIDER 10 MEQ in PREMIX 1 EACH IV PRN (06:52)
--- NOTE | 2016-08-05 06:57 | Pulmonology Progress Note ---
Pulmonary - PN: Subj Interval history: This 56-year-old white male had surgery yesterday for suspected gallbladder disease. However he had a very large liver that might cholecystectomy and possible. He has been on the ventilator yesterday and today. His chest x-ray looks okay. PCO2 remains elevated. Has a history of obstructive sleep apnea and he is obese. We will have obesity hypoventilation syndrome prior to his surgery, based on his elevated PCO2 at the present time. This makes it somewhat difficult to wean him. I will add Diamox for 3 days despite the fact that his pH is only 7.35. We will see if we can get his PCO2 down a little further. We will cautiously start CPAP today although I do not expect him to wean rapidly. 07/29/2016 patient has been combative when sedation is held. Difficult to wean. He has an elevated PCO2. Going to need to reduce his FiO2 to wean. He has underlying sleep apnea and may have obesity hypoventilation syndrome. Will change sedation to Precedex and try to wean as rapidly as tolerated. 07/30/2016 patient continues to be combative when sedation is held. We are now using a Versed infusion and giving as needed Ativan. His blood pressure goes up. These may be signs of alcohol withdrawal. Discussion with the family yesterday indicated that he does use alcohol fairly heavily. His liver biopsy showed steatosis with some early cirrhosis. Multifactorial causes listed as obesity, diabetes, alcohol or drugs. I think the first 3 of these apply. 07/31/16 patient seems to be doing a little better with Versed infusion. Vital signs were stable. ABGs look okay on 40% with 5 of PEEP. Will try on CPAP with low-dose Versed. Using Versed for possible alcohol withdrawal as well. 08/01/2016 doing CPAP with Versed reduced. At about 2 hours yesterday. Still has elevated PCO2 on for mechanical ventilation. Chest x-ray still looks a little wet. Will change to IV Lasix. Also getting Aldactone. 08/02/2016 patient doing well with CPAP. ABGs still not where we want him. PCO2 is around 50. We do not know his baseline ABGs however. Will obtain ABGs and mechanics during CPAP this morning and consider extubation. His x-ray still looks a little wet. Adding Zaroxolyn to the Lasix. 08/03/2016 patient tolerated prolonged CPAP yesterday. His PCO2 now is down near 40. Should be able to get him extubated this morning. He will need BiPAP once he is extubated. He is on a good bit of blood pressure medications and his pressure is still a little high. Will increase BP meds a little. 08/04/2016 patient was able to be extubated yesterday. We have had to keep him on BiPAP overnight. This morning he is a little more responsive and is calm. Will try him on nasal biprong's. He does have a metabolic alkalosis. I am starting Aminophyllin infusion and IV Diamox. Still has NG tube to suction. He did have some vomiting right after the extubation. He has bowel sounds. Defer to GI and surgery as far as managing the NG tube, possibly starting feedings per tube or p.o. Would need TPN if not able to start feedings. 08/05/2016 patient looking much better this morning. He is alert oriented and calm. Using BiPAP at night. Presently on nasal biprong's and has an O2 sat in the low to mid 90s. Should be able to move to the floor. I have him on Aminophyllin infusion, probably will change to oral theophylline tomorrow. Exam (Progress Note) - Constitutional Vitals: Period Temp Pulse Resp BP Sys/Gasca Pulse Ox Last 24 Hr 96.9 F-97.9 F 67-88 12-25 79-142/46-102 88-97 Exam: Patient is responsive. Squeezes fingers on command. Answers questions and seems alert. Vital signs normal except blood pressure a little high. Pupils react to light. Neck supple no bruits. Chest sounds clear. Heart normal rate rhythm no murmurs. Abdomen bandaged bowel sounds present, enlarged liver edge palpable. No masses. Extremities no clubbing or cyanosis. Trace of edema. Results - Labs CBC & BMP: 08/05/16 04:01 08/05/16 04:01 Lab Results: I have reviewed the past 24 hour labs - Diagnostic Findings Procedure: Chest x-ray: image reviewed by me (Minimal right basilar infiltrate or small pleural effusion. Little change from before.) Assessment and Plan (1) Postop laparotomy Status: Acute Assessment and plan: Patient is felt to have cholecystitis. Difficult to surgery due to his large liver. Unable to remove the gallbladder. He is now sedated on the ventilator. We will try to wean when he is alert. 07/28/2016 patient arousable and off sedation at present. Anesthesia out of his system. 07/29/2016 patient denies pain. Responsive on low-dose propofol. 07/30/2016 patient has had some vomiting. We have had to stop NG feedings. To start on TPN. Unable to give Librium or transition per NG at this point. Using a Versed infusion and as needed Ativan for EtOH withdrawal. Getting a banana bag as well. 07/31/16 was found to have large liver with cirrhosis and steatosis. Consideration to a percutaneous cholecystostomy. Defer to surgery. 08/01/2016 still having some abdominal pain which may decrease his respiratory drive. 08/02/2016 abdomen is nontender at present. Does probably have small pleural effusions related to the abdominal surgery and liver disease. 08/03/2016 does not appear to be having abdominal pain. Should not be splinting 08/04/2016 patient has bowel sounds now. May be able to start feeding. 08/05/2016 defer to GI and surgery as to any further need for gallbladder intervention. Current Visit: Yes (2) Hepatic steatosis Status: Acute Assessment and plan: May be due to previously unknown diabetes. May just simply be steatosis. Defer to GI. 07/29/2016 do not want to use Haldol with his liver problems. 07/30/16 this limits our options for sedation 07/31/2016 discussed liver findings with Dr. Juarez yesterday. This is primarily due to alcohol apparently. 08/02/2016 has cirrhosis and steatosis. 08/03/2016 defer to GI. 08/04/2016 apparently 2 alcohol primarily. Also has obesity and diabetes. 08/05/2016 defer to GI. Current Visit: Yes (3) Obstructive sleep apnea Status: Acute Assessment and plan: Patient is on BiPAP at home at night. Will need to keep this in mind when it is time to extubate him. We will need BiPAP facemask after he is extubated. He may have obesity hypoventilation syndrome which would render his PCO2 elevated at baseline. His ABGs look like that. 07/28/2016 has EDA. May well have OHS well. Try low dose Diamox to reduce PCO2. 07/29/2016 will be a real problem once we get him extubated. Will need to be sure that he uses BiPAP. 07/31/2016 will be a problem when he is extubated 08/02/2016 will definitely need BiPAP once we get him extubated 08/03/2016 will need BiPAP handy when he is extubated. May well have obesity hypoventilation as well as sleep apnea. 08/04/2016 using BiPAP at night. Apparently he was on CPAP level of 18 at home. He did not do well with that last night. He did better with BiPAP. 08/05/2016 patient using BiPAP at bedtime and doing well with it. Appreciate Dr. Patton's input. Current Visit: Yes (4) Coronary artery disease with stent Status: Chronic Assessment and plan: He has a coronary stent. Needs to be back on Plavix soon. Cardiology following. 07/28/2016 no signs of congestive heart failure. 07/30/2016 does not appear to be in congestive heart failure. 07/31/2016 having to hold Plavix still. 08/01/2016 a little ahead on fluid which may be some congestive heart failure 08/02/2016 continuing with diuresis. Adding Zaroxolyn. 08/03/2016 mild diastolic congestive heart failure. Improved with diuretics. 08/04/2016 no complaints of chest pain. 08/05/2016 no angina. Current Visit: No (5) Hyperglycemia on admission Status: Acute Assessment and plan: Continues to have hyperglycemia. Will check a hemoglobin A1c but I suspect he does have adult-onset diabetes. Continuing sliding scale insulin. 07/28/2016 on sliding scale insulin. Hemoglobin A1c of 7.9 indicates that he is indeed diabetic. Glucoses running in the 150 range. 07/29/2016 glucoses are better controlled. 07/30/2016 glucoses fairly well controlled. Does have diabetes 07/31/2016 glucoses well controlled 08/01/2016 diabetic. Glucoses controlled with sliding scale. 08/02/2016 blood sugars fair control. 08/03/2016 glucose is showing fair control 08/04/2016 glucoses are well controlled. 08/05/2016 glucoses fairly well controlled. Will need long-term management of his adult onset diabetes. Current Visit: Yes (6) Acute respiratory failure Status: Acute Assessment and plan: This is come about postoperatively for laparotomy. He has a long history of smoking and may have underlying COPD. His PCO2 has come down after adding steroids. Also getting bronchodilators and empiric antibiotics. With PCO2 now in the 40s, hopefully we can start some CPAP's. Difficulty will be in the holding sedation. 07/31/2016 ABGs acceptable on 40%. Has elevated PCO2 around 50. Likely due to COPD. Will proceed with CPAP's today. We have had problems with sedation during weaning trials. He is not able to tolerate Haldol due to his liver disease. 08/01/2016 PCO2 53. Continuing with bronchodilators and steroids weaning trials. 08/02/2016 PCO2 down to 50. Proceed with evaluation for extubation. 08/03/2016 PCO2 down to 40s. Should be ready for extubation 08/04/2016 apparently has chronic ventilatory failure as well. Likely due to obesity hypoventilation but probably has some COPD as well. 08/05/2016 this is much improved. Nasal biprong during the day, facemask BiPAP at night for obstructive sleep apnea. Current Visit: Yes Specialty Discharge - Follow Up or Referrals Follow up with: Cosme Rodríguez MD [Physician] - 08/18/16 9:00 am (appt. with DR. RODRÍGUEZ AUGUST 18 @ 9:00AM FOR LAB & 9:20AM WITH DR. RODRÍGUEZ)
--- NOTE | 2016-08-05 07:06 | XRay Report ---
Portable chest Date: 08/05/2016 Clinical history: Respiratory failure Comparison: 08/03/2016 Technique: Portable AP sitting chest Findings: The heart is smaller in size with removal of the endotracheal tube and nasogastric tube. Persistent diffuse parenchymal findings at the lung bases, especially the right with small right pleural effusion. Stable mediastinum and osseous structures. Impression: Removal of endotracheal tube and nasogastric tube. Otherwise the chest appears fairly stable in appearance. PROCEDURE INTERPRETED AT [facility] DEPARTMENT OF RADIOLOGY Final Report Signed by: Dr. Paris Rosas
[2016-08-05] MEDS: OMEGA 3 ACID ETHYL ESTERS 1 GM CAPSULE PO SCH ×2 (08:42→21:34)
[2016-08-05] MEDS: FUROSEMIDE 40 MG/4 ML VIAL IV SCH (08:42)
[2016-08-05] MEDS: NIACIN ER 500 MG TABLET PO SCH (08:42)
[2016-08-05] MEDS: MAGNESIUM CHLORIDE 64 MG TABLET PO SCH (08:42)
[2016-08-05] MEDS: metOLazone 2.5 MG TABLET PO SCH (08:42)
[2016-08-05] MEDS: SPIRONOLACTONE 25 MG TABLET PO SCH (08:42)
[2016-08-05] MEDS: ASPIRIN CHEW 81 MG TABLET PO SCH (08:42)
[2016-08-05] MEDS: PANTOPRAZOLE 40 MG VIAL IV SCH (08:43)
[2016-08-05] MEDS: FLUTICASONE 50 MCG NASAL SPRAY 16 GM BOTTLE BOTH NARES SCH (08:43)
[2016-08-05] MEDS: AMINOPHYLLINE 1,000 MG in SODIUM CHLORIDE 0.9% 460 ML IV SCH (09:57)
--- NOTE | 2016-08-05 09:58 | Gastrointestinal Progress Note ---
<MonikaRachel Charan - Last Filed: 08/05/16 09:54> Assessment and Plan (1) Elevated liver enzymes Status: Acute Assessment and plan: 08/05-no repeat LFTs today. Patient's NG removed and tolerating diet. For possible transfer to floor today. Plan an addendum to follow by Dr. Juarez. 08/04-LFTs noted below. No changes at present time. Continue with tube feedings at present time. Plan an addendum to followed by Dr. Juarez. 08/03-no LFTs repeated today. Extubated and stable at present time. Continue to monitor. Recheck LFTs tomorrow. Plan an addendum to follow by Dr. Juarez. 08/02-bilirubin trended down. Weaning process continues. Plan and addendum to follow by Dr Juarez. 07/30-bilirubin 1.9 with transaminases continue to trend downward. Liver biopsy results noted. Patient with signs of DTs receiving Versed infusion and Ativan. Plan an addendum to follow by Dr. Juarez. 07/29-bilirubin at 1.7 with transaminases trending downward. Liver biopsy currently pending. Plan an addendum to follow by Dr. Juarez. 07/28-findings of elevated LFTs on admission with correlated findings of acute cholecystitis. Intraoperatively unable to perform cholecystectomy therefore liver biopsy obtained and results pending at present time. History of daily alcohol intake 5 years. Await pathology report from liver biopsy at this time. Plan an addendum to follow by Dr. Juarez. Current Visit: Yes Gastroenterology - PN: Subj Interval history: CC: Elevated LFTs Patient is seen awake and alert sitting up in bed. States he rested overnight. Denies any abdominal pain, nausea or vomiting. NG tube was removed following speech therapy evaluation and he was started on a pured diet. Patient states that he is tolerating this well and denies any difficulty with swallowing. Denies any abdominal pain, nausea or vomiting. Abdomen is soft, nontender. No repeat LFTs today however they were continuing to trend downward. We will recheck these on tomorrow. He is for possible transfer to the floor today. ROS: Denies shortness of breath or chest pain Exam (Progress Note) - Constitutional Vitals: Period Temp Pulse Resp BP Sys/Gasca Pulse Ox Last 24 Hr 96.9 F-97.9 F 67-88 10-25 79-127/46-86 88-98 General appearance: no acute distress, over weight - Head Head exam: Present: normal inspection, normocephalic - Eye Eye exam: Present: other (Lids and conjunctivae unremarkable). Absent: scleral icterus - ENT ENT exam: Present: normal exam, normal oropharynx - Neck Neck exam: Present: normal inspection - Respiratory Respiratory exam: Present: clear to auscultation bilaterally. Absent: rales, rhonchi, wheezes - Cardiovascular Cardiovascular exam: Present: regular rate and rhythm. Absent: diastolic murmur , JVD, systolic murmur - GI/Abdominal GI/Abdominal exam: Present: normal bowel sounds, soft. Absent: ascites, distended, mass, organomegaly, tenderness - Extremities Exam Extremities exam: Present: normal inspection, full ROM - Back Exam Back exam: Present: normal inspection - Neurological Exam Neurological exam: Present: alert, oriented X3 - Psychiatric Psychiatric exam: Present: normal affect, normal mood - Skin Skin exam: Present: normal color, warm, dry Results - Labs CBC & BMP: 08/05/16 04:01 08/05/16 04:01 Lab Results: I have reviewed the past 24 hour labs Specialty Discharge - Follow Up or Referrals Follow up with: Cosme Baker MD [Physician] - 08/18/16 9:00 am (appt. with DR. BAKER AUGUST 18 @ 9:00AM FOR LAB & 9:20AM WITH DR. BAKER) <Hemal Juarez - Last Filed: 08/05/16 11:40> Exam (Progress Note) - Constitutional Vitals: Period Temp Pulse Resp BP Sys/Gasca Pulse Ox Last 24 Hr 96.9 F-97.9 F -12-15 79-127/46-86 88-98 Results - Labs CBC & BMP: 08/05/16 04:01 08/05/16 04:01
[2016-08-05] MEDS: LISINOPRIL 10 MG TABLET PO SCH (11:23)
[2016-08-05] MEDS: ENOXAPARIN 40 MG/0.4 ML SYRINGE SUBCUT SCH (11:23)
[2016-08-05] MEDS: CARVEDILOL 6.25 MG TABLET PO SCH (11:23)
[2016-08-05] MEDS ORDERED: POTASSIUM CHLORIDE 20 MEQ TABLET PO ONE (12:01)
--- NOTE | 2016-08-05 12:29 | Sleep Medicine Progress Note ---
Assessment and Plan (1) Obstructive sleep apnea Status: Chronic Assessment and plan: Patient will be set up with a new BiPAP machine at discharge. He will be scheduled for follow-up in the sleep clinic. Thank you for this consult. Current Visit: No (2) Hypertension Status: Chronic Current Visit: No (3) Diabetes Status: Acute Current Visit: Yes Sleep Medicine Subjective Interval history: Patient continues to improve. He is using BiPAP at night. It looks like his pressure requirements are much lower and he actually had fairly good results on 09/24 with an average AHI of 3.6. We did confirm with the medical store that they do have his old sleep study records. We will not have to repeat his sleep study. 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 I am going to follow-up on another night of auto titration before deciding on his pressure for his new machine. We will see him in follow- up in the sleep clinic after discharge. Exam (Progress Note) - Constitutional Vitals: Period Temp Pulse Resp BP Sys/Gasca Pulse Ox Last 24 Hr 96.9 F-97.8 F 67-88 10-25 79-127/46-86 88-98 Exam: He is alert and responsive. Pupils equal round reactive to light and accommodation. Extraocular movements intact. Oropharynx with a class IV Mallampati exam with a whitish colored pastey substance on his tongue. Neck is supple without adenopathy or thyromegaly. Chest with good air movement and no focal wheeze or rhonchi. Cardiac exam reveals a regular rhythm without murmur or gallop. Abdomen soft nontender. Extremities without calf tenderness or increased edema. Results - Labs CBC & BMP: 08/05/16 04:01 08/05/16 04:01 Lab Results: I have reviewed the past 24 hour labs Specialty Discharge - Follow Up or Referrals Follow up with: Cosme Baker MD [Physician] - 08/18/16 9:00 am (appt. with DR. BAKER AUGUST 18 @ 9:00AM FOR LAB & 9:20AM WITH DR. BAKER)
--- NOTE | 2016-08-05 15:00 | Event Note ---
Chief complaint This patient is a 56-year-old man with a history of chronic alcohol abuse admitted with right upper quadrant pain and presumed cholecystitis treated with diagnostic laparoscopy and liver biopsy for hepatomegaly and hepatitis on 2016 Interval history The patient is much more awake and alert today. He denies any abdominal pain, nausea, or vomiting. Tolerating oral intake. No complaints at time of my visit. Ready to transfer from ICU. Physical exam Vital signs stable - BP borderline hypotension Surgical incisions c/d/i with madina intact. Obese. Normoactive BS. Soft, NTND. Extremities no pedal edema; calves soft and nontender. Labs Reviewed. CBC unremarkable. BMP K+ 2.9 Assessment and plan POD #9 Pt tolerating diet - has advanced to soft based on ST recs. At this time, the patient has no right upper quadrant tenderness. Remains on IV antibiotics for prophylactic treatment of acute cholecystitis. Repeat CMP/ CBC in am. D/c yang catheter. Liver bx: hepatic steatosis with developing cirrhosis. Alcohol withdrawals -appears to be stabilizing. Hypokalemia - received replacement. Monitoring on telemetry. Repeat labs in am. BP has been low - holding BP meds temporarily. monitor. Pt receiving lasix 40mg IV daily - per Dr. Nogueira - will leave to his discretion; home med 20mg PO daily. H/o CAD: restarted plavix. DVT ppx SCD and lovenox daily. Increase activity. PT on board. GI ppx PPI daily. Appreciate advisor consultant input and mail handler assistant in medical mgmt of patient.
[2016-08-05] MEDS: THIAMINE IV SCH (19:00)
[2016-08-05] MEDS: MULTIVITAMIN IV SCH (19:00)
[2016-08-05] MEDS: SODIUM CHLORIDE 0.45% IV SCH (19:00)
[2016-08-05] MEDS: TERAZOSIN 2 MG CAPSULE PO SCH (21:34)
[2016-08-05] MEDS: POTASSIUM CHLORIDE 20 MEQ TABLET PO PRN (21:34)
[2016-08-05] MEDS ORDERED: traZODone 50 MG TABLET PO PRN (23:03)
[2016-08-06] MEDS: PIPERACILLIN/TAZOBACTAM 3,375 MG in SODIUM CHLORIDE 0.9% 100 ML IV SCH (02:24)
[2016-08-06 04:06] LABS: Basophils % 0.3 % (0.0-0.8); Eosinophils # 0.2 10*3/uL (0.0-0.87); Eosinophils % 1.5 % (0.00-10.9); Hematocrit 48.5 VOL% (42.0-52.0); Hemoglobin 16.5 GM/DL (14.0-18.0); Immature Granulocytes % 0.6 %; Immature Granulocytes Absolute 0.07 #; Lymphocytes # 1.8 10*3/uL (1.4-4.0); Lymphocytes % 16.2 % (21.2-54.2); Mean Corpuscular Hemoglobin 35 PG (27-34); Mean Corpuscular Volume 101.5 FL (87-102); Mean Platelet Volume 12.2 FL (9.6-12.0); Monocytes # 1.3 10*3/uL (0.11-0.8); Monocytes % 11.7 % (1.7-12.7); Neutrophils # 7.6 10*3/uL (1.4-7.4); Neutrophils % 69.7 % (38.7-73.9); Platelet Count 234 T/CUMM (130-400); Red Blood Count 4.78 MC/CUMM (3.8-5.5); Red Cell Distribution Width 12.9 % (9.3-17.3); White Blood Count 10.9 T/CUMM (4-12)
[2016-08-06 04:29] LABS: Albumin 2.9 G/DL (3.4-5.0); Bilirubin,Total 1.6 MG/DL (0.2-1.0); Calcium 9.2 MG/DL (8.5-10.1); Magnesium 2.5 MG/DL (1.8-2.4); Osmolality,Calculated 277.2 MOS/KG (273-304); Potassium 5.7 MMOL/L (3.5-5.1); Total Protein 7.4 G/DL (6.4-8.3)
[2016-08-06] MEDS: metroNIDAZOLE INJ 500 MG in PREMIX 1 EACH IV SCH (06:19)
--- NOTE | 2016-08-06 07:53 | XRay Report ---
Portable chest Date: 08/06/2016 Clinical history: Respiratory failure Comparison: 08/05/2016 Technique: Portable AP sitting chest Findings: The heart is smaller in size with reduced parenchymal findings at the lung bases. Smaller pleural effusions. Stable mediastinum and osseous structures. Impression: Improved bibasilar atelectasis/infiltration with smaller pleural effusions. PROCEDURE INTERPRETED AT [facility] DEPARTMENT OF RADIOLOGY Final Report Signed by: Dr. Paris Rosas
[2016-08-06] MEDS: PROMETHAZINE INJ 25 MG in SODIUM CHLORIDE 0.9% 50 ML IV PRN ×2 (09:01→22:47)
[2016-08-06] MEDS: INSULIN LISPRO 100 UNIT/ML SUBCUT SCH ×4 (09:02→20:41)
[2016-08-06] MEDS: FUROSEMIDE 40 MG/4 ML VIAL IV SCH (09:02)
[2016-08-06] MEDS: OMEGA 3 ACID ETHYL ESTERS 1 GM CAPSULE PO SCH ×2 (09:02→20:40)
[2016-08-06] MEDS: FLUTICASONE 50 MCG NASAL SPRAY 16 GM BOTTLE BOTH NARES SCH (09:03)
[2016-08-06] MEDS: MAGNESIUM CHLORIDE 64 MG TABLET PO SCH (09:03)
[2016-08-06] MEDS: ASPIRIN CHEW 81 MG TABLET PO SCH (09:03)
[2016-08-06] MEDS: NIACIN ER 500 MG TABLET PO SCH (09:03)
[2016-08-06] MEDS: SPIRONOLACTONE 25 MG TABLET PO SCH (09:03)
[2016-08-06] MEDS: PANTOPRAZOLE 40 MG TABLET PO SCH ×3 (09:03→20:40)
[2016-08-06] MEDS: AMINOPHYLLINE 1,000 MG in SODIUM CHLORIDE 0.9% 460 ML IV SCH (09:22)
--- NOTE | 2016-08-06 09:39 | Pulmonology Progress Note ---
Pulmonary - PN: Subj Interval history: This 56-year-old white male had surgery yesterday for suspected gallbladder disease. However he had a very large liver that might cholecystectomy and possible. He has been on the ventilator yesterday and today. His chest x-ray looks okay. PCO2 remains elevated. Has a history of obstructive sleep apnea and he is obese. We will have obesity hypoventilation syndrome prior to his surgery, based on his elevated PCO2 at the present time. This makes it somewhat difficult to wean him. I will add Diamox for 3 days despite the fact that his pH is only 7.35. We will see if we can get his PCO2 down a little further. We will cautiously start CPAP today although I do not expect him to wean rapidly. 07/29/2016 patient has been combative when sedation is held. Difficult to wean. He has an elevated PCO2. Going to need to reduce his FiO2 to wean. He has underlying sleep apnea and may have obesity hypoventilation syndrome. Will change sedation to Precedex and try to wean as rapidly as tolerated. 07/30/2016 patient continues to be combative when sedation is held. We are now using a Versed infusion and giving as needed Ativan. His blood pressure goes up. These may be signs of alcohol withdrawal. Discussion with the family yesterday indicated that he does use alcohol fairly heavily. His liver biopsy showed steatosis with some early cirrhosis. Multifactorial causes listed as obesity, diabetes, alcohol or drugs. I think the first 3 of these apply. 07/31/16 patient seems to be doing a little better with Versed infusion. Vital signs were stable. ABGs look okay on 40% with 5 of PEEP. Will try on CPAP with low-dose Versed. Using Versed for possible alcohol withdrawal as well. 08/01/2016 doing CPAP with Versed reduced. At about 2 hours yesterday. Still has elevated PCO2 on for mechanical ventilation. Chest x-ray still looks a little wet. Will change to IV Lasix. Also getting Aldactone. 08/02/2016 patient doing well with CPAP. ABGs still not where we want him. PCO2 is around 50. We do not know his baseline ABGs however. Will obtain ABGs and mechanics during CPAP this morning and consider extubation. His x-ray still looks a little wet. Adding Zaroxolyn to the Lasix. 08/03/2016 patient tolerated prolonged CPAP yesterday. His PCO2 now is down near 40. Should be able to get him extubated this morning. He will need BiPAP once he is extubated. He is on a good bit of blood pressure medications and his pressure is still a little high. Will increase BP meds a little. 08/04/2016 patient was able to be extubated yesterday. We have had to keep him on BiPAP overnight. This morning he is a little more responsive and is calm. Will try him on nasal biprong's. He does have a metabolic alkalosis. I am starting Aminophyllin infusion and IV Diamox. Still has NG tube to suction. He did have some vomiting right after the extubation. He has bowel sounds. Defer to GI and surgery as far as managing the NG tube, possibly starting feedings per tube or p.o. Would need TPN if not able to start feedings. 08/05/2016 patient looking much better this morning. He is alert oriented and calm. Using BiPAP at night. Presently on nasal biprong's and has an O2 sat in the low to mid 90s. Should be able to move to the floor. I have him on Aminophyllin infusion, probably will change to oral theophylline tomorrow. 08/06/2016 patient looking much better. He is alert and oriented. Still gets dizzy when he sits up. He used his BiPAP last night. Dr. Patton is going to set up a home unit for him. I will stop his theophylline. Also stop antibiotics. He can be discharged from a pulmonary standpoint. I will be out this weekend please call if needed further. Exam (Progress Note) - Constitutional Vitals: Period Temp Pulse Resp BP Sys/Gasca Pulse Ox Last 24 Hr 97 F-97.9 F 70-90 11-23 91-125/55-76 90-98 Exam: Patient is responsive. Squeezes fingers on command. Answers questions and seems alert. Vital signs normal except blood pressure a little high. Pupils react to light. Neck supple no bruits. Chest showed very mild expiratory wheezes. Heart normal rate rhythm no murmurs. Abdomen bandaged bowel sounds present, enlarged liver edge palpable. No masses. Extremities no clubbing or cyanosis. Trace of edema. Results - Labs CBC & BMP: 08/06/16 02:57 06/16/17 08:35 Lab Results: I have reviewed the past 24 hour labs - Diagnostic Findings Procedure: Chest x-ray: image reviewed by me (Chest x-ray is essentially clear now) Assessment and Plan (1) Postop laparotomy Status: Acute Assessment and plan: Patient is felt to have cholecystitis. Difficult to surgery due to his large liver. Unable to remove the gallbladder. He is now sedated on the ventilator. We will try to wean when he is alert. 07/28/2016 patient arousable and off sedation at present. Anesthesia out of his system. 07/29/2016 patient denies pain. Responsive on low-dose propofol. 07/30/2016 patient has had some vomiting. We have had to stop NG feedings. To start on TPN. Unable to give Librium or transition per NG at this point. Using a Versed infusion and as needed Ativan for EtOH withdrawal. Getting a banana bag as well. 07/31/16 was found to have large liver with cirrhosis and steatosis. Consideration to a percutaneous cholecystostomy. Defer to surgery. 08/01/2016 still having some abdominal pain which may decrease his respiratory drive. 08/02/2016 abdomen is nontender at present. Does probably have small pleural effusions related to the abdominal surgery and liver disease. 08/03/2016 does not appear to be having abdominal pain. Should not be splinting 08/04/2016 patient has bowel sounds now. May be able to start feeding. 08/05/2016 defer to GI and surgery as to any further need for gallbladder intervention. 08/06/2016 GI and surgery following. Current Visit: Yes (2) Hepatic steatosis Status: Acute Assessment and plan: May be due to previously unknown diabetes. May just simply be steatosis. Defer to GI. 07/29/2016 do not want to use Haldol with his liver problems. 07/30/16 this limits our options for sedation 07/31/2016 discussed liver findings with Dr. Juarez yesterday. This is primarily due to alcohol apparently. 08/02/2016 has cirrhosis and steatosis. 08/03/2016 defer to GI. 08/04/2016 apparently 2 alcohol primarily. Also has obesity and diabetes. 08/05/2016 defer to GI. Current Visit: Yes (3) Obstructive sleep apnea Status: Acute Assessment and plan: Patient is on BiPAP at home at night. Will need to keep this in mind when it is time to extubate him. We will need BiPAP facemask after he is extubated. He may have obesity hypoventilation syndrome which would render his PCO2 elevated at baseline. His ABGs look like that. 07/28/2016 has EDA. May well have OHS well. Try low dose Diamox to reduce PCO2. 07/29/2016 will be a real problem once we get him extubated. Will need to be sure that he uses BiPAP. 07/31/2016 will be a problem when he is extubated 08/02/2016 will definitely need BiPAP once we get him extubated 08/03/2016 will need BiPAP handy when he is extubated. May well have obesity hypoventilation as well as sleep apnea. 08/04/2016 using BiPAP at night. Apparently he was on CPAP level of 18 at home. He did not do well with that last night. He did better with BiPAP. 08/05/2016 patient using BiPAP at bedtime and doing well with it. Appreciate Dr. Patton's input. 08/06/2016 getting new BiPAP machine to take home. Current Visit: Yes (4) Coronary artery disease with stent Status: Chronic Assessment and plan: He has a coronary stent. Needs to be back on Plavix soon. Cardiology following. 07/28/2016 no signs of congestive heart failure. 07/30/2016 does not appear to be in congestive heart failure. 07/31/2016 having to hold Plavix still. 08/01/2016 a little ahead on fluid which may be some congestive heart failure 08/02/2016 continuing with diuresis. Adding Zaroxolyn. 08/03/2016 mild diastolic congestive heart failure. Improved with diuretics. 08/04/2016 no complaints of chest pain. 08/05/2016 no angina. Current Visit: No (5) Hyperglycemia on admission Status: Acute Assessment and plan: Continues to have hyperglycemia. Will check a hemoglobin A1c but I suspect he does have adult-onset diabetes. Continuing sliding scale insulin. 07/28/2016 on sliding scale insulin. Hemoglobin A1c of 7.9 indicates that he is indeed diabetic. Glucoses running in the 150 range. 07/29/2016 glucoses are better controlled. 07/30/2016 glucoses fairly well controlled. Does have diabetes 07/31/2016 glucoses well controlled 08/01/2016 diabetic. Glucoses controlled with sliding scale. 08/02/2016 blood sugars fair control. 08/03/2016 glucose is showing fair control 08/04/2016 glucoses are well controlled. 08/05/2016 glucoses fairly well controlled. Will need long-term management of his adult onset diabetes. 08/06/2016 will need long-term treatment of his diabetes. Current Visit: Yes (6) Acute respiratory failure Status: Acute Assessment and plan: This is come about postoperatively for laparotomy. He has a long history of smoking and may have underlying COPD. His PCO2 has come down after adding steroids. Also getting bronchodilators and empiric antibiotics. With PCO2 now in the 40s, hopefully we can start some CPAP's. Difficulty will be in the holding sedation. 07/31/2016 ABGs acceptable on 40%. Has elevated PCO2 around 50. Likely due to COPD. Will proceed with CPAP's today. We have had problems with sedation during weaning trials. He is not able to tolerate Haldol due to his liver disease. 08/01/2016 PCO2 53. Continuing with bronchodilators and steroids weaning trials. 08/02/2016 PCO2 down to 50. Proceed with evaluation for extubation. 08/03/2016 PCO2 down to 40s. Should be ready for extubation 08/04/2016 apparently has chronic ventilatory failure as well. Likely due to obesity hypoventilation but probably has some COPD as well. 08/05/2016 this is much improved. Nasal biprong during the day, facemask BiPAP at night for obstructive sleep apnea. 08/06/2016 again this is much improved. Current Visit: Yes Specialty Discharge - Follow Up or Referrals Follow up with: Cosme Rodríguez MD [Physician] - 08/18/16 9:00 am (appt. with DR. RODRÍGUEZ AUGUST 18 @ 9:00AM FOR LAB & 9:20AM WITH DR. RODRÍGUEZ)
--- NOTE | 2016-08-06 10:27 | Gastrointestinal Progress Note ---
<Rachel Frank - Last Filed: 08/06/16 10:25> Assessment and Plan (1) Elevated liver enzymes Status: Acute Assessment and plan: 08/06-LFTs essentially unchanged. Complaints of upper abdominal pain now with nausea. Poor appetite. Plan an addendum to follow by Dr. Juarez. 08/05-no repeat LFTs today. Patient's NG removed and tolerating diet. For possible transfer to floor today. Plan an addendum to follow by Dr. Juarez. 08/04-LFTs noted below. No changes at present time. Continue with tube feedings at present time. Plan an addendum to followed by Dr. Juarez. 08/03-no LFTs repeated today. Extubated and stable at present time. Continue to monitor. Recheck LFTs tomorrow. Plan an addendum to follow by Dr. Juarez. 08/02-bilirubin trended down. Weaning process continues. Plan and addendum to follow by Dr Juarez. 07/30-bilirubin 1.9 with transaminases continue to trend downward. Liver biopsy results noted. Patient with signs of DTs receiving Versed infusion and Ativan. Plan an addendum to follow by Dr. Juarez. 07/29-bilirubin at 1.7 with transaminases trending downward. Liver biopsy currently pending. Plan an addendum to follow by Dr. Juarez. 07/28-findings of elevated LFTs on admission with correlated findings of acute cholecystitis. Intraoperatively unable to perform cholecystectomy therefore liver biopsy obtained and results pending at present time. History of daily alcohol intake 5 years. Await pathology report from liver biopsy at this time. Plan an addendum to follow by Dr. Juarez. Current Visit: Yes Gastroenterology - PN: Subj Interval history: CC: Abdominal pain Patient is seen, resting comfortably at this time. Patient's states he had a very restless night and did not sleep any. States he is now complaining of some upper abdominal pain and some nausea without vomiting. He has only eaten a few bites of food since his diet was restarted. Abdomen is soft, nontender. Patient's is concerned he is going to be discharged home today and states she cannot take care of him due to he is too weak at this time. She states that the pain he is complaining of now is not the original location that he presented with the emergency room. LFTs are essentially unchanged. ROS: Denies shortness of breath or chest pain. Exam (Progress Note) - Constitutional Vitals: Period Temp Pulse Resp BP Sys/Gasca Pulse Ox Last 24 Hr 97 F-97.9 F 70-90 11-23 91-125/55-76 90-98 General appearance: no acute distress, over weight - Head Head exam: Present: normal inspection, normocephalic - Eye Eye exam: Present: other (Lids and conjunctive are unremarkable). Absent: scleral icterus - ENT ENT exam: Present: normal exam, normal oropharynx - Neck Neck exam: Present: normal inspection - Respiratory Respiratory exam: Present: clear to auscultation bilaterally. Absent: rales, rhonchi, wheezes - Cardiovascular Cardiovascular exam: Present: regular rate and rhythm. Absent: diastolic murmur , JVD, systolic murmur - GI/Abdominal GI/Abdominal exam: Present: normal bowel sounds, soft. Absent: ascites, distended, mass, organomegaly, tenderness - Extremities Exam Extremities exam: Present: normal inspection, full ROM - Back Exam Back exam: Present: normal inspection - Neurological Exam Neurological exam: Present: alert, oriented X3 - Psychiatric Psychiatric exam: Present: normal affect, normal mood - Skin Skin exam: Present: normal color, warm, dry Results - Labs CBC & BMP: 08/06/16 02:57 08/06/16 08:35 Lab Results: I have reviewed the past 24 hour labs Specialty Discharge - Follow Up or Referrals Follow up with: Cosme Rodríguez MD [Physician] - 08/18/16 9:00 am (appt. with DR. RODRÍGUEZ AUGUST 18 @ 9:00AM FOR LAB & 9:20AM WITH DR. RODRÍGUEZ) <Hemal Juarez - Last Filed: 08/06/16 11:26> Exam (Progress Note) - Constitutional Vitals: Period Temp Pulse Resp BP Sys/Gasca Pulse Ox Last 24 Hr 97 F-97.9 F 70-90 11-23 98-125/55-76 90-98 Results - Labs CBC & BMP: 08/06/16 02:57 08/06/16 08:35
--- NOTE | 2016-08-06 12:20 | Sleep Medicine Progress Note ---
Assessment and Plan (1) Obstructive sleep apnea Status: Chronic Assessment and plan: Patient has a signed prescription for his new BiPAP device and supplies. This will be set at 8/4 and follow-up will be in the sleep clinic. Thank you for this consult. Current Visit: No (2) Hypertension Status: Chronic Current Visit: No (3) Diabetes Status: Acute Current Visit: Yes Sleep Medicine Subjective Interval history: Patient continues to do well on BiPAP therapy. On review of his downloaded compliance data, he is doing quite well on pressures of 8/4 with an average AHI of less than 2. I have written a new prescription for his BiPAP machine, mask, and supplies. I informed him that his pressures will be lower and that his requirements do not seem to be as high as they used to be. This is a good result. We will schedule him for follow-up in the sleep clinic. Exam (Progress Note) - Constitutional Vitals: Period Temp Pulse Resp BP Sys/Gasca Pulse Ox Last 24 Hr 97 F-97.9 F 70-90 11-23 98-125/55-76 90-98 Results - Labs CBC & BMP: 08/06/16 02:57 08/06/16 08:35 Lab Results: I have reviewed the past 24 hour labs Specialty Discharge - Follow Up or Referrals Follow up with: Cosme Baker MD [Physician] - 08/18/16 9:00 am (appt. with DR. BAKER AUGUST 18 @ 9:00AM FOR LAB & 9:20AM WITH DR. BAKER)
[2016-08-06] MEDS: ENOXAPARIN 40 MG/0.4 ML SYRINGE SUBCUT SCH (13:11)
--- NOTE | 2016-08-06 13:13 | Event Note ---
He is stable postoperatively. He does not have much appetite. He has nausea but no vomiting. His abdomen is benign on exam. His incisions look good. I see no signs of infection or any wound complication.
[2016-08-06] MEDS ORDERED: PROMETHAZINE 25 MG/1 ML VIAL ONE (15:55)
[2016-08-06] MEDS: TERAZOSIN 2 MG CAPSULE PO SCH (20:40)
[2016-08-07 05:32] LABS: Albumin 3.3 G/DL (3.4-5.0); Bilirubin,Total 1.4 MG/DL (0.2-1.0); Osmolality,Calculated 281.8 MOS/KG (273-304); Potassium 3.3 MMOL/L (3.5-5.1); Total Protein 7.3 G/DL (6.4-8.3)
[2016-08-07 05:34] LABS: Calcium 9.2 MG/DL (8.5-10.1); Magnesium 2.2 MG/DL (1.8-2.4); Potassium 3.2 MMOL/L (3.5-5.1)
[2016-08-07] MEDS: PANTOPRAZOLE 40 MG TABLET PO SCH ×3 (08:15→20:47)
[2016-08-07] MEDS: NIACIN ER 500 MG TABLET PO SCH (08:15)
[2016-08-07] MEDS: CLOPIDOGREL 75 MG TABLET PO SCH (08:16)
[2016-08-07] MEDS: SPIRONOLACTONE 25 MG TABLET PO SCH (08:16)
[2016-08-07] MEDS: MAGNESIUM CHLORIDE 64 MG TABLET PO SCH (08:16)
[2016-08-07] MEDS: OMEGA 3 ACID ETHYL ESTERS 1 GM CAPSULE PO SCH ×2 (08:16→20:47)
[2016-08-07] MEDS: FUROSEMIDE 40 MG/4 ML VIAL IV SCH (08:16)
[2016-08-07] MEDS: ASPIRIN CHEW 81 MG TABLET PO SCH (08:16)
[2016-08-07] MEDS: FLUTICASONE 50 MCG NASAL SPRAY 16 GM BOTTLE BOTH NARES SCH (08:17)
[2016-08-07] MEDS: INSULIN LISPRO 100 UNIT/ML SUBCUT SCH ×5 (08:17→20:51)
[2016-08-07] MEDS: POTASSIUM CHLORIDE 20 MEQ TABLET PO PRN ×3 (08:55→13:21)
[2016-08-07] MEDS: ENOXAPARIN 40 MG/0.4 ML SYRINGE SUBCUT SCH (11:49)
--- NOTE | 2016-08-07 12:01 | Gastrointestinal Progress Note ---
Assessment and Plan (1) Nausea alone Status: Acute Assessment and plan: Covering for this patient for Dr. Juarez while he is off for the weekend Patient is experiencing some moderate nausea despite use of proton pump inhibitors, a states that he is only able to eat rice and get down some Ensure. Certainly the patient could benefit from some weight loss as his liver biopsy demonstrates steatohepatitis. Abstinence from alcohol is highly encouraged as well. The patient's complaints of nausea seem out of proportion with findings on workup up to this point. He states that he too weak to walk and would like to be transferred to a swing bed to build up his strength. It would be unusual to experience this level of debilitation from irritation of the gallbladder. Current Visit: Yes (2) Gastroesophageal reflux Status: Chronic Assessment and plan: The patient does have some gastroesophageal reflux disease and this may be feeding into his nausea. Continue proton pump inhibitors as you are doing. Current Visit: No (3) Steatohepatitis, alcoholic Status: Acute Assessment and plan: The patient does have a liver biopsy which confirms steatohepatitis involving 80 and 90% of the patient's specimen. There may be early cirrhosis developing. Is clear the patient needs to be off his alcohol and probably needs to lose approximately 40-50 pounds if possible. Would encourage low-fat diet and increasing exercise regimen. From a GI standpoint is likely safe to go home. Current Visit: Yes Gastroenterology - PN: Subj Interval history: Patient states that he still feels quite weak and is unable to walk effectively. He states that he is not having much pain from his cholecystectomy site but still feels quite nauseous. He was able to eat some rice yesterday and drink his boost today. His madina have been removed. He states that he thinks he might want to go to a swing bed so that he can convalesce from his cholecystectomy. Exam (Progress Note) - Constitutional Vitals: Period Temp Pulse Resp BP Sys/Gasca Pulse Ox Last 24 Hr 96.4 F-98 F 75-85 18-20 106-131/53-70 91-94 General appearance: no acute distress, over weight - Head Head exam: Present: normocephalic - Eye Eye exam: Present: EOMI - Respiratory Respiratory exam: Present: clear to auscultation bilaterally. Absent: rhonchi, stridor, wheezes - Cardiovascular Cardiovascular exam: Present: regular rate and rhythm - GI/Abdominal GI/Abdominal exam: Present: normal bowel sounds, tenderness (Very minimal epigastric/right upper quadrant tenderness), soft. Absent: distended, guarding , rebound - Neurological Exam Neurological exam: Present: alert, oriented X3, CN II-XII intact. Absent: motor sensory deficit - Psychiatric Psychiatric exam: Present: normal affect, normal mood - Skin Skin exam: Present: warm Results - Labs CBC & BMP: 08/06/16 02:57 08/07/16 04:25 Specialty Discharge - Follow Up or Referrals Follow up with: Cosme Baker MD [Physician] - 08/18/16 9:00 am (appt. with DR. BAKER AUGUST 18 @ 9:00AM FOR LAB & 9:20AM WITH DR. BAKER)
--- NOTE | 2016-08-07 12:50 | Family Practice Progress Note ---
Family Practice - PN: Subj Interval history: Patient states that he still feels quite weak and is unable to walk he can only sit on side of the bed. He does have therapy on board. He states that he is not having much pain from his cholecystectomy site but still feels quite nauseous. He was able to eat some rice yesterday and drink his boost today. His madina have been removed. He states that he thinks he might want to go to a swing bed so that he can convalesce from his cholecystectomy. WE also did supplement his K today. Exam (Progress Note) - Constitutional Vitals: Period Temp Pulse Resp BP Sys/Gasca Pulse Ox Last 24 Hr 96.4 F-98 F 75-88 18-20 102-122/62-70 91-94 Exam: HEENT normocephalic neck is supple Respiratory no specific shortness of breath at this time. Cardiovascular rate regular no gallop Abdomen does have very hypoactive bowel sounds only moderate tenderness generally diffuse. No distention Neurologically fully intact Psychiatric normal affect Results - Labs CBC & BMP: 08/06/16 02:57 08/07/16 04:25 Quality Measures - VTE Contraindication to Pharmacological VTE Prophylaxis: High Risk of Bleeding Specialty Discharge - Follow Up or Referrals Follow up with: Cosme Baker MD [Physician] - 08/18/16 9:00 am (appt. with DR. BAKER AUGUST 18 @ 9:00AM FOR LAB & 9:20AM WITH DR. BAKER)
[2016-08-07] MEDS: PROMETHAZINE INJ 25 MG in SODIUM CHLORIDE 0.9% 50 ML IV PRN (19:49)
[2016-08-07] MEDS: TERAZOSIN 2 MG CAPSULE PO SCH (20:47)
[2016-08-08] MEDS: PROMETHAZINE INJ 25 MG in SODIUM CHLORIDE 0.9% 50 ML IV PRN ×2 (01:29→23:49)
[2016-08-08 05:04] LABS: Basophils % 0.3 % (0.0-0.8); Eosinophils # 0.2 10*3/uL (0.0-0.87); Eosinophils % 1.5 % (0.00-10.9); Hematocrit 48.7 VOL% (42.0-52.0); Hemoglobin 16.7 GM/DL (14.0-18.0); Immature Granulocytes % 0.7 %; Immature Granulocytes Absolute 0.08 #; Lymphocytes # 2.2 10*3/uL (1.4-4.0); Lymphocytes % 18.2 % (21.2-54.2); Mean Corpuscular HGB Conc 34.3 GM/DL (32-36); Mean Corpuscular Hemoglobin 35 PG (27-34); Mean Corpuscular Volume 100.8 FL (87-102); Mean Platelet Volume 12.3 FL (9.6-12.0); Monocytes # 1.4 10*3/uL (0.11-0.8); Monocytes % 11.6 % (1.7-12.7); Neutrophils # 8.3 10*3/uL (1.4-7.4); Neutrophils % 67.7 % (38.7-73.9); Platelet Count 237 T/CUMM (130-400); Red Blood Count 4.83 MC/CUMM (3.8-5.5); Red Cell Distribution Width 12.8 % (9.3-17.3); White Blood Count 12.3 T/CUMM (4-12)
[2016-08-08 05:38] LABS: Calcium 9.3 MG/DL (8.5-10.1); Potassium 3.7 MMOL/L (3.5-5.1)
[2016-08-08] MEDS: SPIRONOLACTONE 25 MG TABLET PO SCH (08:39)
[2016-08-08] MEDS: ASPIRIN CHEW 81 MG TABLET PO SCH (08:39)
[2016-08-08] MEDS: PANTOPRAZOLE 40 MG TABLET PO SCH ×3 (08:40→20:51)
[2016-08-08] MEDS: OMEGA 3 ACID ETHYL ESTERS 1 GM CAPSULE PO SCH ×2 (08:40→20:51)
[2016-08-08] MEDS: POTASSIUM CHLORIDE 20 MEQ TABLET PO PRN (08:40)
[2016-08-08] MEDS: NIACIN ER 500 MG TABLET PO SCH (08:40)
[2016-08-08] MEDS: MAGNESIUM CHLORIDE 64 MG TABLET PO SCH (08:40)
[2016-08-08] MEDS: FLUTICASONE 50 MCG NASAL SPRAY 16 GM BOTTLE BOTH NARES SCH (08:41)
--- NOTE | 2016-08-08 08:41 | Gastrointestinal Progress Note ---
Assessment and Plan (1) Nausea alone Status: Acute Assessment and plan: Covering for this patient for Dr. Juarez while he is off for the weekend Patient is experiencing some moderate nausea despite use of proton pump inhibitors, a states that he is only able to eat rice and get down some Ensure. Certainly the patient could benefit from some weight loss as his liver biopsy demonstrates steatohepatitis. Abstinence from alcohol is highly encouraged as well. The patient's complaints of nausea seem out of proportion with findings on workup up to this point. He states that he too weak to walk and would like to be transferred to a swing bed to build up his strength. It would be unusual to experience this level of debilitation from irritation of the gallbladder. 08/08/16--he seems to be doing better with p.o. intake. The patient is revised to certainly request to go to swing bed and thinks that he could get by with a walker at home. Normally this would be brought by physical therapy to give him some training in its use but I am told they do not see establish patients over the weekend. Nursing staff is going to call them to see if that will make an exception his case. From a GI standpoint the patient could certainly be discharged. Current Visit: Yes (2) Gastroesophageal reflux Status: Chronic Assessment and plan: The patient does have some gastroesophageal reflux disease and this may be feeding into his nausea. Continue proton pump inhibitors as you are doing. 08/08/16--No changes, continue PPIs as you are doing. Current Visit: No (3) Steatohepatitis, alcoholic Status: Acute Assessment and plan: The patient does have a liver biopsy which confirms steatohepatitis involving 80 and 90% of the patient's specimen. There may be early cirrhosis developing. Is clear the patient needs to be off his alcohol and probably needs to lose approximately 40-50 pounds if possible. Would encourage low-fat diet and increasing exercise regimen. From a GI standpoint is likely safe to go home. 08/08/16--again from a GI standpoint he is safe to go home. He might want to consider use of vitamin E 400 international units twice daily which may overtime improve steatohepatitis along with abstinence from alcohol and weight loss. Dr. Juarez will resume care tomorrow. Current Visit: Yes Gastroenterology - PN: Subj Interval history: Again, this patient is being seen for Dr. Juarez who is off of the weekend. He is complaining the postcholecystectomy he is too weak to walk and would like to be seen again by physical therapy and arrange for a walker that he feels is something he will need prior to going home. He feels that otherwise he could be discharged if he had this. He is doing better with p.o. intake on proton pump inhibition. Potassium is improved. Physical therapy does not usually visit established patients on the weekend. Exam (Progress Note) - Constitutional Vitals: Period Temp Pulse Resp BP Sys/[place] Pulse Ox Last 24 Hr 96.7 F-98 F 18-92 16-20 83-153/41-86 90-96 General appearance: mild distress - Head Head exam: Present: normocephalic, atraumatic - Eye Eye exam: Present: EOMI Pupils: Present: ELIER - ENT ENT exam: Present: normal exam - Neck Neck exam: Present: normal inspection - Respiratory Respiratory exam: Present: clear to auscultation bilaterally. Absent: rales, rhonchi, stridor, wheezes - Cardiovascular Cardiovascular exam: Present: regular rate and rhythm - GI/Abdominal GI/Abdominal exam: Present: normal bowel sounds, soft. Absent: distended, guarding, tenderness, rebound - Extremities Exam Extremities exam: Absent: edema - Neurological Exam Neurological exam: Present: alert, oriented X3 - Psychiatric Psychiatric exam: Present: anxious - Skin Skin exam: Present: warm Results - Labs CBC & BMP: 08/08/16 04:19 08/08/16 04:19 Specialty Discharge - Follow Up or Referrals Follow up with: Cosme Baker MD [Physician] - 08/18/16 9:00 am (appt. with DR. BAKER AUGUST 18 @ 9:00AM FOR LAB & 9:20AM WITH DR. BAKER)
[2016-08-08] MEDS: FUROSEMIDE 40 MG/4 ML VIAL IV SCH (08:42)
[2016-08-08] MEDS: INSULIN LISPRO 100 UNIT/ML SUBCUT SCH ×4 (08:48→21:02)
--- NOTE | 2016-08-08 10:06 | Family Practice Progress Note ---
Family Practice - PN: Subj Interval history: Patient seen. Afebrile lab is stable at this time no overall changes at present. Continuing PPIs. Intake is a little bit better. Needs to try to increase his activity possible Exam (Progress Note) - Constitutional Vitals: Period Temp Pulse Resp BP Sys/[place] Pulse Ox Last 24 Hr 96.7 F-98 F 18-92 16-20 83-153/41-86 90-96 Exam: HEENT normocephalic neck is supple Respiratory no specific shortness of breath at this time. Cardiovascular rate regular no gallop Abdomen does have very hypoactive bowel sounds Neurologically fully intact Psychiatric normal affect Results - Labs CBC & BMP: 08/08/16 04:19 08/08/16 04:19 Quality Measures - VTE Contraindication to Pharmacological VTE Prophylaxis: High Risk of Bleeding Specialty Discharge - Follow Up or Referrals Follow up with: Cosme Baker MD [Physician] - 08/18/16 9:00 am (appt. with DR. BAKER AUGUST 18 @ 9:00AM FOR LAB & 9:20AM WITH DR. BAKER)
--- NOTE | 2016-08-08 10:18 | Event Note ---
This note is a late entry from yesterday. Yesterday he was feeling much better and had much less abdominal complaints and nausea. He was afebrile with stable vital signs and his incisions look good. I had the nurses remove his skin clips and Steri-Stripped his wound. I had a long discussion with him and his .
[2016-08-08] MEDS: ENOXAPARIN 40 MG/0.4 ML SYRINGE SUBCUT SCH (11:32)
[2016-08-08] MEDS: ONDANSETRON 4 MG/2 ML VIAL IV PRN ×2 (13:30→21:03)
[2016-08-08] MEDS: TERAZOSIN 2 MG CAPSULE PO SCH (20:51)
--- NOTE | 2016-08-09 08:16 | Event Note ---
Patient had clear chest x-ray Tuesday. Room air oxygen saturation 96%. Stable from pulmonary standpoint. I will sign off. Please call if needed further.
[2016-08-09] MEDS: CLOPIDOGREL 75 MG TABLET PO SCH (08:37)
[2016-08-09] MEDS: FUROSEMIDE 40 MG/4 ML VIAL IV SCH (08:37)
[2016-08-09] MEDS: MAGNESIUM CHLORIDE 64 MG TABLET PO SCH (08:37)
[2016-08-09] MEDS: INSULIN LISPRO 100 UNIT/ML SUBCUT SCH ×4 (08:38→21:16)
[2016-08-09] MEDS: OMEGA 3 ACID ETHYL ESTERS 1 GM CAPSULE PO SCH ×2 (08:38→21:17)
[2016-08-09] MEDS: PANTOPRAZOLE 40 MG TABLET PO SCH ×3 (08:38→21:17)
[2016-08-09] MEDS: SPIRONOLACTONE 25 MG TABLET PO SCH (08:38)
[2016-08-09] MEDS: NIACIN ER 500 MG TABLET PO SCH (08:38)
[2016-08-09] MEDS: ASPIRIN CHEW 81 MG TABLET PO SCH (08:38)
[2016-08-09] MEDS: FLUTICASONE 50 MCG NASAL SPRAY 16 GM BOTTLE BOTH NARES SCH (08:39)
[2016-08-09] MEDS: PROMETHAZINE INJ 25 MG in SODIUM CHLORIDE 0.9% 50 ML IV PRN (09:47)
--- NOTE | 2016-08-09 09:48 | Gastrointestinal Progress Note ---
<Rachel Frank - Last Filed: 08/09/16 09:43> Assessment and Plan (1) Elevated liver enzymes Status: Acute Assessment and plan: 08/09-no repeat LFTs today however as of last check were trending down. Continue complaints of nausea without vomiting. Complaints of left upper chest wall pain. Plan an addendum followed by Dr. Juarez 08/06-LFTs essentially unchanged. Complaints of upper abdominal pain now with nausea. Poor appetite. Plan an addendum to follow by Dr. Juarez. 08/05-no repeat LFTs today. Patient's NG removed and tolerating diet. For possible transfer to floor today. Plan an addendum to follow by Dr. Juarez. 08/04-LFTs noted below. No changes at present time. Continue with tube feedings at present time. Plan an addendum to followed by Dr. Juarez. 08/03-no LFTs repeated today. Extubated and stable at present time. Continue to monitor. Recheck LFTs tomorrow. Plan an addendum to follow by Dr. Juarez. 08/02-bilirubin trended down. Weaning process continues. Plan and addendum to follow by Dr Juarez. 07/30-bilirubin 1.9 with transaminases continue to trend downward. Liver biopsy results noted. Patient with signs of DTs receiving Versed infusion and Ativan. Plan an addendum to follow by Dr. Juarez. 07/29-bilirubin at 1.7 with transaminases trending downward. Liver biopsy currently pending. Plan an addendum to follow by Dr. Juarez. 07/28-findings of elevated LFTs on admission with correlated findings of acute cholecystitis. Intraoperatively unable to perform cholecystectomy therefore liver biopsy obtained and results pending at present time. History of daily alcohol intake 5 years. Await pathology report from liver biopsy at this time. Plan an addendum to follow by Dr. Juarez. Current Visit: Yes Gastroenterology - PN: Subj Interval history: CC: Nausea, elevated liver enzymes Patient is seen awake alert with at bedside. States he had an uneventful night. States that he has continued nausea with minimal p.o. intake due to this but denies any vomiting episodes. States that he is having some continued upper epigastric pain but feels like this is possibly more chest wall associated. States that there is an area on his left upper chest that he has episodes of pain which are improved with repositioning and holding pressure on this area. He states that he is appetite is still fair and he is trying to eat. He is concerned regarding his weakness however states he feels if he is given a walker that he can manage at home. Physical therapist continue to work with him at present time. Abdomen soft, nontender. ROS: Denies SOB or chest pain Exam (Progress Note) - Constitutional Vitals: Period Temp Pulse Resp BP Sys/[place] Pulse Ox Last 24 Hr 96.8 F-98.4 F 82-100 16-20 118-135/62-81 93-97 General appearance: no acute distress, over weight - Head Head exam: Present: normal inspection, normocephalic - Eye Eye exam: Present: other (lids and conjunctiva unremarkable). Absent: scleral icterus - ENT ENT exam: Present: normal exam, normal oropharynx - Neck Neck exam: Present: normal inspection - Respiratory Respiratory exam: Present: clear to auscultation bilaterally. Absent: rales, rhonchi, wheezes - Cardiovascular Cardiovascular exam: Present: regular rate and rhythm. Absent: diastolic murmur , JVD, systolic murmur - GI/Abdominal GI/Abdominal exam: Present: normal bowel sounds, soft. Absent: ascites, distended, mass, organomegaly, tenderness - Extremities Exam Extremities exam: Present: normal inspection, full ROM - Back Exam Back exam: Present: normal inspection - Neurological Exam Neurological exam: Present: alert, oriented X3 - Psychiatric Psychiatric exam: Present: normal affect, normal mood - Skin Skin exam: Present: normal color, warm, dry Results - Labs CBC & BMP: 08/08/16 04:19 08/08/16 04:19 Lab Results: I have reviewed the past 24 hour labs Specialty Discharge - Follow Up or Referrals Follow up with: Cosme Rodríguez MD [Physician] - 08/18/16 9:00 am (appt. with DR. RODRÍGUEZ AUGUST 18 @ 9:00AM FOR LAB & 9:20AM WITH DR. RODRÍGUEZ) <Hemal Juarez - Last Filed: 08/09/16 10:25> Exam (Progress Note) - Constitutional Vitals: Period Temp Pulse Resp BP Sys/G[place]a Pulse Ox Last 24 Hr 96.8 F-98.4 F 82-100 16-20 118-135/62-81 93-97 Results - Labs CBC & BMP: 08/08/16 04:19 08/08/16 04:19
[2016-08-09] MEDS: ENOXAPARIN 40 MG/0.4 ML SYRINGE SUBCUT SCH (11:17)
[2016-08-09] MEDS: ONDANSETRON 4 MG TABLET PO SCH ×2 (13:18→21:18)
[2016-08-09] MEDS: TERAZOSIN 2 MG CAPSULE PO SCH (21:18)
[2016-08-10 04:52] LABS: Basophils # 0.1 10*3/uL (0.0-0.2); Basophils % 0.5 % (0.0-0.8); Eosinophils # 0.2 10*3/uL (0.0-0.87); Eosinophils % 1.8 % (0.00-10.9); Hematocrit 49.1 VOL% (42.0-52.0); Hemoglobin 16.4 GM/DL (14.0-18.0); Immature Granulocytes % 0.6 %; Immature Granulocytes Absolute 0.06 #; Lymphocytes # 2.3 10*3/uL (1.4-4.0); Lymphocytes % 21.4 % (21.2-54.2); Mean Corpuscular HGB Conc 33.4 GM/DL (32-36); Mean Corpuscular Hemoglobin 34 PG (27-34); Mean Corpuscular Volume 102.5 FL (87-102); Mean Platelet Volume 12.4 FL (9.6-12.0); Monocytes # 1.5 10*3/uL (0.11-0.8); Monocytes % 13.5 % (1.7-12.7); Neutrophils # 6.7 10*3/uL (1.4-7.4); Neutrophils % 62.2 % (38.7-73.9); Platelet Count 223 T/CUMM (130-400); Red Blood Count 4.79 MC/CUMM (3.8-5.5); Red Cell Distribution Width 12.6 % (9.3-17.3); White Blood Count 10.8 T/CUMM (4-12)
[2016-08-10 05:22] LABS: Albumin 3.1 G/DL (3.4-5.0); Calcium 8.7 MG/DL (8.5-10.1); Osmolality,Calculated 283.8 MOS/KG (273-304); Potassium 3.8 MMOL/L (3.5-5.1); Total Protein 7.1 G/DL (6.4-8.3)
[2016-08-10] MEDS: ONDANSETRON 4 MG TABLET PO SCH ×2 (05:31→12:08)
[2016-08-10] MEDS: PANTOPRAZOLE 40 MG TABLET PO SCH ×4 (07:09→08:19)
[2016-08-10] MEDS: OMEGA 3 ACID ETHYL ESTERS 1 GM CAPSULE PO SCH (08:15)
[2016-08-10] MEDS: ASPIRIN CHEW 81 MG TABLET PO SCH (08:15)
[2016-08-10] MEDS: NIACIN ER 500 MG TABLET PO SCH (08:15)
[2016-08-10] MEDS: MAGNESIUM CHLORIDE 64 MG TABLET PO SCH (08:16)
[2016-08-10] MEDS: FUROSEMIDE 40 MG/4 ML VIAL IV SCH (08:16)
[2016-08-10] MEDS: SPIRONOLACTONE 25 MG TABLET PO SCH (08:16)
[2016-08-10] MEDS: INSULIN LISPRO 100 UNIT/ML SUBCUT SCH ×2 (08:17→12:07)
[2016-08-10] MEDS: FLUTICASONE 50 MCG NASAL SPRAY 16 GM BOTTLE BOTH NARES SCH (08:17)
--- NOTE | 2016-08-10 10:19 | Discharge Summary ---
Hospital Course - Hospital Course Hospital Course: Patient is a 56-year-old male who was initially admitted on 07/26/2016 with signs and symptoms and radiographic evidence of acute cholecystitis. He underwent diagnostic laparoscopy at which time a liver biopsy was taken in there are findings are supportive of acute hepatitis with an inflamed, friable liver and less intraoperative convincing evidence of cholecystitis, so the gallbladder was not removed. Postoperatively, the patient was able to be extubated and was transferred to the ICU; this was felt likely secondary to his obstructive sleep apnea and suspected obesity hypoventilation syndrome. Patient was difficult to extubate with combativeness, and after further discussion with family it was felt this is likely secondary to alcohol withdrawal symptoms as his alcohol consumption was more accurately revealed. He was explained on 08/03/2016. Liver biopsy ultimately indicated hepatic steatosis; hepatitis testing negative. Postoperatively, he was debilitated and required physical therapy, Occupational Therapy, and support to regain mobility. He ultimately was able to ambulate independently. He also is able to advance his diet slowly; he initially complained of nausea,, but this was controlled with Zofran at the time of discharge. Gallbladder pathology has not been completely excluded, but considering the patient's completed course, proceed with any surgical intervention at this time does not seem.. We will monitor his progress and hopefully he can return to baseline function. Multiple consultants were requested and appreciated during this completed course including gastroenterology, cardiology, pulmonology, sleep services, and family practice. -Patient continued on PPI and Zofran per gastroenterology. Follow-up per recommendation. -Cardiology: . Continue Plavix - confirmed with clinic every other day dosing since 2014. Follow-up with Dr. Rodríguez outpatient - Last cardiology note said increase ACEI - pt with ACEI intolerance outpt. Pt home med is Losartan 50mg PO BID, but the pt is normotensive at the time of discharge. Instructing patient to monitor BP daily and address at outpatient appt. -Pulmonology/sleep studies; BiPAP machine home unit ordered settings 09/24. Follow up per recommendation. Diagnosis - Discharge Diagnosis (1) Acute cholecystitis Status: Resolved (2) Coronary artery disease with stent Status: Chronic (3) Elevated liver enzymes Status: Acute (4) Gastroesophageal reflux Status: Chronic (5) Hypertension Status: Chronic (6) Obstructive sleep apnea Status: Chronic (7) Alcohol dependence in controlled environment Status: Acute (8) Hepatic steatosis Status: Acute Specialty Discharge - Follow Up or Referrals Follow up with: Hemal Juarez MD [Physician] - (per his instruction ) Link Kramer MD [Physician] - 2 Weeks Cosme Rodríguez MD [Physician] - 08/18/16 9:00 am (appt. with DR. RODRÍGUEZ AUGUST 18 @ 9:00AM FOR LAB & 9:20AM WITH DR. RODRÍGUEZ. Routine f/u and address BP record +/- restart Losartan) Alina Patton MD [Physician] - (per his instruction) Discharge Plan - Discharge Data Disposition: Home Health Service Condition at Discharge: Stable Discharge Diet: heart healthy, low fat, low cholesterol Activity: resume usual activities as tolerated Hygiene: may shower Driving: not until seen by doctor Contact your physician if you experience:: fever over 101, Redness or swelling, Nausea/Vomiting, Shortness of breath, Bleeding, pain uncontrolled by pain medications - Discharge Medications New Ondansetron Tab [Zofran Tab] 8 mg PO Q8H #90 tablet Pantoprazole Tab [Protonix Tab] 40 mg PO DAILY #30 tablet Hydrocodone/Acetaminophen [Hydrocodon-Acetaminophen 5-325] 1 each PO Q6H PRN #30 tablet PRN Reason: Pain Severe (8-10) Continue Terazosin [Hytrin] 2 mg PO BEDTIME Simvastatin [Zocor] 40 mg PO BEDTIME Omeprazole 20 mg PO QAM Magnesium Chloride [Slow Mag] 64 mg PO DAILY Clopidogrel [Plavix] 75 mg PO QOTHER DAY Aspirin [Ecotrin] 325 mg PO QAM [place]-3/Dha/Epa/Fish Oil [Fish Oil 1,000 mg Softgel] 1 each PO BID Albuterol/Ipratropium Neb [Duoneb] 3 ml RESP TX RT Q6H Spironolactone [Aldactone] 25 mg PO DAILY #30 tablet Furosemide Tab [Lasix Tab] 20 mg PO DAILY Carvedilol [Coreg] 25 mg PO BID Niacin [Niacin ER] 1,000 mg PO DAILY traZODone [Desyrel] 50 mg PO BEDTIME PRN PRN Reason: Insomnia Fluticasone 50 Mcg Nasal [place] [Flonase Nasal [place]] 2 spray BOTH NARES DAILY spray - Follow Up or Referral Follow Up: Hemal Juarez MD [Physician] - (per his instruction ) Link Kramer MD [Physician] - 2 Weeks Alina Patton MD [Physician] - (per his instruction) Cosme Rodríguez MD [Physician] - 08/18/16 9:00 am (appt. with DR. RODRÍGUEZ AUGUST 18 @ 9:00AM FOR LAB & 9:20AM WITH DR. RODRÍGUEZ. Routine f/u and address BP record +/- restart Losartan) - Forms/Instructions Instructions: Sleep Apnea Syndrome (DC), Low Fat Diet (DC), How to Take a Blood Pressure (DC), Laparoscopic Cholecystectomy (DC), Non-Alcoholic Fatty Liver Disease (DC) Additional Discharge Instructions: Check Blood pressure daily Exam - Constitutional Vitals: Period Temp Pulse Resp BP Sys/G[place]a Pulse Ox Last 24 Hr 96.1 F-97.8 F 76-94 16-20 96-146/48-81 92-95 General appearance: no acute distress, morbidly obese - Head Head exam: Present: normal inspection, normocephalic - Eye Eye exam: Absent: conjunctival injection, scleral icterus - Respiratory Respiratory exam: Present: clear to auscultation bilaterally - Cardiovascular Cardiovascular exam: Present: regular rate and rhythm - GI/Abdominal GI/Abdominal exam: Present: normal bowel sounds, soft, other (Surgical incisions well-healed. ). Absent: tenderness - Extremities Exam Extremities exam: Absent: calf tenderness, edema - Neurological Exam Neurological exam: Present: alert, oriented X3 - Psychiatric Psychiatric exam: Present: normal affect, normal mood - Skin Skin exam: Present: normal color, warm Discharge Results Procedures and tests throughout hospitalization: Pending Orders 08/03/16 16:00 Fungal Culture w/ Prep Routine Labs on day of discharge: Labs from last 24 hours 08/10/16 08/10/16 08/10/16 07:38 04:39 04:39 WBC 10.8 RBC 4.79 Hgb 16.4 Hct 49.1 MCV 102.5 H MCH 34 MCHC 33.4 RDW 12.6 Plt Count 223 MPV 12.4 H Neut % (Auto) 62.2 Lymph % (Auto) 21.4 [place] % (Auto) 13.5 H Eos % (Auto) 1.8 Baso % (Auto) 0.5 Neut # (Auto) 6.7 Lymph # (Auto) 2.3 [place] # (Auto) 1.5 H Eos # (Auto) 0.2 Baso # (Auto) 0.1 Immature Gran % 0.6 Nucleated RBC % 0.0 Immature Gran # 0.06 Nucleated RBCs # 0.00 Sodium 137 Potassium 3.8 Chloride 99 Carbon Dioxide 30 Anion Gap 11.8 BUN 26 H Creatinine 1.20 GFR Calculation 91 BUN/Creatinine Ratio 21.00 H Glucose 200 H POC Glucose 163 H Calculated Osmolality 283.8 Calcium 8.7 Total Bilirubin 1.00 AST 49 H ALT 56 Alkaline Phosphatase 105 Total Protein 7.1 Albumin 3.1 L Globulin 4.0 H Albumin/Globulin Ratio 0.7 L 08/09/16 08/09/16 08/09/16 19:20 16:32 11:50 WBC RBC Hgb Hct MCV MCH MCHC RDW Plt Count MPV Neut % (Auto) Lymph % (Auto) [place] % (Auto) Eos % (Auto) Baso % (Auto) Neut # (Auto) Lymph # (Auto) [place] # (Auto) Eos # (Auto) Baso # (Auto) Immature Gran % Nucleated RBC % Immature Gran # Nucleated RBCs # Sodium Potassium Chloride Carbon Dioxide Anion Gap BUN Creatinine GFR Calculation BUN/Creatinine Ratio Glucose POC Glucose 218 H 147 H 150 H Calculated Osmolality Calcium Total Bilirubin AST ALT Alkaline Phosphatase Total Protein Albumin Globulin Albumin/Globulin Ratio Bili 1.0; AST 49; ALT 56; [id number] - Imaging and Cardiology Cardiology Procedure: other (ECHO: mild LVH; EF 60%; PAP 42 mmHg) Procedure: Chest x-ray: image reviewed by me, report reviewed by me (serial), CT Abdomen and Pelvis: image reviewed by me, report reviewed by me DS: Provider Date of admission: 07/27/16 02:27 Primary care physician: . No PCP Attending physician on admission: Link Kramer MD Consults: 07/27/16 04:10 Consult to Case Mgmt/Social Srvs [CONS] Routine Reason for Case Mgmt/Social Srvs: Rehab Other Consult Comment: Home situation Consult to Physician [CONS] Routine Comment: This is his patient Consulting Provider: Jigar Corrigan Consulting Provider Notified: Yes When should Consulting Provider be notified: In am Person Notified: dr. corrigan Date Notified: 07/27/16 Time Notified: 07:59 Consult Notification Comment: alphonso called with room number 07/27/16 08:31 Consult to Physician [CONS] Routine Comment: Patient to evaluate in case surgery is needed. Consulting Provider: Cosme Rodríguez Consulting Provider Notified: Yes When should Consulting Provider be notified: Now Person Notified: blair verma Date Notified: 07/27/16 Time Notified: 08:41 07/27/16 13:21 Consult to Diabetes Center, Educator [CONS] Routine Reason for Instrument Shop Supervisor: Diabetes Education Consult Comment: new onset type 2 diabetes 07/27/16 16:48 Consult to Physician [CONS] Routine Comment: Lorie syed out of town Consulting Provider: Hemal Juarez Person Notified: Dr Melo Date Notified: 07/27/16 Time Notified: 17:35 Consult Notification Comment: notified of consult, already talked with Dr Kramer 07/27/16 17:30 Consult to Physician [CONS] Routine Comment: [employer] 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 Provider: Alfredo Nogueira When should Consulting Provider be notified: Now Person Notified: Dr Nogueira Date Notified: 07/27/16 Time Notified: 17:31 Consult Notification Comment: notified of consult 07/29/16 11:38 Consult to Dietitian [CONS] Routine Reason for Dietitian: TF-Initiate/Manage 08/03/16 11:28 Consult to Sleep Center [CONS] Routine Reason for Sleep Center: Sleep Center Physician Consult Comment: EDA, post extubation 08/04/16 12:53 Consult to Physical Therapy [CONS] Routine Reason for Physical Therapy: Evaluate and Treat 08/06/16 13:34 Consult to Occupational Therapy [CONS] Routine Reason for Occupational Therapy: Evaluate and Treat Weakness Discharging clinician: Domitila Ann PA-C
[2016-08-10] MEDS: ENOXAPARIN 40 MG/0.4 ML SYRINGE SUBCUT SCH (11:02)
--- NOTE | 2016-08-10 11:15 | Gastrointestinal Progress Note ---
<Rachel Frank - Last Filed: 08/10/16 11:12> Assessment and Plan (1) Elevated liver enzymes Status: Acute Assessment and plan: 08/10-appetite improved, nausea controlled with Zofran 3 times daily. For discharge home today. Will discharge home with Zofran to use as needed. Plan an addendum to followed by Dr. Juarez. 08/09-no repeat LFTs today however as of last check were trending down. Continue complaints of nausea without vomiting. Complaints of left upper chest wall pain. Plan an addendum followed by Dr. Juarez 08/06-LFTs essentially unchanged. Complaints of upper abdominal pain now with nausea. Poor appetite. Plan an addendum to follow by Dr. Juarez. 08/05-no repeat LFTs today. Patient's NG removed and tolerating diet. For possible transfer to floor today. Plan an addendum to follow by Dr. Juarez. 08/04-LFTs noted below. No changes at present time. Continue with tube feedings at present time. Plan an addendum to followed by Dr. Juarez. 08/03-no LFTs repeated today. Extubated and stable at present time. Continue to monitor. Recheck LFTs tomorrow. Plan an addendum to follow by Dr. Juarez. 08/02-bilirubin trended down. Weaning process continues. Plan and addendum to follow by Dr Juarez. 07/30-bilirubin 1.9 with transaminases continue to trend downward. Liver biopsy results noted. Patient with signs of DTs receiving Versed infusion and Ativan. Plan an addendum to follow by Dr. Juarez. 07/29-bilirubin at 1.7 with transaminases trending downward. Liver biopsy currently pending. Plan an addendum to follow by Dr. Juarez. 07/28-findings of elevated LFTs on admission with correlated findings of acute cholecystitis. Intraoperatively unable to perform cholecystectomy therefore liver biopsy obtained and results pending at present time. History of daily alcohol intake 5 years. Await pathology report from liver biopsy at this time. Plan an addendum to follow by Dr. Juarez. Gastroenterology - PN: Subj Interval history: CC: Nausea Patient is seen awake and alert sitting on bed with at side. States he had an uneventful night. States that since the Zofran was increased to 3 times daily that he is feeling much better and is able to eat more of his diet. He denies any abdominal pain, nausea or vomiting at this time. He is noted for discharge home today with home health services to assist with therapy. Family is requesting for the dietitian to come by and speak with them prior to discharge regarding his dietary limitations. Abdomen soft, nontender. ROS: Denies shortness of breath or chest pain. Exam (Progress Note) - Constitutional Vitals: Period Temp Pulse Resp BP Sys/[place] Pulse Ox Last 24 Hr 96.1 F-97.8 F 76-94 16-20 96-146/48-81 92-95 General appearance: no acute distress, over weight - Head Head exam: Present: normal inspection, normocephalic - Eye Eye exam: Present: other (Lids objective unremarkable). Absent: scleral icterus - ENT ENT exam: Present: normal exam, normal oropharynx - Neck Neck exam: Present: normal inspection - Respiratory Respiratory exam: Present: clear to auscultation bilaterally. Absent: rales, rhonchi, wheezes - Cardiovascular Cardiovascular exam: Present: regular rate and rhythm. Absent: diastolic murmur , JVD, systolic murmur - GI/Abdominal GI/Abdominal exam: Present: normal bowel sounds, soft. Absent: ascites, distended, mass, organomegaly, tenderness - Extremities Exam Extremities exam: Present: normal inspection, full ROM - Back Exam Back exam: Present: normal inspection - Neurological Exam Neurological exam: Present: alert, oriented X3 - Psychiatric Psychiatric exam: Present: normal affect, normal mood - Skin Skin exam: Present: normal color, warm, dry Results - Labs CBC & BMP: 08/10/16 04:39 08/10/16 04:39 Lab Results: I have reviewed the past 24 hour labs Specialty Discharge - Follow Up or Referrals Follow up with: Hemal Juarez MD [Physician] - (per his instruction NEEDED ) Link Kramer MD [Physician] - 08/30/16 10:00 am Cosme Rodríguez MD [Physician] - 08/18/16 9:00 am (appt. with DR. RODRÍGUEZ AUGUST 18 @ 9:00AM FOR LAB & 9:20AM WITH DR. RODRÍGUEZ. Routine f/u and address BP record +/- restart Losartan) Alina Patton MD [Physician] - (per his instruction) Jigar Corrigan DO [Physician] - 08/25/16 11:15 am <Hemal Juarez - Last Filed: 08/10/16 18:39> Exam (Progress Note) - Constitutional Vitals: Period Temp Pulse Resp BP Sys/[place] Pulse Ox Last 24 Hr 96.1 F-97.7 F 79-94 16-20 96-125/48-81 92-94 Results - Labs CBC & BMP: 08/10/16 04:39 08/10/16 04:39
[2016-08-10 11:47] VITALS: BP 125/77
== END 2016-08-10 15:34 | disposition home health service (06) | DRG 420 ==
LOC: N.ED 22:50 → N.EDINP 07-27 02:27 → N.3E 07-27 04:09 → N.ICU 07-27 16:55 → N.TELEN 08-05 16:52
PROVIDERS: ADMIT Surgery; ATTEND Surgery
PROC: LAPCHOL (2016-07-27 15:33)

== ENCOUNTER 2019-01-23 10:50 | Inpatient (IN) ==
[2019-01-23] MEDS ORDERED: ASPIRIN 325 MG TABLET PO STA (11:36)
[2019-01-23] MEDS ORDERED: ENOXAPARIN 100 MG/ML SYRINGE SUBCUT STA (11:36)
[2019-01-23 12:17] LABS: Alanine Aminotransferase 35 U/L (16-61); Albumin 3.7 G/DL (3.4-5.0); Alkaline Phosphatase 57 U/L (45-117); Aspartate Amino Transferase 50 U/L (0-37); Blood Urea Nitrogen 31 MG/DL (7-18); Calcium 9.4 MG/DL (8.5-10.1); Estimated Glom Filtration Rate 40 ML/MIN; Glucose 155 MG/DL (74-106); Osmolality,Calculated 273.5 MOS/KG (273-304); Total Protein 8.4 G/DL (6.4-8.3)
[2019-01-23 12:44] LABS: Basophils # 0.1 10*3/uL (0.0-0.2); Basophils % 0.2 % (0.0-0.8); Hematocrit 39.3 VOL% (42.0-52.0); Immature Granulocytes % 4.3 %; Immature Granulocytes Absolute 1.57 #; Lymphocytes # 1.5 10*3/uL (1.4-4.0); Lymphocytes % 4.2 % (21.2-54.2); Mean Corpuscular HGB Conc 33.1 GM/DL (32-36); Mean Corpuscular Volume 96.8 FL (87-102); Mean Platelet Volume 11.2 FL (9.6-12.0); Monocytes % 9.6 % (1.7-12.7); Neutrophils % 81.7 % (38.7-73.9); Platelet Count 196 T/CUMM (130-400); Red Blood Count 4.06 MC/CUMM (3.8-5.5); Red Cell Distribution Width 12.5 % (9.3-17.3)
[2019-01-23 13:05] LABS: Band Neutrophils 27 % (0-10); Lymphocytes 5 % (20-55); Platelet Estimate Normal; Segmented Neutrophils 57 % (50-85); Total Cells Counted 100
[2019-01-23 13:06] LABS: Anisocytosis 1+; Macrocytosis 1+
[2019-01-23 13:19] LABS: White Blood Count 36.3 T/CUMM (4-12)
[2019-01-23] MEDS ORDERED: cefTRIAXone 1,000 MG in SODIUM CHLORIDE 0.9% 100 ML IV STA (13:42)
[2019-01-23] MEDS ORDERED: SODIUM CHLORIDE 0.9% 2,200 ML IV ONE (13:43)
[2019-01-23 14:23] LABS: Apearance,Urine CLOUDY (Clear); Bacteria,Urine Occasional /HPF (Few); Bilirubin,Urine Negative (Negative); Blood, Urine Small mg/dL (Negative); Glucose,Urine (UA) 50 mg/dL (Negative); Hyaline Casts,Urine 38 /LPF (0-3); Ketones,Urine Negative (Negative); Mucus,Urine Moderate /LPF (Occasional); Nitrite,Urine Negative (Negative); Protein,Urine 100 MG/DL; RBC,Urine 1 /HPF (0-4); Squamous Epithelial Cell,Urine Occasional /HPF (0-10); Urine Color Dark yellow (Yellow); Urine Specific Gravity 1.027 (1.001-1.035); WBC,Urine 3 /HPF (0-6)
[2019-01-23] MEDS ORDERED: ONDANSETRON 4 MG/2 ML VIAL IV PRN (14:52)
[2019-01-23] MEDS ORDERED: AZITHROMYCIN 250 MG TABLET PO STA (16:58)
[2019-01-23] MEDS ORDERED: AZITHROMYCIN 250 MG TABLET ONE (16:59)
[2019-01-23] MEDS: SODIUM CHLORIDE 0.9% 3,800 ML IV ONE ×2 (17:25→21:49)
[2019-01-23] MEDS: ACETAMINOPHEN 325 MG TABLET PO PRN (17:38)
[2019-01-23] MEDS ORDERED: busPIRone 15 MG TABLET PO SCH (21:00)
[2019-01-23] MEDS ORDERED: SIMVASTATIN 40 MG TABLET PO SCH (21:00)
[2019-01-23] MEDS ORDERED: BUDESONIDE/FORMOTEROL 160-4.5 INHALER 6 GM INH SCH (21:00)
[2019-01-23] MEDS: MORPHINE 4 MG/1 ML VIAL IM PRN (21:20)
[2019-01-23] MEDS: SODIUM CHLORIDE 0.45% 1,000 ML IV SCH (21:47)
[2019-01-23] MEDS: ENOXAPARIN 40 MG/0.4 ML SYRINGE SUBCUT SCH (21:53)
[2019-01-23] MEDS: INSULIN LISPRO 100 UNIT/ML SUBCUT SCH (22:01)
[2019-01-23] MEDS: DOCUSATE SODIUM 100 MG CAPSULE PO SCH (23:24)
[2019-01-23] MEDS: OMEGA 3 ACID ETHYL ESTERS 1 GM CAPSULE PO SCH (23:30)
[2019-01-24] MEDS: MORPHINE 4 MG/1 ML VIAL IM PRN ×2 (04:50→21:30)
[2019-01-24 05:23] LABS: Basophils # 0.1 10*3/uL (0.0-0.2); Basophils % 0.2 % (0.0-0.8); Eosinophils % 0.1 % (0.00-10.9); Hematocrit 33.3 VOL% (42.0-52.0); Immature Granulocytes % 4.4 %; Immature Granulocytes Absolute 1.27 #; Lymphocytes # 2.2 10*3/uL (1.4-4.0); Lymphocytes % 7.6 % (21.2-54.2); Mean Corpuscular HGB Conc 32.1 GM/DL (32-36); Mean Corpuscular Volume 98.5 FL (87-102); Mean Platelet Volume 11.2 FL (9.6-12.0); Monocytes % 9.6 % (1.7-12.7); Neutrophils % 78.1 % (38.7-73.9); Red Blood Count 3.38 MC/CUMM (3.8-5.5); Red Cell Distribution Width 12.7 % (9.3-17.3); White Blood Count 28.7 T/CUMM (4-12)
[2019-01-24 05:25] LABS: Hemoglobin 10.7 GM/DL (14.0-18.0); Platelet Count 156 T/CUMM (130-400)
[2019-01-24 05:29] LABS: Band Neutrophils 3 % (0-10); Lymphocytes 5 % (20-55); Platelet Estimate Adequate; Segmented Neutrophils 82 % (50-85); Total Cells Counted 100
[2019-01-24 05:30] LABS: Hypochromasia 1+
[2019-01-24 05:36] LABS: Albumin 2.9 G/DL (3.4-5.0); Bilirubin,Total 0.8 MG/DL (0.2-1.0); Calcium 8.1 MG/DL (8.5-10.1); Osmolality,Calculated 283.4 MOS/KG (273-304); Risk Ratio 1.6; Thyroid Stimulating Hormone 1.43 uIU/ml (0.358-3.74); VLDL CHOLESTEROL 15.6 MG/DL
[2019-01-24] MEDS: SODIUM CHLORIDE 0.45% 1,000 ML IV SCH (05:42)
[2019-01-24] MEDS ORDERED: MAGNESIUM SULF RIDER 2 GM in PREMIX 1 EACH IV PRN (07:24)
[2019-01-24] MEDS: INSULIN LISPRO 100 UNIT/ML SUBCUT SCH ×4 (08:05→21:29)
[2019-01-24] MEDS: methylPREDNISolone SOD SUC 40 MG/1 ML VIAL IV SCH ×2 (08:08→17:09)
[2019-01-24] MEDS: POTASSIUM CHLORIDE INJ 20 MEQ, MAGNESIUM SULF INJ 2 GM in SODIUM CHLORIDE 0.45% 1,000 ML IV SCH ×2 (08:10→18:01)
[2019-01-24] MEDS ORDERED: MAGNESIUM CHLORIDE 64 MG TABLET PO SCH (09:00)
[2019-01-24] MEDS ORDERED: SPIRONOLACTONE 25 MG TABLET PO SCH (09:00)
[2019-01-24] MEDS: BUSPIRONE 30 MG PO SCH ×2 (10:50→21:30)
[2019-01-24] MEDS: FUROSEMIDE 20 MG TABLET PO SCH (10:51)
[2019-01-24] MEDS: ASPIRIN EC 325 MG TABLET PO SCH (10:51)
[2019-01-24] MEDS: PANTOPRAZOLE 40 MG TABLET PO SCH (10:52)
[2019-01-24] MEDS: DOCUSATE SODIUM 100 MG CAPSULE PO SCH ×2 (10:53→21:29)
[2019-01-24] MEDS: NIACIN 500 MG TABLET PO SCH (10:54)
[2019-01-24] MEDS: OMEGA 3 ACID ETHYL ESTERS 1 GM CAPSULE PO SCH ×2 (10:54→21:29)
[2019-01-24] MEDS: SERTRALINE 100 MG TABLET PO SCH (10:55)
[2019-01-24] MEDS: BUDESONIDE/FORMOTEROL 160-4.5 INHALER 6 GM INH SCH ×2 (10:55→21:30)
[2019-01-24] MEDS: AZITHROMYCIN 250 MG TABLET PO SCH (10:58)
[2019-01-24] MEDS: cefTRIAXone 1,000 MG in SYRINGE 1 EACH IV SCH (14:28)
[2019-01-24] MEDS ORDERED: CLOPIDOGREL 75 MG TABLET PO SCH ×3 (14:30→15:00)
[2019-01-24] MEDS: GABAPENTIN 100 MG CAPSULE PO SCH (14:42)
[2019-01-24] MEDS: ACETAMINOPHEN 325 MG TABLET PO SCH ×2 (14:42→21:30)
[2019-01-24] MEDS: ENOXAPARIN 40 MG/0.4 ML SYRINGE SUBCUT SCH (21:29)
[2019-01-24] MEDS: SIMVASTATIN 40 MG TABLET PO SCH (21:30)
[2019-01-24] MEDS: ZALEPLON 5 MG CAPSULE PO PRN (21:31)
[2019-01-25] MEDS: GABAPENTIN 100 MG CAPSULE PO SCH ×4 (01:09→21:31)
[2019-01-25] MEDS: methylPREDNISolone SOD SUC 40 MG/1 ML VIAL IV SCH (01:09)
[2019-01-25] MEDS: POTASSIUM CHLORIDE INJ 20 MEQ, MAGNESIUM SULF INJ 2 GM in SODIUM CHLORIDE 0.45% 1,000 ML IV SCH ×2 (01:50→09:09)
[2019-01-25 05:07] LABS: Basophils % 0.1 % (0.0-0.8); Hematocrit 36.7 VOL% (42.0-52.0); Hemoglobin 11.8 GM/DL (14.0-18.0); Immature Granulocytes % 1.4 %; Immature Granulocytes Absolute 0.29 #; Lymphocytes # 1.3 10*3/uL (1.4-4.0); Lymphocytes % 6.1 % (21.2-54.2); Mean Corpuscular HGB Conc 32.2 GM/DL (32-36); Mean Corpuscular Volume 97.9 FL (87-102); Mean Platelet Volume 11.2 FL (9.6-12.0); Monocytes % 3.4 % (1.7-12.7); Platelet Count 189 T/CUMM (130-400); Red Blood Count 3.75 MC/CUMM (3.8-5.5); Red Cell Distribution Width 12.4 % (9.3-17.3); White Blood Count 21.2 T/CUMM (4-12)
[2019-01-25 05:25] LABS: Albumin 2.8 G/DL (3.4-5.0); Bilirubin,Total 0.4 MG/DL (0.2-1.0); Calcium 8.7 MG/DL (8.5-10.1); Osmolality,Calculated 286.4 MOS/KG (273-304); Total Protein 7.5 G/DL (6.4-8.3)
[2019-01-25 05:43] LABS: Eosinophils 1 % (0-10); Lymphocytes 3 % (20-55); Platelet Estimate Adequate; Segmented Neutrophils 93 % (50-85); Total Cells Counted 100
[2019-01-25 05:44] LABS: Polychromasia Few
[2019-01-25] MEDS ORDERED: ALBUTEROL/IPRATROPIUM 3 ML NEB RESP TX PRN (08:40)
[2019-01-25] MEDS ORDERED: glyBURIDE 5 MG TABLET PO SCH (09:00)
[2019-01-25] MEDS: INSULIN LISPRO 100 UNIT/ML SUBCUT SCH ×4 (09:30→21:30)
[2019-01-25] MEDS: NIACIN 500 MG TABLET PO SCH (09:34)
[2019-01-25] MEDS: FUROSEMIDE 20 MG TABLET PO SCH (09:35)
[2019-01-25] MEDS: PANTOPRAZOLE 40 MG TABLET PO SCH (09:36)
[2019-01-25] MEDS: SERTRALINE 100 MG TABLET PO SCH (09:36)
[2019-01-25] MEDS: BUSPIRONE 30 MG PO SCH ×2 (09:37→21:31)
[2019-01-25] MEDS: OMEGA 3 ACID ETHYL ESTERS 1 GM CAPSULE PO SCH ×2 (09:38→21:30)
[2019-01-25] MEDS: ASPIRIN EC 325 MG TABLET PO SCH (09:38)
[2019-01-25] MEDS: DOCUSATE SODIUM 100 MG CAPSULE PO SCH ×2 (09:38→21:29)
[2019-01-25] MEDS: BUDESONIDE/FORMOTEROL 160-4.5 INHALER 6 GM INH SCH ×2 (09:39→21:31)
[2019-01-25] MEDS: ACETAMINOPHEN 325 MG TABLET PO SCH ×2 (09:42→21:31)
[2019-01-25] MEDS: AZITHROMYCIN 250 MG TABLET PO SCH (09:42)
[2019-01-25] MEDS: carvediloL 25 MG TABLET PO SCH ×2 (10:22→21:31)
[2019-01-25] MEDS: cefTRIAXone 1,000 MG in SYRINGE 1 EACH IV SCH (13:58)
[2019-01-25 15:50] LABS: Procalcitonin, S 6.7 ng/mL (<=0.15)
[2019-01-25] MEDS: ENOXAPARIN 40 MG/0.4 ML SYRINGE SUBCUT SCH (21:29)
[2019-01-25] MEDS: ZALEPLON 5 MG CAPSULE PO PRN (21:30)
[2019-01-25] MEDS: PRAZOSIN 1 MG CAPSULE PO SCH (21:30)
[2019-01-25] MEDS: SIMVASTATIN 40 MG TABLET PO SCH (21:31)
[2019-01-25] MEDS: MORPHINE 4 MG/1 ML VIAL IM PRN (22:30)
[2019-01-26 06:30] LABS: Basophils % 0.2 % (0.0-0.8); Eosinophils % 0.1 % (0.00-10.9); Hematocrit 35.5 VOL% (42.0-52.0); Hemoglobin 11.5 GM/DL (14.0-18.0); Immature Granulocytes % 1.9 %; Immature Granulocytes Absolute 0.37 #; Lymphocytes # 2.1 10*3/uL (1.4-4.0); Lymphocytes % 10.7 % (21.2-54.2); Mean Corpuscular HGB Conc 32.4 GM/DL (32-36); Mean Corpuscular Volume 97.3 FL (87-102); Mean Platelet Volume 11.3 FL (9.6-12.0); Monocytes % 5.8 % (1.7-12.7); Neutrophils % 81.3 % (38.7-73.9); Platelet Count 218 T/CUMM (130-400); Red Blood Count 3.65 MC/CUMM (3.8-5.5); Red Cell Distribution Width 12.5 % (9.3-17.3); White Blood Count 19.1 T/CUMM (4-12)
[2019-01-26 07:09] LABS: Calcium 8.5 MG/DL (8.5-10.1)
[2019-01-26 07:10] LABS: Albumin 2.6 G/DL (3.4-5.0); Blood Urea Nitrogen 31 MG/DL (7-18); Glucose 122 MG/DL (74-106)
[2019-01-26 07:13] LABS: Alanine Aminotransferase 71 U/L (16-61); Aspartate Amino Transferase 34 U/L (0-37); Estimated Glom Filtration Rate 119 ML/MIN
[2019-01-26 07:15] LABS: Bilirubin,Total < 0.39 MG/DL (0.2-1.0); Total Protein 6.9 G/DL (6.4-8.3)
[2019-01-26 07:16] LABS: Alkaline Phosphatase 59 U/L (45-117)
[2019-01-26] MEDS: ACETAMINOPHEN 325 MG TABLET PO SCH (09:42)
[2019-01-26] MEDS: OMEGA 3 ACID ETHYL ESTERS 1 GM CAPSULE PO SCH ×2 (09:42→21:42)
[2019-01-26] MEDS: AZITHROMYCIN 250 MG TABLET PO SCH (09:42)
[2019-01-26] MEDS: PANTOPRAZOLE 40 MG TABLET PO SCH (09:42)
[2019-01-26] MEDS: CLOPIDOGREL 75 MG TABLET PO SCH (09:42)
[2019-01-26] MEDS: carvediloL 25 MG TABLET PO SCH ×2 (09:43→21:41)
[2019-01-26] MEDS: glyBURIDE 5 MG TABLET PO SCH (09:43)
[2019-01-26] MEDS: ASPIRIN EC 325 MG TABLET PO SCH (09:44)
[2019-01-26] MEDS: DOCUSATE SODIUM 100 MG CAPSULE PO SCH ×2 (09:44→21:45)
[2019-01-26] MEDS: GABAPENTIN 100 MG CAPSULE PO SCH ×3 (09:44→21:43)
[2019-01-26] MEDS: FUROSEMIDE 20 MG TABLET PO SCH (09:44)
[2019-01-26] MEDS: BUDESONIDE/FORMOTEROL 160-4.5 INHALER 6 GM INH SCH ×2 (09:45→21:46)
[2019-01-26] MEDS: NIACIN 500 MG TABLET PO SCH (09:45)
[2019-01-26] MEDS: SERTRALINE 100 MG TABLET PO SCH (09:45)
[2019-01-26] MEDS: BUSPIRONE 30 MG PO SCH ×2 (09:45→21:43)
[2019-01-26] MEDS: INSULIN LISPRO 100 UNIT/ML SUBCUT SCH ×4 (11:48→21:38)
[2019-01-26 13:46] LABS: Mycoplasma pneumoniae Ab Inter SEE COMMENTS; Mycoplasma pneumoniae Ab, IgG Positive (Negative); Mycoplasma pneumoniae Ab, IgM Negative (Negative)
[2019-01-26] MEDS ORDERED: INFLUENZA VIRUS VACCINE 0.5 ML SYRINGE IM ONE (17:18)
[2019-01-26] MEDS: cefTRIAXone 1,000 MG in SYRINGE 1 EACH IV SCH (17:28)
[2019-01-26] MEDS: ENOXAPARIN 40 MG/0.4 ML SYRINGE SUBCUT SCH (21:40)
[2019-01-26] MEDS: PRAZOSIN 1 MG CAPSULE PO SCH (21:42)
[2019-01-26] MEDS: SIMVASTATIN 40 MG TABLET PO SCH (21:44)
[2019-01-26] MEDS: ZALEPLON 5 MG CAPSULE PO PRN (22:00)
[2019-01-26] MEDS: MORPHINE 4 MG/1 ML VIAL IM PRN (22:01)
[2019-01-27 05:00] LABS: Basophils # 0.1 10*3/uL (0.0-0.2); Basophils % 0.5 % (0.0-0.8); Eosinophils # 0.2 10*3/uL (0.0-0.87); Eosinophils % 1.3 % (0.00-10.9); Hematocrit 37.3 VOL% (42.0-52.0); Immature Granulocytes % 6.2 %; Lymphocytes # 2.6 10*3/uL (1.4-4.0); Lymphocytes % 22.7 % (21.2-54.2); Mean Corpuscular HGB Conc 32.2 GM/DL (32-36); Mean Corpuscular Volume 98.7 FL (87-102); Mean Platelet Volume 10.7 FL (9.6-12.0); Monocytes % 9.3 % (1.7-12.7); Platelet Count 215 T/CUMM (130-400); Red Blood Count 3.78 MC/CUMM (3.8-5.5); Red Cell Distribution Width 12.8 % (9.3-17.3); White Blood Count 11.3 T/CUMM (4-12)
[2019-01-27 05:18] LABS: Alanine Aminotransferase 87 U/L (16-61); Albumin 2.8 G/DL (3.4-5.0); Alkaline Phosphatase 58 U/L (45-117); Aspartate Amino Transferase 33 U/L (0-37); Bilirubin,Total < 0.39 MG/DL (0.2-1.0); Blood Urea Nitrogen 30 MG/DL (7-18); Calcium 8.7 MG/DL (8.5-10.1); Estimated Glom Filtration Rate 119 ML/MIN; Glucose 85 MG/DL (74-106); Osmolality,Calculated 292.7 MOS/KG (273-304); Total Protein 6.8 G/DL (6.4-8.3)
[2019-01-27 06:01] LABS: Band Neutrophils 4 % (0-10); Eosinophils 1 % (0-10); Lymphocytes 25 % (20-55); Nucleated Red Blood Cells 1 (0-5); Segmented Neutrophils 62 % (50-85); Total Cells Counted 100
[2019-01-27 06:02] LABS: Platelet Estimate Normal
[2019-01-27] MEDS: BUSPIRONE 30 MG PO SCH ×2 (09:45→21:12)
[2019-01-27] MEDS: FUROSEMIDE 20 MG TABLET PO SCH (09:45)
[2019-01-27] MEDS: OMEGA 3 ACID ETHYL ESTERS 1 GM CAPSULE PO SCH ×2 (09:45→21:05)
[2019-01-27] MEDS: GABAPENTIN 100 MG CAPSULE PO SCH ×3 (09:45→21:09)
[2019-01-27] MEDS: BUDESONIDE/FORMOTEROL 160-4.5 INHALER 6 GM INH SCH ×2 (09:45→21:04)
[2019-01-27] MEDS: NIACIN 500 MG TABLET PO SCH (09:45)
[2019-01-27] MEDS: ASPIRIN EC 325 MG TABLET PO SCH (09:45)
[2019-01-27] MEDS: glyBURIDE 5 MG TABLET PO SCH (09:45)
[2019-01-27] MEDS: PANTOPRAZOLE 40 MG TABLET PO SCH (09:45)
[2019-01-27] MEDS: carvediloL 25 MG TABLET PO SCH ×2 (09:45→21:09)
[2019-01-27] MEDS: DOCUSATE SODIUM 100 MG CAPSULE PO SCH ×2 (09:45→21:05)
[2019-01-27] MEDS: AZITHROMYCIN 250 MG TABLET PO SCH (10:00)
[2019-01-27] MEDS: SERTRALINE 100 MG TABLET PO SCH (10:00)
[2019-01-27] MEDS: INSULIN LISPRO 100 UNIT/ML SUBCUT SCH ×4 (11:44→21:19)
[2019-01-27] MEDS: cefTRIAXone 1,000 MG in SYRINGE 1 EACH IV SCH (15:33)
[2019-01-27] MEDS: ENOXAPARIN 40 MG/0.4 ML SYRINGE SUBCUT SCH (21:04)
[2019-01-27] MEDS: SIMVASTATIN 40 MG TABLET PO SCH (21:05)
[2019-01-27] MEDS: PRAZOSIN 1 MG CAPSULE PO SCH (21:05)
[2019-01-27] MEDS: MORPHINE 4 MG/1 ML VIAL IM PRN (21:20)
[2019-01-28 06:27] LABS: Basophils # 0.1 10*3/uL (0.0-0.2); Basophils % 0.5 % (0.0-0.8); Eosinophils # 0.3 10*3/uL (0.0-0.87); Eosinophils % 2.5 % (0.00-10.9); Hematocrit 38.5 VOL% (42.0-52.0); Hemoglobin 12.3 GM/DL (14.0-18.0); Immature Granulocytes % 8.2 %; Immature Granulocytes Absolute 0.82 #; Lymphocytes # 2.5 10*3/uL (1.4-4.0); Lymphocytes % 24.6 % (21.2-54.2); Mean Corpuscular HGB Conc 31.9 GM/DL (32-36); Mean Corpuscular Volume 97.7 FL (87-102); Mean Platelet Volume 10.3 FL (9.6-12.0); Monocytes % 9.4 % (1.7-12.7); Neutrophils % 54.8 % (38.7-73.9); Platelet Count 202 T/CUMM (130-400); Red Blood Count 3.94 MC/CUMM (3.8-5.5); Red Cell Distribution Width 12.4 % (9.3-17.3)
[2019-01-28 06:50] LABS: Band Neutrophils 1 % (0-10); Lymphocytes 19 % (20-55); Metamyelocytes 1 %; Platelet Estimate Normal; Segmented Neutrophils 69 % (50-85); Total Cells Counted 100
[2019-01-28 06:52] LABS: Macrocytosis Slight; Polychromasia Slight; Stomatocytes Slight
[2019-01-28] MEDS: INSULIN LISPRO 100 UNIT/ML SUBCUT SCH ×4 (08:19→21:21)
[2019-01-28] MEDS: AZITHROMYCIN 250 MG TABLET PO SCH (09:12)
[2019-01-28] MEDS: GABAPENTIN 100 MG CAPSULE PO SCH ×3 (09:13→21:19)
[2019-01-28] MEDS: OMEGA 3 ACID ETHYL ESTERS 1 GM CAPSULE PO SCH ×2 (09:13→21:20)
[2019-01-28] MEDS: FUROSEMIDE 20 MG TABLET PO SCH (09:13)
[2019-01-28] MEDS: ASPIRIN EC 325 MG TABLET PO SCH (09:13)
[2019-01-28] MEDS: glyBURIDE 5 MG TABLET PO SCH (09:14)
[2019-01-28] MEDS: DOCUSATE SODIUM 100 MG CAPSULE PO SCH ×2 (09:14→21:02)
[2019-01-28] MEDS: SERTRALINE 100 MG TABLET PO SCH (09:15)
[2019-01-28] MEDS: PANTOPRAZOLE 40 MG TABLET PO SCH (09:15)
[2019-01-28] MEDS: carvediloL 25 MG TABLET PO SCH ×2 (09:15→21:01)
[2019-01-28] MEDS: BUSPIRONE 30 MG PO SCH ×2 (09:27→21:22)
[2019-01-28] MEDS: BUDESONIDE/FORMOTEROL 160-4.5 INHALER 6 GM INH SCH ×2 (09:27→21:24)
[2019-01-28] MEDS: NIACIN 500 MG TABLET PO SCH ×2 (11:25→21:40)
[2019-01-28] MEDS: cefTRIAXone 1,000 MG in SYRINGE 1 EACH IV SCH (12:30)
[2019-01-28] MEDS: PRAZOSIN 1 MG CAPSULE PO SCH (21:19)
[2019-01-28] MEDS: ENOXAPARIN 40 MG/0.4 ML SYRINGE SUBCUT SCH (21:20)
[2019-01-28] MEDS: MORPHINE 4 MG/1 ML VIAL IM PRN (21:20)
[2019-01-28] MEDS: SIMVASTATIN 40 MG TABLET PO SCH (21:25)
[2019-01-28] MEDS: AMOXICILLIN 875 MG TABLET PO SCH (21:29)
[2019-01-29] MEDS: ASPIRIN EC 325 MG TABLET PO SCH (08:44)
[2019-01-29] MEDS: SERTRALINE 100 MG TABLET PO SCH (08:45)
[2019-01-29] MEDS: glyBURIDE 5 MG TABLET PO SCH (08:45)
[2019-01-29] MEDS: PANTOPRAZOLE 40 MG TABLET PO SCH (08:46)
[2019-01-29] MEDS: FUROSEMIDE 20 MG TABLET PO SCH (08:46)
[2019-01-29] MEDS: GABAPENTIN 100 MG CAPSULE PO SCH ×3 (08:46→22:32)
[2019-01-29] MEDS: OMEGA 3 ACID ETHYL ESTERS 1 GM CAPSULE PO SCH ×2 (08:46→22:32)
[2019-01-29] MEDS: CLOPIDOGREL 75 MG TABLET PO SCH (08:46)
[2019-01-29] MEDS: AZITHROMYCIN 250 MG TABLET PO SCH (08:47)
[2019-01-29] MEDS: carvediloL 12.5 MG TABLET PO SCH ×2 (08:55→22:31)
[2019-01-29] MEDS: INSULIN LISPRO 100 UNIT/ML SUBCUT SCH ×3 (08:57→22:21)
[2019-01-29] MEDS: DOCUSATE SODIUM 100 MG CAPSULE PO SCH (08:57)
[2019-01-29] MEDS: BUSPIRONE 30 MG PO SCH ×2 (11:09→22:32)
[2019-01-29] MEDS: BUDESONIDE/FORMOTEROL 160-4.5 INHALER 6 GM INH SCH ×2 (11:09→22:33)
[2019-01-29] MEDS: AMOXICILLIN 875 MG TABLET PO SCH ×2 (11:09→22:26)
[2019-01-29] MEDS: cefTRIAXone 1,000 MG in SYRINGE 1 EACH IV SCH (11:09)
[2019-01-29] MEDS: NIACIN 500 MG TABLET PO SCH (22:30)
[2019-01-29] MEDS: ENOXAPARIN 40 MG/0.4 ML SYRINGE SUBCUT SCH (22:32)
[2019-01-29] MEDS: SIMVASTATIN 40 MG TABLET PO SCH (22:34)
[2019-01-29] MEDS: ZALEPLON 5 MG CAPSULE PO PRN (22:41)
[2019-01-30] MEDS: DOCUSATE SODIUM 100 MG CAPSULE PO SCH ×3 (02:34→22:20)
[2019-01-30 05:19] LABS: Basophils # 0.1 10*3/uL (0.0-0.2); Basophils % 0.5 % (0.0-0.8); Eosinophils # 0.4 10*3/uL (0.0-0.87); Hemoglobin 12.2 GM/DL (14.0-18.0); Immature Granulocytes % 7.8 %; Immature Granulocytes Absolute 1.04 #; Lymphocytes # 3.1 10*3/uL (1.4-4.0); Mean Corpuscular HGB Conc 32.1 GM/DL (32-36); Mean Corpuscular Volume 97.2 FL (87-102); Mean Platelet Volume 10.6 FL (9.6-12.0); Monocytes % 6.6 % (1.7-12.7); Neutrophils % 59.1 % (38.7-73.9); Platelet Count 254 T/CUMM (130-400); Red Blood Count 3.91 MC/CUMM (3.8-5.5); Red Cell Distribution Width 12.5 % (9.3-17.3); White Blood Count 13.3 T/CUMM (4-12)
[2019-01-30 05:39] LABS: Calcium 9.1 MG/DL (8.5-10.1); Osmolality,Calculated 275.8 MOS/KG (273-304); Total Protein 6.9 G/DL (6.4-8.3)
[2019-01-30 05:45] LABS: Band Neutrophils 2 % (0-10); Eosinophils 3 % (0-10); Lymphocytes 16 % (20-55); Metamyelocytes 1 %; Segmented Neutrophils 68 % (50-85); Total Cells Counted 100
[2019-01-30 05:49] LABS: Hypochromasia 1+
[2019-01-30 05:50] LABS: Atypical Lymphocytes Few; Macrocytosis Slight
[2019-01-30 05:57] LABS: Platelet Estimate Normal
[2019-01-30] MEDS: SERTRALINE 100 MG TABLET PO SCH (09:42)
[2019-01-30] MEDS: ASPIRIN EC 325 MG TABLET PO SCH (09:42)
[2019-01-30] MEDS: AMOXICILLIN 875 MG TABLET PO SCH ×2 (09:42→22:20)
[2019-01-30] MEDS: AZITHROMYCIN 250 MG TABLET PO SCH (09:42)
[2019-01-30] MEDS: glyBURIDE 5 MG TABLET PO SCH (09:43)
[2019-01-30] MEDS: PANTOPRAZOLE 40 MG TABLET PO SCH (09:43)
[2019-01-30] MEDS: GABAPENTIN 100 MG CAPSULE PO SCH ×3 (09:43→22:21)
[2019-01-30] MEDS: FUROSEMIDE 20 MG TABLET PO SCH (09:43)
[2019-01-30] MEDS: INSULIN LISPRO 100 UNIT/ML SUBCUT SCH ×4 (09:43→22:19)
[2019-01-30] MEDS: OMEGA 3 ACID ETHYL ESTERS 1 GM CAPSULE PO SCH ×2 (09:43→22:20)
[2019-01-30] MEDS: carvediloL 12.5 MG TABLET PO SCH ×2 (09:43→22:20)
[2019-01-30] MEDS: cefTRIAXone 1,000 MG in SYRINGE 1 EACH IV SCH (09:44)
[2019-01-30] MEDS: BUSPIRONE 30 MG PO SCH ×2 (09:45→22:26)
[2019-01-30] MEDS: BUDESONIDE/FORMOTEROL 160-4.5 INHALER 6 GM INH SCH ×2 (09:47→22:26)
[2019-01-30] MEDS: ENOXAPARIN 40 MG/0.4 ML SYRINGE SUBCUT SCH (22:17)
[2019-01-30] MEDS: ZALEPLON 5 MG CAPSULE PO PRN (22:20)
[2019-01-30] MEDS: SIMVASTATIN 40 MG TABLET PO SCH (22:26)
[2019-01-30] MEDS: NIACIN 500 MG TABLET PO SCH (22:27)
[2019-01-31 04:58] LABS: Basophils # 0.1 10*3/uL (0.0-0.2); Basophils % 0.7 % (0.0-0.8); Eosinophils # 0.4 10*3/uL (0.0-0.87); Eosinophils % 3.3 % (0.00-10.9); Hematocrit 38.7 VOL% (42.0-52.0); Hemoglobin 12.5 GM/DL (14.0-18.0); Immature Granulocytes % 7.3 %; Immature Granulocytes Absolute 0.77 #; Lymphocytes # 2.7 10*3/uL (1.4-4.0); Lymphocytes % 25.9 % (21.2-54.2); Mean Corpuscular HGB Conc 32.3 GM/DL (32-36); Mean Corpuscular Volume 96.8 FL (87-102); Mean Platelet Volume 10.3 FL (9.6-12.0); Monocytes % 7.6 % (1.7-12.7); Neutrophils % 55.2 % (38.7-73.9); Platelet Count 233 T/CUMM (130-400); Red Cell Distribution Width 12.4 % (9.3-17.3); White Blood Count 10.5 T/CUMM (4-12)
[2019-01-31 05:09] LABS: Osmolality,Calculated 281.4 MOS/KG (273-304)
[2019-01-31 05:43] LABS: Eosinophils 3 % (0-10); Hypochromasia Slight; Lymphocytes 31 % (20-55); Segmented Neutrophils 60 % (50-85); Total Cells Counted 100
[2019-01-31 05:44] LABS: Macrocytosis Slight; Platelet Estimate Normal
[2019-01-31] MEDS: BUSPIRONE 30 MG PO SCH (08:41)
[2019-01-31] MEDS: carvediloL 12.5 MG TABLET PO SCH (08:42)
[2019-01-31] MEDS: OMEGA 3 ACID ETHYL ESTERS 1 GM CAPSULE PO SCH (08:42)
[2019-01-31] MEDS: GABAPENTIN 100 MG CAPSULE PO SCH (08:42)
[2019-01-31] MEDS: CLOPIDOGREL 75 MG TABLET PO SCH (08:42)
[2019-01-31] MEDS: DOCUSATE SODIUM 100 MG CAPSULE PO SCH (08:42)
[2019-01-31] MEDS: SERTRALINE 100 MG TABLET PO SCH (08:42)
[2019-01-31] MEDS: glyBURIDE 5 MG TABLET PO SCH (08:42)
[2019-01-31] MEDS: PANTOPRAZOLE 40 MG TABLET PO SCH (08:42)
[2019-01-31] MEDS: FUROSEMIDE 20 MG TABLET PO SCH (08:42)
[2019-01-31] MEDS: ASPIRIN EC 325 MG TABLET PO SCH (08:42)
[2019-01-31] MEDS: BUDESONIDE/FORMOTEROL 160-4.5 INHALER 6 GM INH SCH (08:45)
[2019-01-31] MEDS: INSULIN LISPRO 100 UNIT/ML SUBCUT SCH (08:46)
[2019-01-31] MEDS ORDERED: LEVOFLOXACIN 500 MG TABLET PO SCH (09:00)
[2019-01-31] MEDS: ACETAMINOPHEN 325 MG TABLET PO PRN (09:22)
[2019-01-31 10:47] VITALS: BP 134/66
== END 2019-01-31 11:41 | disposition home or self-care (01) | DRG 871 ==
LOC: N.ED 10:50 → N.EDINP 14:51 → N.ICU 15:59 → N.5E 01-29 18:17
PROVIDERS: ADMIT Family Medicine; ATTEND Family Medicine